=== PATIENT | female | born 1975 | race Two or more races ===

== ENCOUNTER 2020-09-16 19:53 | Inpatient (IN) | payer OTHER, SELFPAY ==
--- NOTE | ~2020-09-16 | US_ITS ---
EXAM: Pelvic Ultrasound CLINICAL INDICATION: Right-sided abdominal pain. Last Menstrual period 07/04/2020 COMPARISON: No similar prior imaging available for comparison at this institution. TECHNIQUE: The pelvis was evaluated using transabdominal imaging. FINDINGS: A single gestational sac is appreciated within the uterus. A yolk sac and pole are demonstrated. motion is appreciated. heart rate measured at 176 bpm. Pierce-rump length of 3.4 cm corresponds with an estimated gestational age of 10 weeks and 2 days. The left ovary measures approximately 2.0 x 1.4 x 1.5 cm and is normal. The right ovary measures approximately 2.8 x 2.0 x 2.0 cm and contains a 1.8 cm structure with characteristics suggestive of a regressing corpus luteum. There are no abnormal adnexal masses. There is no significant free fluid in the pelvis. US/US OB <= 14 weeks fetus IMPRESSION: Single live intrauterine with an estimated gestational age of 10 weeks and 2 days. Please note today's ultrasound was limited and only obtained to evaluate for viability and estimated dating. Follow-up detailed OB ultrasound recommended as clinically indicated.
--- NOTE | ~2020-09-16 | US_ITS ---
EXAMINATION: US RETROPERITONEAL LIMITED (RENAL ONLY) CLINICAL INFORMATION: Flank pain. COMPARISON: 10/28/2019 renal ultrasound. TECHNIQUE: Multiple 2-D grayscale and color Doppler ultrasound images of the kidneys were obtained. FINDINGS: RIGHT KIDNEY: 11.4 x 6.2 x 8.2 cm (SAG x AP x TRV). There is moderate dilatation of the collecting system. An echogenic focus in the lower pole measures 1.5 cm. An echogenic focus in the upper pole measures 1.6 cm. LEFT KIDNEY: 11.5 x 5.7 x 5.6 cm (SAG x AP x TRV). The kidney is normal in size, contour, and echogenicity. Renal cortical thickness is normal. No calculi or focal parenchymal lesions. No hydronephrosis. URINARY BLADDER: Mildly distended without focal abnormality. US/US renal BI IMPRESSION: Moderate right hydronephrosis with right intrarenal calculi as detailed above. The obstructing abnormality is not identified on this study. Further evaluation with a CT scan of the abdomen and pelvis is recommended.
--- NOTE | ~2020-09-16 | US_ITS ---
EXAMINATION: ULTRASOUND APPENDIX CLINICAL INFORMATION: Right-sided abdominal pain. COMPARISON: None TECHNIQUE: Multiple 2-D grayscale and color Doppler ultrasound images of the right lower quadrant were obtained. FINDINGS: The appendix was not visualized. There is no free fluid. The overlying soft tissues are unremarkable. Color Doppler showed no abnormal vascular flow. US/US appendix IMPRESSION: Nonidentification of the appendix. No overt inflammatory changes in the right lower quadrant.
[2020-09-16 20:37] VITALS: BP 122/72; PULSE 72; RESP 18; TEMP 36.7; O2SAT 100; BMI 26.6
[2020-09-16 21:03] LABS: MANUAL DIFF FLAG NO
[2020-09-16 21:05] LABS: Basophils Absolute Auto 0.1 X10*3/uL (0.0-0.2); Basophils Percent Auto 0.5 % (0-2); Eosinophils Absolute Auto 0.1 X10*3/uL (0.0-0.4); Eosinophils Percent Auto 0.6 % (0-4); Hematocrit 38.1 % (37-47); Hemoglobin 12.9 g/dl (12.0-16.0); Imm Gran Abs Auto 0.09 X10*3/uL (0.00-0.03); Imm Gran Pct Auto 0.5 % (0.0-0.4); Lymphocytes Absolute Auto 1.9 X10*3/uL (1.2-4.9); Lymphocytes Percent Auto 10.6 % (20-40); Mean Corpuscular HGB Conc 33.9 g/dl (31.0-35.0); Mean Corpuscular Hemoglobin 32.1 pg (27.0-33.0); Mean Corpuscular Volume 94.8 fL (80-98); Mean Platelet Volume 9.6 fL (9.4-12.3); Monocytes Percent Auto 5.6 % (2-11); Neutrophils Absolute Auto 14.3 X10*3/uL (2.0-8.3); Neutrophils Percent Auto 82.2 % (45-73); Platelet Count 313 X10*3/uL (160-400); Red Blood Count 4.02 X10*6/uL (4.20-5.50); Red Cell Distribution Width 13.2 % (11.0-16.0); White Blood Count 17.4 X10*3/uL (4.8-10.8)
[2020-09-16 21:05] LABS: Glucose Urine UA NEG (NEG); Leukocyte Esterase Urine 1+ (NEG); Nitrite Urine NEG (NEG); Specific Gravity - Urine 1.025 (1.005-1.025); UACC Culture Trigger YES; Urine Blood 2+ (NEG); Urine Ketones NEG (NEG); Urine Protein TRACE MG/DL (NEG-TRACE)
[2020-09-16 21:06] LABS: Appearance Urine HAZY; Color Urine YELLOW
[2020-09-16 21:15] VITALS: RESP 20
[2020-09-16 21:15] LABS: Squamous Epithelial Cell Urine 1+ /LPF
[2020-09-16] MEDS: Metoclopramide HCl 10 MG/2 ML VIAL IVPUSH (21:15)
[2020-09-16] MEDS: Morphine Sulfate 4 MG/ML CARTRIDGE IVPUSH ×3 (21:15→23:19)
[2020-09-16 21:16] LABS: Bacteria Urine 2+ /LPF
[2020-09-16] MEDS: 0.9 % Sodium Chloride 1,000 ML 999 ML IV (21:21)
[2020-09-16 21:27] LABS: Alanine Aminotransferase 11 U/L (0-31); Alkaline Phosphatase 63 U/L (39-117); Anion Gap 13 (12-20); Aspartate Amino Transferase 13 U/L (5-31); Bilirubin Total 0.5 mg/dL (0.0-1.0); Blood Urea Nitrogen 11 mg/dL (9-16); Calcium 9.3 mg/dL (8.4-10.2); Carbon Dioxide 22 mmol/L (22-29); Chloride 106 mmol/L (96-108); Creatinine Clr Calc Pharmacy 95.5; Estimated Glomerular Filt Rate > 60; Glucose Random 93 mg/dL (60-115); Potassium 3.9 mmol/L (3.3-5.1); Sodium 137 mmol/L (135-145); Total Protein 7.2 g/dL (6.5-8.0)
[2020-09-16 21:41] LABS: Lactic Acid 1.5 mmol/L (0.5-2.0)
--- NOTE | 2020-09-16 21:48 | ED.GENADULT ---
HPI - General Adult General Chief complaint: General Medical Stated complaint: flank pain, 10wks Time Seen by Provider: 09/16/20 20:55 Source: patient Mode of arrival: ambulatory Limitations: no limitations History of Present Illness HPI narrative: Pleasant 44-year-old female with past medical history that is significant for pyelonephritis and recurrent kidney stones requiring stenting as well as cystoscopy with lithotripsy most recently in August 2019 during which she had admission to [facility] there she underwent lithotripsy and stenting she sees Dr. Lincoln at [facility] Today; she presents with complaints sudden onset of right-sided flank pain radiating to the right side abdomen 2 hours prior to arrival. Pain described as sharp and stabbing like consistent with her previous kidney stone pain. Additionally she is 10 weeks gestation [facility] she has had thus far unremarkable had recent ultrasound that was stable. She has no gynecological complaints no complaints of dysuria, hematuria, vaginal bleeding or cramping. Onset (ago): hour(s) (2 hours prior to arrival) Location: left (Left flank) Radiation: abdomen and flank Severity: moderate and severe Severity scale (1-10): 8 Quality: stabbing and aching Pain Consistency: constant Relieving factors: none Exacerbating factors: none Associated symptoms: nausea/vomiting (The pain will make her nauseated and vomit) Treatments prior to arrival: none Related Data Home Medications Medication Instructions Recorded Confirmed 09/17/20 Allergies Allergy/AdvReac Type Severity Reaction Status Date / Time No Known Allergies Allergy Verified 09/16/20 20:55 Review of Systems Review of Systems: Constitutional: No Weight loss, No Fever, No Chills, No Night Sweats, No Fatigue, No Malaise ENT/Mouth: No Hearing loss, No Ear Pain, No Nasal Congestion, No Sinus Pain, No Hoarseness, No sore throat, No Rhinorrhea, No Swallowing Difficulty Eyes: No Eye Pain, No Swelling, No Redness, No Foreign Body, No Discharge, No Vision Changes Cardiovascular: No Chest Pain, No SOB, No Dyspnea on Exertion, No Orthopnea, No Edema, No Palpitations Respiratory: No Cough, No Sputum, No Wheezing, No Smoke Exposure, No Dyspnea Gastrointestinal: No Nausea, No Vomiting, No Diarrhea, No Constipation, No abdominal Pain, No Hematochezia, No Melena Genitourinary: no irregular bleeding, No Dysuria, No Urinary Frequency, No Hematuria, No Urinary Incontinence, No Urgency, + Flank Pain, No Urinary Flow Changes, No Hesitancy Musculoskeletal: No joint pain, No Myalgias, No Joint Swelling Skin: No Skin Lesions, No rash Neuro: No Weakness, No Numbness, No Paresthesias, No Loss of Consciousness, No Dizziness, No Headache Psych: No Social Issues Heme/Lymph: No Bruising, No Bleeding,No Lymphadenopathy Endocrine: No Polyuria, No Polydipsia, No Temperature Intolerance Yes all other systems are reviewed and are negative [facility] Past Medical History Medical History Kidney calculi No known health problems Social History Social History Advance Directives: No Patient : Yes Physical Exam Vital Signs: Vital Signs: Last Vital Signs Temp 97.5 F 09/16/20 22:28 Pulse 74 09/16/20 22:28 Resp 16 09/16/20 22:28 BP 127/79 09/16/20 22:28 Pulse Ox 100 09/16/20 22:28 Body Mass Index 26.6 Reviewed Const: General: acute distress (in pain) moderate and anxious; No intoxicated appearing Nutritional Appearance: average body habitus Orientation/consciousness: patient oriented x3 HENMT: Head: Yes normal to inspection Ears: hearing grossly normal bilaterally Eyes: General: appearance normal, both eyes and all related structures Visual [place]: normal visual [place] oca by confrontation Neck: Neck: Yes normal visual inspection, No positive Brudzinski's sign, No positive Kernig's sign and No tender Thyroid: Thyroid normal Chest: Chest palpation & inspection: normal inspection of the chest Resp: Effort & Inspection: normal respiratory effort Auscultation: clear to auscultation bilaterally Cardio: Jugular venous distension: no JVD Rhythm: regular rhythm Heart sounds: S1 normal heart sound present and S2 normal heart sound present GI: Inspection: Yes normal to inspection Palpation (GI): Soft to palpation Percussion: Yes normal to percussion Auscultation: normal bowel sounds Back/Spine/Pelvis: Back: CVA tenderness (Right-sided) Skin: General skin exam: no rashes or lesions noted Neuro: General: patient oriented x3 Extrem: General: Yes normal to inspection Course Reevaluation(s) Reevaluation #1: In review pleasant 44-year-old female with history of renal calculi requiring lithotripsy and stenting in the past with history of pyelonephritis currently 10 weeks 2 days gestation presenting with sudden onset of right flank pain consistent with renal calculi. 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 There was no complaints of vaginal bleeding or discharge. thus far has been overall well. Upon arrival appearing very uncomfortable and slightly pale she was given IV fluids with IV morphine and Reglan for pain management required multiple doses of this to control her pain. Ultrasound of the kidneys, right lower quadrant and Ob under 14 weeks was obtained in the meantime. Ob ultrasound shows single intrauterine live at 10 weeks 2 days, appendix not visualized. No overt inflammatory changes in the right lower quadrant. And ultrasound of the kidney showed Moderate right hydronephrosis with right intrarenal calculi as detailed in body of the report. The obstructing abnormality is not identified on this study. Further evaluation with a CT scan of the abdomen and pelvis was recommended. In the meantime I did review blood work shows leukocytosis of 17,000 UA is equivocal with negative ketones, negative nitrates, leukocyte esterase 1+, RBC 1 through 4, WBC 1 through 4, squamous cell 1+, bacteria 2+. She was given dose of ceftriaxone. At this point case was discussed with urology Dr. Mejía recommended for low does stone study CT scan I was called by Radiology Dr. Casey Agosto Radiology he recommends against this given that here at [facility] at this time I do not have the tools to administer a low-dose CT scan and he would discourage against this at this time and not authorize unless it is absolutely essential. Dr. Mejía aware this still feels that risk of radiation and congenital deformity is relatively low compared to procedure according to the [employer]. Will follow-up with patient in the morning to formulate a plan. Consultations Consultation #1: Dr. Mejía urology Consultation #2: Michelle Gaona allergy Dr. Peña Consultation #3: OBGYN Dr. Hdz per request of the family Medical Decision Making Lab Data Result diagrams: 09/16/20 20:56 09/16/20 20:55 Labs: Lab Results 09/16/20 09/16/20 09/16/20 Range/Units 20:55 20:56 20:57 WBC 17.4 H (4.8-10.8) X10*3/uL RBC 4.02 L (4.20-5.50) X10*6/uL Hgb 12.9 (12.0-16.0) g/dl Hct 38.1 (37-47) % MCV 94.8 (80-98) fL MCH 32.1 (27.0-33.0) pg MCHC 33.9 (31.0-35.0) g/dl RDW 13.2 (11.0-16.0) % Plt Count 313 (160-400) X10*3/uL MPV 9.6 (9.4-12.3) fL Immature Gran % (Auto) 0.5 H (0.0-0.4) % Neut % (Auto) 82.2 H (45-73) % Lymph % (Auto) 10.6 L (20-40) % Rock % (Auto) 5.6 (2-11) % Eos % (Auto) 0.6 (0-4) % Baso % (Auto) 0.5 (0-2) % Lymph # (Auto) 1.9 (1.2-4.9) X10*3/uL Rock # (Auto) 1.0 (0.1-1.2) X10*3/uL Eos # (Auto) 0.1 (0.0-0.4) X10*3/uL Baso # (Auto) 0.1 (0.0-0.2) X10*3/uL Abs Immat Gran (auto) 0.09 H (0.00-0.03) X10*3/uL Absolute Neuts (auto) 14.3 H (2.0-8.3) X10*3/uL Absolute Nucleated RBC 0.000 (0.0-0.012) X10*3/uL Nucleated RBC % (auto) 0.0 (0.0-0.2) /100WBC Sodium 137 (135-145) mmol/L Potassium 3.9 (3.3-5.1) mmol/L Chloride 106 (96-108) mmol/L Carbon Dioxide 22 (22-29) mmol/L Anion Gap 13 (12-20) BUN 11 (9-16) mg/dL Creatinine 0.73 (0.5-1.4) mg/dL Estim Creat Clear Calc 95.5 Estimated GFR > 60 Random Glucose 93 (60-115) mg/dL Lactic Acid (0.5-2.0) mmol/L Calcium 9.3 (8.4-10.2) mg/dL Total Bilirubin 0.5 (0.0-1.0) mg/dL AST 13 (5-31) U/L ALT 11 (0-31) U/L Alkaline Phosphatase 63 (39-117) U/L Total Protein 7.2 (6.5-8.0) g/dL Albumin 4.0 (3.5-5.0) g/dL Beta HCG, Quant 45059 mIU/mL Urine Color YELLOW Urine Appearance HAZY Urine pH 6.0 (5.0-8.0) Ur Specific [place] 1.025 (1.005-1.025) Urine Protein TRACE (NEG-TRACE) MG/DL Urine Glucose (UA) NEG (NEG) MG/DL Urine Ketones NEG (NEG) MG/DL Urine Blood 2+ H (NEG) Urine Nitrite NEG (NEG) Ur Leukocyte Esterase 1+ H (NEG) Urine RBC 1-4 (0) /HPF Urine WBC 1-4 (0-4) /HPF Ur Squamous Epith Cells 1+ /LPF Urine Bacteria 2+ /LPF Blood Type 09/16/20 09/16/20 Range/Units 21:13 21:13 WBC (4.8-10.8) X10*3/uL RBC (4.20-5.50) X10*6/uL Hgb (12.0-16.0) g/dl Hct (37-47) % MCV (80-98) fL MCH (27.0-33.0) pg MCHC (31.0-35.0) g/dl RDW (11.0-16.0) % Plt Count (160-400) X10*3/uL MPV (9.4-12.3) fL Immature Gran % (Auto) (0.0-0.4) % Neut % (Auto) (45-73) % Lymph % (Auto) (20-40) % Rock % (Auto) (2-11) % Eos % (Auto) (0-4) % Baso % (Auto) (0-2) % Lymph # (Auto) (1.2-4.9) X10*3/uL Rock # (Auto) (0.1-1.2) X10*3/uL Eos # (Auto) (0.0-0.4) X10*3/uL Baso # (Auto) (0.0-0.2) X10*3/uL Abs Immat Gran (auto) (0.00-0.03) X10*3/uL Absolute Neuts (auto) (2.0-8.3) X10*3/uL Absolute Nucleated RBC (0.0-0.012) X10*3/uL Nucleated RBC % (auto) (0.0-0.2) /100WBC Sodium (135-145) mmol/L Potassium (3.3-5.1) mmol/L Chloride (96-108) mmol/L Carbon Dioxide (22-29) mmol/L Anion Gap (12-20) BUN (9-16) mg/dL Creatinine (0.5-1.4) mg/dL Estim Creat Clear Calc Estimated GFR Random Glucose (60-115) mg/dL Lactic Acid 1.5 (0.5-2.0) mmol/L Calcium (8.4-10.2) mg/dL Total Bilirubin (0.0-1.0) mg/dL AST (5-31) U/L ALT (0-31) U/L Alkaline Phosphatase (39-117) U/L Total Protein (6.5-8.0) g/dL Albumin (3.5-5.0) g/dL Beta HCG, Quant mIU/mL Urine Color Urine Appearance Urine pH (5.0-8.0) Ur Specific [place] (1.005-1.025) Urine Protein (NEG-TRACE) MG/DL Urine Glucose (UA) (NEG) MG/DL Urine Ketones (NEG) MG/DL Urine Blood (NEG) Urine Nitrite (NEG) Ur Leukocyte Esterase (NEG) Urine RBC (0) /HPF Urine WBC (0-4) /HPF Ur Squamous Epith Cells /LPF Urine Bacteria /LPF Blood Type A Positive Discharge Plan Discharge Clinical Impression: Hydronephrosis, Renal calculi, UTI (urinary tract infection) Patient Disposition: Admitted As Inpatient Prescriptions: No Action RF: 0
[2020-09-16 21:57] VITALS: PULSE 73; RESP 16; O2SAT 100
[2020-09-16] MEDS: cefTRIAXone sodium 1 GM in 0.9 % Sodium Chloride 50 ML IV (22:24)
[2020-09-16 22:28] VITALS: BP 127/79; PULSE 74; RESP 16; TEMP 36.4; O2SAT 100
[2020-09-16] MEDS: Acetaminophen 325 MG TABLET 975 MG PO (23:20)
[2020-09-16] MEDS: ondansetron HCL 4 MG/2 ML VIAL IVPUSH (23:59)
[2020-09-17] VITALS (11 sets, daily range): BP systolic 93–125; BP diastolic 50–81; PULSE 69–79; RESP 15–18; TEMP 36.1–36.9; O2SAT 97–100
--- NOTE | 2020-09-17 00:30 | PC.NURSE ---
PT HAD EPISODES OF VOMITING AND ZOFRAN ORDER BY OMARI CRAIN. MORPHINE GIVEN EFFECTIVE PAIN LEVEL 4.
--- NOTE | 2020-09-17 00:36 | PC.NURSE ---
DR DELGADILLO REQUESTING LOW DOSE CT [facility] PT AND FAMILY REFUSING DO TO AGE OF GESTATION OF THE BABY AND NOT WANTING RADATION AT THIS TIME. OMARI CARIN SPOKE WITH FAMILY AND THEY WILL BE ADMITTING PT AND DR DELGADILLO WILL EVALUATE IN AM.
--- NOTE | 2020-09-17 01:21 | PC.NURSE ---
pt moved to main ed report given to peyton todd.
[2020-09-17] MEDS: Morphine Sulfate 4 MG/ML CARTRIDGE IVPUSH (02:13)
--- NOTE | 2020-09-17 05:09 | PM.IMHP ---
History of Present Illness Date of Service: 09/17/20 Chief Complaint: Flank pain This is a 44-year-old female with past medical history of kidney stones as well as urosepsis secondary to kidney stones, currently 10 weeks presents to the hospital with complaints of right flank pain that started 1 day prior to presentation, associated with nausea vomiting, 10/10, nonradiating, no fever no chills, no diarrhea constipation, no chest pain, no shortness of breath, no cough, no headache or change in vision. No urinary symptoms and no lower extremity edema. On arrival to the ED patient hemodynamically stable with no significant abnormal vitals. Temperature of 98.1. Labs on arrival significant for WBC count of 17.4, with a UA that is positive for leukocyte Estrace and some WBC otherwise labs unremarkable Renal ultrasound shows moderate right hydronephrosis with right enter renal calculi. The obstructing abnormality is not identified on this study. appendix ultrasound is negative Shows single live intrauterine with an estimated gestation age of 10 weeks. Urology was consulted, recommended a CT scan, but radiologist as well as patient were ensure that they want to go through with a CT scan, plan is to discuss further imaging versus intervention with urologist in a.m.. Past medical history as below and confirmed with patient Review of Systems Review of Systems: Yes all other systems are reviewed and are negative [facility] Medical History Kidney calculi No known health problems Social History Alcohol intake: never Smoked in Last 30 Days: No Use of substances other than those prescribed or required for medical reasons: No Advance Directives: No Patient : Yes Meds Allergies Allergy/AdvReac Type Severity Reaction Status Date / Time Penicillins Allergy Intermediate Hives Verified 09/17/20 05:12 amoxicillin Allergy Hives Verified 09/17/20 05:13 Home Medications Medication Instructions Recorded Confirmed Last Taken Type 09/17/20 09/15/20 History Physical Exam Vital Signs and Narrative: Vital Signs: Last Vital Signs Temp 97.8 F 09/17/20 01:47 Pulse 69 09/17/20 02:35 Resp 16 09/17/20 02:35 BP 125/75 09/17/20 02:35 Pulse Ox 100 09/17/20 01:47 Body Mass Index 26.6 Const: General: cooperative and no acute distress Orientation/consciousness: patient oriented x3 Eyes: General: appearance normal, both eyes and all related structures Resp: Effort & Inspection: normal respiratory effort and able to speak in complete sentences Cardio: Rate: regular rate Rhythm: regular rhythm GI: Palpation (GI): Soft to palpation Auscultation: normal bowel sounds : Other: Right CVA tenderness Skin: General skin exam: no rashes or lesions noted Neuro: General: patient oriented x3 Cognition (Neuro): normal cognition Extrem: General: Yes normal to inspection and Yes no pedal edema Results Labs CBC and Chem 7: 09/16/20 20:56 09/16/20 20:55 Labs: Laboratory Results - last 24 hr 09/16/20 09/16/20 09/16/20 20:55 20:56 20:57 MCV 94.8 MCH 32.1 MCHC 33.9 RDW 13.2 Plt Count 313 MPV 9.6 Immature Gran % (Auto) 0.5 H Neut % (Auto) 82.2 H Lymph % (Auto) 10.6 L Hanson % (Auto) 5.6 Eos % (Auto) 0.6 Baso % (Auto) 0.5 Lymph # (Auto) 1.9 Hanson # (Auto) 1.0 Eos # (Auto) 0.1 Baso # (Auto) 0.1 Abs Immat Gran (auto) 0.09 H Absolute Neuts (auto) 14.3 H Absolute Nucleated RBC 0.000 Nucleated RBC % (auto) 0.0 Anion Gap 13 Estim Creat Clear Calc 95.5 Estimated GFR > 60 Random Glucose 93 Lactic Acid Calcium 9.3 Total Bilirubin 0.5 AST 13 ALT 11 Alkaline Phosphatase 63 Total Protein 7.2 Albumin 4.0 Beta HCG, Quant 86970 Urine Color YELLOW Urine Appearance HAZY Urine pH 6.0 Ur Specific [place] 1.025 Urine Protein TRACE Urine Glucose (UA) NEG Urine Ketones NEG Urine Blood 2+ H Urine Nitrite NEG Ur Leukocyte Esterase 1+ H Urine RBC 1-4 Urine WBC 1-4 Ur Squamous Epith Cells 1+ Urine Bacteria 2+ Blood Type 09/16/20 09/16/20 21:13 21:13 MCV MCH MCHC RDW Plt Count MPV Immature Gran % (Auto) Neut % (Auto) Lymph % (Auto) Hanson % (Auto) Eos % (Auto) Baso % (Auto) Lymph # (Auto) Hanson # (Auto) Eos # (Auto) Baso # (Auto) Abs Immat Gran (auto) Absolute Neuts (auto) Absolute Nucleated RBC Nucleated RBC % (auto) Anion Gap Estim Creat Clear Calc Estimated GFR Random Glucose Lactic Acid 1.5 Calcium Total Bilirubin AST ALT Alkaline Phosphatase Total Protein Albumin Beta HCG, Quant Urine Color Urine Appearance Urine pH Ur Specific [place] Urine Protein Urine Glucose (UA) Urine Ketones Urine Blood Urine Nitrite Ur Leukocyte Esterase Urine RBC Urine WBC Ur Squamous Epith Cells Urine Bacteria Blood Type A Positive Imaging Radiologist's Impressions: Impressions Ultrasound 09/16/20 20:57 IMPRESSION: Single live intrauterine with an estimated gestational age of 10 weeks and 2 days. Please note today's ultrasound was limited and only obtained to evaluate for viability and estimated dating. Follow-up detailed OB ultrasound recommended as clinically indicated. Appendix Ultrasound 09/16/20 21:05 IMPRESSION: Nonidentification of the appendix. No overt inflammatory changes in the right lower quadrant. Renal Ultrasound 09/16/20 21:05 IMPRESSION: Moderate right hydronephrosis with right intrarenal calculi as detailed above. The obstructing abnormality is not identified on this study. Further evaluation with a CT scan of the abdomen and pelvis is recommended. Assessment and Plan (1) Hydronephrosis with renal calculous obstruction: Status: Acute (2) UTI (urinary tract infection): Status: Acute (3) : Status: Acute This is a 44-year-old female with past medical history of left kidney stone with placement of stent and removal about a year ago presents to the hospital with right flank pain found to have an obstructing intra renal calculi. # hydronephrosis with renal calculus obstruction - found on ultrasound of the abdomen - will start her on IV ceftriaxone for tx of uti - follow cultures of urine and blood - urology to follow up, currently patient would like to discuss further the need for CT scan as well as intervention to resolve the obstructing calculus # UTI - although asymptomatic given her as well as obstructing kidney stone will treat her with IV antibiotics - follow cultures # -continue - ultrasound showed viability DVT prophylaxis: Early ambulation
[2020-09-17] MEDS: Lactated Ringers 1,000 ML 125 ML IVCONT ×2 (06:22→11:48)
[2020-09-17 06:52] LABS: IDNOW Serial# 08D9AD1C
[2020-09-17 06:53] LABS: COVID-19 Test Negative (Negative)
[2020-09-17] MEDS: Acetaminophen 325 MG TABLET 650 MG PO ×2 (07:44→21:14)
--- NOTE | 2020-09-17 08:51 | P.CNUR_ITS ---
History of Present Illness Consult details Consult date: 09/17/20 Narrative: El is a 44 year female. She presented to the emergency room the evening of 09/16/2020 Right-sided flank pain with anterior lower quadrant radiation. Pain to 8/10. Required opiates for management. Known stone former Ten weeks Ultrasound right hydronephrosis but no evidence of obstructing stone. Stones within renal pelvis. This morning she is significantly improved with regards to symptomatic management for pain and nausea Last night there was a discussion regarding CT scan We discussed the need for definitive imaging prior to intervention At 10 weeks she would be at risk of loss with anesthesia. The risks for CT exposure brought of 20mGy are below 0.1% per [employer]. Since she has significantly improved she is willing to go home and if there is a 2nd presentation to the emergency room understands that imaging and intervention would be required WBC shows reactive white cell level UA shows dehydration PMFSH Past Medical History Medical History Kidney calculi No known health problems Social History Social History Alcohol intake: never Smoked in Last 30 Days: No Use of substances other than those prescribed or required for medical reasons: No Advance Directives: No Patient : Yes Meds Allergies Allergy/AdvReac Type Severity Reaction Status Date / Time Penicillins Allergy Intermediate Hives Verified 09/17/20 05:12 amoxicillin Allergy Hives Verified 09/17/20 05:13 Active Medications: Current Medications Generic Name Dose Route Start Last Admin Trade Name Bhaveshq PRN Reason Stop Dose Admin Acetaminophen 650 mg 09/17/20 07:26 09/17/20 07:44 Acetaminophen 325 Mg Tablet PO 650 mg Q6H PRN Administration Pain, Mild (Pain Scale 1-3) Docusate Sodium 100 mg 09/17/20 07:26 Docusate Sodium 100 Mg Capsule PO DAILY PRN Constipation Lactated Ringer's 1,000 mls @ 125 mls/hr 09/17/20 05:16 09/17/20 06:22 Lr IVCONT 125 mls/hr .Q8H ROSANGELA Administration Ceftriaxone Sodium 1 gm/ 50 mls @ 100 mls/hr 09/17/20 21:00 Sodium Chloride IV Q24H ROSANGELA Ondansetron HCl 4 mg 09/17/20 07:26 Ondansetron Hcl 4 Mg/2 Ml Vial IVPUSH Q8H PRN Nausea and Vomiting Sodium Chloride 3 ml 09/17/20 08:00 09/17/20 08:06 0.9 % Sodium Chloride Flush 3 Ml Syringe IVFLUSH Not Given QSHIFT [facility] Home Medications Medication Instructions Recorded Confirmed Last Taken Type 09/17/20 09/15/20 History Physical Exam Vital Signs: Vital Signs: Last Vital Signs Temp 97.8 F 09/17/20 01:47 Pulse 72 09/17/20 05:11 Resp 16 09/17/20 06:00 BP 121/76 09/17/20 06:00 Pulse Ox 98 09/17/20 06:00 Body Mass Index 26.6 Const: General: cooperative, healthy appearing, comfortable and no acute distress Nutritional Appearance: average body habitus Orientation/consciousness: oriented to person, oriented to place and oriented to time Eyes: General: appearance normal, both eyes and all related structures Chest: Chest palpation & inspection: normal inspection of the chest Resp: Effort & Inspection: normal respiratory effort Cardio: Rate: regular rate GI: Inspection: Yes normal to inspection Skin: Hair: normal Neuro: General: oriented to person, oriented to place and oriented to time Extrem: General: Yes normal to inspection Results Labs Result diagrams: 09/16/20 20:56 09/16/20 20:55 Labs: Abnormal lab results 09/16/20 09/16/20 Range/Units 20:56 20:57 WBC 17.4 H (4.8-10.8) X10*3/uL RBC 4.02 L (4.20-5.50) X10*6/uL Immature Gran % (Auto) 0.5 H (0.0-0.4) % Neut % (Auto) 82.2 H (45-73) % Lymph % (Auto) 10.6 L (20-40) % Abs Immat Gran (auto) 0.09 H (0.00-0.03) X10*3/uL Absolute Neuts (auto) 14.3 H (2.0-8.3) X10*3/uL Urine Blood 2+ H (NEG) Ur Leukocyte Esterase 1+ H (NEG) Short CBC 09/16/20 Range/Units 20:56 WBC 17.4 H (4.8-10.8) X10*3/uL Hgb 12.9 (12.0-16.0) g/dl Hct 38.1 (37-47) % Plt Count 313 (160-400) X10*3/uL BMP 09/16/20 20:55 Sodium 137 Potassium 3.9 Chloride 106 Carbon Dioxide 22 BUN 11 Creatinine 0.73 Calcium 9.3 Liver Function 09/16/20 Range/Units 20:55 Total Bilirubin 0.5 (0.0-1.0) mg/dL AST 13 (5-31) U/L ALT 11 (0-31) U/L Alkaline Phosphatase 63 (39-117) U/L Albumin 4.0 (3.5-5.0) g/dL Urine 09/16/20 Range/Units 20:57 Urine Color YELLOW Urine Appearance HAZY Urine pH 6.0 (5.0-8.0) Ur Specific [place] 1.025 (1.005-1.025) Urine Protein TRACE (NEG-TRACE) MG/DL Urine Glucose (UA) NEG (NEG) MG/DL All other labs normal. RIGHT KIDNEY: 11.4 x 6.2 x 8.2 cm (SAG x AP x TRV). There is moderate dilatation of the collecting system. An echogenic focus in the lower pole measures 1.5 cm. An echogenic focus in the upper pole measures 1.6 cm. Assessment and Plan (1) Renal calculi: Status: Acute Manage stone conservatively with opiates in acetaminophen as needed for pain Can follow with regular urologist
--- NOTE | 2020-09-17 10:17 | PC.NURSE ---
seen by hospitalist and urologst this am, ?plan for discharge if pt remains in control of pain throughout morning per dr garner. at bedside, ekta.
--- NOTE | 2020-09-17 11:20 | P.CONOB_ITS ---
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 White count was 17.4 right kidney ultrasound showed intrarenal calculi with moderate hydronephrosis, Ob ultrasound showed IUP with 10 weeks and 4 days of gestation with no abnormalities. The patient was seen by Dr. Mejía who recommended a CT scan for evaluation of right intrarenal calculi Q, the patient her has questions regarding the risk of exposure to radiation of the CT scan to a at 10 weeks of gestation. 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 - Review of Systems Review of Systems ROS Unobtainable: All systems reviewed & are unremarkable except as noted in HPI and below Cardiovascular: Denies Palpatations, Loss of consciousness and Chest pain Respiratory: Denies Cough, Wheezing and Shortness of breath Musculoskeletal: Denies Low back pain Gastrointestinal: Denies Heartburn, Constipation, Diarrhea, Nausea and Vomiting Genitourinary: Denies Pain with urination, Burning with urination and Urinary frequency Neurological: Denies Migranes Psychological: Denies Depression OB [facility] Past Medical History Medical History Kidney calculi No known health problems Social History Social History Alcohol intake: never Smoked in Last 30 Days: No Use of substances other than those prescribed or required for medical reasons: No Advance Directives: No Patient : Yes Meds Allergies Allergy/AdvReac Type Severity Reaction Status Date / Time Penicillins Allergy Intermediate Hives Verified 09/17/20 05:12 amoxicillin Allergy Hives Verified 09/17/20 05:13 Active Medications: Current Medications Generic Name Dose Route Start Last Admin Trade Name Freq PRN Reason Stop Dose Admin Acetaminophen 650 mg 09/17/20 07:26 09/17/20 07:44 Acetaminophen 325 Mg Tablet PO 650 mg Q6H PRN Administration Pain, Mild (Pain Scale 1-3) Docusate Sodium 100 mg 09/17/20 07:26 Docusate Sodium 100 Mg Capsule PO DAILY PRN Constipation Lactated Ringer's 1,000 mls @ 75 mls/hr 09/17/20 05:16 09/17/20 06:22 Lr IVCONT 125 mls/hr .[id number] ROSANGELA Administration Ceftriaxone Sodium 1 gm/ 50 mls @ 100 mls/hr 09/17/20 21:00 Sodium Chloride IV Q24H ROSANGELA Ondansetron HCl 4 mg 09/17/20 07:26 Ondansetron Hcl 4 Mg/2 Ml Vial IVPUSH Q8H PRN Nausea and Vomiting Sodium Chloride 3 ml 09/17/20 08:00 09/17/20 08:06 0.9 % Sodium Chloride Flush 3 Ml Syringe IVFLUSH Not Given QSHIFT [facility] Home Medications Medication Instructions Recorded Confirmed Last Taken Type [id number] 1 tab PO DAILY 09/17/20 09/17/20 09/16/20 History [] PROPELLANT [employer]GE [employer]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 ASSEMBLER Physical Exam Vitals Vital signs: Temp Pulse Resp BP Pulse Ox 97.8 F 73 15 96/59 L 98 09/17/20 01:47 09/17/20 09:32 09/17/20 09:32 09/17/20 09:32 09/17/20 09:32 Body Mass Index 26.6 Constitutional General Appearance: Healthy appearing, Well-nourished and Well-developed Psychiatric Mood and Affect: active and alert, normal mood and normal affect Skin Appearance: No rashes and No lesions Lungs Respiratory Effort: No intercostal retractions Auscultation: Clear to auscultation Cardiovascular Auscultation: RRR Abdomen Auscultation/Inspection/Palpation: Normal bowel sounds, Soft, Non-distended and No tenderness Female Genitalia (Pelvic) Exam: Deferred 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0-8.0) Ur Specific [place] 1.025 (1.005-1.025) Urine Protein TRACE (NEG-TRACE) MG/DL Urine Glucose (UA) NEG (NEG) MG/DL Assessment and Plan (1) : Status: Acute vitamin 1 tablet p.o. q.d., recommend after completion of the antibiotic course to start Macrobid 150 mg p.o. daily for suppression therapy till the end of since the patient has history of pyelonephritis and is at a risk of recurrence and its potential complications on (2) Hydronephrosis with renal calculous obstruction: Status: Acute Discussed with the patient and her risk of radiation exposure to at 10 weeks of gestation. Per ACOG guidelines for diagnostic imaging ring , the risk of severe intellectual delay starts at the threshold of 60 mGy. Risks of embryo demise is between 0-2 weeks after fertilization with threshold of 50 mGy, risk of teratogenic effect and growth restriction is between 2 and 8 weeks after fertilization with his threshold of 200 mGy. A low does CT scan is below does threshold threshold. In addition discussed with the patient and that a CT scan if deemed necessary should not be withheld from a patient. Another possible option if it is feasible is to use MRI for diagnosis, The principal advantage of MRI over computed tomography is the ability to image deep soft tissue structures in a manner that is not almond blancher operator dependent and does not use ionizing radiation. There are no precautions or contraindications specific to the woman. (3) UTI (urinary tract infection): Status: Acute As mentioned before recommended after completion of the antibiotic course for the treatment of UTI/possible pyelonephritis to start the patient on suppressive therapy till the end of with Macrobid 50 mg p.o. q.d. reduce the risk of recurrence of pyelonephritis and potential complications on
[2020-09-17] MEDS: Tamsulosin HCL 0.4 MG CAPSULE PO (12:17)
[2020-09-17] MEDS: cefTRIAXone sodium 1 GM in 0.9 % Sodium Chloride 50 ML IV (21:05)
[2020-09-18] MEDS: Lactated Ringers 1,000 ML 125 ML IVCONT (02:46)
[2020-09-18 04:00] VITALS: BP 97/68; PULSE 72; RESP 18; TEMP 36.6; O2SAT 99
[2020-09-18 05:21] LABS: Hematocrit 34.3 % (37-47); Hemoglobin 11.5 g/dl (12.0-16.0); Mean Corpuscular HGB Conc 33.5 g/dl (31.0-35.0); Mean Corpuscular Hemoglobin 32.2 pg (27.0-33.0); Mean Corpuscular Volume 96.1 fL (80-98); Mean Platelet Volume 9.7 fL (9.4-12.3); Platelet Count 294 X10*3/uL (160-400); Red Blood Count 3.57 X10*6/uL (4.20-5.50); Red Cell Distribution Width 13.4 % (11.0-16.0); White Blood Count 10.3 X10*3/uL (4.8-10.8)
[2020-09-18 05:52] LABS: Anion Gap 15 (12-20); Blood Urea Nitrogen 9 mg/dL (9-16); Calcium 8.5 mg/dL (8.4-10.2); Carbon Dioxide 21 mmol/L (22-29); Chloride 106 mmol/L (96-108); Creatinine Clr Calc Pharmacy 104.1; Estimated Glomerular Filt Rate > 60; Glucose Random 85 mg/dL (60-115); Potassium 3.6 mmol/L (3.3-5.1); Sodium 138 mmol/L (135-145)
[2020-09-18 08:00] VITALS: BP 110/63; PULSE 76; RESP 18; TEMP 36.4; O2SAT 99
[2020-09-18] MEDS: Tamsulosin HCL 0.4 MG CAPSULE PO (08:25)
--- NOTE | 2020-09-18 09:52 | MHC.CM.PN ---
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 MET WITH PATIENT EXPLAINED THE ROLE OF THE NURSE EMERGENCY VEHICLE TECHNICIAN IN THE TRANSITION FROM THE HOSPITAL lTO HOME, EDUCATED ABOUT THE IMPORTANCE OF HAVING A HEALTH CARE PROXY. PATIENT CURRENTLY IN UNEMPLOYED SHE IS ACTIVE, INDEPENDENT IN ALL ADLS AND MOBILITY, SHE confirmed pcp as dr Julee GRAHAM AT [facility] AND HER BAND AID MACHINE OPERATOR DR WHITNEY GARCIA [facility] . REQUESTING THAT DISCHARGE SUMMARY BE SENT TO THE TWO OBE DOCTORS , SHE HAS A UROLOGIST ALREADY OUT IN THE COMMUNITY, SHE HAS NO VNA /NO DME SERVICES SHE IS FIRST TRIMESTER, SHE SAID SHE HAD MANY QUESTIONS BUT THE DOCTORS HAVE ANSWERED MOST OF ALL THE QUESTIONS. SHE ANTICIPATES TO BE DISCHARGED HOME TODAY DISCHARGE PLAN HOME WITH AND CHIL;DREN NO SERVICES PCP DR JULEE GRAHAM TO CALL FOR POST [facility] DISCHARGE FOLLOW UP DR WHITNEY GARCIA BAND AID MACHINE OPERATOR SHE ALREADY HAS APPOINTMENT NEXT WEEK UROLOGIST F/U WITH HER OWN UROLOGIST TRANSPORTATION FAMILY EDUCARED ABOUT IMPORTANCE OF HAVIUNG HCP , BUT DECLINED AT THIS TIME
[2020-09-18 11:47] VITALS: BP 106/59; PULSE 72; RESP 18; TEMP 36.5; O2SAT 98
[2020-09-18 11:48] VITALS: BMI 26.6
--- NOTE | 2020-09-18 12:22 | P.DS_ITS ---
DS: Providers Provider Date of Service: 09/18/20 Date of admission: 09/17/20 04:07 Primary care physician: Unknown Physician Consults: 09/17/20 05:14 Consult to Urology Routine Consulting Provider: Vicente Mejía Reason for consultation: obstructing renal calculi Has provider been notified: Yes 09/17/20 07:26 Consult to Urology Routine Consulting Provider: Vicente Mejía Reason for consultation: nephrolithiasis Has provider been notified: Yes 09/17/20 07:27 Consult to Obstetrics / Gynecology Routine Consulting Provider: Scott Hdz Reason for consultation: 10 weeks w UTI\Hydronephrosis w stone for your kind eval and advic DS: Diagnosis Discharge Diagnosis (1) : Status: Acute (2) Hydronephrosis with renal calculous obstruction: Status: Acute (3) UTI (urinary tract infection): Status: Acute (4) Pyelonephritis: Status: Acute (5) Renal calculi: Status: Acute DS: Medications Discharge Medications Home Medications: Home Medications Medication Instructions Recorded Confirmed [id number] 1 tab PO DAILY 09/17/20 09/17/20 Previous Rx's Medication Instructions Recorded cefuroxime axetil 500 mg PO Q12H #14 tab 09/18/20 nitrofurantoin macrocrystal 50 mg PO DAILY #90 cap 09/18/20 tamsulosin 0.4 mg PO DAILY #14 cap 09/18/20 DS: Summary Hospital Course Hospital Course: Admission note HPI This is a 44-year-old female with past medical history of kidney stones as well as urosepsis secondary to kidney stones, currently 10 weeks presents to the hospital with complaints of right flank pain that started 1 day prior to presentation, associated with nausea vomiting, 10/10, nonradiating, no fever no chills, no diarrhea constipation, no chest pain, no shortness of breath, no cough, no headache or change in vision. No urinary symptoms and no lower extremity edema. On arrival to the ED patient hemodynamically stable with no significant abnormal vitals. Temperature of 98.1. Labs on arrival significant for WBC count of 17.4, with a UA that is positive for leukocyte Estrace and some WBC otherwise labs unremarkable Renal ultrasound shows moderate right hydronephrosis with right enter renal calculi. The obstructing abnormality is not identified on this study. appendix ultrasound is negative Shows single live intrauterine with an estimated gestation age of 10 weeks. Urology was consulted, recommended a CT scan, but radiologist as well as patient were ensure that they want to go through with a CT scan, plan is to discuss further imaging versus intervention with urologist in a.m.. Past medical history as below and confirmed with patient Hospital course The patient was admitted to the hospital for evaluation of right loin pain. An ultrasound was done showing evidence of hydronephrosis and ureteric stone. She was treated with IV fluid, morphine and Tylenol with good response as the pain improved significantly. Evaluated by Dr. Mejía from Urology who recommended a CT scan to guide any procedure but the patient was concerned about doing the CT scan and was put on hold. She continued to improved though as the pain decreases with thought of passing this stone. Urologist recommended to hold any intervention and to discharge the patient home on tamsulosin. Recommendation to come back to the hospital for any recurrence of the pain with agreement with the patient to do a CT scan at that point if we need to. Her urine showed evidence of bacteria with CVA tenderness on examination raising the suspicion of pyelonephritis. Urine cultures remain negative but she was treated with IV ceftriaxone during the hospital stay. Discharged Ceftin to finish total of 10 days of antibiotics. Evaluated by restorative coordinator Dr. Hdz who recommended suppressive antibiotic treatment with Macrobid 50 mg daily until delivery. Discharge plan Continue Ceftin for 1 more week Continue tamsulosin for 2 weeks, to follow-up with your urologist Will start Macrobid suppressive therapy after finishing antibiotic for the kidney infection. Come back to the hospital for any worsening pain with a plan to do a CT scan and possible intervention Time Spent with Patient Time attestation: Total time spent providing and/or coordinating discharge services: Discharge coordination time: Greater than 30 minutes Physical Exam Vital Signs: Vital Signs: Last Vital Signs Temp 97.7 F 09/18/20 11:47 Pulse 72 09/18/20 11:47 Resp 18 09/18/20 11:47 BP 106/59 L 09/18/20 11:47 Pulse Ox 98 09/18/20 11:47 Body Mass Index 26.6 DS: Data Data Completed and Pending Labs on day of discharge: Laboratory Results - last 24 hr 09/18/20 09/18/20 04:17 04:17 WBC 10.3 RBC 3.57 L Hgb 11.5 L Hct 34.3 L MCV 96.1 MCH 32.2 MCHC 33.5 RDW 13.4 Plt Count 294 MPV 9.7 Absolute Nucleated RBC 0.000 Nucleated RBC % (auto) 0.0 Sodium 138 Potassium 3.6 Chloride 106 Carbon Dioxide 21 L Anion Gap 15 BUN 9 Creatinine 0.67 Estim Creat Clear Calc 104.1 Estimated GFR > 60 Random Glucose 85 Calcium 8.5 D Preliminary micro results at discharge 09/16/20 21:13 Blood Culture - Preliminary Blood - Venous No growth after 24 hours. 09/16/20 20:56 Blood Culture - Preliminary Blood - Venous No growth after 24 hours. Discharge Plan Discharge Patient Disposition: Home, Self-Care Discharge Diagnosis: Kidney stone, hydronephrosis, Urinary tract infection Referrals: Physician,Unknown [Primary Care Provider] - 1 Week Discharge Medications: New tamsulosin 0.4 mg Capsule 0.4 mg PO DAILY Qty: 14 RF: 0 cefuroxime axetil 500 mg tablet 500 mg PO Q12H Qty: 14 RF: 0 nitrofurantoin macrocrystal 50 mg capsule 50 mg PO DAILY Qty: 90 RF: 1 Continued [id number]-gaz-Cn-FA 1 mg Tablet 1 tab PO DAILY RF: 0 Discharge Orders: Discharge Order (Routine); Ordered 09/18/20 Ordered By: Carlotta Henley Diet: advance to usual diet Activity on Discharge: As tolerated Stand Alone Forms: Patient Portal Discharge page Care Plan Goals: Read below Health Concerns: Read below Plan of Treatment: You were admitted to the hospital for evaluation of right loin pain. Ultrasound was significant for fluid collection around the kidney and stone in your ureter. You were evaluated by urologist Dr. Mejía who decided to hold on any intervention at this point as your pain started to improve. You were treated for kidney infection with IV antibiotics with good response over the course of hospital stay. Evaluated by Dr. Hdz from Obstetrics who advises to treat you for the infection then to continue with Macrobid for the risk of to prevent recurrent infections. Assessment: Continue Ceftin for 1 more week Continue tamsulosin for 2 weeks, to follow-up with your urologist Will start Macrobid suppressive therapy after finishing antibiotic for the kidney infection. Come back to the hospital for any worsening pain with a plan to do a CT scan and possible intervention
== END 2020-09-18 14:07 | disposition home or self-care (01) | DRG 566 ==
LOC: HO.ED 09-17 01:26 → HO.EDOVER 09-17 04:26 → HO.S3 09-17 10:59
PROVIDERS: Nurse Practitioner Primary Care; Admitting Provider Internal Medicine; Emergency Provider Internal Medicine; Visit Provider Student in an Organized Health Care Education/Training Program
DX: O23.01 Infections of kidney in pregnancy, first trimester (principal); Z87.442 Personal history of urinary calculi; Z88.0 Allergy status to penicillin; N13.6 Pyonephrosis; Z3A.10 10 weeks gestation of pregnancy; Z79.899 Other long term (current) drug therapy
CPT/HCPCS: 36415; 76705; 76775; 76801; 80048; 80053; 81001; 81003; 83605; 84702; 85025; 85027; 86900; 86901; 87040; 87086; 87635; 96365; 96375; 99285; J0696; J2270; J2405; J2765

== ENCOUNTER 2023-08-12 11:58 | Inpatient (IN) | payer OTHER, SELFPAY ==
[2023-08-12] VITALS (9 sets, daily range): BP systolic 92–130; BP diastolic 50–64; PULSE 73–125; RESP 14–21; TEMP 36.5–39.5; O2SAT 95–99; BMI 23.9
--- NOTE | ~2023-08-12 | FL_ITS ---
EXAMINATION: XR FLUOROSCOPY WITH IMAGES CLINICAL INFORMATION: Left retrograde pyelogram and Left-sided stent placement COMPARISON: None available. TECHNIQUE: Fluoroscopy Supervised By: Dr. Avery. Fluoroscopy Time: 19.1. Cumulative Dose: 5.22 mGy. DAP: None available on the machine Images: 4. FINDINGS: 4 views demonstrating contrast within a dilated distal left ureter and within the intrarenal collecting system of the left kidney as well as views of a double-J stent within the collecting system of the left kidney and projected over the pelvis along the path of the left ureter were obtained. FL/FL guidance in OR IMPRESSION: Fluoroscopic guidance was provided for left retrograde urogram and left stent placement.
--- NOTE | ~2023-08-12 | CT_ITS ---
EXAMINATION: CT ABDOMEN AND PELVIS WITHOUT CONTRAST CLINICAL INFORMATION: Left flank pain, suspected stone COMPARISON: Renal ultrasound 10/16/2020 TECHNIQUE: Multidetector volumetric images were obtained from the superior aspect of the liver through the pubic symphysis without contrast. Sagittal and coronal reformatted images were obtained on the technologist's workstation. Oral contrast: No This CT examination was performed using dose optimization techniques as appropriate, variously including the following: *Automated exposure control *Adjustment of mA and/or kV according to patient size (this includes techniques or standardized protocols for targeted exams where dose is matched to indication/reason for exam; i.e. extremities or head) *Use of iterative reconstruction technique DLP: 588 mGy-cm FINDINGS: LUNG BASES: The visualized lung bases are unremarkable. LIVER, GALLBLADDER, AND BILIARY TREE: The liver is normal in size, shape, and attenuation. No focal hepatic lesion or biliary ductal dilatation is present. The gallbladder is unremarkable with no evidence of radiopaque gallstones, gallbladder wall thickening, or obvious pericholecystic inflammatory changes. PANCREAS: Unremarkable. SPLEEN: Unremarkable. ADRENAL GLANDS: Unremarkable. KIDNEYS AND URETERS: Multiple calcifications in bilateral kidneys, could reflect nephrocalcinosis or renal calculi. There is moderate left hydroureteronephrosis. There is a 7 mm obstructing calculus in the al ureter the level of the upper sacrum. The ureter distal to this is decompressed. Small hypodense lesions, too small to characterize, probable cysts. No further evaluation is needed. Cysts was seen on the prior ultrasounds as well. No significant perinephric stranding. BLADDER: Nondistended, . Unremarkable. GASTROINTESTINAL TRACT: Stomach is nondistended. Nonobstructive bowel gas pattern. No colonic wall thickening or pericolonic inflammatory changes. Normal appendix. ABDOMINAL WALL: Periumbilical an anterior abdominal wall surgical clips. No significant hernia is appreciated. LYMPH NODES: No pathologically enlarged lymph nodes. VASCULAR: Normal caliber aorta. PELVIC VISCERA: Within normal limits for CT.. Anteverted uterus. OSSEOUS STRUCTURES: No acute or suspicious osseous abnormality. CT/CT abdomen pelvis w IV con IMPRESSION: 1. Moderate left hydroureteronephrosis with a 7 mm obstructing calculus in the left ureter at the level of the upper sacrum. 2. Innumerable calcifications in bilateral kidneys, which could reflect nephrocalcinosis or renal calculi. Fleischner guidelines were followed.
--- NOTE | 2023-08-12 12:37 | ED_ITS ---
HPI - Female Genitourinary General Chief complaint: Urogenital-Female Stated complaint: nausea vomiting uti Time Seen by Provider: 08/12/23 12:17 Source: patient Mode of arrival: ambulatory History of Present Illness HPI Narrative: 47-year-old female with known history of pyelonephritis and renal colic presents with having felt unwell over a week ago, noted to have a urinary tract infection and completed a course of Macrobid, and then over the past couple of days has started to feel worse with weakness/fatigue/nausea/vomiting and lower abdominal discomfort. Related Data Home Medications Medication Instructions Recorded Confirmed ascorbic acid (vitamin C) 500 mg 500 mg PO DAILY 08/12/23 08/12/23 tablet (Vitamin C) biotin 10,000 mcg capsule 10,000 mcg PO DAILY 08/12/23 08/12/23 cholecalciferol (vitamin D3) 25 25 mcg PO DAILY 08/12/23 08/12/23 mcg (1,000 unit) capsule (Vitamin D3) Allergies Allergy/AdvReac Type Severity Reaction Status Date / Time Penicillins Allergy Intermediate Hives Verified 09/17/20 05:12 amoxicillin Allergy Hives Verified 09/17/20 05:13 Review of Systems 2 Review of Systems: Pertinent positives and negatives as stated in HPI [facility] Past Medical History Source: nursing notes reviewed Medical History Hydronephrosis with renal calculous obstruction Renal calculi Hydronephrosis Kidney calculi No known health problems Social History Social History Household Members: Family Housing: House Do you presently have visiting nurse or other home services: No Alcohol intake: never Advance Directives: No Advance Directives Information Provided: No service: No Current occupational status: unemployed Physical Exam 2 Vital Signs: Vital Signs: Last Vital Signs Temp 99.2 F 08/12/23 14:27 Pulse 110 H 08/12/23 14:27 Resp 14 08/12/23 14:27 BP 101/62 08/12/23 14:27 Pulse Ox 97 08/12/23 14:27 O2 Del Method Room Air 08/12/23 14:27 BMI result Body Mass Index 23.9 VITAL SIGNS: Reviewed. GENERAL: Well developed, well nourished, in no acute distress. HEAD: Normocephalic/atraumatic EYES: PERRLA, EOMI EARS: Ext canals without abnormality, TMs non-bulging and non-erythematous NOSE: Nares patent bilateral OROPHARYNX: no oral lesions noted, posterior pharynx clear and non-erythematous without noted tonsillar enlargement/erythema/exudates NECK: Supple, no adenopathy LUNGS: Normal breath sounds. No adventitious sounds or accessory muscle use. SpO2<99> CARDIOVASCULAR: Regular rate and rhythm without noted murmurs ABDOMEN: Soft, mid lower abdominal pelvic pain on deep palpation without rebound, non-distended with bowel sounds, no CVA tenderness MUSCULOSKELETAL: No tenderness, deformities, or effusions noted on gross inspection. EXTREMITIES: No cyanosis, clubbing or edema. SKIN: Inspection of the skin reveals no rashes NEUROLOGIC: Alert and oriented x 4. Strength and sensation to light touch were grossly intact x 4. Medications Administered Discontinued Medications Generic Name Dose Route Start Last Admin Trade Name Freq PRN Reason Stop Dose Admin Acetaminophen 975 mg 08/12/23 12:35 08/12/23 12:45 Acetaminophen 325 Mg Tablet PO 08/12/23 12:36 975 mg ONCE ONE Administration Sodium Chloride 1,000 mls @ 999 mls/hr 08/12/23 12:45 08/12/23 14:38 Ns IV 08/12/23 13:45 Infused .Q1H1M ROSANGELA Infusion Ceftriaxone Sodium 2 gm/ 50 mls @ 100 mls/hr 08/12/23 12:37 08/12/23 14:38 Sodium Chloride IV 08/12/23 13:06 Infused ONCE ONE Infusion Sodium Chloride 1,000 mls @ 999 mls/hr 08/12/23 13:45 08/12/23 13:59 Ns IV 08/12/23 14:45 999 mls/hr .Q1H1M ROSANGELA Administration Iohexol 100 ml 08/12/23 14:40 08/12/23 14:40 Iohexol 350 Mg/Ml 100 Ml Infus..Btl IV 08/12/23 14:41 85 ml ONCE ONE Administration Ketorolac Tromethamine 15 mg 08/12/23 12:35 08/12/23 12:45 Ketorolac Tromethamine 30 Mg/Ml Vial IVPUSH 08/12/23 12:36 15 mg ONCE ONE Administration Ondansetron HCl 4 mg 08/12/23 12:35 08/12/23 12:45 Ondansetron Hcl 4 Mg/2 Ml Vial IVPUSH 08/12/23 12:36 4 mg ONCE ONE Administration Medical Decision Making Medical Decision Making [facility] Narrative: 1237: Suspect infection. Sepsis alert called. This is a 47-year-old female with history and clinical presentation, DDX: Sepsis/pyelonephritis and possibility of concomitant renal colic or viral illness. INTERVENTION: IV fluids, antiemetic, Toradol, Tylenol, Rocephin I reviewed all investigations and hematologic indices are significant for leukocytosis/left shift, there is a stable normocytic anemia and a mild elevation of platelets likely secondary to underlying SIRS response. Chemistry indices do not indicate an LILIAN however there is evidence of metabolic acidosis attributable to elevated lactic acid and a bump in the total bilirubin likely reflecting patient's severe sepsis. Urinalysis significant for infection. 1446: I discussed the case with inpatient hospitalist who accepts admission. 1505: I discussed the case with Dr. Avery who recommends NPO, continue hydration and antibiotics and will follow patient in consultation. My prelim review of CT scan demonstrates severe hydronephrosis on the left with ureterolithiasis/obstructive stone approximately 7 mm at the mid left ureter. Differential Diagnosis Differential Diagnoses: The differential diagnosis associated with the presentation includes Please see the discussion above Admission/Observation Consideration of admission/observation: Escalation of care including admission/observation considered Please see the discussion above Consult Healthcare Provider Management of the patient was discussed with: Hospitalist Please see the discussion above Lab Data [facility] Lab Attestation statement: I reviewed the patient's lab results. Please see the discussion above 08/12/23 12:31 08/12/23 12:31 Labs: Lab Results 08/12/23 08/12/23 Range/Units 12:31 14:58 WBC 27.8 H (4.8-10.8) X10*3/uL RBC 3.61 L (4.20-5.50) X10*6/uL Hgb 11.5 L (12.0-16.0) g/dl Hct 32.8 L (37.0-47.0) % MCV 90.9 (80.0-98.0) fL MCH 31.9 (27.0-33.0) pg MCHC 35.1 H (31.0-35.0) g/dl RDW 13.8 (11.0-16.0) % Plt Count 434 H (160-400) X10*3/uL MPV 9.4 (9.4-12.3) fL Immature Gran % (Auto) 0.8 H (0.0-0.4) % Neut % (Auto) 88.4 H (45-73) % Lymph % (Auto) 3.4 L (20-40) % [place] % (Auto) 7.1 (2-11) % Eos % (Auto) 0.0 (0-4) % Baso % (Auto) 0.3 (0-2) % Lymph # (Auto) 0.9 L (1.2-4.9) X10*3/uL [place] # (Auto) 2.0 H (0.1-1.2) X10*3/uL Eos # (Auto) 0.0 (0.0-0.4) X10*3/uL Baso # (Auto) 0.1 (0.0-0.2) X10*3/uL Abs Immat Gran (auto) 0.22 H (0.00-0.03) X10*3/uL Absolute Neuts (auto) 24.6 H (2.0-8.3) x10*3/uL Absolute Nucleated RBC 0.000 (0.0-0.012) X10*3/uL Nucleated RBC % (auto) 0.0 (0.0-0.2) /100WBC Smear Tech's Comments VERIFIED Sodium 136 (135-145) mmol/L Potassium 4.0 (3.3-5.1) mmol/L Chloride 106 (96-108) mmol/L Carbon Dioxide 19 L (22-29) mmol/L Anion Gap 15 (12-20) BUN 11 (9-16) mg/dL Creatinine 0.83 (0.5-1.4) mg/dL Estim Creat Clear Calc 73.1 Estimated GFR > 60 Random Glucose 138 H (60-115) mg/dL Lactic Acid 2.7 H* (0.5-2.0) mmol/L Calcium 9.3 D (8.4-10.2) mg/dL Total Bilirubin 1.6 H (0.0-1.0) mg/dL AST 19 (5-31) U/L ALT 22 (0-31) U/L Alkaline Phosphatase 77 (39-117) U/L Total Protein 7.9 (6.5-8.0) g/dL Albumin 3.9 (3.5-5.0) g/dL Beta HCG, Quant < 2 mIU/mL Urine Color Yellow Urine Appearance Cloudy Urine pH 7.0 (5.0-9.0) Ur Specific [place] 1.015 (1.005-1.025) Urine Protein 30 (1+) H (Neg-Trace) mg/dL Urine Glucose (UA) 100 H (Negative) mg/dL Urine Ketones Trace (Negative) mg/dL Urine Blood Large (3+) H (Negative) Urine Nitrite Positive H (Negative) Ur Leukocyte Esterase Large (3+) H (Negative) Urine RBC >20 H (0-2) /HPF Urine WBC >50 H (0-5) /HPF Ur Squamous Epith Cells 0-2 (0-2) /HPF Urine Bacteria 2+ (None Seen) Hyaline Casts 0-2 (0-2) /LPF Radiology Impression Discussion of test interpretation with radiology: I have reviewed the radiologist's reading. Radiologist Impression: Please see the discussion above External Record Review External record reviewed: Outpatient record, Prior outpatient labs and Prior outpatient radiology Critical Care Time Critical Care Time Critical Care Time: Yes Total Critical Care Time: 60 Attestation: I personally attest to this time spent taking care of the patient. Discharge Plan Discharge Clinical Impression: Pyelonephritis, Severe sepsis, Hydronephrosis, Ureterolithiasis Patient Disposition: Admitted As Inpatient
[2023-08-12 12:43] LABS: Basophils Absolute Auto 0.1 X10*3/uL (0.0-0.2); Basophils Percent Auto 0.3 % (0-2); Hematocrit 32.8 % (37.0-47.0); Hemoglobin 11.5 g/dl (12.0-16.0); Imm Gran Abs Auto 0.22 X10*3/uL (0.00-0.03); Imm Gran Pct Auto 0.8 % (0.0-0.4); Lymphocytes Absolute Auto 0.9 X10*3/uL (1.2-4.9); Lymphocytes Percent Auto 3.4 % (20-40); MANUAL DIFF FLAG SCAN; Mean Corpuscular HGB Conc 35.1 g/dl (31.0-35.0); Mean Corpuscular Hemoglobin 31.9 pg (27.0-33.0); Mean Corpuscular Volume 90.9 fL (80.0-98.0); Mean Platelet Volume 9.4 fL (9.4-12.3); Monocytes Percent Auto 7.1 % (2-11); Neutrophils Absolute Auto 24.6 x10*3/uL (2.0-8.3); Neutrophils Percent Auto 88.4 % (45-73); Platelet Count 434 X10*3/uL (160-400); Red Blood Count 3.61 X10*6/uL (4.20-5.50); Red Cell Distribution Width 13.8 % (11.0-16.0); SCAN SMEAR FLAG 1; White Blood Count 27.8 X10*3/uL (4.8-10.8)
[2023-08-12] MEDS: ondansetron HCL 4 MG/2 ML VIAL IVPUSH ×2 (12:45→18:21)
[2023-08-12] MEDS: Ketorolac Tromethamine 30 MG/ML VIAL 15 MG IVPUSH (12:45)
[2023-08-12] MEDS: Acetaminophen 325 MG TABLET 975 MG PO (12:45)
[2023-08-12] MEDS: 0.9 % Sodium Chloride 1,000 ML 999 ML IV ×2 (12:45→13:59)
[2023-08-12] MEDS: cefTRIAXone sodium 2 GM in 0.9 % Sodium Chloride 50 ML IV (12:47)
[2023-08-12 12:51] LABS: Alanine Aminotransferase 22 U/L (0-31); Albumin Level 3.9 g/dL (3.5-5.0); Alkaline Phosphatase 77 U/L (39-117); Anion Gap 15 (12-20); Aspartate Amino Transferase 19 U/L (5-31); Bilirubin Total 1.6 mg/dL (0.0-1.0); Blood Urea Nitrogen 11 mg/dL (9-16); Calcium 9.3 mg/dL (8.4-10.2); Carbon Dioxide 19 mmol/L (22-29); Chloride 106 mmol/L (96-108); Creatinine Clr Calc Pharmacy 73.1; Estimated Glomerular Filt Rate > 60; Glucose Random 138 mg/dL (60-115); Sodium 136 mmol/L (135-145); Total Protein 7.9 g/dL (6.5-8.0)
[2023-08-12 12:53] LABS: Lactic Acid 2.7 mmol/L (0.5-2.0)
[2023-08-12 13:07] LABS: SLIDE REVIEW VERIFIED
--- NOTE | 2023-08-12 13:12 | PC.NURSE ---
patient presented febrile, Iv started 20# in the left wrist, cultures done, lab work done. patient IV fluids, medications and abx mediated per MAR, unable to scan meds due to system downtime. patient respirations equal and unlabored, skin dry and intact. call dunlap within reach.
[2023-08-12 14:10] LABS: HCG Quantitative < 2 mIU/mL
[2023-08-12 14:35] LABS: Reflex Lactate? Lactic Acid Added
[2023-08-12] MEDS: iohexoL 350 MG/ML 100 ML INFUS..BTL IV (14:40)
--- NOTE | 2023-08-12 14:59 | PHA.MEDREC ---
Pharmacy Consult ? Medication Reconciliation Pharmacy has completed the medication reconciliation.
[2023-08-12 15:07] LABS: Appearance Urine Cloudy; Color Urine Yellow; Glucose Urine UA 100 mg/dL (Negative); Leukocyte Esterase Urine Large (3+) (Negative); Nitrite Urine Positive (Negative); Specific Gravity - Urine 1.015 (1.005-1.025); UMIC TRIGGER UACC YES; Urine Blood Large (3+) (Negative); Urine Ketones Trace mg/dL (Negative); Urine Protein 30 (1+) mg/dL (Neg-Trace)
[2023-08-12 15:12] LABS: Bacteria Urine 2+ (None Seen); Hyaline Casts Urine 0-2 /LPF (0-2); RBC Urine >20 /HPF (0-2); Squamous Epithelial Cell Urine 0-2 /HPF (0-2); UACC Culture Trigger YES; WBC Urine >50 /HPF (0-5)
[2023-08-12 15:15] LABS: UPreg QC Valid YES; Urine Pregnancy NEGATIVE (NEGATIVE)
--- NOTE | 2023-08-12 15:31 | P.HPHOSP_ITS ---
History of Present Illness Date of Service: 08/12/23 Attending physician on admission: Roldan Arora Chief Complaint: abd cramping, n/v 47 year old female with history of nephrolithiasis, pyelonephritis with sepsis presents to the ED for evaluation of abdominal cramping, nausea/vomiting ongoing x 2 weeks. She was seen at urgent care two weeks ago and diagnosed with UTI. Completed course of macrobid. However, symptoms persisted and she began feeling worse with fevers up to 100, chills, fatigue, generalized lower abdominal cramping, and nausea/vomiting over the last few days. She presented to again today recommending she present to the ED for evaluation. On arrival, febrile to 103.1, tachycardic to 125. No hypotension. She has a leukocytosis of 27.8 with left shift. Renal function an dlytes normal except for co2 19. Glucose 138. Lactic acid 2.7, repeat 1.0 following IVF. Urine hcg negative. UA with 3+ leuks, positive nitrites, 3+ blood, positive urinary sediment, and 2+ bacteria. Ct abd/pelvis report pending but shows large obstructing left sided ureteral stone with left sided hydronephrosis with perinephritic fat stranding. in the ED, given 2g iv ceftriaxone, ketorolac, zofran, and 2L IV NS. Pt to be admitted for acute pyelonephritis with severe sepsis and obstructive uropathy. Review of Systems 2 Review of Systems: General: +fevers, +fatigue. No malaise, unintentional weight loss HEENT: No blurred vision, diplopia. No sore throat, nasal congestion, rhinorrhea, sinus pain, ear pain Cardiovascular: No chest pain, palpitations, or leg edema Respiratory: No shortness of breath, wheezing, cough GI: +abdominal pain, +nausea, +vomiting. No diarrhea, constipation, melena, hematochezia : No dysuria, hematuria, increased urinary frequency, decreased urinary output MSK: No myalgia, back pain Neuro: No headaches, weakness, paresthesias Skin: No rashes or lesions [facility] Medical History (Updated 08/12/23 @ 15:40 by MASOUD Valdez) Hydronephrosis with renal calculous obstruction Renal calculi Hydronephrosis Kidney calculi Social History Household Members: Family Housing: House Do you presently have visiting nurse or other home services: No Alcohol intake: never Advance Directives: No Advance Directives Information Provided: No service: No Current occupational status: unemployed Meds Allergies Allergy/AdvReac Type Severity Reaction Status Date / Time Penicillins Allergy Intermediate Hives Verified 09/17/20 05:12 amoxicillin Allergy Hives Verified 09/17/20 05:13 Active Medications: Current Medications Acetaminophen (Acetaminophen 325 Mg Tablet) 650 mg PO Q6H PRN PRN Reason: Pain, Mild (Pain Scale 1-3) Ascorbic Acid (Ascorbic Acid 500 Mg Tablet) 500 mg PO DAILY [facility] Sodium Chloride (Ns) 1,000 mls @ 125 mls/hr IVCONT .Q8H ROSANGELA Ceftriaxone Sodium 2 gm/ (Sodium Chloride) 50 mls @ 100 mls/hr IV Q24H ROSANGELA Ketorolac Tromethamine (Ketorolac Tromethamine 15 Mg/Ml Vial) 15 mg IVPUSH Q6H PRN PRN Reason: Pain, Moderate(Pain Scale 4-6) Morphine Sulfate (Morphine Sulfate 2 Mg/Ml Cartridge) 2 mg IVPUSH Q4H PRN; Protocol PRN Reason: Pain, Severe (Pain Scale 7-10) Non-Formulary Medication (Biotin) 10,000 mcg PO DAILY [facility] Ondansetron HCl (Ondansetron Hcl 4 Mg/2 Ml Vial) 4 mg IVPUSH Q8H PRN PRN Reason: Nausea and Vomiting Senna (Sennosides 8.6 Mg Tablet) 17.2 mg PO BEDTIME PRN PRN Reason: Constipation Sodium Chloride (0.9 % Sodium Chloride Flush 3 Ml Syringe) 3 ml IVFLUSH QSHIFT [facility] Vitamin D (Cholecalciferol (Vitamin D3) 25 Mcg Tablet) 25 mcg PO DAILY [facility] Home Medications Medication Instructions Recorded Confirmed Last Taken Type ascorbic acid (vitamin C) 500 mg 500 mg PO DAILY 08/12/23 08/12/23 2 Days Ago History tablet (Vitamin C) ~08/10/23 biotin 10,000 mcg capsule 10,000 mcg PO DAILY 08/12/23 08/12/23 2 Days Ago History ~08/10/23 cholecalciferol (vitamin D3) 25 25 mcg PO DAILY 08/12/23 08/12/23 2 Days Ago History mcg (1,000 unit) capsule (Vitamin ~08/10/23 D3) Physical Exam 2 Vital Signs and Narrative: Vital Signs: Last Vital Signs Temp 99.2 F 08/12/23 14:27 Pulse 110 H 08/12/23 14:27 Resp 14 08/12/23 14:27 BP 101/62 08/12/23 14:27 Pulse Ox 97 08/12/23 14:27 O2 Del Method Room Air 08/12/23 14:27 BMI result Body Mass Index 23.9 Constitutional - Awake and Alert, No apparent distress Eyes - PERRLA, EOMI Cardiovascular - S1S2, RRR, No edema Respiratory - Normal lung expansion, Normal respiratory effort, No respiratory distress, CTA bilaterally Gastrointestinal - diffuse ttp, greatest in LLQ, ND; +BS; No rebound or guarding - No CVA tenderness Extremities - no calf tenderness bilaterally, no swelling Skin - Warm/Dry Neurological - Alert & oriented x3 Psychological - Appropriate affect Results Labs 08/12/23 12:31 08/12/23 12:31 Labs: Laboratory Results - last 24 hr 08/12/23 08/12/23 08/12/23 12:31 14:58 14:59 MCV 90.9 MCH 31.9 MCHC 35.1 H RDW 13.8 Plt Count 434 H MPV 9.4 Immature Gran % (Auto) 0.8 H Neut % (Auto) 88.4 H Lymph % (Auto) 3.4 L [place] % (Auto) 7.1 Eos % (Auto) 0.0 Baso % (Auto) 0.3 Lymph # (Auto) 0.9 L [place] # (Auto) 2.0 H Eos # (Auto) 0.0 Baso # (Auto) 0.1 Abs Immat Gran (auto) 0.22 H Absolute Neuts (auto) 24.6 H Absolute Nucleated RBC 0.000 Nucleated RBC % (auto) 0.0 Smear Tech's Comments VERIFIED Anion Gap 15 Estim Creat Clear Calc 73.1 Estimated GFR > 60 Random Glucose 138 H Lactic Acid 2.7 H* Lactic Acid F/U @ 2Hr 1.0 Calcium 9.3 D Total Bilirubin 1.6 H AST 19 ALT 22 Alkaline Phosphatase 77 Total Protein 7.9 Albumin 3.9 Beta HCG, Quant < 2 Urine Color Yellow Urine Appearance Cloudy Urine pH 7.0 Ur Specific [place] 1.015 Urine Protein 30 (1+) H Urine Glucose (UA) 100 H Urine Ketones Trace Urine Blood Large (3+) H Urine Nitrite Positive H Ur Leukocyte Esterase Large (3+) H Urine RBC >20 H Urine WBC >50 H Ur Squamous Epith Cells 0-2 Urine Bacteria 2+ Hyaline Casts 0-2 Urine Test NEGATIVE Assessment and Plan (1) Ureterolithiasis: Status: Acute (2) Hydronephrosis: Status: Acute (3) Severe sepsis: Status: Acute (4) Pyelonephritis: Status: Acute Plan 47 year old female with history of nephrolithiasis, pyelonephritis with sepsis admitted for further management of acute pyelonephritis with severe sepsis and obstructive uropathy #Acute pyelonephritis with severe sepsis -leukocytosis 27.8, tachcyardia, febrile. Lactic acid 2.7 --> 1.0 following IVF. No other end organ damage or hypotension. -2g IV ctx daily (initiated 08/11) -IV NS @125ml/hr -antiemetics prn -pain management prn using pain scale -urology consult -keep npo in case of acute decompensation necessitating emergent surgical intervention due to septic stone -monitor renal function/lytes #Ureterolithiasis with left sided hydronephrosis -plan as above dvt prophyalxis- scps, early ambulation full code pt requires inpt stay at least 2 midnights for management of acute pyelonephritis with obstructing ureteral stone withi severe left sided hydronephrosis and severe sepsis requiring aggressive ivf resuscitation and iv abx as well as expert consultation and close monitoring for decompensation Quality Stroke Does the patient have a stroke diagnosis?: No VTE Prior VTE?: No VTE Risk Level:: Medical - moderate - high VTE Device Contraindication: N/A - Device Ordered VTE Drug Contraindication: Treatment Not Indicated
--- NOTE | 2023-08-12 16:55 | PC.NURSE ---
patient left knee wrapped with antione bandage, patient tolerated well. d/c instructions went over with abdirahman ledezma.
[2023-08-12] MEDS: Tamsulosin HCL 0.4 MG CAPSULE PO (17:13)
[2023-08-12] MEDS: 0.9 % Sodium Chloride 1,000 ML 125 ML IVCONT (17:15)
[2023-08-12] MEDS: Ketorolac Tromethamine 15 MG/ML VIAL IVPUSH (18:21)
--- NOTE | 2023-08-12 19:06 | PC.NURSE ---
assumed alessandro rodriguez patient @ 17:00.
[2023-08-12] MEDS: Acetaminophen 325 MG TABLET 650 MG PO (21:33)
[2023-08-13] VITALS (11 sets, daily range): BP systolic 101–121; BP diastolic 54–71; PULSE 74–105; RESP 15–20; TEMP 36.1–37.3; O2SAT 95–98
--- NOTE | 2023-08-13 00:05 | PC.NURSE ---
Assumed care of patient at 19:00. Please see shift assessment, tasks, and MAR for full details. Handoff report given at 23:15.
[2023-08-13] MEDS: 0.9 % Sodium Chloride 1,000 ML 125 ML IVCONT ×2 (00:24→07:54)
[2023-08-13] MEDS: ondansetron HCL 4 MG/2 ML VIAL IVPUSH (03:33)
[2023-08-13] MEDS: Ketorolac Tromethamine 15 MG/ML VIAL IVPUSH ×2 (03:33→18:02)
--- NOTE | 2023-08-13 06:14 | PM.UROCN ---
History of Present Illness Consult details Consult date: 08/13/23 Narrative: El is a 47 year old female with history of nephrolithiasis, admitted of pyelonephritis with sepsis. She presented to the ED for evaluation of abdominal cramping, nausea/vomiting ongoing x 2 weeks. She was seen at urgent care two weeks ago and diagnosed with UTI. Completed course of macrobid. Symptoms persisted and she began feeling worse with fevers, chills, and nausea/vomiting over the last few days. 08/12/23--CTAP: Multiple calcifications in bilateral kidneys, could reflect nephrocalcinosis or renal calculi. There is moderate left hydroureteronephrosis. There is a 7 mm obstructing calculus in the al ureter the level of the upper sacrum. Review of Systems Review of Systems: 10 point ROS negative other than stated in HPI Yes all other systems are reviewed and are negative Constitutional: Constitutional: Reports no additional constitutional complaints Eyes: Eyes: Reports no additional eye complaints ENT: Reports system reviewed and no additional complaints, except as documented Cardiovascular: Cardiovascular: Reports no additional cardiovascular complaints Respiratory: Respiratory: Reports no additional respiratory complaints Gastrointestinal: Gastrointestinal: Reports no additional gastrointestinal complaints Genitourinary: Genitourinary: Reports as per HPI Musculoskeletal: Musculoskeletal: Reports no additional musculoskeletal complaints Integumentary/Breasts: Skin/Breast: Reports system reviewed and no additional complaints, except as docu Neurologic: Reports system reviewed and no additional complaints, except as documented Psychiatric: Psychiatric: Reports no additional psychiatric complaints Endocrine: Endocrine: Reports no additional endocrine complaints Hematologic/Lymphatic: Hematologic/Lymphatic: Reports no additional hematologic/lymphatic complaints Allergic/Immunologic: Allergic/Immunologic: Reports no additional allergic/immunologic complaints [facility] Past Medical History Medical History Hydronephrosis with renal calculous obstruction Renal calculi Hydronephrosis Kidney calculi Social History Social History Household Members: Spouse and Family Housing: House Do you presently have visiting nurse or other home services: No Alcohol intake: never Patient Tobacco Use Status: Never used Tobacco Smoked in Last 30 Days: No Use of substances other than those prescribed or required for medical reasons: No Currently Displaying Signs/Symptoms of Drug Intoxication Withdrawal: No Have you been hit, kicked, punched, or otherwise hurt by someone within the past year? If so, by whom?: No Do you feel safe in your current relationship?: No Is there a partner from a previous relationship who is making you feel unsafe now?: No Are you made to feel afraid or neglected: No Advance Directives: No Advance Directives Information Provided: No Do you have thoughts of harming others: None Do you have a plan to hurt others: No Plan Recently lost weight without trying: No Nutrition Risks: No Nutritional Risk Patient : No : No Poor oral hygiene: No service: No Current occupational status: unemployed Meds Allergies Allergy/AdvReac Type Severity Reaction Status Date / Time Penicillins Allergy Intermediate Hives Verified 09/17/20 05:12 amoxicillin Allergy Hives Verified 09/17/20 05:13 Active Medications: Current Medications Acetaminophen (Acetaminophen 325 Mg Tablet) 650 mg PO Q6H PRN PRN Reason: Pain, Mild (Pain Scale 1-3) Last Admin: 08/12/23 21:33 Dose: 650 mg Ascorbic Acid (Ascorbic Acid 500 Mg Tablet) 500 mg PO DAILY [facility] Sodium Chloride (Ns) 1,000 mls @ 125 mls/hr IVCONT .Q8H [facility] Last Admin: 08/13/23 00:24 Dose: 125 mls/hr Ceftriaxone Sodium 2 gm/ (Sodium Chloride) 50 mls @ 100 mls/hr IV Q24H [facility] Ketorolac Tromethamine (Ketorolac Tromethamine 15 Mg/Ml Vial) 15 mg IVPUSH Q6H PRN PRN Reason: Pain, Moderate(Pain Scale 4-6) Last Admin: 08/13/23 03:33 Dose: 15 mg Morphine Sulfate (Morphine Sulfate 2 Mg/Ml Cartridge) 2 mg IVPUSH Q4H PRN; Protocol PRN Reason: Pain, Severe (Pain Scale 7-10) Ondansetron HCl (Ondansetron Hcl 4 Mg/2 Ml Vial) 4 mg IVPUSH Q8H PRN PRN Reason: Nausea and Vomiting Last Admin: 08/13/23 03:33 Dose: 4 mg Senna (Sennosides 8.6 Mg Tablet) 17.2 mg PO BEDTIME PRN PRN Reason: Constipation Sodium Chloride (0.9 % Sodium Chloride Flush 3 Ml Syringe) 3 ml IVFLUSH QSHIFT [facility] Last Admin: 08/13/23 00:28 Dose: Not Given Tamsulosin HCl (Tamsulosin Hcl 0.4 Mg Capsule) 0.4 mg PO DAILY [facility] Last Admin: 08/12/23 17:13 Dose: 0.4 mg Vitamin D (Cholecalciferol (Vitamin D3) 25 Mcg Tablet) 25 mcg PO DAILY [facility] Home Medications Medication Instructions Recorded Confirmed Last Taken Type ascorbic acid (vitamin C) 500 mg 500 mg PO DAILY 08/12/23 08/12/23 2 Days Ago History tablet (Vitamin C) ~08/10/23 biotin 10,000 mcg capsule 10,000 mcg PO DAILY 08/12/23 08/12/23 2 Days Ago History ~08/10/23 cholecalciferol (vitamin D3) 25 25 mcg PO DAILY 08/12/23 08/12/23 2 Days Ago History mcg (1,000 unit) capsule (Vitamin ~08/10/23 D3) Physical Exam Vital Signs: Vital Signs: Last Vital Signs Temp 99 F 08/13/23 03:17 Pulse 99 08/13/23 03:17 Resp 16 08/13/23 03:17 BP 112/61 08/13/23 03:17 Pulse Ox 95 08/13/23 03:17 O2 Del Method Room Air 08/13/23 03:17 BMI result Body Mass Index 23.9 Const: General: cooperative, healthy appearing and no acute distress Orientation/consciousness: patient oriented x3 HEENT: Head: Yes normal to inspection, Yes normocephalic and Yes atraumatic Eyes: Conjunctivae: conjunctivae normal Neck: Neck: Yes normal visual inspection and Yes trachea midline Chest: Chest palpation & inspection: normal inspection of the chest Resp: Effort & Inspection: normal respiratory effort Cardio: Jugular venous distension: no JVD GI: Inspection: Yes normal to inspection Palpation (GI): Soft to palpation : General: Yes CVA tenderness (left) Back/Spine/Pelvis: Back: CVA tenderness (left) Skin: General skin exam: no rashes or lesions noted Neuro: General: patient oriented x3 Extrem: General: No edema Psych: Appearance: grossly normal Results Labs 08/13/23 06:39 08/12/23 12:31 Labs: Abnormal lab results 08/12/23 08/12/23 Range/Units 12:31 14:58 WBC 27.8 H (4.8-10.8) X10*3/uL RBC 3.61 L (4.20-5.50) X10*6/uL Hgb 11.5 L (12.0-16.0) g/dl Hct 32.8 L (37.0-47.0) % MCHC 35.1 H (31.0-35.0) g/dl Plt Count 434 H (160-400) X10*3/uL Immature Gran % (Auto) 0.8 H (0.0-0.4) % Neut % (Auto) 88.4 H (45-73) % Lymph % (Auto) 3.4 L (20-40) % Lymph # (Auto) 0.9 L (1.2-4.9) X10*3/uL [place] # (Auto) 2.0 H (0.1-1.2) X10*3/uL Abs Immat Gran (auto) 0.22 H (0.00-0.03) X10*3/uL Absolute Neuts (auto) 24.6 H (2.0-8.3) x10*3/uL Carbon Dioxide 19 L (22-29) mmol/L Random Glucose 138 H (60-115) mg/dL Lactic Acid 2.7 H* (0.5-2.0) mmol/L Total Bilirubin 1.6 H (0.0-1.0) mg/dL Urine Protein 30 (1+) H (Neg-Trace) mg/dL Urine Glucose (UA) 100 H (Negative) mg/dL Urine Blood Large (3+) H (Negative) Urine Nitrite Positive H (Negative) Ur Leukocyte Esterase Large (3+) H (Negative) Urine RBC >20 H (0-2) /HPF Urine WBC >50 H (0-5) /HPF Short CBC 08/12/23 Range/Units 12:31 WBC 27.8 H (4.8-10.8) X10*3/uL Hgb 11.5 L (12.0-16.0) g/dl Hct 32.8 L (37.0-47.0) % Plt Count 434 H (160-400) X10*3/uL BMP 08/12/23 12:31 Sodium 136 Potassium 4.0 Chloride 106 Carbon Dioxide 19 L BUN 11 Creatinine 0.83 Calcium 9.3 D Liver Function 08/12/23 Range/Units 12:31 Total Bilirubin 1.6 H (0.0-1.0) mg/dL AST 19 (5-31) U/L ALT 22 (0-31) U/L Alkaline Phosphatase 77 (39-117) U/L Albumin 3.9 (3.5-5.0) g/dL Urine 08/12/23 08/12/23 Range/Units 14:58 14:59 Urine Color Yellow Urine Appearance Cloudy Urine pH 7.0 (5.0-9.0) Ur Specific [place] 1.015 (1.005-1.025) Urine Protein 30 (1+) H (Neg-Trace) mg/dL Urine Glucose (UA) 100 H (Negative) mg/dL Urine Test NEGATIVE (NEGATIVE) All other labs normal. Imaging Additional studies: Date of Service: 08/12/23 EXAMINATION: CT ABDOMEN AND PELVIS WITHOUT CONTRAST CLINICAL INFORMATION: Left flank pain, suspected stone COMPARISON: Renal ultrasound 10/16/2020 TECHNIQUE: Multidetector volumetric images were obtained from the superior aspect of the liver through the pubic symphysis without contrast. Sagittal and coronal reformatted images were obtained on the technologist's workstation. Oral contrast: No This CT examination was performed using dose optimization techniques as appropriate, variously including the following: *Automated exposure control *Adjustment of mA and/or kV according to patient size (this includes techniques or standardized protocols for targeted exams where dose is matched to indication/reason for exam; i.e. extremities or head) *Use of iterative reconstruction technique DLP: 588 mGy-cm FINDINGS: LUNG BASES: The visualized lung bases are unremarkable. LIVER, GALLBLADDER, AND BILIARY TREE: The liver is normal in size, shape, and attenuation. No focal hepatic lesion or biliary ductal dilatation is present. The gallbladder is unremarkable with no evidence of radiopaque gallstones, gallbladder wall thickening, or obvious pericholecystic inflammatory changes. PANCREAS: Unremarkable. SPLEEN: Unremarkable. ADRENAL GLANDS: Unremarkable. KIDNEYS AND URETERS: Multiple calcifications in bilateral kidneys, could reflect nephrocalcinosis or renal calculi. There is moderate left hydroureteronephrosis. There is a 7 mm obstructing calculus in the al ureter the level of the upper sacrum. The ureter distal to this is decompressed. Small hypodense lesions, too small to characterize, probable cysts. No further evaluation is needed. Cysts was seen on the prior ultrasounds as well. No significant perinephric stranding. BLADDER: Nondistended, . Unremarkable. GASTROINTESTINAL TRACT: Stomach is nondistended. Nonobstructive bowel gas pattern. No colonic wall thickening or pericolonic inflammatory changes. Normal appendix. ABDOMINAL WALL: Periumbilical an anterior abdominal wall surgical clips. No significant hernia is appreciated. LYMPH NODES: No pathologically enlarged lymph nodes. VASCULAR: Normal caliber aorta. PELVIC VISCERA: Within normal limits for CT.. Anteverted uterus. OSSEOUS STRUCTURES: No acute or suspicious osseous abnormality. IMPRESSION: 1. Moderate left hydroureteronephrosis with a 7 mm obstructing calculus in the left ureter at the level of the upper sacrum. 2. Innumerable calcifications in bilateral kidneys, which could reflect nephrocalcinosis or renal calculi. Assessment and Plan (1) Ureterolithiasis: Status: Acute (2) Hydronephrosis: Status: Acute (3) Pyelonephritis: Status: Acute (4) Sepsis due to urinary tract infection: Status: Acute Plan Cystoscopy left retrograde, left ureteral stent Procedures Date of Service Date of Service: 08/13/23
[2023-08-13 07:15] LABS: Basophils Absolute Auto 0.1 X10*3/uL (0.0-0.2); Basophils Percent Auto 0.5 % (0-2); Eosinophils Absolute Auto 0.1 X10*3/uL (0.0-0.4); Eosinophils Percent Auto 0.3 % (0-4); Hematocrit 26.7 % (37.0-47.0); Lymphocytes Absolute Auto 1.5 X10*3/uL (1.2-4.9); Lymphocytes Percent Auto 7.6 % (20-40); MANUAL DIFF FLAG SCAN; Mean Corpuscular HGB Conc 33.7 g/dl (31.0-35.0); Mean Corpuscular Hemoglobin 31.4 pg (27.0-33.0); Mean Platelet Volume 9.6 fL (9.4-12.3); Monocytes Absolute Auto 1.5 X10*3/uL (0.1-1.2); Monocytes Percent Auto 7.8 % (2-11); Neutrophils Absolute Auto 16.1 x10*3/uL (2.0-8.3); Neutrophils Percent Auto 82.8 % (45-73); Platelet Count 340 X10*3/uL (160-400); Red Blood Count 2.87 X10*6/uL (4.20-5.50); Red Cell Distribution Width 14.1 % (11.0-16.0); SCAN SMEAR FLAG 1; White Blood Count 19.4 X10*3/uL (4.8-10.8)
[2023-08-13 07:39] LABS: SLIDE REVIEW VERIFIED
[2023-08-13] MEDS: Gentamicin Sulfate 160 MG in 0.9 % Sodium Chloride 100 ML 100 MG IV (09:06)
--- NOTE | 2023-08-13 09:33 | HO.PM.IMPN ---
Subjective Subjective Date of Service: 08/13/23 Interval History: improving today Physical Exam Vital Signs: Vital Signs: Last Vital Signs Temp 97.0 F 08/13/23 07:27 Pulse 81 08/13/23 07:27 Resp 18 08/13/23 07:27 BP 101/59 L 08/13/23 07:27 Pulse Ox 97 08/13/23 07:27 O2 Del Method Room Air 08/13/23 07:27 BMI result Body Mass Index 23.9 General: AO X 3, no acute distress Resp: CTA bilateral, no accessory muscles used CVS: S1,S2,RRR GI: soft, non tender, non distended Neuro: motor grossly intact, alert Psych: appropriate affect, appropriate insight Objective Data Active Medications Acetaminophen (Acetaminophen 325 Mg Tablet) 650 mg PO Q6H PRN PRN Reason: Pain, Mild (Pain Scale 1-3) Last Admin: 08/12/23 21:33 Dose: 650 mg Documented By: LALY Ascorbic Acid (Ascorbic Acid 500 Mg Tablet) 500 mg PO DAILY [facility] Sodium Chloride (Ns) 1,000 mls @ 125 mls/hr IVCONT .Q8H [facility] Last Admin: 08/13/23 07:54 Dose: 125 mls/hr Documented By: REED Ceftriaxone Sodium 2 gm/ (Sodium Chloride) 50 mls @ 100 mls/hr IV Q24H [facility] Gentamicin Sulfate 160 mg/ (Sodium Chloride) 104 mls @ 100 mls/hr IV ONCE ONE Stop: 08/13/23 10:02 Last Admin: 08/13/23 09:06 Dose: 100 mls/hr Documented By: REED Ketorolac Tromethamine (Ketorolac Tromethamine 15 Mg/Ml Vial) 15 mg IVPUSH Q6H PRN PRN Reason: Pain, Moderate(Pain Scale 4-6) Last Admin: 08/13/23 03:33 Dose: 15 mg Documented By: LAN Morphine Sulfate (Morphine Sulfate 2 Mg/Ml Cartridge) 2 mg IVPUSH Q4H PRN; Protocol PRN Reason: Pain, Severe (Pain Scale 7-10) Ondansetron HCl (Ondansetron Hcl 4 Mg/2 Ml Vial) 4 mg IVPUSH Q8H PRN PRN Reason: Nausea and Vomiting Last Admin: 08/13/23 03:33 Dose: 4 mg Documented By: LAN Senna (Sennosides 8.6 Mg Tablet) 17.2 mg PO BEDTIME PRN PRN Reason: Constipation Sodium Chloride (0.9 % Sodium Chloride Flush 3 Ml Syringe) 3 ml IVFLUSH QSHIFT [facility] Last Admin: 08/13/23 09:06 Dose: Not Given Documented By: REED Non-Admin Reason: IV Running Tamsulosin HCl (Tamsulosin Hcl 0.4 Mg Capsule) 0.4 mg PO DAILY [facility] Last Admin: 08/12/23 17:13 Dose: 0.4 mg Documented By: DEISRE Vitamin D (Cholecalciferol (Vitamin D3) 25 Mcg Tablet) 25 mcg PO DAILY [facility] Labs 08/13/23 06:39 08/12/23 12:31 Labs: Laboratory Results - last 24 hr 08/12/23 08/12/23 08/12/23 12:31 14:58 14:59 MCV 90.9 MCH 31.9 MCHC 35.1 H RDW 13.8 Plt Count 434 H MPV 9.4 Immature Gran % (Auto) 0.8 H Neut % (Auto) 88.4 H Lymph % (Auto) 3.4 L [place] % (Auto) 7.1 Eos % (Auto) 0.0 Baso % (Auto) 0.3 Lymph # (Auto) 0.9 L [place] # (Auto) 2.0 H Eos # (Auto) 0.0 Baso # (Auto) 0.1 Abs Immat Gran (auto) 0.22 H Absolute Neuts (auto) 24.6 H Absolute Nucleated RBC 0.000 Nucleated RBC % (auto) 0.0 Smear Tech's Comments VERIFIED Anion Gap 15 Estim Creat Clear Calc 73.1 Estimated GFR > 60 Random Glucose 138 H Lactic Acid 2.7 H* Lactic Acid F/U @ 2Hr 1.0 Calcium 9.3 D Total Bilirubin 1.6 H AST 19 ALT 22 Alkaline Phosphatase 77 Total Protein 7.9 Albumin 3.9 Beta HCG, Quant < 2 Urine Color Yellow Urine Appearance Cloudy Urine pH 7.0 Ur Specific [place] 1.015 Urine Protein 30 (1+) H Urine Glucose (UA) 100 H Urine Ketones Trace Urine Blood Large (3+) H Urine Nitrite Positive H Ur Leukocyte Esterase Large (3+) H Urine RBC >20 H Urine WBC >50 H Ur Squamous Epith Cells 0-2 Urine Bacteria 2+ Hyaline Casts 0-2 Urine Test NEGATIVE 08/13/23 06:39 MCV 93.0 MCH 31.4 MCHC 33.7 RDW 14.1 Plt Count 340 MPV 9.6 Immature Gran % (Auto) 1.0 H Neut % (Auto) 82.8 H Lymph % (Auto) 7.6 L [place] % (Auto) 7.8 Eos % (Auto) 0.3 Baso % (Auto) 0.5 Lymph # (Auto) 1.5 [place] # (Auto) 1.5 H Eos # (Auto) 0.1 Baso # (Auto) 0.1 Abs Immat Gran (auto) 0.20 H Absolute Neuts (auto) 16.1 H Absolute Nucleated RBC 0.000 Nucleated RBC % (auto) 0.0 Smear Tech's Comments VERIFIED Anion Gap Estim Creat Clear Calc Estimated GFR Random Glucose Lactic Acid Lactic Acid F/U @ 2Hr Calcium Total Bilirubin AST ALT Alkaline Phosphatase Total Protein Albumin Beta HCG, Quant Urine Color Urine Appearance Urine pH Ur Specific [place] Urine Protein Urine Glucose (UA) Urine Ketones Urine Blood Urine Nitrite Ur Leukocyte Esterase Urine RBC Urine WBC Ur Squamous Epith Cells Urine Bacteria Hyaline Casts Urine Test Microbiology Microbiology Results: Microbiology 08/12/23 12:31 Blood Culture - Preliminary Blood - Venous Prelim: GNR Gram Stain only 08/12/23 12:54 Blood Culture - Preliminary Blood - Venous Prelim: GNR Gram Stain only Assessment and Plan (1) Sepsis due to urinary tract infection: Status: Acute Plan 47F PMH nephrolithiasis, presented with fever, found to have sepsis/obstructing stone severe sepsis due to acute pyelonephritis due to obstructing left uereteral stone 7mm, copmlicated by left hydronephrosis and GNR bacteremia continue ceftriaxone, follow up cultures, cystoscopy today dvt prophylaxis - early ambulation full code reason for continued hospitalization:awaiting cultures, defervesence Quality Stroke Does the patient have a stroke diagnosis?: No VTE Prior VTE?: No VTE Risk Level:: Medical - moderate - high VTE Device Contraindication: N/A - Device Ordered VTE Drug Contraindication: Treatment Not Indicated
--- NOTE | 2023-08-13 10:31 | HO.ANESPROP2 ---
[facility] Active Problems Active Problems: All Active Problems (Updated 08/13/23 @ 06:23 by Sarah Avery MD) Sepsis due to urinary tract infection (Acute) Ureterolithiasis (Acute) Hydronephrosis (Acute) Severe sepsis (Acute) Pyelonephritis (Acute) Past Medical History Medical History Hydronephrosis with renal calculous obstruction Renal calculi Hydronephrosis Kidney calculi Family History Family history of problems with anesthesia: No Surgical History History of Problems with Anesthesia: No Social History Social History Household Members: Spouse and Family Housing: House Do you presently have visiting nurse or other home services: No Alcohol intake: never Patient Tobacco Use Status: Never used Tobacco Smoked in Last 30 Days: No Use of substances other than those prescribed or required for medical reasons: No Currently Displaying Signs/Symptoms of Drug Intoxication Withdrawal: No Have you been hit, kicked, punched, or otherwise hurt by someone within the past year? If so, by whom?: No Do you feel safe in your current relationship?: No Is there a partner from a previous relationship who is making you feel unsafe now?: No Are you made to feel afraid or neglected: No Advance Directives: No Advance Directives Information Provided: No Do you have thoughts of harming others: None Do you have a plan to hurt others: No Plan Recently lost weight without trying: No Nutrition Risks: No Nutritional Risk Patient : No : No Poor oral hygiene: No service: No Current occupational status: unemployed Meds Allergies Allergy/AdvReac Type Severity Reaction Status Date / Time Penicillins Allergy Intermediate Hives Verified 09/17/20 05:12 amoxicillin Allergy Hives Verified 09/17/20 05:13 Active Medications: Current Medications Acetaminophen (Acetaminophen 325 Mg Tablet) 650 mg PO Q6H PRN PRN Reason: Pain, Mild (Pain Scale 1-3) Last Admin: 08/12/23 21:33 Dose: 650 mg Ascorbic Acid (Ascorbic Acid 500 Mg Tablet) 500 mg PO DAILY [facility] Sodium Chloride (Ns) 1,000 mls @ 125 mls/hr IVCONT .Q8H [facility] Last Admin: 08/13/23 07:54 Dose: 125 mls/hr Ceftriaxone Sodium 2 gm/ (Sodium Chloride) 50 mls @ 100 mls/hr IV Q24H [facility] Ketorolac Tromethamine (Ketorolac Tromethamine 15 Mg/Ml Vial) 15 mg IVPUSH Q6H PRN PRN Reason: Pain, Moderate(Pain Scale 4-6) Last Admin: 08/13/23 03:33 Dose: 15 mg Morphine Sulfate (Morphine Sulfate 2 Mg/Ml Cartridge) 2 mg IVPUSH Q4H PRN; Protocol PRN Reason: Pain, Severe (Pain Scale 7-10) Ondansetron HCl (Ondansetron Hcl 4 Mg/2 Ml Vial) 4 mg IVPUSH Q8H PRN PRN Reason: Nausea and Vomiting Last Admin: 08/13/23 03:33 Dose: 4 mg Senna (Sennosides 8.6 Mg Tablet) 17.2 mg PO BEDTIME PRN PRN Reason: Constipation Sodium Chloride (0.9 % Sodium Chloride Flush 3 Ml Syringe) 3 ml IVFLUSH QSHIFT [facility] Last Admin: 08/13/23 09:06 Dose: Not Given Tamsulosin HCl (Tamsulosin Hcl 0.4 Mg Capsule) 0.4 mg PO DAILY [facility] Last Admin: 08/12/23 17:13 Dose: 0.4 mg Vitamin D (Cholecalciferol (Vitamin D3) 25 Mcg Tablet) 25 mcg PO DAILY [facility] Home Medications Medication Instructions Recorded Confirmed Last Taken Type ascorbic acid (vitamin C) 500 mg 500 mg PO DAILY 08/12/23 08/12/23 2 Days Ago History tablet (Vitamin C) ~08/10/23 biotin 10,000 mcg capsule 10,000 mcg PO DAILY 08/12/23 08/12/23 2 Days Ago History ~08/10/23 cholecalciferol (vitamin D3) 25 25 mcg PO DAILY 08/12/23 08/12/23 2 Days Ago History mcg (1,000 unit) capsule (Vitamin ~08/10/23 D3) Exam Height,Weight and Vital Signs: Height 5 ft 4 in Weight 63.2 kg Last Vital Signs Temp 97.0 F 08/13/23 07:27 Pulse 81 08/13/23 07:27 Resp 18 08/13/23 07:27 BP 101/59 L 08/13/23 07:27 Pulse Ox 97 08/13/23 07:27 O2 Del Method Room Air 08/13/23 07:27 Pertinent Lab Results Pertinent Lab Results: Laboratory Tests 08/12/23 08/12/23 08/12/23 12:31 14:58 14:59 WBC 27.8 H RBC 3.61 L Hgb 11.5 L Hct 32.8 L MCV 90.9 MCH 31.9 MCHC 35.1 H RDW 13.8 Plt Count 434 H MPV 9.4 Immature Gran % (Auto) 0.8 H Neut % (Auto) 88.4 H Lymph % (Auto) 3.4 L [place] % (Auto) 7.1 Eos % (Auto) 0.0 Baso % (Auto) 0.3 Lymph # (Auto) 0.9 L [place] # (Auto) 2.0 H Eos # (Auto) 0.0 Baso # (Auto) 0.1 Abs Immat Gran (auto) 0.22 H Absolute Neuts (auto) 24.6 H Absolute Nucleated RBC 0.000 Nucleated RBC % (auto) 0.0 Smear Tech's Comments VERIFIED Sodium 136 Potassium 4.0 Chloride 106 Carbon Dioxide 19 L Anion Gap 15 BUN 11 Creatinine 0.83 Estim Creat Clear Calc 73.1 Estimated GFR > 60 Random Glucose 138 H Lactic Acid 2.7 H* Lactic Acid F/U @ 2Hr 1.0 Calcium 9.3 D Total Bilirubin 1.6 H AST 19 ALT 22 Alkaline Phosphatase 77 Total Protein 7.9 Albumin 3.9 Beta HCG, Quant < 2 Urine Color Yellow Urine Appearance Cloudy Urine pH 7.0 Ur Specific [place] 1.015 Urine Protein 30 (1+) H Urine Glucose (UA) 100 H Urine Ketones Trace Urine Blood Large (3+) H Urine Nitrite Positive H Ur Leukocyte Esterase Large (3+) H Urine RBC >20 H Urine WBC >50 H Ur Squamous Epith Cells 0-2 Urine Bacteria 2+ Hyaline Casts 0-2 Urine Test NEGATIVE 08/13/23 06:39 WBC 19.4 H RBC 2.87 L D Hgb 9.0 L D Hct 26.7 L MCV 93.0 MCH 31.4 MCHC 33.7 RDW 14.1 Plt Count 340 MPV 9.6 Immature Gran % (Auto) 1.0 H Neut % (Auto) 82.8 H Lymph % (Auto) 7.6 L [place] % (Auto) 7.8 Eos % (Auto) 0.3 Baso % (Auto) 0.5 Lymph # (Auto) 1.5 [place] # (Auto) 1.5 H Eos # (Auto) 0.1 Baso # (Auto) 0.1 Abs Immat Gran (auto) 0.20 H Absolute Neuts (auto) 16.1 H Absolute Nucleated RBC 0.000 Nucleated RBC % (auto) 0.0 Smear Tech's Comments VERIFIED Sodium Potassium Chloride Carbon Dioxide Anion Gap BUN Creatinine Estim Creat Clear Calc Estimated GFR Random Glucose Lactic Acid Lactic Acid F/U @ 2Hr Calcium Total Bilirubin AST ALT Alkaline Phosphatase Total Protein Albumin Beta HCG, Quant Urine Color Urine Appearance Urine pH Ur Specific [place] Urine Protein Urine Glucose (UA) Urine Ketones Urine Blood Urine Nitrite Ur Leukocyte Esterase Urine RBC Urine WBC Ur Squamous Epith Cells Urine Bacteria Hyaline Casts Urine Test Airway Mallampati Class: I TM Dist: >3cm Neck ROM: Full Assessment and Plan Assessment Anesthesia Assessment: Anesthesia Plan Discussed and Chart Reviewed Final Anesthetic Review Family History of Problems with Anesthesia: No History of Problems with Anesthesia: No NPO: Yes ASA Class: II and Emergency Final Preanesthetic Review: No Changes in Pt Med Stat, Meds/Allgs Chart Reviewed, Consent Obtained/Reviewed and Anes Risks/Benef Reviewed Patient Risk: Low Procedure Risk: Low Anesthetic Plan Anesthetic Plan: GA Disposition: Standard PACU
--- NOTE | 2023-08-13 10:44 | P.OP_ITS ---
Operative Note Operative Note Date of Service: 08/13/23 Narrative: PreOperative Diagnosis:?? UTI sepsis, left ureteral stone, left hydronephrosis Post Operative Diagnosis:?? ?UTI sepsis, left ureteral stone, left hydronephrosis Procedure: - cystoscopy, left retrograde - left stent insertion, size 6 Latvian by 26 cm Surgeon:?Dr Sarah Avery Anesthesia:? General Indications for procedure: UTI sepsis obstructive uropathy secondary to left mid ureteral stone Procedure: After informed consent was verified the patient was brought to the operating placed on the OR table in supine position.? General Anesthesia was administered per protocol.? The patient was placed in lithotomy position, prepped and draped in the usual sterile fashion.? Safety pause time-out and side of surgery confirmed.? Antibiotics confirmed. 2% lidocaine jelly was passed transurethrally. A 22 Latvian cystoscope was inserted transurethrally, The bladder was visualized.? Both ureteric orifices were in normal position. The? left ureteric orifice was cannulated, ? and a retrograde examination was performed, filling defect noted at left mid ureter consistent with stone with dilatation proximal. A hydrophilic guidewire was placed up to the level of the renal pelvis under fluoroscopy. The open-ended ureteral catheter was replaced over the guidewire past the stone to the proximal ureter. Urine was sent for culture. The guidewire was replaced into the left renal pelvis. After removing the open- ended ureteral catheter a 6 fr by 26 cm ureteral stent was passed over the guide wire under fluoroscopic guidance. The guide wire was removed. The bladder was emptied.? The rigid cystoscope was removed. ? The patient tete erated the procedure well and was brought to the recovery room in stable condition. Complications: None Drains: Ureteral stent as dictated above
--- NOTE | 2023-08-13 10:50 | MHC.CM.PN ---
CM attempted several times to meet with Patient and then was told that Patient is in surgery. From chart review, Patient lives with her and home self care is the tentative plan. CM has initiated and will follow for dc planning. PCP is Dr. Manda Fink.
[2023-08-13] MEDS: Ascorbic Acid 500 MG TABLET PO (11:35)
[2023-08-13] MEDS: Cholecalciferol (Vitamin D3) 25 MCG TABLET PO (11:36)
[2023-08-13] MEDS: Tamsulosin HCL 0.4 MG CAPSULE PO (11:36)
[2023-08-13 12:39] LABS: Anion Gap 12 (12-20); Blood Urea Nitrogen 8 mg/dL (9-16); Carbon Dioxide 19 mmol/L (22-29); Chloride 109 mmol/L (96-108); Creatinine Clr Calc Pharmacy 90.5; Estimated Glomerular Filt Rate > 60; Glucose Random 83 mg/dL (60-115); Potassium 3.6 mmol/L (3.3-5.1); Sodium 136 mmol/L (135-145)
[2023-08-13 12:49] LABS: Calcium 7.9 mg/dL (8.4-10.2)
[2023-08-13] MEDS: cefTRIAXone sodium 2 GM in 0.9 % Sodium Chloride 50 ML IV (13:00)
--- NOTE | 2023-08-13 16:19 | PC.NURSE ---
Varun alert and oreinted to person, place and event. Pablo texted dr Arora @ 16:00pm asking if iv fluids were ordered for patient post surgery. Responded at 16:09 that they were not necessary. Will continue to round for safety and to make sure needs are met.
[2023-08-13] MEDS: Morphine Sulfate 2 MG/ML CARTRIDGE IVPUSH (22:25)
[2023-08-13] MEDS: 0.9 % Sodium Chloride Flush 3 ML SYRINGE IVFLUSH (22:29)
[2023-08-14 04:00] VITALS: BP 125/70; PULSE 81; RESP 18; TEMP 37.1; O2SAT 96
[2023-08-14] MEDS: Ketorolac Tromethamine 15 MG/ML VIAL IVPUSH ×3 (04:25→19:57)
[2023-08-14 05:22] LABS: Hematocrit 26.7 % (37.0-47.0); Hemoglobin 9.1 g/dl (12.0-16.0); Mean Corpuscular HGB Conc 34.1 g/dl (31.0-35.0); Mean Corpuscular Hemoglobin 31.4 pg (27.0-33.0); Mean Corpuscular Volume 92.1 fL (80.0-98.0); Mean Platelet Volume 9.7 fL (9.4-12.3); Platelet Count 357 X10*3/uL (160-400)
[2023-08-14 05:38] LABS: Anion Gap 12 (12-20); Blood Urea Nitrogen 12 mg/dL (9-16); Calcium 8.7 mg/dL (8.4-10.2); Carbon Dioxide 20 mmol/L (22-29); Chloride 113 mmol/L (96-108); Creatinine Clr Calc Pharmacy 86.7; Estimated Glomerular Filt Rate > 60; Glucose Fasting 106 mg/dL (60-99); Sodium 141 mmol/L (135-145)
[2023-08-14 07:08] VITALS: BP 113/66; PULSE 87; RESP 20; TEMP 36.3; O2SAT 98
[2023-08-14] MEDS: Ascorbic Acid 500 MG TABLET PO (08:33)
[2023-08-14] MEDS: 0.9 % Sodium Chloride Flush 3 ML SYRINGE IVFLUSH ×2 (08:33→15:52)
[2023-08-14] MEDS: Cholecalciferol (Vitamin D3) 25 MCG TABLET PO (08:33)
[2023-08-14] MEDS: Tamsulosin HCL 0.4 MG CAPSULE PO (08:33)
--- NOTE | 2023-08-14 10:04 | P.PNIM_ITS ---
Subjective Subjective Date of Service: 08/14/23 Interval History: pain improved, no further fevers or chills Physical Exam 2 Vital Signs: Vital Signs: Last Vital Signs Temp 97.3 F 08/14/23 07:08 Pulse 87 08/14/23 07:08 Resp 20 08/14/23 07:08 BP 113/66 08/14/23 07:08 Pulse Ox 98 08/14/23 07:08 O2 Del Method Room Air 08/14/23 07:08 O2 Flow Rate 3 08/13/23 10:44 BMI result Body Mass Index 23.9 General: AO X 3, no acute distress Resp: CTA bilateral, no accessory muscles used CVS: S1,S2,RRR GI: soft, non tender, non distended Neuro: motor grossly intact, alert Psych: appropriate affect, appropriate insight Objective Data Active Medications Acetaminophen (Acetaminophen 325 Mg Tablet) 650 mg PO Q6H PRN PRN Reason: Pain, Mild (Pain Scale 1-3) Last Admin: 08/12/23 21:33 Dose: 650 mg Documented By: LALY Ascorbic Acid (Ascorbic Acid 500 Mg Tablet) 500 mg PO DAILY REPLACED BY [facility] Last Admin: 08/14/23 08:33 Dose: 500 mg Documented By: SANTI Ceftriaxone Sodium 2 gm/ (Sodium Chloride) 50 mls @ 100 mls/hr IV Q24H REPLACED BY [facility] Last Infusion: 08/13/23 14:19 Dose: Infused Documented By: REED Ketorolac Tromethamine (Ketorolac Tromethamine 15 Mg/Ml Vial) 15 mg IVPUSH Q6H PRN PRN Reason: Pain, Moderate(Pain Scale 4-6) Last Admin: 08/14/23 04:25 Dose: 15 mg Documented By: LALY Morphine Sulfate (Morphine Sulfate 2 Mg/Ml Cartridge) 2 mg IVPUSH Q4H PRN; Protocol PRN Reason: Pain, Severe (Pain Scale 7-10) Last Admin: 08/13/23 22:25 Dose: 2 mg Documented By: LALY Ondansetron HCl (Ondansetron Hcl 4 Mg/2 Ml Vial) 4 mg IVPUSH Q8H PRN PRN Reason: Nausea and Vomiting Last Admin: 08/13/23 03:33 Dose: 4 mg Documented By: LAN Senna (Sennosides 8.6 Mg Tablet) 17.2 mg PO BEDTIME PRN PRN Reason: Constipation Sodium Chloride (0.9 % Sodium Chloride Flush 3 Ml Syringe) 3 ml IVFLUSH QSHIFT REPLACED BY [facility] Last Admin: 08/14/23 08:33 Dose: 3 ml Documented By: SANTI Tamsulosin HCl (Tamsulosin Hcl 0.4 Mg Capsule) 0.4 mg PO DAILY REPLACED BY [facility] Last Admin: 08/14/23 08:33 Dose: 0.4 mg Documented By: SANTI Vitamin D (Cholecalciferol (Vitamin D3) 25 Mcg Tablet) 25 mcg PO DAILY REPLACED BY [facility] Last Admin: 08/14/23 08:33 Dose: 25 mcg Documented By: SANTI Labs 08/14/23 05:07 08/14/23 05:07 Labs: Laboratory Results - last 24 hr 08/13/23 08/14/23 06:39 05:07 MCV 92.1 MCH 31.4 MCHC 34.1 RDW 14.0 Plt Count 357 MPV 9.7 Absolute Nucleated RBC 0.000 Nucleated RBC % (auto) 0.0 Anion Gap 12 12 Estim Creat Clear Calc 90.5 86.7 Estimated GFR > 60 > 60 Random Glucose 83 Fasting Glucose 106 H Calcium 7.9 L D 8.7 D Microbiology Microbiology Results: Microbiology 08/12/23 12:54 Blood Culture - Preliminary Blood - Venous Gram negative maricruz 08/12/23 12:31 Blood Culture - Preliminary Blood - Venous Gram negative maricruz 08/13/23 Unknown Urine Culture - Preliminary Urine Other - Kidney Left No growth to date. 08/12/23 Unknown Urine Culture - Final Urine clean catch - Clean Catch Midstream Assessment and Plan (1) Sepsis due to urinary tract infection: Status: Acute Plan 47F PMH nephrolithiasis, presented with fever, found to have sepsis/obstructing stone severe sepsis due to acute pyelonephritis due to obstructing left uereteral stone 7mm, copmlicated by left hydronephrosis and GNR bacteremia continue ceftriaxone, follow up cultures, s/p cysto with stent placement 08/13/23 - plan to retrieve outpatient in 2-3 weeks dvt prophylaxis - early ambulation full code reason for continued hospitalization:awaiting cultures Quality Stroke Does the patient have a stroke diagnosis?: No VTE Prior VTE?: No VTE Risk Level:: Medical - moderate - high VTE Device Contraindication: N/A - Device Ordered VTE Drug Contraindication: Treatment Not Indicated
--- NOTE | 2023-08-14 10:57 | MHC.CM.PN ---
Per MD rounds no discharge today. May discharge tomorrow, pending final cultures. DP home self care, family transport.
[2023-08-14 11:05] VITALS: BP 116/74; PULSE 67; RESP 18; TEMP 36.3; O2SAT 97
[2023-08-14] MEDS: cefTRIAXone sodium 2 GM in 0.9 % Sodium Chloride 50 ML IV (12:31)
--- NOTE | 2023-08-14 14:43 | HO.POSTANES ---
Post Anesthesia Evaluation Post Anesthesia Evaluation Date of Service: 08/14/23 Vital Signs: Vital Signs Temp Pulse Resp BP Pulse Ox O2 Del Method 08/14/23 11:05 97.3 F 67 18 116/74 97 Room Air 08/14/23 07:08 97.3 F 87 20 113/66 98 Room Air 08/14/23 04:00 98.7 F 81 18 125/70 96 Room Air Anesthesia: General Mental Status: Awake Pain Control: Satisfactory Nausea/Vomiting: None Hydration: Adequate Anesthesia-Related Issues: No Anes. Related Issues
[2023-08-14 16:00] VITALS: BP 116/76; PULSE 78; RESP 16; TEMP 36.5; O2SAT 96
[2023-08-14 19:33] VITALS: BP 99/59; PULSE 80; RESP 20; TEMP 36.7; O2SAT 97
[2023-08-14 23:30] VITALS: BP 111/71; PULSE 71; RESP 18; TEMP 37; O2SAT 98
[2023-08-15 04:00] VITALS: BP 112/68; PULSE 73; RESP 18; TEMP 36.7; O2SAT 97
[2023-08-15 04:28] LABS: Hematocrit 26.5 % (37.0-47.0); Hemoglobin 8.9 g/dl (12.0-16.0); Mean Corpuscular HGB Conc 33.6 g/dl (31.0-35.0); Mean Corpuscular Hemoglobin 31.3 pg (27.0-33.0); Mean Corpuscular Volume 93.3 fL (80.0-98.0); Mean Platelet Volume 9.2 fL (9.4-12.3); Platelet Count 394 X10*3/uL (160-400); Red Blood Count 2.84 X10*6/uL (4.20-5.50); Red Cell Distribution Width 14.2 % (11.0-16.0); White Blood Count 9.1 X10*3/uL (4.8-10.8)
[2023-08-15] MEDS: Acetaminophen 325 MG TABLET 650 MG PO (04:29)
[2023-08-15 04:41] LABS: Anion Gap 13 (12-20); Blood Urea Nitrogen 14 mg/dL (9-16); Calcium 8.2 mg/dL (8.4-10.2); Carbon Dioxide 21 mmol/L (22-29); Chloride 112 mmol/L (96-108); Creatinine Clr Calc Pharmacy 87.9; Estimated Glomerular Filt Rate > 60; Glucose Fasting 86 mg/dL (60-99); Potassium 3.9 mmol/L (3.3-5.1); Sodium 142 mmol/L (135-145)
[2023-08-15 06:58] VITALS: BP 105/60; PULSE 65; RESP 18; TEMP 36.9; O2SAT 96
[2023-08-15] MEDS: Ascorbic Acid 500 MG TABLET PO (07:39)
[2023-08-15] MEDS: Cholecalciferol (Vitamin D3) 25 MCG TABLET PO (07:40)
[2023-08-15] MEDS: Tamsulosin HCL 0.4 MG CAPSULE PO (07:40)
[2023-08-15] MEDS: 0.9 % Sodium Chloride Flush 3 ML SYRINGE IVFLUSH (07:40)
--- NOTE | 2023-08-15 08:40 | PM.DS ---
DS: Providers Provider Date of Service: 08/15/23 Date of admission: 08/12/23 15:18 Primary care physician: Manda Fink MD Consults: 08/12/23 15:17 Consult to Urology Routine Consulting Provider: Sarah Avery Reason for consultation: obstructive uropathy, pyelonephritis DS: Diagnosis Discharge Diagnosis (1) Sepsis due to urinary tract infection: Status: Acute DS: Summary Hospital Course Hospital Course: from initial hpi: 47 year old female with history of nephrolithiasis, pyelonephritis with sepsis presents to the ED for evaluation of abdominal cramping, nausea/vomiting ongoing x 2 weeks. She was seen at urgent care two weeks ago and diagnosed with UTI. Completed course of macrobid. However, symptoms persisted and she began feeling worse with fevers up to 100, chills, fatigue, generalized lower abdominal cramping, and nausea/vomiting over the last few days. She presented to again today recommending she present to the ED for evaluation. On arrival, febrile to 103.1, tachycardic to 125. No hypotension. She has a leukocytosis of 27.8 with left shift. Renal function an dlytes normal except for co2 19. Glucose 138. Lactic acid 2.7, repeat 1.0 following IVF. Urine hcg negative. UA with 3+ leuks, positive nitrites, 3+ blood, positive urinary sediment, and 2+ bacteria. Ct abd/pelvis report pending but shows large obstructing left sided ureteral stone with left sided hydronephrosis with perinephritic fat stranding. in the ED, given 2g iv ceftriaxone, ketorolac, zofran, and 2L IV NS. Pt to be admitted for acute pyelonephritis with severe sepsis and obstructive uropathy. hospital course: Patient was admitted for severe sepsis due to acute pyelonephritis due to obstructing left ureteral stone complicated by left hydronephrosis and E coli bacteremia. She was treated with IV ceftriaxone and sepsis resolved. She underwent cystoscopy with stent placement on 08/13/2023. Plan is to follow up with Urology for retrieval as outpatient 2-3 weeks. Patient will be discharged home on 7 more days of cefuroxime. Time Attestation Discharge Coordination Time (in mins): 35 Quality: Safe Use of Opioids Does Pt have an Active Cancer Diagnosis on the Problem List?: No Quality: Stroke Does the patient have a stroke diagnosis?: No Physical Exam Vital Signs: Vital Signs: Last Vital Signs Temp 98.4 F 08/15/23 06:58 Pulse 65 08/15/23 06:58 Resp 18 08/15/23 06:58 BP 105/60 08/15/23 06:58 Pulse Ox 96 08/15/23 06:58 O2 Del Method Room Air 08/15/23 06:58 O2 Flow Rate 3 08/13/23 10:44 BMI result Body Mass Index 23.9 General: AO X 3, no acute distress Resp: CTA bilateral, no accessory muscles used CVS: S1,S2,RRR GI: soft, non tender, non distended Neuro: motor grossly intact, alert Psych: appropriate affect, appropriate insight DS: Data Data Completed and Pending Labs on day of discharge: Laboratory Results - last 24 hr 08/15/23 04:21 WBC 9.1 RBC 2.84 L Hgb 8.9 L Hct 26.5 L MCV 93.3 MCH 31.3 MCHC 33.6 RDW 14.2 Plt Count 394 MPV 9.2 L Absolute Nucleated RBC 0.000 Nucleated RBC % (auto) 0.0 Sodium 142 Potassium 3.9 Chloride 112 H Carbon Dioxide 21 L Anion Gap 13 BUN 14 Creatinine 0.69 Estim Creat Clear Calc 87.9 Estimated GFR > 60 Fasting Glucose 86 Calcium 8.2 L Discharge Plan Discharge Anticipated Discharge Date/Time: 08/15/23 08:38 Patient Disposition: Home, Self-Care Discharge Diagnosis: sepsis, nephrolithiasis, pyelonephritis with bacteremia Referrals: Sarah Avery MD [Physician] - 2 Weeks Manda Fink MD [Primary Care Provider] - 1 Week Discharge Medications: New cefuroxime axetil 500 mg tablet 500 mg PO Q12H Qty: 14 0RF Continued ascorbic acid (vitamin C) [Vitamin C] 500 mg Tablet 500 mg PO DAILY biotin 10,000 mcg Capsule 10,000 mcg PO DAILY cholecalciferol (vitamin D3) [Vitamin D3] 25 mcg (1,000 unit) Capsule 25 mcg PO DAILY Discharge Orders: Discharge Order (Routine); Ordered 08/15/23 Ordered By: Roldan Arora Diet: Advance to usual diet Activity on Discharge: As tolerated Stand Alone Forms: Patient Portal Discharge page Care Plan Goals: manage kidney stone, infection Health Concerns: ecoli bacteremia, kidney stone Plan of Treatment: 7 more days ceftin, follow up with urology Assessment: see above
[2023-08-15] MEDS: Ketorolac Tromethamine 15 MG/ML VIAL IVPUSH (10:23)
[2023-08-15] MEDS: cefTRIAXone sodium 2 GM in 0.9 % Sodium Chloride 50 ML IV (11:47)
--- NOTE | 2023-08-15 11:59 | MHC.CM.PN ---
Patient is discharged to home today self care. She has arranged for transportation home.
== END 2023-08-15 12:44 | disposition home or self-care (01) | DRG 720 ==
LOC: HO.ED 13:48 → HO.EDOVER 15:41 → HO.IMC 16:23
PROVIDERS: Urology; Admitting Provider Physician Assistant; Emergency Provider Student in an Organized Health Care Education/Training Program; PCP Internal Medicine; Visit Provider Internal Medicine
PROC: 0T778DZ Dilation of Left Ureter with Intraluminal Device, Via Natural or Artificial Opening Endoscopic (ICD-10-PCS; principal; 2023-08-13 09:30)
DX: A41.9 Sepsis, unspecified organism (principal); N13.6 Pyonephrosis; R65.20 Severe sepsis without septic shock; B96.20 Unspecified Escherichia coli [E. coli] as the cause of diseases classified elsewhere; Z79.899 Other long term (current) drug therapy
CPT/HCPCS: 36415; 74177; 80048; 80053; 81001; 81025; 83605; 84702; 85025; 85027; 87040; 87077; 87086; 87186; 87205; 99285; C1758; C1769; C2617; J0696; J1100; J1580; J1885; J2270; J2405; J2704; J3010; Q9967

== ENCOUNTER → 2023-08-12 15:18 | Outpatient (BNV) | payer OTHER, SELFPAY | PROVIDERS: Admitting Provider Physician Assistant; Emergency Provider Student in an Organized Health Care Education/Training Program; PCP Internal Medicine; Visit Provider Physician Assistant | DX: A41.9 Sepsis, unspecified organism (principal); R65.20 Severe sepsis without septic shock; N10 Acute pyelonephritis; N39.0 Urinary tract infection, site not specified | CPT/HCPCS: 99223; 99232; 99239 ==

== ENCOUNTER → 2023-08-12 15:18 | Outpatient (BNV) | payer OTHER, SELFPAY | PROVIDERS: Admitting Provider Physician Assistant; Emergency Provider Student in an Organized Health Care Education/Training Program; PCP Internal Medicine; Visit Provider Urology | DX: A41.9 Sepsis, unspecified organism (principal); N20.1 Calculus of ureter; N13.30 Unspecified hydronephrosis; N12 Tubulo-interstitial nephritis, not specified as acute or chronic; N39.0 Urinary tract infection, site not specified | CPT/HCPCS: 52332; 74420; 99223 ==

== ENCOUNTER 2023-08-25 08:03 | Outpatient (AMB) | payer OTHER, SELFPAY ==
--- NOTE | 2023-08-25 08:35 | A.OFFVIS_ITS ---
Intake Intake Visit Reasons: H&P/Discuss surgical procedure Intake Note: NEW Patient presents today to Discuss Surgical Procedure: Meds- None Allergies to Antibiotic- Penicillins & Amoxicillin Blood Thinner- None Parachute Officer Required: No Accompanied by: Self / Same As Patient Allergies Penicillins Allergy (Intermediate, Verified 08/25/23 08:36) Hives amoxicillin Allergy (Verified 08/25/23 08:36) Hives Medication List - Last Reconciled 08/25/23 by Sarah Avery MD ascorbic acid (vitamin C) (Vitamin C) 500 mg PO DAILY biotin 10,000 mcg PO DAILY cefuroxime axetil 500 mg PO Q12H cholecalciferol (vitamin D3) (Vitamin D3) 25 mcg PO DAILY HPI HPI Comments History of Present Illness Details El is a 47-year-old female with history of kidney stones, she was initially evaluated as an inpatient due to left obstructing ureteral stone and pyelonephritis. She is status post left ureteral stent on 08/13/23. She presents today and states she has been doing well she is increasing her water intake. I have discussed further stone management with ureteroscopy laser lithotripsy and stent exchange. Pamphlet was given to the patient. Risks and benefits discussed including but not limited to hematuria, bleeding, ureteral injury/inflammation, need to have further treatments if stone is not completely fragmented. Consent obtained. 08/25/2023--plan cystoscopy left ureteros copy retrograde stent exchange laser lithotripsy [facility] Medical History Hydronephrosis with renal calculous obstruction Renal calculi Hydronephrosis Kidney calculi Social History Household Members: Spouse and Family Housing: House Do you presently have visiting nurse or other home services: No Alcohol intake: never Patient Tobacco Use Status: Never used Tobacco service: No Current occupational status: unemployed Review of Systems Const All systems reviewed & are unremarkable except as noted in HPI and below Reports no additional complaints Eyes Reports no additional complaints ENT Reports no additional complaints Card Reports no additional complaints Resp Reports no additional complaints GI Reports no additional complaints Reports as per HPI Musc Reports no additional complaints Skin/Breast Reports system reviewed and no additional complaints, except as documented Neuro Reports no additional complaints Psych Reports no additional complaints Endo Reports no additional complaints Itz/Lymph Reports no additional complaints Aller/Immun Reports no additional complaints Results AMB Urinalysis, Automated UA Leukoctes 70 Tj/uL Last Edit by LIVIA Shepard on 08/25/23 08:43 1+ Harshad Esqueda 08/25/23 08:43 UA Nitrite Negative Last Edit by LIVIA Shepard on 08/25/23 08:43 UA Urobilinogen 0.2 mg/dL Last Edit by LIVIA Shepard on 08/25/23 08:4 3 UA Protein 15 mg/dL Last Edit by LIVIA Shepard on 08/25/23 08:43 UA pH 6.0 Last Edit by LIVIA Shepard on 08/25/23 08:43 UA Blood 200 Rishi/uL Last Edit by LIVIA Shepard on 08/25/23 08:43 3+ Harshad Esqueda 08/25/23 08:43 UA Specific [place] 1.015 Last Edit by LIVIA Shepard on 08/25/23 08: 43 UA Ketone Negative Last Edit by LIVIA Shepard on 08/25/23 08:43 UA Bilirubin 0 mg/dL Last Edit by LIVIA Shepard on 08/25/23 08:43 UA Glucose 0 mg/dL Last Edit by LIVIA Shepard on 08/25/23 08:43 Results Reviewed Results Reviewed: Laboratory Last Values Urine pH (Auto) 6.0 08/25/23 08:42 Specific [place] (Auto) 1.015 08/25/23 08:42 Urine Protein (Auto) 15 mg/dL 08/25/23 08:42 Glucose (UA)(Auto) 0 mg/dL 08/25/23 08:42 Urine Ketones (Auto) Negative 08/25/23 08:42 Urine Blood (Auto) 200 Rishi/uL 08/25/23 08:42 Urine Nitrite (Auto) Negative 08/25/23 08:42 Urine Bilirubin (Auto) 0 mg/dL 08/25/23 08:42 Urine Urobilinogen (Auto) 0.2 mg/dL 08/25/23 08:42 Leukocyte Esterase (Auto) 70 Tj/uL 08/25/23 08:42 Date of Service: 08/12/23 EXAMINATION: CT ABDOMEN AND PELVIS WITHOUT CONTRAST CLINICAL INFORMATION: Left flank pain, suspected stone COMPARISON: Renal ultrasound 10/16/2020 TECHNIQUE: Multidetector volumetric images were obtained from the superior aspect of the liver through the pubic symphysis without contrast. Sagittal and coronal reformatted images were obtained on the technologist's workstation. Oral contrast: No This CT examination was performed using dose optimization techniques as appropriate, variously including the following: *Automated exposure control *Adjustment of mA and/or kV according to patient size (this includes techniques or standardized protocols for targeted exams where dose is matched to indication/reason for exam; i.e. extremities or head) *Use of iterative reconstruction technique DLP: 588 mGy-cm FINDINGS: LUNG BASES: The visualized lung bases are unremarkable. LIVER, GALLBLADDER, AND BILIARY TREE: The liver is normal in size, shape, and attenuation. No focal hepatic lesion or biliary ductal dilatation is present. The gallbladder is unremarkable with no evidence of radiopaque gallstones, gallbladder wall thickening, or obvious pericholecystic inflammatory changes. PANCREAS: Unremarkable. SPLEEN: Unremarkable. ADRENAL GLANDS: Unremarkable. KIDNEYS AND URETERS: Multiple calcifications in bilateral kidneys, could reflect nephrocalcinosis or renal calculi. There is moderate left hydroureteronephrosis. There is a 7 mm obstructing calculus in the al ureter the level of the upper sacrum. The ureter distal to this is decompressed. Small hypodense lesions, too small to characterize, probable cysts. No further evaluation is needed. Cysts was seen on the prior ultrasounds as well. No significant perinephric stranding. BLADDER: Nondistended, . Unremarkable. GASTROINTESTINAL TRACT: Stomach is nondistended. Nonobstructive bowel gas pattern. No colonic wall thickening or pericolonic inflammatory changes. Normal appendix. ABDOMINAL WALL: Periumbilical an anterior abdominal wall surgical clips. No significant hernia is appreciated. LYMPH NODES: No pathologically enlarged lymph nodes. VASCULAR: Normal caliber aorta. PELVIC VISCERA: Within normal limits for CT.. Anteverted uterus. OSSEOUS STRUCTURES: No acute or suspicious osseous abnormality. IMPRESSION: 1. Moderate left hydroureteronephrosis with a 7 mm obstructing calculus in the left ureter at the level of the upper sacrum. 2. Innumerable calcifications in bilateral kidneys, which could reflect nephrocalcinosis or renal calculi. Assessment & Plan Assessment & Plan (1) Ureterolithiasis: Code(s): N20.1 - Calculus of ureter (2) Hydronephrosis: Code(s): N13.30 - Unspecified hydronephrosis (3) Bilateral kidney stones: Code(s): N20.0 - Calculus of kidney Plan cystoscopy left ureteroscopy retrograde stent exchange laser lithotripsy Orders: Orders AMB Urinalysis Automated Today Z13.9 - Encounter for screening, unspecified Coding Level of Care Code Est Pt Level 4 (83285) Diagnoses Ureterolithiasis N20.1 Hydronephrosis N13.30 Bilateral kidney stones N20.0
== END 2023-08-25 09:07 | disposition home or self-care (01) ==
PROVIDERS: PCP Internal Medicine; Visit Provider Urology
DX: N20.1 Calculus of ureter (principal); N13.30 Unspecified hydronephrosis; N20.0 Calculus of kidney; Z13.9 Encounter for screening, unspecified
CPT/HCPCS: 99214

== ENCOUNTER → 2023-08-25 08:03 | Outpatient (BNVA) | payer OTHER, SELFPAY | PROVIDERS: PCP Internal Medicine; Visit Provider Urology | DX: N13.2 Hydronephrosis with renal and ureteral calculous obstruction (principal) | CPT/HCPCS: 81003 ==

== ENCOUNTER 2023-08-30 11:08 | Outpatient (REF) | payer OTHER, SELFPAY ==
[2023-08-30 11:43] LABS: Appearance Urine Cloudy; Color Urine Yellow; Glucose Urine UA Negative (Negative); Leukocyte Esterase Urine Large (3+) (Negative); Nitrite Urine Negative (Negative); PH 6.5 (5.0-9.0); Specific Gravity - Urine 1.015 (1.005-1.025); UMIC TRIGGER UA YES; Urine Blood Large (3+) (Negative); Urine Ketones Negative (Negative); Urine Protein 100 (2+) mg/dL (Neg-Trace)
[2023-08-30 11:46] LABS: Bacteria Urine 1+ (None Seen); Hyaline Casts Urine 0-2 /LPF (0-2); RBC Urine >20 /HPF (0-2); WBC Urine >50 /HPF (0-5)
== END 2023-08-30 11:09 | disposition home or self-care (01) ==
LOC: HO.LAB 11:08
PROVIDERS: Visit Provider Urology
DX: N20.0 Calculus of kidney (principal); N39.0 Urinary tract infection, site not specified
CPT/HCPCS: 81001; 87086; 87088; 87186

== ENCOUNTER 2023-08-30 12:54 | Inpatient (IN) | payer OTHER, SELFPAY ==
--- NOTE | ~2023-08-30 | XR_ITS ---
EXAMINATION: XR ABDOMEN KUB CLINICAL INDICATION: Left flank pain, nephroureteral stent COMPARISON: CT from 08/12/2023 TECHNIQUE: AP view of the abdomen. FINDINGS: The bowel gas pattern is normal with no evidence of ileus or obstruction. There is a double-J nephroureteral stent extending from the left kidney into the central pelvis. Calcified stone in the distal left ureter on the prior CT may still be present. There are numerous small calcified stones in the bilateral kidneys The bones are unremarkable. XR/XR KUB IMPRESSION: Double-J nephroureteral stent in place. Calcified stone in the distal left ureter on the prior CT may still be present. Bilateral renal stones.
--- NOTE | ~2023-08-30 | CT_ITS ---
EXAMINATION: CT ABDOMEN AND PELVIS WITHOUT CONTRAST CLINICAL INFORMATION: Left flank pain, recent stent placement COMPARISON: KUB earlier in the day, last 08/12/2023 CT TECHNIQUE: Multidetector volumetric imaging was performed from the superior aspect of the liver through the pubic symphysis. Sagittal and coronal reformatted images were obtained on the technologist's workstation. This CT examination was performed using dose optimization techniques as appropriate, variously including the following: *Automated exposure control *Adjustment of mA and/or kV according to patient size (this includes techniques or standardized protocols for targeted exams where dose is matched to indication/reason for exam; i.e. 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 Fecal retention. LUNG BASES: Minor atelectasis. Nonenlarged heart. No pericardial effusion. LIVER, GALLBLADDER, AND BILIARY TREE: The liver remains enlarged and of global hypodensity. No focal hepatic lesion or biliary ductal dilatation is present. The gallbladder is unremarkable with no evidence of radiopaque gallstones, gallbladder wall thickening, or obvious pericholecystic inflammatory changes. PANCREAS: Unremarkable. SPLEEN: Unremarkable. ADRENAL GLANDS: Unremarkable. KIDNEYS, URETERS AND BLADDER: Multiple bilateral nonobstructing renal calculi versus nephrocalcinosis again seen. The right kidney is normal in size, shape and position. No right hydronephrosis or perinephric stranding. Right ureter remains mildly prominent and tortuous. Edematous appearance to left kidney is unchanged. Interval improvement in left hydronephrosis, mild intrarenal collecting system fullness remains following left ureteral stent placement. Proximal pigtail is in the left renal pelvis and distal pigtail in otherwise unremarkable appearing urinary bladder. Distal ureteral calculus again seen, currently measuring 5 mm, previously 7 mm. This is located immediately adjacent to the left ureteral stent, 41/72. Left perinephric stranding has increased inferior aspect of the kidney. No perinephric hematoma. GASTROINTESTINAL TRACT: Small hiatal hernia. Decompressed stomach. Nonobstructing bowel pattern. Unremarkable terminal ileum and appendix. Moderately severe fecal retention. ABDOMINAL WALL: No significant hernia is appreciated. Anterior abdominal surgical clips. LYMPH NODES: No pathologic lymphadenopathy. VASCULAR: Mild atherosclerotic calcifications nonaneurysmal aorta and iliac arteries, noteworthy given patient's young stated age. Unremarkable inferior vena cava. PELVIC VISCERA: Unremarkable. Phleboliths. OSSEOUS STRUCTURES: Unremarkable. CT/CT abdomen pelvis wo IV con IMPRESSION: Interval left ureteral stent placement with improved left hydronephrosis. Increasing left inferior perinephric stranding in comparison with previous study. 5 mm distal left ureteral calculus adjacent to the ureteral stent. Redemonstration bilateral nonobstructing renal calculi versus nephrocalcinosis. Fleischner guidelines were followed.
[2023-08-30 13:04] VITALS: BP 110/74; PULSE 96; RESP 16; TEMP 37.1; O2SAT 100; BMI 24.9
--- NOTE | 2023-08-30 13:04 | ED_ITS ---
HPI - Female Genitourinary General Chief complaint: General Medical Stated complaint: sent by herrera cortez to rule out sepsis Time Seen by Provider: 08/30/23 13:11 Source: patient and RN notes reviewed Mode of arrival: ambulatory Limitations: no limitations History of Present Illness HPI Narrative: This is a 47-year-old female, with a history of nephrolithiasis, pyelonephritis with sepsis, who presents to the emergency department with complaints of urinary urgency, chills, left-sided abdominal cramping, dysuria, and frequency for the last 3 days. Patient states that she noticed dysuria as well as urinary urgency frequency over the last 3 days. She states that today she became nauseous and did not feel herself. She has a significant past medical history as she was recently admitted to the hospital due to sepsis and left kidney stent placement. She completed her full course of antibiotics and was starting to feel much better up until 3 days ago during the onset of her symptoms. She endorses a headache. She denies any chest pain, shortness of breath, abdominal pain, nausea, vomiting or diarrhea. She states that her urologist ordered a urine sample today and was told to come to the emergency room given the findings. She denies any other complaints or concerns at this time. MD elicited complaint: UTI and flank pain Onset (ago): day(s) Severity: moderate Vaginal discharge: none Vaginal bleeding: none Exacerbating factors: urination Related Data Home Medications ?Medication ?Instructions ?Recorded ?Confirmed ascorbic acid (vitamin C) 500 mg 500 mg PO DAILY 08/12/23 08/25/23 tablet (Vitamin C) biotin 10,000 mcg capsule 10,000 mcg PO DAILY 08/12/23 08/25/23 cholecalciferol (vitamin D3) 25 25 mcg PO DAILY 08/12/23 08/25/23 mcg (1,000 unit) capsule (Vitamin D3) Previous Rx's ?Medication ?Instructions ?Recorded cefuroxime axetil 500 mg tablet 500 mg PO Q12H #14 tabs 08/15/23 Allergies Allergy/AdvReac Type Severity Reaction Status Date / Time Penicillins Allergy Intermediate Hives Verified 08/30/23 13:07 amoxicillin Allergy Hives Verified 08/30/23 13:07 Review of Systems 2 Review of Systems: Yes all other systems are reviewed and are negative Constitutional: Constitutional: Reports as per [facility] Past Medical History Medical History Hydronephrosis with renal calculous obstruction Renal calculi Hydronephrosis Kidney calculi Social History Social History Household Members: Spouse and Family Housing: House Do you presently have visiting nurse or other home services: No Alcohol intake: never Patient Tobacco Use Status: Never used Tobacco service: No Current occupational status: unemployed Physical Exam 2 Vital Signs: Vital Signs: Last Vital Signs Temp 98.2 F 08/30/23 18:11 Pulse 75 08/30/23 18:11 Resp 18 08/30/23 18:11 BP 118/77 08/30/23 18:11 Pulse Ox 100 08/30/23 18:11 O2 Del Method Room Air 08/30/23 18:11 BMI result Body Mass Index 24.9 Const: General: cooperative, comfortable and no acute distress O rientation/consciousness: patient oriented x3 Limitations: no limitations HEENT: Head: Yes normal to inspection, Yes normocephalic and Yes atraumatic Ears: hearing grossly normal bilaterally General nose exam: Normal external nose present Face and sinus: Yes normal facial exam Mouth: Normal oral and palatal mucosa present, oropharynx normal and moist mucous membranes Throat: Yes posterior oropharynx normal Eyes: General: appearance normal, both eyes and all related structures E yelids: Yes eyelids normal Conjunctivae: conjunctivae normal Sclerae: s clerae normal Pupils: Equal, round and reactive pupils present EOM: EOMs intact bilaterally Neck: Neck: Yes normal visual inspection, Yes full ROM and Yes no lymphadenopathy Lymphatic: no lymphadenopathy noted Chest: Chest palpation & inspection: normal inspection of the chest Resp: Effort & Inspection: normal respiratory effort and able to speak in complete sentences Auscultation: clear to auscultation bilaterally, no crackles, no rales, no rhonchi and no wheezes Cardio: Rate: regular rate Rhythm: regular rhythm Heart sounds: S1 normal heart sound present and S2 normal heart sound present GI: Other: Abdomen is soft, with mild tenderness palpation in the left flank. Inspection: Yes normal to inspection : General: Yes no CVA tenderness Back/Spine/Pelvis: Back: no CVA tenderness Skin: General skin exam: no rashes or lesions noted Trauma: no lacerations or abrasions Wounds: no wounds Neuro: General: patient oriented x3 and moves all extremities Cranial nerves: Yes Equal, round and reactive pupils present Extrem: General: Yes normal to inspection Right upper extremity: normal to inspection Left upper extremity: normal to inspection Right lower extremity: normal to inspection Left lower extremity: normal to inspection Course Course Course Narrative: RME:?47 yo female here for eval of chills, nausea, urinary urgency, and frequency x3 days. here w/ pyelo and L renal stent placement + sepsis 1 mo ago. labs, UA, KUB ordered. Full HPI, ROS and PE to be performed by the primary ED provider. Reevaluation(s) Reevaluation #1: Labs returned, leukocytosis at 16 with slight left shift noted, chemistry within normal limits urine does appear to have protein, blood, leuk esterases, rbc's, wbc's, and 1+ bacteria. KUB still pending at this time. Discussed with Dr. Pierce, inquired if a CT scan would be useful, she states that this can be ordered. Patient with headache with no relief with Tylenol, ordered Toradol Time: 15:15 Reevaluation #2: KUB x-ray shows a double-J nephroureteral stent in place. There has a calcified stone in the distal left ureter on the prior CT scan which may still be present. Bilateral renal stones seen. CT pending. Time: 15:27 Reevaluation #3: CT scan returns revealing increasing left inferior perinephritic stranding in comparison with previous study. There has a 5 mm distal left ureteral calculus adjacent to the ureteral stent. Discussed this finding with Dr. Pierce, she recommends IV hydration, 1 g of ceftriaxone, and to discharge on Levaquin 500 mg q.d. with Zofran, and Pyridium. Time: 17:15 Additional Reevaluation(s): 1931- patient re-evaluated as she is finishing up her IV fluids, she states that she is feeling much worse, stating worsening nausea, and she ultimately vomited. She does not feel comfortable for discharge home at this time. Discussed with Dr. Pierce, advised to admit to Medicine as there is no surgical interventions needed at this time. Discussed with hospitalist, transfer care initiated Medications Administered Discontinued Medications Generic Name Dose Route Start Last Admin Trade Name Freq PRN Reason Stop Dose Admin Acetaminophen 975 mg 08/30/23 13:37 08/30/23 13:43 Acetaminophen 325 Mg Tablet PO 08/30/23 13:38 975 mg ONCE ONE Administration Diphenhydramine HCl 25 mg 08/30/23 19:29 08/30/23 19:39 Diphenhydramine Hcl 50 Mg/Ml Vial IVPUSH 08/30/23 19:30 25 mg ONCE ONE Administration Sodium Chloride 1,000 mls @ 999 mls/hr 08/30/23 15:00 08/30/23 17:01 Ns IV 08/30/23 16:00 Infused .Q1H1M ONE Infusion Sodium Chloride 1,000 mls @ 999 mls/hr 08/30/23 16:46 08/30/23 18:47 Ns IV 08/30/23 17:46 Infused .Q1H1M ONE Infusion Ceftriaxone Sodium 1 gm/ 50 mls @ 100 mls/hr 08/30/23 17:20 08/30/23 19:40 Sodium Chloride IV 08/30/23 17:49 Infused ONCE ONE Infusion Sodium Chloride 1,000 mls @ 999 mls/hr 08/30/23 17:21 08/30/23 18:39 Ns IV 08/30/23 18:21 999 mls/hr .Q1H1M ONE Administration Ketorolac Tromethamine 15 mg 08/30/23 15:03 08/30/23 15:12 Ketorolac Tromethamine 15 Mg/Ml Vial IVPUSH 08/30/23 15:04 15 mg ONCE ONE Administration Metoclopramide HCl 10 mg 08/30/23 19:29 08/30/23 19:39 Metoclopramide Hcl 10 Mg/2 Ml Vial IVPUSH 08/30/23 19:30 10 mg ONCE ONE Administration Ondansetron HCl 4 mg 08/30/23 18:26 08/30/23 18:35 Ondansetron Hcl 4 Mg/2 Ml Vial IVPUSH 08/30/23 18:27 4 mg ONCE ONE Administration Medical Decision Making Medical Decision Making MDM Narrative: This is a 47-year-old female, with a history of nephrolithiasis, pyelonephritis with sepsis, who presents to the emergency department with complaints of urinary urgency, left-sided abdominal cramping, urinary frequency, dysuria x3 days. On arrival, vital signs within normal limits. She is well-appearing, nontoxic appearing. She is mild tenderness palpation in her left flank. No CVA tenderness. Expect was called in by Dr. Pierce, recommends basic labs, UA, and KUB. Plan: Labs, UA, KUB Differential Diagnosis Differential Diagnoses: The differential diagnosis associated with the presentation includes Pyelonephritis, nephrolithiasis, hydronephrosis, cystitis Admission/Observation Consideration of admission/observation: Escalation of care including admission/observation considered Patient requiring admission Lab Data MDM Lab Attestation statement: I reviewed the patient's lab results. Leukocytosis at 16, stable H&H, chemistry within normal limits. Urine with 100 +urine protein, large blood, large leuk esterases, greater than 20 rbc's, greater than 50 wbc's, 1+ bacteria. 08/30/23 13:36 08/30/23 13:36 Labs: Lab Results 08/30/23 08/30/23 Range/Units 13:36 13:40 WBC 16.0 H (4.8-10.8) X10*3/uL RBC 3.95 L D (4.20-5.50) X10*6/uL Hgb 12.3 D (12.0-16.0) g/dl Hct 36.6 L D (37.0-47.0) % MCV 92.7 (80.0-98.0) fL MCH 31.1 (27.0-33.0) pg MCHC 33.6 (31.0-35.0) g/dl RDW 14.0 (11.0-16.0) % Plt Count 351 (160-400) X10*3/uL MPV 9.4 (9.4-12.3) fL Immature Gran % (Auto) 0.5 H (0.0-0.4) % Neut % (Auto) 88.5 H (45-73) % Lymph % (Auto) 5.1 L (20-40) % [place] % (Auto) 5.4 (2-11) % Eos % (Auto) 0.1 (0-4) % Baso % (Auto) 0.4 (0-2) % Lymph # (Auto) 0.8 L (1.2-4.9) X10*3/uL [place] # (Auto) 0.9 (0.1-1.2) X10*3/uL Eos # (Auto) 0.0 (0.0-0.4) X10*3/uL Baso # (Auto) 0.1 (0.0-0.2) X10*3/uL Abs Immat Gran (auto) 0.08 H (0.00-0.03) X10*3/uL Absolute Neuts (auto) 14.2 H (2.0-8.3) x10*3/uL Absolute Nucleated RBC 0.000 (0.0-0.012) X10*3/uL Nucleated RBC % (auto) 0.0 (0.0-0.2) /100WBC Sodium 137 (135-145) mmol/L Potassium 3.8 (3.3-5.1) mmol/L Chloride 105 (96-108) mmol/L Carbon Dioxide 26 (22-29) mmol/L Anion Gap 10 L (12-20) BUN 14 (9-16) mg/dL Creatinine 0.76 (0.5-1.4) mg/dL Estim Creat Clear Calc 86.3 Estimated GFR > 60 Random Glucose 160 H (60-115) mg/dL Calcium 9.4 D (8.4-10.2) mg/dL Magnesium 1.9 (1.6-2.6) mg/dL Total Bilirubin 1.0 (0.0-1.0) mg/dL AST 14 (5-31) U/L ALT 13 (0-31) U/L Alkaline Phosphatase 71 (39-117) U/L Total Protein 7.9 (6.5-8.0) g/dL Albumin 4.0 (3.5-5.0) g/dL Lipase 24 (8-78) U/L Urine Color Yellow Urine Appearance Cloudy Urine pH 6.5 (5.0-9.0) Ur Specific [place] 1.015 (1.005-1.025) Urine Protein 100 (2+) H (Neg-Trace) mg/dL Urine Glucose (UA) Negative (Negative) mg/dL Urine Ketones Negative (Negative) mg/dL Urine Blood Large (3+) H (Negative) Urine Nitrite Negative (Negative) Ur Leukocyte Esterase Large (3+) H (Negative) Urine RBC >20 H (0-2) /HPF Urine WBC >50 H (0-5) /HPF Ur Squamous Epith Cells 3-5 (0-2) /HPF Urine Bacteria 1+ (None Seen) Hyaline Casts 0-2 (0-2) /LPF Radiology Impression Discussion of test interpretation with radiology: I have reviewed the radiologist's reading. Radiologist Impression: EXAMINATION: CT ABDOMEN AND PELVIS WITHOUT CONTRAST CLINICAL INFORMATION: Left flank pain, recent stent placement COMPARISON: KUB earlier in the day, last 08/12/2023 CT TECHNIQUE: Multidetector volumetric imaging was performed from the superior aspect of the liver through the pubic symphysis. Sagittal and coronal reformatted images were obtained on the technologist's workstation. This CT examination was performed using dose optimization techniques as appropriate, variously including the following: *Automated exposure control *Adjustment of mA and/or kV according to patient size (this includes techniques or standardized protocols for targeted exams where dose is matched to indication/reason for exam; i.e. extremities or head) *Use of iterative reconstruction technique DLP: 367 mGy-cm FINDINGS: WASHERY BOSS: Left ureteral stent. Fecal retention. LUNG BASES: Minor atelectasis. Nonenlarged heart. No pericardial effusion. LIVER, GALLBLADDER, AND BILIARY TREE: The liver remains enlarged and of global hypodensity. No focal hepatic lesion or biliary ductal dilatation is present. The gallbladder is unremarkable with no evidence of radiopaque gallstones, gallbladder wall thickening, or obvious pericholecystic inflammatory changes. PANCREAS: Unremarkable. SPLEEN: Unremarkable. ADRENAL GLANDS: Unremarkable. KIDNEYS, URETERS AND BLADDER: Multiple bilateral nonobstructing renal calculi versus nephrocalcinosis again seen. The right kidney is normal in size, shape and position. No right hydronephrosis or perinephric stranding. Right ureter remains mildly prominent and tortuous. Edematous appearance to left kidney is unchanged. Interval improvement in left hydronephrosis, mild intrarenal collecting system fullness remains following left ureteral stent placement. Proximal pigtail is in the left renal pelvis and distal pigtail in otherwise unremarkable appearing urinary bladder. Distal ureteral calculus again seen, currently measuring 5 mm, previously 7 mm. This is located immediately adjacent to the left ureteral stent, 41/72. Left perinephric stranding has increased inferior aspect of the kidney. No perinephric hematoma. GASTROINTESTINAL TRACT: Small hiatal hernia. Decompressed stomach. Nonobstructing bowel pattern. Unremarkable terminal ileum and appendix. Moderately severe fecal retention. ABDOMINAL WALL: No significant hernia is appreciated. Anterior abdominal surgical clips. LYMPH NODES: No pathologic lymphadenopathy. VASCULAR: Mild atherosclerotic calcifications nonaneurysmal aorta and iliac arteries, noteworthy given patient's young stated age. Unremarkable inferior vena cava. PELVIC VISCERA: Unremarkable. Phleboliths. OSSEOUS STRUCTURES: Unremarkable. CT/CT abdomen pelvis wo IV con IMPRESSION: Interval left ureteral stent placement with improved left hydronephrosis. Increasing left inferior perinephric stranding in comparison with previous study. 5 mm distal left ureteral calculus adjacent to the ureteral stent. Redemonstration bilateral nonobstructing renal calculi versus nephrocalcinosis. Fleischner guidelines were followed. Dictated By: Deanna Daniel MD Critical Care Time Critical Care Time Critical Care Time: Yes Total Critical Care Time: 60 Attestation: I have personally provided critical care time exclusive of time spent on separately billable procedures. Time includes review of lab data, radiology results, discussion with consultants, and monitoring for potential decompensation. Intervention performed as documented. Discharge Plan Discharge Print Language: Japanese
[2023-08-30 13:41] LABS: MANUAL DIFF FLAG NO
[2023-08-30] MEDS: Acetaminophen 325 MG TABLET 975 MG PO ×2 (13:43→21:44)
[2023-08-30 13:47] LABS: Basophils Absolute Auto 0.1 X10*3/uL (0.0-0.2); Basophils Percent Auto 0.4 % (0-2); Eosinophils Percent Auto 0.1 % (0-4); Hematocrit 36.6 % (37.0-47.0); Hemoglobin 12.3 g/dl (12.0-16.0); Imm Gran Abs Auto 0.08 X10*3/uL (0.00-0.03); Imm Gran Pct Auto 0.5 % (0.0-0.4); Lymphocytes Absolute Auto 0.8 X10*3/uL (1.2-4.9); Lymphocytes Percent Auto 5.1 % (20-40); Mean Corpuscular HGB Conc 33.6 g/dl (31.0-35.0); Mean Corpuscular Hemoglobin 31.1 pg (27.0-33.0); Mean Corpuscular Volume 92.7 fL (80.0-98.0); Mean Platelet Volume 9.4 fL (9.4-12.3); Monocytes Absolute Auto 0.9 X10*3/uL (0.1-1.2); Monocytes Percent Auto 5.4 % (2-11); Neutrophils Absolute Auto 14.2 x10*3/uL (2.0-8.3); Neutrophils Percent Auto 88.5 % (45-73); Platelet Count 351 X10*3/uL (160-400); Red Blood Count 3.95 X10*6/uL (4.20-5.50)
[2023-08-30 13:58] LABS: Appearance Urine Cloudy; Color Urine Yellow; Glucose Urine UA Negative (Negative); Leukocyte Esterase Urine Large (3+) (Negative); Nitrite Urine Negative (Negative); PH 6.5 (5.0-9.0); Specific Gravity - Urine 1.015 (1.005-1.025); UMIC TRIGGER UACC YES; Urine Blood Large (3+) (Negative); Urine Ketones Negative (Negative); Urine Protein 100 (2+) mg/dL (Neg-Trace)
[2023-08-30 14:00] LABS: Bacteria Urine 1+ (None Seen); Hyaline Casts Urine 0-2 /LPF (0-2); RBC Urine >20 /HPF (0-2); UACC Culture Trigger YES; WBC Urine >50 /HPF (0-5)
[2023-08-30 14:09] LABS: Alanine Aminotransferase 13 U/L (0-31); Alkaline Phosphatase 71 U/L (39-117); Anion Gap 10 (12-20); Aspartate Amino Transferase 14 U/L (5-31); Blood Urea Nitrogen 14 mg/dL (9-16); Calcium 9.4 mg/dL (8.4-10.2); Carbon Dioxide 26 mmol/L (22-29); Chloride 105 mmol/L (96-108); Creatinine Clr Calc Pharmacy 86.3; Estimated Glomerular Filt Rate > 60; Glucose Random 160 mg/dL (60-115); Lipase 24 U/L (8-78); Magnesium 1.9 mg/dL (1.6-2.6); Potassium 3.8 mmol/L (3.3-5.1); Sodium 137 mmol/L (135-145); Total Protein 7.9 g/dL (6.5-8.0)
[2023-08-30] MEDS: 0.9 % Sodium Chloride 1,000 ML 999 ML IV ×3 (15:11→18:39)
[2023-08-30] MEDS: Ketorolac Tromethamine 15 MG/ML VIAL IVPUSH (15:12)
[2023-08-30 18:11] VITALS: BP 118/77; PULSE 75; RESP 18; TEMP 36.8; O2SAT 100
[2023-08-30] MEDS: cefTRIAXone sodium 1 GM in 0.9 % Sodium Chloride 50 ML IV (18:35)
[2023-08-30] MEDS: ondansetron HCL 4 MG/2 ML VIAL IVPUSH (18:35)
[2023-08-30] MEDS: Metoclopramide HCl 10 MG/2 ML VIAL IVPUSH (19:39)
[2023-08-30] MEDS: diphenhydrAMINE HCL 50 MG/ML VIAL 25 MG IVPUSH (19:39)
--- NOTE | 2023-08-30 20:25 | PM.IMHP ---
History of Present Illness Date of Service: 08/30/23 Attending physician on admission: Zahra Alatorre Chief Complaint: Lower abdominal pain El Ramires is a 47 years old woman with past medical history significant for nephrolithiasis and recent left ureteral stent placement presents to emergency department complaining of lower abdominal pain that has been getting worse over the last several hours. She described the pain as crampy. It was associated with generalized malaise, nausea, vomiting headache, chills and pain with urination. She denied bloody urine. Denies diarrhea. She did not report any acute cardiopulmonary symptoms. Patient was recently hospitalized due to pyelonephritis and sepsis + bacteremia by E coli. At that time she was found to have an obstructive stone causing moderate left hydroureteronephrosis. She completed a course of cefuroxime days ago. In the ED, she was found to have normal vital signs. Blood workup was remarkable for leukocytosis of 16.0. Platelets and hemoglobin are normal. Lactic acid is not available. There are no electrolyte imbalances and LFTs are normal. Lipase is normal. Urinalysis consistent with urinary tract infection with microscopic hematuria. Abdomen pelvis CT scan with IV contrast today showed interval left ureteral stent placement with improved left hydronephrosis, increasing left inferior perinephritic stranding in comparison with prior study and 5 mm distance left ureteral calculus adjacent to ureteral stent redemonstration bilateral nonobstructive renal calculi versus nephrocalcinosis. ED tx: Acetaminophen 975 mg PO X1, NS 2 L bolus, Toradol 50 mg IV, ceftriaxone 1 g IV, Reglan 10 mg IV, Zofran 8 mg IV Benadryl 25 mg IV. Review of Systems Review of Systems: All 12 systems were reviewed and normal except as noted in HPI. [facility] Medical History Hydronephrosis with renal calculous obstruction Renal calculi Hydronephrosis Kidney calculi Social History Household Members: Spouse and Family Housing: House Do you presently have visiting nurse or other home services: No Alcohol intake: never Patient Tobacco Use Status: Never used Tobacco service: No Current occupational status: unemployed Meds Allergies Allergy/AdvReac Type Severity Reaction Status Date / Time Penicillins Allergy Intermediate Hives Verified 08/30/23 13:07 amoxicillin Allergy Hives Verified 08/30/23 13:07 Active Medications: Current Medications Acetaminophen (Acetaminophen 325 Mg Tablet) 975 mg PO Q6H PRN PRN Reason: Fever >101 Hydromorphone HCl (Hydromorphone Hcl 1 Mg/Ml Syringe) 0.5 mg IVPUSH Q4H PRN; Protocol PRN Reason: Pain, Severe (Pain Scale 7-10) Lactated Ringer's (Lr) 1,000 mls @ 125 mls/hr IVCONT .Q8H [facility] Ketorolac Tromethamine (Ketorolac Tromethamine 30 Mg/Ml Vial) 15 mg IVPUSH Q8H [facility] Stop: 08/31/23 14:01 Metoclopramide HCl (Metoclopramide Hcl 10 Mg/2 Ml Vial) 5 mg IVPUSH Q8H [facility] Stop: 08/31/23 13:01 Ondansetron HCl (Ondansetron Hcl 4 Mg/2 Ml Vial) 4 mg IVPUSH Q6H PRN PRN Reason: Nausea and Vomiting Sodium Chloride (0.9 % Sodium Chloride Flush 3 Ml Syringe) 3 ml IVFLUSH QSHIFT [facility] Home Medications ?Medication ?Instructions ?Recorded ?Confirmed ?Last Taken ?Type ascorbic acid (vitamin C) 500 mg 500 mg PO DAILY 08/12/23 08/25/23 2 Days Ago History tablet (Vitamin C) ~08/10/23 biotin 10,000 mcg capsule 10,000 mcg PO DAILY 08/12/23 08/25/23 2 Days Ago History ~08/10/23 cholecalciferol (vitamin D3) 25 25 mcg PO DAILY 08/12/23 08/25/23 2 Days Ago History mcg (1,000 unit) capsule (Vitamin ~08/10/23 D3) Physical Exam Vital Signs and Narrative: Vital Signs: Last Vital Signs Temp 98.2 F 08/30/23 18:11 Pulse 75 08/30/23 18:11 Resp 18 08/30/23 18:11 BP 118/77 08/30/23 18:11 Pulse Ox 100 08/30/23 18:11 O2 Del Method Room Air 08/30/23 18:11 BMI result Body Mass Index 24.9 Constitutional - Awake and Alert, No apparent distress. Looks acutely ill. HEENT - Pupils equally round. Normal sclerae. Dry oral mucosa. Heart - RRR, (+) murmur. Lungs - Normal lung expansion, Normal respiratory effort, No respiratory distress, CTA bilaterally Abdomen - Nondistended. Pelvic tenderness. - No CVA tenderness Extremities - no calf tenderness bilaterally, no swelling Musculoskeletal - Normal inspection, normal ROM Skin - Warm/Dry. No pallor. No jaundice. Neurological - Alert & oriented x3. No focal weakness grossly noted. Normal speech. Psychological - Appropriate affect Results Labs 08/30/23 13:36 08/30/23 13:36 Labs: Laboratory Results - last 24 hr 08/30/23 08/30/23 13:36 13:40 MCV 92.7 MCH 31.1 MCHC 33.6 RDW 14.0 Plt Count 351 MPV 9.4 Immature Gran % (Auto) 0.5 H Neut % (Auto) 88.5 H Lymph % (Auto) 5.1 L [place] % (Auto) 5.4 Eos % (Auto) 0.1 Baso % (Auto) 0.4 Lymph # (Auto) 0.8 L [place] # (Auto) 0.9 Eos # (Auto) 0.0 Baso # (Auto) 0.1 Abs Immat Gran (auto) 0.08 H Absolute Neuts (auto) 14.2 H Absolute Nucleated RBC 0.000 Nucleated RBC % (auto) 0.0 Anion Gap 10 L Estim Creat Clear Calc 86.3 Estimated GFR > 60 Random Glucose 160 H Calcium 9.4 D Magnesium 1.9 Total Bilirubin 1.0 AST 14 ALT 13 Alkaline Phosphatase 71 Total Protein 7.9 Albumin 4.0 Lipase 24 Urine Color Yellow Urine Appearance Cloudy Urine pH 6.5 Ur Specific [place] 1.015 Urine Protein 100 (2+) H Urine Glucose (UA) Negative Urine Ketones Negative Urine Blood Large (3+) H Urine Nitrite Negative Ur Leukocyte Esterase Large (3+) H Urine RBC >20 H Urine WBC >50 H Ur Squamous Epith Cells 3-5 Urine Bacteria 1+ Hyaline Casts 0-2 Imaging Radiologist's Impressions: Impressions KUB X-Ray 08/30/23 13:51 IMPRESSION: Double-J nephroureteral stent in place. Calcified stone in the distal left ureter on the prior CT may still be present. Bilateral renal stones. Abdomen/Pelvis CT 08/30/23 15:48 IMPRESSION: Interval left ureteral stent placement with improved left hydronephrosis. Increasing left inferior perinephric stranding in comparison with previous study. 5 mm distal left ureteral calculus adjacent to the ureteral stent. Redemonstration bilateral nonobstructing renal calculi versus nephrocalcinosis. Fleischner guidelines were followed. Assessment and Plan (1) Pyelonephritis: Status: Acute (2) Ureterolithiasis: Status: Acute Plan El Ramires is a 47 years old woman with past medical history significant for nephrolithiasis admitted with: Urinary tract infection/pyelonephritis associated with left distal ureter calculi in the setting of recent left ureteral stent placement. Recently completed oral antibiotic course. No SIRS criteria. Admit to hospitalist service. Keep NPO. Continue IV fluids and empiric IV antibiotic therapy with ceftriaxone IV. Pain control with Toradol and Dilaudid as needed. Continue antiemetic therapy. Check lactic acid. Blood and urine culture were obtained -will follow results. Urology consult. DVT prophylaxis: SCDs Code status: Full Patient will need hospitalization for at least 2 midnights for IV antibiotic therapy (pt unable to tolerate PO), IV fluids and evaluation by urology service. Quality Stroke Does the patient have a stroke diagnosis?: No VTE Prior VTE?: No VTE Risk Level:: Medical - moderate - high VTE Device Contraindication: N/A - Device Ordered VTE Drug Contraindication: Treatment Not Indicated
[2023-08-30] MEDS: Lactated Ringers 1,000 ML 125 ML IVCONT (20:53)
[2023-08-30 21:03] LABS: Lactic Acid 1.4 mmol/L (0.5-2.0)
[2023-08-30 21:26] VITALS: BP 133/75; PULSE 100; RESP 18; TEMP 37.9; O2SAT 99
[2023-08-30 21:32] VITALS: BMI 24.9
[2023-08-30] MEDS: Ketorolac Tromethamine 30 MG/ML VIAL 15 MG IVPUSH (21:43)
--- NOTE | 2023-08-30 22:18 | PHA.MEDREC ---
Pharmacy Consult ? Medication Reconciliation Pharmacy has completed the medication reconciliation with pt, pt reported all meds and confirmed she completed cefuroxime treatment.
[2023-08-31 02:51] VITALS: BP 116/62; PULSE 76; RESP 16; TEMP 36.6; O2SAT 99
[2023-08-31] MEDS: Metoclopramide HCl 10 MG/2 ML VIAL 5 MG IVPUSH ×3 (03:16→19:39)
[2023-08-31] MEDS: Lactated Ringers 1,000 ML 125 ML IVCONT ×3 (03:16→22:22)
[2023-08-31 05:58] LABS: MANUAL DIFF FLAG NO
[2023-08-31 06:06] LABS: Basophils Absolute Auto 0.1 X10*3/uL (0.0-0.2); Basophils Percent Auto 0.5 % (0-2); Eosinophils Percent Auto 0.2 % (0-4); Hematocrit 33.8 % (37.0-47.0); Hemoglobin 11.3 g/dl (12.0-16.0); Imm Gran Abs Auto 0.08 X10*3/uL (0.00-0.03); Imm Gran Pct Auto 0.5 % (0.0-0.4); Lymphocytes Absolute Auto 1.4 X10*3/uL (1.2-4.9); Lymphocytes Percent Auto 8.6 % (20-40); Mean Corpuscular HGB Conc 33.4 g/dl (31.0-35.0); Mean Corpuscular Volume 92.9 fL (80.0-98.0); Mean Platelet Volume 10.8 fL (9.4-12.3); Monocytes Absolute Auto 1.4 X10*3/uL (0.1-1.2); Monocytes Percent Auto 8.7 % (2-11); Neutrophils Absolute Auto 13.3 x10*3/uL (2.0-8.3); Neutrophils Percent Auto 81.5 % (45-73); Platelet Count 211 X10*3/uL (160-400); Red Blood Count 3.64 X10*6/uL (4.20-5.50); Red Cell Distribution Width 14.2 % (11.0-16.0); White Blood Count 16.4 X10*3/uL (4.8-10.8)
[2023-08-31 06:18] LABS: Anion Gap 12 (12-20); Blood Urea Nitrogen 8 mg/dL (9-16); Calcium 8.8 mg/dL (8.4-10.2); Carbon Dioxide 21 mmol/L (22-29); Chloride 108 mmol/L (96-108); Creatinine Clr Calc Pharmacy 99.4; Estimated Glomerular Filt Rate > 60; Glucose Random 101 mg/dL (60-115); Potassium 3.8 mmol/L (3.3-5.1); Sodium 137 mmol/L (135-145)
[2023-08-31] MEDS: Ketorolac Tromethamine 30 MG/ML VIAL 15 MG IVPUSH ×2 (06:21→14:35)
[2023-08-31 08:00] VITALS: BP 116/68; PULSE 82; RESP 16; TEMP 36.8
[2023-08-31] MEDS: cefTRIAXone sodium 1 GM in 0.9 % Sodium Chloride 50 ML IV (08:14)
--- NOTE | 2023-08-31 11:03 | MHC.CM.PN ---
CM MET WITH PT AT BEDSIDE. PT LIVES WITH SPOUSE. INDEPENDENT AND EMPLOYED P/T. + HCP PCP [facility] DP: HOME WITH NO SERVICES. PT HAS A RIDE HOME AT [place]. CM WILL CONTINUE TO FOLLOW FOR ANY CHANGE IN DC PLAN/NEEDS.
--- NOTE | 2023-08-31 13:11 | PM.UROCN ---
History of Present Illness Consult details Consult date: 08/31/23 Requesting physician: Augustina Brooks Narrative: Recently inpatient for UTI sepsis, pyelonephritis presented to ED with chills, nausea vomiting, WBC 16, Review of Systems Review of Systems: Yes all other systems are reviewed and are negative Constitutional: Constitutional: Reports no additional constitutional complaints Eyes: Eyes: Reports no additional eye complaints ENT: Reports system reviewed and no additional complaints, except as documented Cardiovascular: Cardiovascular: Reports no additional cardiovascular complaints Respiratory: Respiratory: Reports no additional respiratory complaints Gastrointestinal: Gastrointestinal: Reports no additional gastrointestinal complaints Genitourinary: Genitourinary: Reports as per HPI Musculoskeletal: Musculoskeletal: Reports no additional musculoskeletal complaints Integumentary/Breasts: Skin/Breast: Reports system reviewed and no additional complaints, except as docu Neurologic: Reports system reviewed and no additional complaints, except as documented Psychiatric: Psychiatric: Reports no additional psychiatric complaints Endocrine: Endocrine: Reports no additional endocrine complaints Hematologic/Lymphatic: Hematologic/Lymphatic: Reports no additional hematologic/lymphatic complaints Allergic/Immunologic: Allergic/Immunologic: Reports no additional allergic/immunologic complaints [facility] Past Medical History Medical History (Updated 09/02/23 @ 00:01 by Sav Cartwright) Ureteral stent present Pyelonephritis Hydronephrosis with renal calculous obstruction Renal calculi Surgical History Surgical History (Updated 09/01/23 @ 09:42 by Ladan Keane RN) Hx of cystoscopy Social History Social History Household Members: Spouse and Children Housing: House Do you presently have visiting nurse or other home services: No Alcohol intake: never Patient Tobacco Use Status: Never used Tobacco service: No Current occupational status: unemployed Meds Allergies Allergy/AdvReac Type Severity Reaction Status Date / Time amoxicillin Allergy Intermediate Hives Verified 09/01/23 09:42 Penicillins Allergy Intermediate Hives Verified 08/30/23 13:07 Active Medications: Current Medications Acetaminophen (Acetaminophen 325 Mg Tablet) 975 mg PO Q6H PRN PRN Reason: Fever >101 Last Admin: 08/30/23 21:44 Dose: 975 mg Hydromorphone HCl (Hydromorphone Hcl 1 Mg/Ml Syringe) 0.5 mg IVPUSH Q4H PRN; Protocol PRN Reason: Pain, Severe (Pain Scale 7-10) Lactated Ringer's (Lr) 1,000 mls @ 125 mls/hr IVCONT .Q8H [facility] Last Infusion: 08/31/23 11:58 Dose: 125 mls/hr Ceftriaxone Sodium 1 gm/ (Sodium Chloride) 50 mls @ 100 mls/hr IV Q24H [facility] Last Infusion: 08/31/23 09:07 Dose: Infused Ketorolac Tromethamine (Ketorolac Tromethamine 30 Mg/Ml Vial) 15 mg IVPUSH Q8H [facility] Stop: 08/31/23 15:01 Last Admin: 08/31/23 06:21 Dose: 15 mg Metoclopramide HCl (Metoclopramide Hcl 10 Mg/2 Ml Vial) 5 mg IVPUSH Q8H [facility] Stop: 08/31/23 20:01 Last Admin: 08/31/23 11:58 Dose: 5 mg Ondansetron HCl (Ondansetron Hcl 4 Mg/2 Ml Vial) 4 mg IVPUSH Q8H PRN PRN Reason: Nausea and Vomiting Sodium Chloride (0.9 % Sodium Chloride Flush 3 Ml Syringe) 3 ml IVFLUSH QSHIFT [facility] Last Admin: 08/31/23 07:33 Dose: Not Given Home Medications ?Medication ?Instructions ?Recorded ?Confirmed ?Last Taken ?Type ascorbic acid (vitamin C) 500 mg 500 mg PO DAILY 08/12/23 08/30/23 08/29/23 History tablet (Vitamin C) biotin 10,000 mcg capsule 10,000 mcg PO DAILY 08/12/23 08/30/23 08/29/23 History cholecalciferol (vitamin D3) 25 25 mcg PO DAILY 08/12/23 08/30/23 08/29/23 History mcg (1,000 unit) capsule (Vitamin D3) Physical Exam Vital Signs: Vital Signs: Last Vital Signs Temp 98.2 F 08/31/23 08:00 Pulse 82 08/31/23 08:00 Resp 16 08/31/23 08:00 BP 116/68 08/31/23 08:00 Pulse Ox 99 08/31/23 02:51 O2 Del Method Room Air 08/31/23 02:51 BMI result Body Mass Index 24.9 Const: General: cooperative, healthy appearing and no acute distress Orientation/consciousness: patient oriented x3 HEENT: Head: Yes normal to inspection, Yes normocephalic and Yes atraumatic Eyes: Conjunctivae: conjunctivae normal Neck: Neck: Yes normal visual inspection and Yes trachea midline Chest: Chest palpation & inspection: normal inspection of the chest Resp: Effort & Inspection: normal respiratory effort Cardio: Rate: regular rate GI: Inspection: Yes normal to inspection Palpation (GI): Soft to palpation : General: Yes CVA tenderness Back/Spine/Pelvis: Back: CVA tenderness Neuro: General: patient oriented x3 Extrem: General: No edema Psych: Appearance: grossly normal Results Labs 09/01/23 08:01 08/31/23 04:58 Labs: Abnormal lab results 08/30/23 08/30/23 08/31/23 Range/Units 13:36 13:40 04:58 WBC 16.0 H 16.4 H (4.8-10.8) X10*3/uL RBC 3.95 L D 3.64 L (4.20-5.50) X10*6/uL Hgb 11.3 L (12.0-16.0) g/dl Hct 36.6 L D 33.8 L (37.0-47.0) % Immature Gran % (Auto) 0.5 H 0.5 H (0.0-0.4) % Neut % (Auto) 88.5 H 81.5 H (45-73) % Lymph % (Auto) 5.1 L 8.6 L (20-40) % Lymph # (Auto) 0.8 L (1.2-4.9) X10*3/uL [place] # (Auto) 1.4 H (0.1-1.2) X10*3/uL Abs Immat Gran (auto) 0.08 H 0.08 H (0.00-0.03) X10*3/uL Absolute Neuts (auto) 14.2 H 13.3 H (2.0-8.3) x10*3/uL Carbon Dioxide 21 L (22-29) mmol/L Anion Gap 10 L (12-20) BUN 8 L (9-16) mg/dL Random Glucose 160 H (60-115) mg/dL Urine Protein 100 (2+) H (Neg-Trace) mg/dL Urine Blood Large (3+) H (Negative) Ur Leukocyte Esterase Large (3+) H (Negative) Urine RBC >20 H (0-2) /HPF Urine WBC >50 H (0-5) /HPF Short CBC 08/30/23 08/31/23 Range/Units 13:36 04:58 WBC 16.0 H 16.4 H (4.8-10.8) X10*3/uL Hgb 12.3 D 11.3 L (12.0-16.0) g/dl Hct 36.6 L D 33.8 L (37.0-47.0) % Plt Count 351 211 D (160-400) X10*3/uL BMP 08/30/23 08/31/23 13:36 04:58 Sodium 137 137 Potassium 3.8 3.8 Chloride 105 108 Carbon Dioxide 26 21 L BUN 14 8 L Creatinine 0.76 0.66 Calcium 9.4 D 8.8 D Liver Function 08/30/23 Range/Units 13:36 Total Bilirubin 1.0 (0.0-1.0) mg/dL AST 14 (5-31) U/L ALT 13 (0-31) U/L Alkaline Phosphatase 71 (39-117) U/L Albumin 4.0 (3.5-5.0) g/dL Urine 08/30/23 Range/Units 13:40 Urine Color Yellow Urine Appearance Cloudy Urine pH 6.5 (5.0-9.0) Ur Specific Springer 1.015 (1.005-1.025) Urine Protein 100 (2+) H (Neg-Trace) mg/dL Urine Glucose (UA) Negative (Negative) mg/dL Imaging Abdomen CT scan report/results: report reviewed and image reviewed CT scan - pelvis: report reviewed and image reviewed Additional studies: Date of Service: 08/30/23 EXAMINATION: CT ABDOMEN AND PELVIS WITHOUT CONTRAST CLINICAL INFORMATION: Left flank pain, recent stent placement COMPARISON: KUB earlier in the day, last 08/12/2023 CT TECHNIQUE: Multidetector volumetric imaging was performed from the superior aspect of the liver through the pubic symphysis. Sagittal and coronal reformatted images were obtained on the technologist's workstation. This CT examination was performed using dose optimization techniques as appropriate, variously including the following: *Automated exposure control *Adjustment of mA and/or kV according to patient size (this includes techniques or standardized protocols for targeted exams where dose is matched to indication/reason for exam; i.e. 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 Fecal retention. LUNG BASES: Minor atelectasis. Nonenlarged heart. No pericardial effusion. LIVER, GALLBLADDER, AND BILIARY TREE: The liver remains enlarged and of global hypodensity. No focal hepatic lesion or biliary ductal dilatation is present. The gallbladder is unremarkable with no evidence of radiopaque gallstones, gallbladder wall thickening, or obvious pericholecystic inflammatory changes. PANCREAS: Unremarkable. SPLEEN: Unremarkable. ADRENAL GLANDS: Unremarkable. KIDNEYS, URETERS AND BLADDER: Multiple bilateral nonobstructing renal calculi versus nephrocalcinosis again seen. The right kidney is normal in size, shape and position. No right hydronephrosis or perinephric stranding. Right ureter remains mildly prominent and tortuous. Edematous appearance to left kidney is unchanged. Interval improvement in left hydronephrosis, mild intrarenal collecting system fullness remains following left ureteral stent placement. Proximal pigtail is in the left renal pelvis and distal pigtail in otherwise unremarkable appearing urinary bladder. Distal ureteral calculus again seen, currently measuring 5 mm, previously 7 mm. This is located immediately adjacent to the left ureteral stent, 41/72. Left perinephric stranding has increased inferior aspect of the kidney. No perinephric hematoma. GASTROINTESTINAL TRACT: Small hiatal hernia. Decompressed stomach. Nonobstructing bowel pattern. Unremarkable terminal ileum and appendix. Moderately severe fecal retention. ABDOMINAL WALL: No significant hernia is appreciated. Anterior abdominal surgical clips. LYMPH NODES: No pathologic lymphadenopathy. VASCULAR: Mild atherosclerotic calcifications nonaneurysmal aorta and iliac arteries, noteworthy given patient's young stated age. Unremarkable inferior vena cava. PELVIC VISCERA: Unremarkable. Phleboliths. OSSEOUS STRUCTURES: Unremarkable. IMPRESSION: Interval left ureteral stent placement with improved left hydronephrosis. Increasing left inferior perinephric stranding in comparison with previous study. 5 mm distal left ureteral calculus adjacent to the ureteral stent. Redemonstration bilateral nonobstructing renal calculi versus nephrocalcinosis. Assessment and Plan (1) Bilateral kidney stones: Status: Acute (2) Ureterolithiasis: Status: Acute (3) Ureteral stent present: Status: Acute Plan The patient is on IV antibiotics Blood cultures pending CT imaging stent is in good position hydronephrosis improved. Persistent perinephric stranding No surgical intervention at this time, treatment with antibiotic therapy Out patient management of ureteral stone, left ureteroscopy laser lithotripsy, stent exchange versus stent removal Procedures Date of Service Date of Service: 09/05/23
[2023-08-31] MEDS: Acetaminophen 325 MG TABLET 975 MG PO ×2 (13:25→22:23)
--- NOTE | 2023-08-31 14:11 | P.PNIM_ITS ---
Subjective Subjective Date of Service: 08/31/23 Interval History: Seen and examined this morning Follow-up for pyelonephritis Afebrile, feeling better. Still with dysuria Review of Systems Review of Systems: Yes all other systems are reviewed and are negative Constitutional Constitutional: Denies chills and Denies fever(s) Cardiovascular Cardiovascular: Denies chest pain Physical Exam 2 Vital Signs: Vital Signs: Last Vital Signs Temp 98.2 F 08/31/23 08:00 Pulse 82 08/31/23 08:00 Resp 16 08/31/23 08:00 BP 116/68 08/31/23 08:00 Pulse Ox 99 08/31/23 02:51 O2 Del Method Room Air 08/31/23 02:51 BMI result Body Mass Index 24.9 Const: General: cooperative, comfortable, no acute distress, alert and awake Nutritional Appearance: average body habitus Orientation/consciousness: p atient oriented x3 Resp: Effort & Inspection: normal respiratory effort, able to speak in complete sentences, no respiratory distress and no use of accessory muscles A uscultation: clear to auscultation bilaterally Cardio: Rate: regular rate GI: Inspection: No distended Palpation (GI): Soft to palpation and nontender : General: Yes no CVA tenderness Back/Spine/Pelvis: Back: no CVA tenderness Neuro: General: patient oriented x3, moves all extremities and CN's II-XI intact bilaterally Extrem: General: Yes no pedal edema Objective Data Active Medications Acetaminophen (Acetaminophen 325 Mg Tablet) 975 mg PO Q6H PRN PRN Reason: Fever >101 Last Admin: 08/31/23 13:25 Dose: 975 mg Documented By: SALLIE Hydromorphone HCl (Hydromorphone Hcl 1 Mg/Ml Syringe) 0.5 mg IVPUSH Q4H PRN; Protocol PRN Reason: Pain, Severe (Pain Scale 7-10) Lactated Ringer's (Lr) 1,000 mls @ 125 mls/hr IVCONT .Q8H [facility] Last Infusion: 08/31/23 11:58 Dose: 125 mls/hr Documented By: THU Ceftriaxone Sodium 1 gm/ (Sodium Chloride) 50 mls @ 100 mls/hr IV Q24H [facility] Last Infusion: 08/31/23 09:07 Dose: Infused Documented By: THU Ketorolac Tromethamine (Ketorolac Tromethamine 30 Mg/Ml Vial) 15 mg IVPUSH Q8H [facility] Stop: 08/31/23 15:01 Last Admin: 08/31/23 06:21 Dose: 15 mg Documented By: BETO Metoclopramide HCl (Metoclopramide Hcl 10 Mg/2 Ml Vial) 5 mg IVPUSH Q8H [facility] Stop: 08/31/23 20:01 Last Admin: 08/31/23 11:58 Dose: 5 mg Documented By: THU Ondansetron HCl (Ondansetron Hcl 4 Mg/2 Ml Vial) 4 mg IVPUSH Q8H PRN PRN Reason: Nausea and Vomiting Sodium Chloride (0.9 % Sodium Chloride Flush 3 Ml Syringe) 3 ml IVFLUSH QSHIFT [facility] Last Admin: 08/31/23 07:33 Dose: Not Given Documented By: THU Non-Admin Reason: IV Running Labs 08/31/23 04:58 08/31/23 04:58 Labs: Laboratory Results - last 24 hr 08/30/23 08/31/23 20:47 04:58 MCV 92.9 MCH 31.0 MCHC 33.4 RDW 14.2 Plt Count 211 D MPV 10.8 Immature Gran % (Auto) 0.5 H Neut % (Auto) 81.5 H Lymph % (Auto) 8.6 L [place] % (Auto) 8.7 Eos % (Auto) 0.2 Baso % (Auto) 0.5 Lymph # (Auto) 1.4 [place] # (Auto) 1.4 H Eos # (Auto) 0.0 Baso # (Auto) 0.1 Abs Immat Gran (auto) 0.08 H Absolute Neuts (auto) 13.3 H Absolute Nucleated RBC 0.000 Nucleated RBC % (auto) 0.0 Anion Gap 12 Estim Creat Clear Calc 99.4 Estimated GFR > 60 Random Glucose 101 Lactic Acid 1.4 Calcium 8.8 D Assessment and Plan (1) Ureteral stent present: Status: Acute (2) Ureterolithiasis: Status: Acute (3) Cystitis: Status: Acute Plan This is a 47 years old woman with past medical history significant for nephrolithiasis and recent admission from August 11 to [facility] for sepsis due to acute pyelonephritis due to obstructing left ureteral stone complicated by left hydronephrosis and E coli bacteremia status post left stent placement on August 12, discharged to complete oral cefuroxime and returned with recurrent dysuria and chills found to have UTI Urinary tract infection/pyelonephritis associated with left distal ureter calculi in the setting of recent left ureteral stent placement (08/12) Recently completed oral antibiotic course urine culture growing GNR - follow urine culture results blood cultures pending continue IV ceftriaxone. seen by urology - no plan to remove stone on this admission - plan for outpatient follow up as previously scheduled DVT prophylaxis: SCDs Code status: Full Patient will need hospitalization for at least 2 midnights for IV antibiotic therapy (pt unable to tolerate PO), IV fluids and evaluation by urology service. Quality Stroke Does the patient have a stroke diagnosis?: No VTE Prior VTE?: No VTE Risk Level:: Medical - moderate - high VTE Device Contraindication: N/A - Device Ordered VTE Drug Contraindication: Treatment Not Indicated
[2023-08-31 15:25] VITALS: BP 116/68; PULSE 74; RESP 20; TEMP 37; O2SAT 96
[2023-08-31 19:20] VITALS: BP 111/65; PULSE 78; RESP 20; TEMP 37.3; O2SAT 97
[2023-09-01] MEDS: Lactated Ringers 1,000 ML 125 ML IVCONT (06:12)
[2023-09-01] MEDS: cefTRIAXone sodium 1 GM in 0.9 % Sodium Chloride 50 ML IV (07:11)
[2023-09-01 07:14] VITALS: BP 108/59; PULSE 77; RESP 16; TEMP 37.1; O2SAT 97
[2023-09-01] MEDS: 0.9 % Sodium Chloride Flush 3 ML SYRINGE IVFLUSH (07:19)
[2023-09-01 08:08] LABS: MANUAL DIFF FLAG NO
[2023-09-01 08:10] LABS: Basophils Absolute Auto 0.1 X10*3/uL (0.0-0.2); Basophils Percent Auto 0.8 % (0-2); Eosinophils Absolute Auto 0.1 X10*3/uL (0.0-0.4); Eosinophils Percent Auto 1.4 % (0-4); Hematocrit 31.1 % (37.0-47.0); Hemoglobin 10.6 g/dl (12.0-16.0); Imm Gran Abs Auto 0.02 X10*3/uL (0.00-0.03); Imm Gran Pct Auto 0.2 % (0.0-0.4); Lymphocytes Absolute Auto 1.7 X10*3/uL (1.2-4.9); Mean Corpuscular HGB Conc 34.1 g/dl (31.0-35.0); Mean Corpuscular Hemoglobin 31.6 pg (27.0-33.0); Mean Corpuscular Volume 92.8 fL (80.0-98.0); Mean Platelet Volume 9.4 fL (9.4-12.3); Monocytes Percent Auto 10.2 % (2-11); Neutrophils Absolute Auto 6.7 x10*3/uL (2.0-8.3); Neutrophils Percent Auto 69.4 % (45-73); Platelet Count 329 X10*3/uL (160-400); Red Blood Count 3.35 X10*6/uL (4.20-5.50); Red Cell Distribution Width 14.3 % (11.0-16.0); White Blood Count 9.7 X10*3/uL (4.8-10.8)
[2023-09-01] MEDS: Acetaminophen 325 MG TABLET 975 MG PO (08:53)
--- NOTE | 2023-09-01 11:55 | P.DS_ITS ---
DS: Providers Provider Date of Service: 09/01/23 Date of admission: 08/30/23 20:18 Date of discharge: 09/01/23 Primary care physician: Manda Fink MD Consults: 08/30/23 20:23 Consult to Urology Routine Consulting Provider: Sarah Avery Reason for consultation: s/p left uretheral stent placement presents with UTI Has provider been notified: Yes Attending physician on discharge: Kenrick Nicholson Discharging clinician: Augustina Brooks DS: Diagnosis Discharge Diagnosis (1) Ureteral stent present: Status: Acute (2) Ureterolithiasis: Status: Acute (3) Cystitis: Status: Acute DS: Summary Hospital Course Hospital Course: From H&P on the day of admission El Ramires is a 47 years old woman with past medical history significant for nephrolithiasis and recent left ureteral stent placement presents to emergency department complaining of lower abdominal pain that has been getting worse over the last several hours. She described the pain as crampy. It was associated with generalized malaise, nausea, vomiting headache, chills and pain with urination. She denied bloody urine. Denies diarrhea. She did not report any acute cardiopulmonary symptoms. Patient was recently hospitalized due to pyelonephritis and sepsis + bacteremia by E coli. At that time she was found to have an obstructive stone causing moderate left hydroureteronephrosis. She completed a course of cefuroxime days ago. In the ED, she was found to have normal vital signs. Blood workup was remarkable for leukocytosis of 16.0. Platelets and hemoglobin are normal. Lactic acid is not available. There are no electrolyte imbalances and LFTs are normal. Lipase is normal. Urinalysis consistent with urinary tract infection with microscopic hematuria. Abdomen pelvis CT scan with IV contrast today showed interval left ureteral stent placement with improved left hydronephrosis, increasing left inferior perinephritic stranding in comparison with prior study and 5 mm distance left ureteral calculus adjacent to ureteral stent redemonstration bilateral nonobstructive renal calculi versus nephrocalcinosis. ED tx: Acetaminophen 975 mg PO X1, NS 2 L bolus, Toradol 50 mg IV, ceftriaxone 1 g IV, Reglan 10 mg IV, Zofran 8 mg IV Benadryl 25 mg IV. Urinary tract infection/pyelonephritis associated with left distal ureter calculi in the setting of recent left ureteral stent placement (08/12). Recently completed oral antibiotic course. urine culture growing E coli sensitive to ceftriaxone. Blood cultures have remained negative at 48 hours. seen by urology - no plan to remove stone on this admission - plan for outpatient follow up as previously scheduled. Patient has remained afebrile, leukocytosis resolved, symptoms have improved. Will discharge home to complete 10 days of oral antibiotics and plan for follow- up with Urology on Monday as previously scheduled. Time Attestation Discharge Coordination Time (in mins): 35 Quality: Safe Use of Opioids Does Pt have an Active Cancer Diagnosis on the Problem List?: No Quality: Stroke Does the patient have a stroke diagnosis?: No Physical Exam Vital Signs: Vital Signs: Last Vital Signs Temp 98.8 F 09/01/23 07:14 Pulse 77 09/01/23 07:14 Resp 16 09/01/23 07:14 BP 108/59 L 09/01/23 07:14 Pulse Ox 97 09/01/23 07:14 O2 Del Method Room Air 09/01/23 07:14 BMI result Body Mass Index 24.9 Const: General: cooperative, comfortable, no acute distress, alert and awake Nutritional Appearance: average body habitus Orientation/consciousness: patient oriented x3 Resp: Effort & Inspection: normal respiratory effort, able to speak in complete sentences, no respiratory distress and no use of accessory muscles Auscultation: clear to auscultation bilaterally Cardio: Rate: regular rate GI: Inspection: No distended Palpation (GI): Soft to palpation and nontender : General: Yes no CVA tenderness Back/Spine/Pelvis: Back: no CVA tenderness Neuro: General: patient oriented x3, moves all extremities and CN's II-XI intact bilaterally Extrem: General: Yes no pedal edema DS: Data Data Completed and Pending Completed studies during hospitalization [Text1]: Procedures Dilation of Left Ureter with Intraluminal Device, Via Natural or Artificial Opening Endoscopic (08/12/23) Fluoroscopy of Left Kidney, Ureter and Bladder (08/12/23) Labs on day of discharge: Laboratory Results - last 24 hr 09/01/23 08:01 WBC 9.7 RBC 3.35 L Hgb 10.6 L Hct 31.1 L MCV 92.8 MCH 31.6 MCHC 34.1 RDW 14.3 Plt Count 329 D MPV 9.4 Immature Gran % (Auto) 0.2 Neut % (Auto) 69.4 Lymph % (Auto) 18.0 L Calvert % (Auto) 10.2 Eos % (Auto) 1.4 Baso % (Auto) 0.8 Lymph # (Auto) 1.7 Calvert # (Auto) 1.0 Eos # (Auto) 0.1 Baso # (Auto) 0.1 Abs Immat Gran (auto) 0.02 Absolute Neuts (auto) 6.7 Absolute Nucleated RBC 0.000 Nucleated RBC % (auto) 0.0 Preliminary micro results at discharge 08/30/23 18:14 Blood Culture - Preliminary Blood - Venous No growth after 24 hours. 08/30/23 18:14 Blood Culture - Preliminary Blood - Venous No growth after 24 hours. Discharge Plan Discharge Anticipated Discharge Date/Time: 09/01/23 12:15 Patient Disposition: Home, Self-Care Discharge Diagnosis: pyelonephritis Referrals: Manda Fink MD [Primary Care Provider] - 1 Week Discharge Medications: New cefuroxime axetil 500 mg tablet 500 mg PO Q12H 8 Days Qty: 16 0RF Continued ascorbic acid (vitamin C) [Vitamin C] 500 mg Tablet 500 mg PO DAILY biotin 10,000 mcg Capsule 10,000 mcg PO DAILY cholecalciferol (vitamin D3) [Vitamin D3] 25 mcg (1,000 unit) Capsule 25 mcg PO DAILY Discharge Orders: Discharge Order (Routine); Ordered 09/01/23 Ordered By: Augustina Brooks Activity on Discharge: As tolerated Stand Alone Forms: Patient Portal Discharge page Print Language: Algerian Care Plan Goals: See below Health Concerns: Pyelonephritis Plan of Treatment: Complete entire course of antibiotics as prescribed Keep follow-up appointment with Urology as previously scheduled Returned to the emergency department with any recurrent fever or any new or worsening symptoms Assessment: See discharge summary
--- NOTE | 2023-09-01 12:57 | MHC.CM.PN ---
PT WILL DC HOME TODAY WITH NO SERVICES VIA PRIVATE TRANSPORT
== END 2023-09-01 14:46 | disposition home or self-care (01) | DRG 463 ==
LOC: HO.ED 19:57 → HO.EDOVER 20:25 → HO.S3 20:31
PROVIDERS: Physician Assistant Medical; Admitting Provider Internal Medicine; Emergency Provider Emergency Medicine; PCP Internal Medicine; Visit Provider Physician Assistant Medical
DX: N13.6 Pyonephrosis (principal); Z88.0 Allergy status to penicillin; Z79.899 Other long term (current) drug therapy
CPT/HCPCS: 36415; 74018; 74176; 80048; 80053; 81001; 83605; 83690; 83735; 85025; 87040; 99285; J0696; J1200; J1885; J2405; J2765; J7120

== ENCOUNTER → 2023-08-30 20:18 | Outpatient (BNV) | payer OTHER, SELFPAY | PROVIDERS: Admitting Provider Internal Medicine; Emergency Provider Emergency Medicine; PCP Internal Medicine; Visit Provider Internal Medicine | DX: N20.1 Calculus of ureter (principal); N30.90 Cystitis, unspecified without hematuria; Z96.0 Presence of urogenital implants | CPT/HCPCS: 99223; 99233; 99239 ==

== ENCOUNTER → 2023-08-30 20:18 | Outpatient (BNV) | payer OTHER, SELFPAY | PROVIDERS: Admitting Provider Internal Medicine; Emergency Provider Emergency Medicine; PCP Internal Medicine; Visit Provider Urology | DX: N20.0 Calculus of kidney (principal); N20.1 Calculus of ureter; Z96.0 Presence of urogenital implants | CPT/HCPCS: 99222 ==

== ENCOUNTER 2023-09-05 07:08 | Day surgery (SDC) | payer OTHER, SELFPAY ==
[2023-09-05] VITALS (7 sets, daily range): BP systolic 106–139; BP diastolic 70–81; PULSE 69–91; RESP 16–18; TEMP 36.2–36.6; O2SAT 97–100; BMI 24.9
--- NOTE | ~2023-09-05 | FL_ITS ---
EXAMINATION: XR FLUOROSCOPY WITH IMAGES CLINICAL INFORMATION: Cysto, uretero, retro, laser, stent LEFT COMPARISON: CT abdomen pelvis 08/30/2023. TECHNIQUE: Fluoroscopy Supervised By: Dr. Avery. Fluoroscopy Time: 11.8. Cumulative Dose: 2.39 mGy. Images: 3. FINDINGS: 3 images demonstrate ureteroscope and guidewire in the distal left ureter with final image showing the distal end of a presumed double-J ureteral stent. FL/FL guidance in OR IMPRESSION: Fluoroscopy and spot films provided during retrograde ureterography and stent placement.
[2023-09-05 07:39] LABS: UPreg QC Valid YES; Urine Pregnancy NEGATIVE (NEGATIVE)
--- NOTE | 2023-09-05 07:56 | HO.ANESPROP2 ---
COUNTS INCLUDE 234 BEDS AT THE [facility] Active Problems Active Problems: All Active Problems Cystitis (Acute) Bilateral kidney stones (Acute) Ureterolithiasis (Acute) Hydronephrosis (Acute) Ureteral stent present (Acute) Past Medical History Medical History (Updated 09/02/23 @ 00:01 by Sav Cartwright) Ureteral stent present Pyelonephritis Hydronephrosis with renal calculous obstruction Renal calculi Family History Family history of problems with anesthesia: No Surgical History Surgical History (Updated 09/01/23 @ 09:42 by Ladan Keane RN) Hx of cystoscopy History of Problems with Anesthesia: No Social History Social History Household Members: Spouse and Children Housing: House Do you presently have visiting nurse or other home services: No Alcohol intake: never Patient Tobacco Use Status: Never used Tobacco Use of substances other than those prescribed or required for medical reasons: No Are you DNR?: No Advance Directives: No Advance Directives Information Provided: Yes service: No Current occupational status: unemployed Meds Allergies Allergy/AdvReac Type Severity Reaction Status Date / Time amoxicillin Allergy Intermediate Hives Verified 09/01/23 09:42 Penicillins Allergy Intermediate Hives Verified 08/30/23 13:07 Active Medications: Current Medications Acetaminophen (Acetaminophen 325 Mg Tablet) 650 mg PO ONCE PRN PRN Reason: Pain, Mild (Pain Scale 1-3) Stop: 09/05/23 13:55 Fentanyl (Fentanyl Citrate/Pf 100 Mcg/2 Ml Vial) 25 mcg IVPUSH Q5M PRN; Protocol PRN Reason: Pain, Moderate(Pain Scale 4-6) Stop: 09/05/23 13:55 Hydromorphone HCl (Hydromorphone Hcl 0.5 Mg/0.5 Ml Syringe) 0.5 mg IVPUSH Q5M PRN; Protocol PRN Reason: Pain, Severe (Pain Scale 7-10) Stop: 09/05/23 13:55 Home Medications ?Medication ?Instructions ?Recorded ?Confirmed ?Last Taken ?Type ascorbic acid (vitamin C) 500 mg 500 mg PO DAILY 08/12/23 09/05/23 08/29/23 History tablet (Vitamin C) biotin 10,000 mcg capsule 10,000 mcg PO DAILY 08/12/23 09/05/23 08/29/23 History cholecalciferol (vitamin D3) 25 25 mcg PO DAILY 08/12/23 09/05/23 08/29/23 History mcg (1,000 unit) capsule (Vitamin D3) loratadine 10 mg tablet (Claritin) 10 mg PO DAILY 09/05/23 09/05/23 Unknown History Exam Height,Weight and Vital Signs: Height 5 ft 4 in Weight 65.771 kg Last Vital Signs Temp 97.2 F 09/05/23 07:30 Pulse 71 09/05/23 07:30 Resp 18 09/05/23 07:30 BP 127/77 09/05/23 07:30 Pulse Ox 98 09/05/23 07:30 O2 Del Method Room Air 09/05/23 07:30 Pertinent Lab Results Pertinent Lab Results: Laboratory Tests 09/05/23 07:11 Urine Test NEGATIVE Airway Mallampati Class: I TM Dist: >3cm Neck ROM: Full Loose/Missing/Broken Teeth: No Heart: rrr Lungs: cta Assessment and Plan Assessment Anesthesia Assessment: Anesthesia Plan Discussed and Chart Reviewed Final Anesthetic Review Family History of Problems with Anesthesia: No History of Problems with Anesthesia: No NPO: Yes ASA Class: I Final Preanesthetic Review: No Changes in Pt Med Stat, Meds/Allgs Chart Reviewed, Consent Obtained/Reviewed and Anes Risks/Benef Reviewed Patient Risk: Intermediate Procedure Risk: Intermediate Anesthetic Plan Anesthetic Plan: GA Disposition: Standard PACU
[2023-09-05] MEDS: Lactated Ringers 1,000 ML 50 ML IVCONT (07:59)
--- NOTE | 2023-09-05 08:59 | MHC.SHP ---
Pre-Procedural Eval Section A - 24 Hr Update-Section A only Date of Service: 09/05/23 The patient is an INPATIENT: No The patient has been examined within 24 hours of the surgical procedure. The History & Physical has been completed within 30 days and I have reviewed it.: Yes Section B - Complete if H&P > 30 days Chief Complaint: Calculus of ureter, hydro, s/p Left ureteral stent Allergies: Allergies Allergy/AdvReac Type Severity Reaction Status Date / Time amoxicillin Allergy Intermediate Hives Verified 09/01/23 09:42 Penicillins Allergy Intermediate Hives Verified 08/30/23 13:07 Plan Diagnosis/Plan: Unchanged I have reviewed the history and physical and performed a pertinent physical examination on my patient. No changes have occurred unless specified. Plan for Cystoscopy, left ureteroscopy, laser lithotripsy, possible ureteral stent removal, versus stent exchange Risks discussed included but not limited to, possible need to repeat procedure if stone is not completely fragmented, Irritative voiding symptoms, bladder spasms, urgency, blood in urine. Time Spent With Patient Time: Total time managing care of this patient today ____ minutes.
--- NOTE | 2023-09-05 10:22 | W.PM.OPN ---
Operative Note Operative Note Date of Service: 09/05/23 Narrative: PreOperative Diagnosis:?? Left ureteral stone, hydronephrosis status post left ureteral stent Post Operative Diagnosis:?? Left ureteral stone, hydronephrosis status post left ureteral stent Procedure: Cystoscopy, Left ureteroscopy laser lithotripsy stent exchange, size 6 Montenegrin by 26 cm Surgeon:?Dr Sarah Avery Anesthesia:? General Indications for procedure: Here for stone fragmentation. Procedure: After informed consent was verified the patient was brought to the operating placed on the OR table in supine position.? General Anesthesia was administered per protocol.? The patient was placed in lithotomy position, prepped and draped in the usual sterile fashion.? Safety pause time-out and side of surgery confirmed.? Antibiotics confirmed. A 22 Montenegrin cystoscope was inserted transurethrally.. The bladder was visualized.? Both ureteric orifices were in normal position. The ureteral stent was curled in the bladder. An open-ended with guidewire was passed alongside the stent into the kidney. The? distal end of the ureteral stent was grasped with the flexible grasping forceps. The stent was pulled retrograde through the urethra leaving the guidewire in place. The guidewire was used as the safety and was attached to the draping. The semi rigid ureteroscope along with a 2nd guidewire was passed transurethrally to the level of the stone in the mid ureter. The stone was noted to be imbedded along the mid side wall of the left ureter. Laser lithotripsy of the stone was done using the 365 fiber with a combination of dusting settings 0.5 J by 20 hertz and pulsating setting 0.6 x joules by 6 hertz, care was used to avoid lasering of the ureteral tissue. There was good fragmentation of the stone. The 0 degree basket was used to remove the stone fragments, which were sent for analysis. The ureteroscope was removed. The cystoscope was passed over the safety guidewire. A?6 Montenegrin by 26 cm stent was placed into the ureter and renal pelvis under a combination of fluoroscopy and direct visualization. The bladder was emptied.? The rigid cystoscope was removed. ? The patient tolerated the procedure well and was brought to the recovery room in stable condition. Complications: None Drains: Ureteral stent as dictated above
[2023-09-05] MEDS: Phenazopyridine HCL 200 MG TABLET PO (10:59)
[2023-09-19 23:02] LABS: Stone Source LEFT URETERAL STONE
== END 2023-09-05 12:20 | disposition home or self-care (01) ==
PROVIDERS: PCP Internal Medicine; Visit Provider Urology
PROC: (CPT 52356; principal; 2023-09-05 08:40)
DX: N13.2 Hydronephrosis with renal and ureteral calculous obstruction (principal); Z96.0 Presence of urogenital implants; Z87.442 Personal history of urinary calculi; Z79.899 Other long term (current) drug therapy; Z88.0 Allergy status to penicillin; Z56.0 Unemployment, unspecified
CPT/HCPCS: 52356; 81025; 82365; 88300; C1758; C1769; C2617; J0690; J0696; J1100; J2250; J2405; J2704; J3010

== ENCOUNTER → 2023-09-05 07:08 | Outpatient (BNV) | payer OTHER, SELFPAY | PROVIDERS: PCP Internal Medicine; Visit Provider Urology | DX: N20.1 Calculus of ureter (principal); N13.30 Unspecified hydronephrosis | CPT/HCPCS: 52356; 74420 ==

== ENCOUNTER 2023-09-13 15:26 | Outpatient (AMB) | payer OTHER, SELFPAY ==
--- NOTE | 2023-09-13 15:33 | A.OFFVIS_ITS ---
Intake Visit Reasons: cysto stent removal Intake Note: Patient presents today for a CYSTOSCOPY Procedure: Meds: None Allergies to Antibiotic: Amoxicillin & Penicillin Blood Thinner: None Urinalysis test clear for Cysto? 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: No Accompanied by: Self / Same As Patient Allergies amoxicillin Allergy (Intermediate, Verified 09/13/23 15:33) Hives Penicillins Allergy (Intermediate, Verified 09/13/23 15:33) Hives Medication List - Last Reconciled 09/13/23 by Vicente Mejía MD ascorbic acid (vitamin C) (Vitamin C) 500 mg PO DAILY biotin 10,000 mcg PO DAILY cefuroxime axetil 500 mg PO Q12H 8 days cholecalciferol (vitamin D3) (Vitamin D3) 25 mcg PO DAILY loratadine (Claritin) 10 mg PO DAILY oxycodone-acetaminophen 5-325 mg (Percocet) 1 tab PO Q6H PRN phenazopyridine (Pyridium) 200 mg PO TID PRN HPI Comments Details: El is a pleasant female. She is a patient of Dr.Hayfron- [place]. She is seen for the following urologic conditions - nephrolithiasis Here for stent removal Stent removed 6 week follow-up with Dr. Ovalle renal ultrasound +L[facility] Stone analysis pending Nephrolithiasis Recurrent stone former Recent intervention for pyelonephritis Intervention - 09/05 left ureteroscopy with laser lithotripsy [facility] Medical History (Updated 09/02/23 @ 00:01 by Sav Cartwright) Ureteral stent present Pyelonephritis Hydronephrosis with renal calculous obstruction Renal calculi Surgical History (Updated 09/01/23 @ 09:42 by Ladan Keane RN) Hx of cystoscopy Social History Household Members: Spouse and Children Housing: House Do you presently have visiting nurse or other home services: No Alcohol intake: never Patient Tobacco Use Status: Never used Tobacco service: No Current occupational status: unemployed Review of Systems Const Denies chills and Denies fever(s) Card Reports no additional complaints and Denies syncope Resp Denies cough GI Denies abdominal pain and Denies heartburn Reports as per HPI and Denies change in libido Neuro Denies syncope Psych Denies change in libido Endo Denies change in libido Physical Exam Const General: cooperative, healthy appearing, comfortable and no acute distress Orientation/consciousness: patient oriented x3 HEENT Face and sinus: Yes normal facial exam Mouth: moist mucous membranes Neck Neck: Yes normal visual inspection, Yes full ROM and Yes trachea midline Chest Chest palpation & inspection: normal inspection of the chest Resp Effort & Inspection: normal respiratory effort, able to speak in complete sentences and no respiratory distress GI Inspection: Yes normal to inspection Back/Spine/Pelvis Cervical Spine: normal cervical lordosis Thoracic/Lumbar Spine: thoracic and lumbar spine normal to inspection Skin General skin exam: no rashes or lesions noted Neuro General: patient oriented x3, gait normal, tone normal and moves all extremities Extrem General: Yes normal to inspection and Yes capillary refill normal Office Procedures Cystoscopy Consent Discussed risk and benefit or proposed procedure with the patient. Information consent for procedure given to the patient. Discussed technical aspects, risks, benefits and alternatives in full. Addressed all of the patient's questions and concerns regarding the procedure. The patient demonstrated knowledge and understanding. They wish to proceed with this procedure. Preparation The patient was prepped in the usual manner. A bread wrapper was present and in the room. Genitalia was prepped with betadine solution in a sterile manner. Lidocaine Jelly 2% was placed into the urethra and 16Fr flexible Olympus cystoscope was inserted into the meatus after adequate lubrication. Procedure A well lubricated 16 Vietnamese cystoscope was placed No abnormality noted of urethra during placement Indwelling stent seen within bladder emerging from left ureteric orifices The stent was grasped with a 3 prong grasper and removed without difficulty The patient tolerated the procedure well [id number]-[id number] with stent removal DISPOSABLE SCOPE URO-G FLEXIBLE SCOPE Procedure code (CPT) selection complete Office Meds lidocaine HCl 2 % mucosal jelly in applicator Performing Provider: Vicente Mejía MD [facility] Administered by: Rosalino Anne LPN on 09/13/23 15:38 Dose Route Admin Location Dispensed Lot Number Expiration Date ND Sleep Manager 10 mL intra-urethral 10 mL nitrofurantoin monohydrate/macrocrystals 100 mg capsule Performing Provider: Vicente Mejía MD Performing Location[facility] Administered by: Rosalino Anne LPN on 09/13/23 15:38 Dose Route Admin Location Dispensed Lot Number Expiration Date NDC Sleep Manager 100 mg PO 1 cap naproxen 500 mg tablet Performing Provider: Vicente Mejía MD Performing Location: [facility] Administered by: Rosalino Anne LPN on 09/13/23 15:38 Dose Route Admin Location Dispensed Lot Number Expiration Date NDC Sleep Manager 500 mg PO 1 tab Results AMB Urinalysis, Automated UA Leukoctes 70 Tj/uL Last Edit by LIVIA Shepard on 09/13/23 15:45 1+ Harshad Esqueda 09/13/23 15:45 UA Nitrite Negative Last Edit by LIVIA Shepard on 09/13/23 15:45 UA Urobilinogen 0.2 mg/dL Last Edit by LIVIA Shepard on 09/13/23 15:4 5 UA Protein 30 mg/dL Last Edit by LIVIA Shepard on 09/13/23 15:45 1+ Harshad Esqueda 09/13/23 15:45 UA pH 6.0 Last Edit by LIVIA Shepard on 09/13/23 15:45 UA Blood 200 Rishi/uL Last Edit by LIVIA Shepard on 09/13/23 15:45 3+ Harshad Esqueda 09/13/23 15:45 UA Specific Coleman 1.020 Last Edit by LIVIA Shepard on 09/13/23 15: 45 UA Ketone Negative Last Edit by LIVIA Shepard on 09/13/23 15:45 UA Bilirubin 0 mg/dL Last Edit by LIVIA Shepard on 09/13/23 15:45 UA Glucose 0 mg/dL Last Edit by LIVIA Shepard on 09/13/23 15:45 Results Reviewed Results Reviewed: Laboratory Last Values Urine pH (Auto) 6.0 09/13/23 15:35 Specific Coleman (Auto) 1.020 09/13/23 15:35 Urine Protein (Auto) 30 mg/dL 09/13/23 15:35 Glucose (UA)(Auto) 0 mg/dL 09/13/23 15:35 Urine Ketones (Auto) Negative 09/13/23 15:35 Urine Blood (Auto) 200 Rishi/uL 09/13/23 15:35 Urine Nitrite (Auto) Negative 09/13/23 15:35 Urine Bilirubin (Auto) 0 mg/dL 09/13/23 15:35 Urine Urobilinogen (Auto) 0.2 mg/dL 09/13/23 15:35 Leukocyte Esterase (Auto) 70 Tj/uL 09/13/23 15:35 Assessment & Plan Assessment & Plan (1) Bilateral kidney stones: Code(s): N20.0 - Calculus of kidney Category: Medical Plan Six week follow-up renal ultrasound with [facility]ol[facility] Orders: Orders US renal BI 6 Weeks N20.0 - Calculus of kidney AMB Urinalysis Automated 09/13/23 Z13.9 - Encounter for screening, unspecified AMB Cystoscopy 09/13/23 N20.0 - Calculus of kidney, Z96.0 - Presence of urogenital implants Patient Instructions: Imaging studies, laboratory and physical exam results were discussed and reviewed in detail. No major barriers to patient understanding were identified. An opportunity to ask questions regarding the treatment plan was provided. All questions were answered. The patient expressed understanding and agreement with the above treatment plan. The patient is aware they should contact our office by phone for worsening of their current condition or the appearance of new urologic symptoms. Compliance is encouraged with any medications and followup testing that is ordered. It is a privilege to participate in the urologic care of your patient. If you have any questions or concerns regarding treatment for the above conditions, or other urologic issues, please do not hesitate to contact me. The office telephone contact is [phone]. This note is constructed using voice recognition software. While every effort has been made to ensure accuracy packer operator automatic errors may have been included. Yours sincerely, Dr Vicente Mejía MD, [facility] - Urology Providers of Expert, Compassionate Care for the Genitourinary System Coding Level of Care Code Est Pt Level 3 (91966) Diagnoses Bilateral kidney stones N20.0 CPT Codes Cystoscopy - CPT: 39953-[id number] with stent removal ([id number])
== END 2023-09-13 15:56 | disposition home or self-care (01) ==
PROVIDERS: PCP Internal Medicine; Visit Provider Urology
DX: N20.0 Calculus of kidney (principal); Z96.0 Presence of urogenital implants; Z13.9 Encounter for screening, unspecified
CPT/HCPCS: 52310

== ENCOUNTER → 2023-09-13 15:26 | Outpatient (BNVA) | payer OTHER, SELFPAY | PROVIDERS: PCP Internal Medicine; Visit Provider Urology | DX: Z48.816 Encounter for surgical aftercare following surgery on the genitourinary system (principal) | CPT/HCPCS: 52310; 81003 ==

== ENCOUNTER 2023-10-12 10:05 | Outpatient (REF) | payer OTHER, SELFPAY ==
--- NOTE | ~2023-10-12 | US_ITS ---
EXAMINATION: US RETROPERITONEAL LIMITED (RENAL ONLY) CLINICAL INFORMATION: Calculus of kidney. COMPARISON: CT abdomen and pelvis 08/30/2023. Renal ultrasound 09/16/2020. TECHNIQUE: Real-time imaging of the kidneys. FINDINGS: RIGHT KIDNEY: 8.9 x 5.7 x 5.7 cm (SAG x AP x TRV). The kidney is normal in size, contour, and echogenicity. Renal cortical thickness is normal. No focal parenchymal lesions. There are multiple calculi throughout the kidney, the largest measuring 6 mm in the upper pole. There is mild hydronephrosis. LEFT KIDNEY: 11.0 x 5.7 x 5.4 cm (SAG x AP x TRV). The kidney is normal in size, contour, and echogenicity. Renal cortical thickness is normal. No focal parenchymal lesions. There are multiple calculi throughout the kidney, largest measuring 4 mm in the upper pole. There is mild hydronephrosis. BLADDER: Bilateral ureteral jets are demonstrated. US/US renal BI IMPRESSION: Bilateral nonobstructing renal calculi. Mild bilateral hydronephrosis appears similar to prior CT.
== END 2023-10-12 10:06 | disposition home or self-care (01) ==
LOC: HO.US 10:05
PROVIDERS: PCP Internal Medicine; Visit Provider Urology
DX: N20.0 Calculus of kidney (principal)
CPT/HCPCS: 76775

== ENCOUNTER 2023-10-25 08:08 | Outpatient (AMB) | payer OTHER, SELFPAY ==
--- NOTE | 2023-10-25 08:10 | A.OFFVIS_ITS ---
Intake Visit Reasons: 6w/US/Litholink Intake Note: Patient presents today for US & Litholink Results: Meds- None Allergies to Antibiotic- Penicillins & Amoxicillin Blood Thinner- None Darkroom Worker Required: No Accompanied by: Self / Same As Patient Allergies amoxicillin Allergy (Intermediate, Verified 09/13/23 15:33) Hives Penicillins Allergy (Intermediate, Verified 09/13/23 15:33) Hives HPI Comments Details: 10/25/2023 El is a 47-year-old female who is followed due to nephrolithiasis. She is here in follow-up post 24 hour urine and follow-up renal ultrasound. I have reviewed 24 hour urine results. Urine volume 1.6 L, discussed increasing fluid intake, urine calcium is elevated as well as urine sodium. She had prior Litholink in 2021 at which time the urine calcium was higher than recent study, I will refer her to Nephrology. 10/12/2023--Renal ultrasound imaging reviewed, notes scattered bilateral renal calculi suggestive of nephrocalcinosis. We will continue to monitor follow-up in 1 year renal ultrasound prior. Review of chart: 09/13/23-- office cysto stent removal 09/05/23--OR for left ureteroscopy laser lithotripsy of left obstructing ureteral stone and stent insertion. 08/25/23--El is a 47-year-old female with history of kidney stones, she was initially evaluated as an inpatient due to left obstructing ureteral stone and pyelonephritis. She is status post left ureteral stent on 08/13/23. She presents today and states she has been doing well she is increasing her water intake. I have discussed further stone management with ureteroscopy laser lithotripsy and stent exchange. Pamphlet was given to the patient. Risks and benefits discussed including but not limited to hematuria, bleeding, ureteral injury/inflammation, need to have further treatments if stone is not completely fragmented. Consent obtained. plan cystoscopy left ureteroscopy retrograde stent exchange laser lithotripsy [facility] Medical History Ureteral stent present Pyelonephritis Hydronephrosis with renal calculous obstruction Renal calculi Surgical History Hx of cystoscopy Social History Household Members: Spouse and Children Housing: House Do you presently have visiting nurse or other home services: No Alcohol intake: never Patient Tobacco Use Status: Never used Tobacco service: No Current occupational status: unemployed Review of Systems Const All systems reviewed & are unremarkable except as noted in HPI and below Reports no additional complaints Eyes Reports no additional complaints ENT Reports no additional complaints Card Reports no additional complaints Resp Reports no additional complaints GI Reports no additional complaints Reports as per HPI Musc Reports no additional complaints Skin/Breast Reports system reviewed and no additional complaints, except as documented Neuro Reports no additional complaints Psych Reports no additional complaints Endo Reports no additional complaints Itz/Lymph Reports no additional complaints Aller/Immun Reports no additional complaints Results Reviewed Results Reviewed: Renal ultrasound 10/12/2023--imaging reviewed bilateral renal calculi. No hydronephrosis. Official travel counselor automobile club pending. Date of Service: 08/12/23 EXAMINATION: CT ABDOMEN AND PELVIS WITHOUT CONTRAST CLINICAL INFORMATION: Left flank pain, suspected stone COMPARISON: Renal ultrasound 10/16/2020 TECHNIQUE: Multidetector volumetric images were obtained from the superior aspect of the liver through the pubic symphysis without contrast. Sagittal and coronal reformatted images were obtained on the technologist's workstation. Oral contrast: No This CT examination was performed using dose optimization techniques as appropriate, variously including the following: *Automated exposure control *Adjustment of mA and/or kV according to patient size (this includes techniques or standardized protocols for targeted exams where dose is matched to indication/reason for exam; i.e. extremities or head) *Use of iterative reconstruction technique DLP: 588 mGy-cm FINDINGS: LUNG BASES: The visualized lung bases are unremarkable. LIVER, GALLBLADDER, AND BILIARY TREE: The liver is normal in size, shape, and attenuation. No focal hepatic lesion or biliary ductal dilatation is present. The gallbladder is unremarkable with no evidence of radiopaque gallstones, gallbladder wall thickening, or obvious pericholecystic inflammatory changes. PANCREAS: Unremarkable. SPLEEN: Unremarkable. ADRENAL GLANDS: Unremarkable. KIDNEYS AND URETERS: Multiple calcifications in bilateral kidneys, could reflect nephrocalcinosis or renal calculi. There is moderate left hydroureteronephrosis. There is a 7 mm obstructing calculus in the al ureter the level of the upper sacrum. The ureter distal to this is decompressed. Small hypodense lesions, too small to characterize, probable cysts. No further evaluation is needed. Cysts was seen on the prior ultrasounds as well. No significant perinephric stranding. BLADDER: Nondistended, . Unremarkable. GASTROINTESTINAL TRACT: Stomach is nondistended. Nonobstructive bowel gas pattern. No colonic wall thickening or pericolonic inflammatory changes. Normal appendix. ABDOMINAL WALL: Periumbilical an anterior abdominal wall surgical clips. No significant hernia is appreciated. LYMPH NODES: No pathologically enlarged lymph nodes. VASCULAR: Normal caliber aorta. PELVIC VISCERA: Within normal limits for CT.. Anteverted uterus. OSSEOUS STRUCTURES: No acute or suspicious osseous abnormality. IMPRESSION: 1. Moderate left hydroureteronephrosis with a 7 mm obstructing calculus in the left ureter at the level of the upper sacrum. 2. Innumerable calcifications in bilateral kidneys, which could reflect nephrocalcinosis or renal calculi. Assessment & Plan Assessment & Plan (1) Bilateral kidney stones: Code(s): N20.0 - Calculus of kidney Category: Medical (2) Hypercalciuria: Code(s): R82.994 - Hypercalciuria Category: Medical Plan Follow-up in 1 year, renal ultrasound prior. Referral to Nephrology. Orders: Orders US renal BI Today N20.0 - Calculus of kidney Referrals Nephrology Referral N20.0 - Calculus of kidney, R82.994 - Hypercalciuria Medications: New pyridoxine (vitamin B6) 100 mg PO DAILY 90 tabs 3RF Patient Instructions: The patient had an opportunity to ask questions regarding treatment plan. The patient expressed understanding and agreement with the above treatment plan. The patient is aware they should contact our office by phone for worsening of their current condition or the appearance of new symptoms. Compliance is encouraged with any medications and followup testing that is ordered. It is a privilege to be allowed the opportunity to participate in the urologic care of your patient. If you have any questions or concerns regarding treatment for the above conditions please do not hesitate to contact me. The office telephone contact is [phone]. This note is constructed in part using voice recognition software. While every effort has been made to ensure accuracy travel counselor automobile [employer] errors may have been included. Yours sincerely, Sarah Avery MD Coding Level of Care Code Est Pt Level 4 (17787) Diagnoses Bilateral kidney stones N20.0 Hypercalciuria R82.994
== END 2023-10-25 08:48 | disposition home or self-care (01) ==
PROVIDERS: PCP Internal Medicine; Visit Provider Urology
DX: N20.0 Calculus of kidney (principal); R82.994 Hypercalciuria
CPT/HCPCS: 99214

== ENCOUNTER → 2023-10-25 08:08 | Outpatient (BNVA) | payer OTHER, SELFPAY | PROVIDERS: PCP Internal Medicine; Visit Provider Urology ==

== ENCOUNTER 2023-12-31 13:19 | Observation (INO) | payer OTHER, SELFPAY ==
--- NOTE | ~2023-12-31 | CT_ITS ---
EXAMINATION: CT ABDOMEN AND PELVIS WITHOUT CONTRAST CLINICAL INFORMATION: Right flank pain. COMPARISON: CT scan of the abdomen and pelvis dated 08/30/2023. TECHNIQUE: Multidetector volumetric imaging was performed from the superior aspect of the liver through the pubic symphysis. Sagittal and coronal reformatted images were obtained on the technologist workstation. This CT examination was performed using dose optimization techniques as appropriate, variously including the following: *Automated exposure control *Adjustment of mA and/or kV according to patient size (this includes techniques or standardized protocols for targeted exams where dose is matched to indication/reason for exam; i.e. extremities or head) *Use of iterative reconstruction technique DLP: 477 mGy-cm. FINDINGS: LUNG BASES: The visualized lung bases are unremarkable. LIVER, GALLBLADDER, AND BILIARY TREE: The liver is normal in size, shape, and attenuation. No focal hepatic lesion on noncontrast imaging. No biliary ductal dilatation is present. The gallbladder is unremarkable with no evidence of radiopaque gallstones, gallbladder wall thickening, or obvious pericholecystic inflammatory changes. PANCREAS: Unremarkable on noncontrast imaging. SPLEEN: Unremarkable. ADRENAL GLANDS: Unremarkable on noncontrast imaging. KIDNEYS AND URETERS: The prominent bilateral medullary nephrocalcinosis with innumerable punctate calcifications seen at the corticomedullary junctions of both kidneys with pixel attenuation values extending up to 265 Hounsfield units, similar to the prior exam. There is now moderate right-sided hydroureteronephrosis down to the distal ureter in the upper pelvis, where a 0.6 x 0.3 cm nonobstructing calcification with mean attenuation values of 475 Hounsfield units is seen. The right ureter distal to this calcification is decompressed and no additional right ureteral calculi are noted. Small volume free fluid and stranding in the pelvis is noted. No left-sided hydronephrosis, hydroureter, or ureteral calculi seen. No perinephric stranding. BLADDER: Well distended and unremarkable. No bladder calculi. PELVIC VISCERA: Unremarkable. GASTROINTESTINAL TRACT: The small and large bowel are unremarkable. The appendix is unremarkable. ABDOMINAL WALL: No significant hernia is appreciated. Anterior abdominal wall surgical changes noted in the periumbilical region. LYMPH NODES, VASCULAR: Unremarkable. OSSEOUS STRUCTURES: There is a convex left thoracolumbar scoliosis.. CT/CT abdomen pelvis wo IV con IMPRESSION: * Moderate right-sided hydroureteronephrosis down to a 0.6 x 0.3 cm nonobstructing calcification in the distal right ureter in the upper pelvis. * Prominent bilateral medullary nephrocalcinosis, similar to prior exam.
--- NOTE | ~2023-12-31 | US_ITS ---
EXAMINATION: US RETROPERITONEAL COMPLETE (RENAL) CLINICAL INFORMATION: Renal colic. COMPARISON: Prior ultrasound 10/12/2023 TECHNIQUE: Real-time imaging of the kidneys and bladder. FINDINGS: RIGHT KIDNEY: 11.6 x 5.9 x 7.2 cm (SAG x AP x TRV). The kidney is normal in size, contour, and echogenicity. Renal cortical thickness is normal. Multiple echogenic 5 side likely stones.. There is hydronephrosis. There are renal cysts the largest measure up to 7 x 5 x 5 mm. LEFT KIDNEY: 10.7 x 6.2 x 6.8 cm (SAG x AP x TRV). The kidney is normal in size, contour, and echogenicity. Renal cortical thickness is normal. No hydronephrosis on the left side, there is a stone middle pole 5 x 7 x 5 mm. Small cyst upper pole 9 mm. BLADDER: Limited evaluation of the urinary bladder are grossly unremarkable. Urinary bladder was not fully distended. No post void images obtained. US/US retroperitoneal comp IMPRESSION: 1. Right renal hydronephrosis, dilated proximal right ureter 8mm. 2. Bilateral nonobstructing kidney stones. 3. Bilateral renal cysts.
--- NOTE | 2023-12-31 13:29 | ED_ITS ---
HPI - Abdominal Pain General Chief Complaint: Abdominal Pain Stated Complaint: RT side abd pain Time Seen by Provider: 12/31/23 13:59 Source: patient, family and old records reviewed Mode of arrival: ambulatory Limitations: no limitations History of Present Illness ED Provider: MICHELE HPI narrative: 48 yo female PMH of ureterolithiasis with stents in past and sepsis related to E. Coli and has had E. Coli bacteremia S to ceftriaxone. Most recent urine shows intermediate response to levofloxacin. She notes 2 days of nausea, chills, flank pain, cloudy urine. No vomiting, no medications at home. Worried she has stone or infection again. MD elicited complaint: abdominal pain Pertinent past history: kidney stones and past UTI Onset (ago): day(s) (2) Pain Consistency: constant Location: R flank Severity: moderate Quality: aching Radiation: none Migration to: no migration Exacerbating factors: nothing Relieving factors: nothing Context: history of similar episodes Associated symptoms: nausea and chills Related Data Home Medications ?Medication ?Instructions ?Recorded ?Confirmed ascorbic acid (vitamin C) 500 mg 500 mg PO DAILY 08/12/23 09/13/23 tablet (Vitamin C) biotin 10,000 mcg capsule 10,000 mcg PO DAILY 08/12/23 09/13/23 cholecalciferol (vitamin D3) 25 25 mcg PO DAILY 08/12/23 09/13/23 mcg (1,000 unit) capsule (Vitamin D3) loratadine 10 mg tablet (Claritin) 10 mg PO DAILY 09/05/23 09/13/23 Previous Rx's ?Medication ?Instructions ?Recorded cefuroxime axetil 500 mg tablet 500 mg PO Q12H 8 days #16 tabs 09/01/23 oxycodone-acetaminophen 5 mg-325 1 tab PO Q6H PRN pain #6 tabs 09/05/23 mg tablet (Percocet) phenazopyridine 200 mg tablet 200 mg PO TID PRN Urinary 09/05/23 (Pyridium) discomfort #20 tabs pyridoxine (vitamin B6) 100 mg 100 mg PO DAILY #90 tabs 10/25/23 tablet Allergies Allergy/AdvReac Type Severity Reaction Status Date / Time amoxicillin Allergy Intermediate Hives Verified 12/31/23 13:35 Penicillins Allergy Intermediate Hives Verified 12/31/23 13:35 Review of Systems Review of Systems Constitutional : No Fever, pos Chills ENT/Mouth : No sore throat Eyes: No Eye Pain, No Swelling, No Redness Cardiovascular : No Chest Pain, No SOB Respiratory : No Cough, No Sputum, No Wheezing Gastrointestinal : positive Nausea, no Vomiting, No Diarrhea, positive abdominal pain Genitourinary : positive Dysuria, positive urinary frequency, no Hematuria, positive Flank Pain Musculoskeletal : No joint pain, No Myalgias Skin : No Skin Lesions, No rash Neuro : No Weakness, No Numbness, No Headache Psych : No Anxiety/Panic, No Depression Heme/Lymph: No Bruising, No Lymphadenopathy Endocrine : No Polyuria, No Polydipsia All other systems reviewed and are negative PMFSH Past Medical History Attestation statement: The following information was validated with the patient. Source: old records reviewed Medical History Ureteral stent present Pyelonephritis Hydronephrosis with renal calculous obstruction Renal calculi Surgical History Hx of cystoscopy Social History Social History Household Members: Spouse and Children Housing: House Do you presently have visiting nurse or other home services: No Alcohol intake: never Patient Tobacco Use Status: Never used Tobacco Advance Directives: No Advance Directives Information Provided: Yes service: No Current occupational status: unemployed Physical Exam ED Vital Signs: Vital Signs - 24 hr 12/31/23 13:34 Temperature 98.7 F Pulse Rate 95 Respiratory Rate 16 Blood Pressure 138/80 Pulse Oximetry 100 Oxygen Delivery Method Room Air BMI result Body Mass Index 25.9 Appearance: Alert. Oriented X3. No acute distress. Eyes: Pupils equal, round and reactive to light. ENT: Pharynx normal. Neck: Normal inspection. Neck supple. CVS: Normal heart rate and rhythm. Pulses normal. Respiratory: No respiratory distress. Breath sounds normal. Abdomen: Soft and nontender. R CVA ttp mild Skin: Skin warm and dry. Normal skin color. Normal skin turgor. Extremities: No lower extremity edema. No calf ttp Neuro: Oriented X 3. No motor deficit. No sensory deficit. Course Course Course Narrative: This is a Rapid Medical Exam performed in triage by Amanda Johnson PA-C. Full HPI, ROS and PE to be performed by primary ED provider. 48 yo F w/PMHx cystitis, ureterolithiasis s/p stent placement presenting to the ED c/o R flank/abdominal pain x few days, now with fatigue, chills, nausea & cloudy urine/urinary frequency. denies dysuria, hematuria PE: nontoxic appearing, VSS Plan: labs, UA, CTAP Reevaluation(s) Reevaluation #1: signed out to Dr. Lamb pending CT scan and possible admit Medical Decision Making Medical Decision Making MDM Narrative: 48 yo female PMH of ureterolithiasis with stents in past and sepsis related to E. Coli S to ceftriaxone here with flank pain chills and nausea at this time based off hx will obtain labs, lactic acid, start ceftriaxone, IVF, toradol and morphine for pain. Possible pyelo, UTI, stones. US ordered to evaluate for obstruction Differential Diagnosis Differential Diagnoses: The differential diagnosis associated with the presentation includes pyelo, UTI, stones Admission/Observation Consideration of admission/observation: Escalation of care including admission/observation considered given labs concern for stone possible admit signed out Lab Data [facility] Lab Attestation statement: I reviewed the patient's lab results. 12/31/23 13:46 12/31/23 13:46 Labs: Lab Results 12/31/23 12/31/23 Range/Units 13:46 14:59 WBC 12.7 H (4.8-10.8) X10*3/uL RBC 3.95 L (4.20-5.50) X10*6/uL Hgb 12.4 (12.0-16.0) g/dl Hct 36.8 L (37.0-47.0) % MCV 93.2 (80.0-98.0) fL MCH 31.4 (27.0-33.0) pg MCHC 33.7 (31.0-35.0) g/dl RDW 13.5 (11.0-16.0) % Plt Count 287 (160-400) X10*3/uL MPV 9.5 (9.4-12.3) fL Immature Gran % (Auto) 0.6 H (0.0-0.4) % Neut % (Auto) 80.2 H (45-73) % Lymph % (Auto) 12.3 L (20-40) % Garden % (Auto) 6.2 (2-11) % Eos % (Auto) 0.2 (0-4) % Baso % (Auto) 0.5 (0-2) % Lymph # (Auto) 1.6 (1.2-4.9) X10*3/uL Garden # (Auto) 0.8 (0.1-1.2) X10*3/uL Eos # (Auto) 0.0 (0.0-0.4) X10*3/uL Baso # (Auto) 0.1 (0.0-0.2) X10*3/uL Abs Immat Gran (auto) 0.07 H (0.00-0.03) X10*3/uL Absolute Neuts (auto) 10.2 H (2.0-8.3) x10*3/uL Absolute Nucleated RBC 0.000 (0.0-0.012) X10*3/uL Nucleated RBC % (auto) 0.0 (0.0-0.2) /100WBC Sodium 138 (135-145) mmol/L Potassium 3.4 (3.3-5.1) mmol/L Chloride 106 (96-108) mmol/L Carbon Dioxide 20 L (22-29) mmol/L Anion Gap 15 (12-20) BUN 10 (9-16) mg/dL Creatinine 0.79 (0.5-1.4) mg/dL Estim Creat Clear Calc 83.6 Estimated GFR > 60 Random Glucose 134 H (60-115) mg/dL Lactic Acid 2.3 H* (0.5-2.0) mmol/L Calcium 9.6 D (8.4-10.2) mg/dL Magnesium 2.1 (1.6-2.6) mg/dL Total Bilirubin 0.9 (0.0-1.0) mg/dL Direct Bilirubin 0.3 (0.0-0.5) mg/dL AST 14 (5-31) U/L ALT 15 (0-31) U/L Alkaline Phosphatase 68 (39-117) U/L Total Protein 8.0 (6.5-8.0) g/dL Albumin 4.3 (3.5-5.0) g/dL Lipase 27 (8-78) U/L Urine Color Yellow Urine Appearance Cloudy Urine pH 6.5 (5.0-9.0) Ur Specific [place] 1.015 (1.005-1.025) Urine Protein 30 (1+) H (Neg-Trace) mg/dL Urine Glucose (UA) Negative (Negative) mg/dL Urine Ketones Negative (Negative) mg/dL Urine Blood Large (3+) H (Negative) Urine Nitrite Negative (Negative) Ur Leukocyte Esterase Large (3+) H (Negative) Urine RBC >20 H (0-2) /HPF Urine WBC >50 H (0-5) /HPF Ur Squamous Epith Cells 6-10 (0-2) /HPF Urine Bacteria 4+ (None Seen) Hyaline Casts 0-2 (0-2) /LPF Urine Test NEGATIVE (NEGATIVE) Independent Interpretation I performed an independent interpretation of an: Ultrasound (hydro and stones) Radiology Impression Discussion of test interpretation with radiology: I have reviewed the radiologist's reading. Independent Historian Clinical information obtained from an independent historian. History obtained from or confirmed by: Spouse External Record Review External record reviewed: Inpatient record and Prior outpatient labs Medications Administered Discontinued Medications Generic Name Dose Route Start Last Admin Trade Name Freq PRN Reason Stop Dose Admin Sodium Chloride 1,000 mls @ 999 mls/hr 12/31/23 13:45 12/31/23 14:55 Ns IV 12/31/23 14:45 Not Given .Q1H1M ROSANGELA Lactated Ringer's 2,055 mls @ 2,055 mls/hr 12/31/23 14:10 12/31/23 14:42 Lr 30 ml/kg infuse over 1 hr (2055 ml) 12/31/23 15:09 2,055 mls/hr IV Administration .Q1H ONE Ceftriaxone Sodium 1 gm/ 50 mls @ 100 mls/hr 12/31/23 14:11 12/31/23 15:17 Sodium Chloride IV 12/31/23 14:40 100 mls/hr ONCE ONE Administration Ketorolac Tromethamine 15 mg 12/31/23 14:10 12/31/23 14:26 Ketorolac Tromethamine 15 Mg/Ml Vial IVPUSH 12/31/23 14:11 15 mg ONCE ONE Administration Morphine Sulfate 4 mg 12/31/23 14:10 12/31/23 14:27 Morphine Sulfate 4 Mg/Ml Cartridge IVPUSH 12/31/23 14:11 Not Given ONCE ONE Protocol Ondansetron HCl 4 mg 12/31/23 14:10 12/31/23 14:27 Ondansetron Hcl 4 Mg/2 Ml Vial IVPUSH 12/31/23 14:11 4 mg ONCE ONE Administration Discharge Plan Discharge Clinical Impression: Pyelonephritis, Acidosis, lactic, Elevated WBC count, Renal colic on right side Prescriptions: No Action ascorbic acid (vitamin C) [Vitamin C] 500 mg Tablet 500 mg PO DAILY biotin 10,000 mcg Capsule 10,000 mcg PO DAILY cholecalciferol (vitamin D3) [Vitamin D3] 25 mcg (1,000 unit) Capsule 25 mcg PO DAILY loratadine [Claritin] 10 mg Tablet 10 mg PO DAILY phenazopyridine [Pyridium] 200 mg tablet 200 mg PO TID PRN (Reason: Urinary discomfort) Qty: 20 0RF Rx Instructions: Take with food oxycodone-acetaminophen [Percocet] 5-325 mg tablet 1 tab PO Q6H PRN (Reason: pain) Qty: 6 0RF Rx Instructions: Partial Fill upon patient request. cefuroxime axetil 500 mg tablet 500 mg PO Q12H 8 Days Qty: 16 0RF pyridoxine (vitamin B6) 100 mg tablet 100 mg PO DAILY Qty: 90 3RF Print Language: Romansh
[2023-12-31 13:34] VITALS: BP 138/80; PULSE 95; RESP 16; TEMP 37.1; O2SAT 100; BMI 25.9
[2023-12-31 13:52] LABS: MANUAL DIFF FLAG NO
[2023-12-31 14:03] LABS: Basophils Absolute Auto 0.1 X10*3/uL (0.0-0.2); Basophils Percent Auto 0.5 % (0-2); Eosinophils Percent Auto 0.2 % (0-4); Hematocrit 36.8 % (37.0-47.0); Hemoglobin 12.4 g/dl (12.0-16.0); Imm Gran Abs Auto 0.07 X10*3/uL (0.00-0.03); Imm Gran Pct Auto 0.6 % (0.0-0.4); Lymphocytes Absolute Auto 1.6 X10*3/uL (1.2-4.9); Lymphocytes Percent Auto 12.3 % (20-40); Mean Corpuscular HGB Conc 33.7 g/dl (31.0-35.0); Mean Corpuscular Hemoglobin 31.4 pg (27.0-33.0); Mean Corpuscular Volume 93.2 fL (80.0-98.0); Mean Platelet Volume 9.5 fL (9.4-12.3); Monocytes Absolute Auto 0.8 X10*3/uL (0.1-1.2); Monocytes Percent Auto 6.2 % (2-11); Neutrophils Absolute Auto 10.2 x10*3/uL (2.0-8.3); Neutrophils Percent Auto 80.2 % (45-73); Platelet Count 287 X10*3/uL (160-400); Red Blood Count 3.95 X10*6/uL (4.20-5.50); Red Cell Distribution Width 13.5 % (11.0-16.0); White Blood Count 12.7 X10*3/uL (4.8-10.8)
[2023-12-31 14:04] LABS: Appearance Urine Cloudy; Color Urine Yellow; Glucose Urine UA Negative (Negative); Leukocyte Esterase Urine Large (3+) (Negative); Nitrite Urine Negative (Negative); PH 6.5 (5.0-9.0); Specific Gravity - Urine 1.015 (1.005-1.025); UMIC TRIGGER UACC YES; Urine Blood Large (3+) (Negative); Urine Ketones Negative (Negative); Urine Protein 30 (1+) mg/dL (Neg-Trace)
[2023-12-31 14:05] LABS: UPreg QC Valid YES; Urine Pregnancy NEGATIVE (NEGATIVE)
[2023-12-31 14:07] LABS: Alanine Aminotransferase 15 U/L (0-31); Albumin Level 4.3 g/dL (3.5-5.0); Alkaline Phosphatase 68 U/L (39-117); Anion Gap 15 (12-20); Aspartate Amino Transferase 14 U/L (5-31); Bilirubin Direct 0.3 mg/dL (0.0-0.5); Bilirubin Total 0.9 mg/dL (0.0-1.0); Blood Urea Nitrogen 10 mg/dL (9-16); Calcium 9.6 mg/dL (8.4-10.2); Carbon Dioxide 20 mmol/L (22-29); Chloride 106 mmol/L (96-108); Creatinine Clr Calc Pharmacy 83.6; Estimated Glomerular Filt Rate > 60; Glucose Random 134 mg/dL (60-115); Lipase 27 U/L (8-78); Magnesium 2.1 mg/dL (1.6-2.6); Potassium 3.4 mmol/L (3.3-5.1); Sodium 138 mmol/L (135-145)
[2023-12-31 14:09] LABS: Bacteria Urine 4+ (None Seen); Hyaline Casts Urine 0-2 /LPF (0-2); RBC Urine >20 /HPF (0-2); UACC Culture Trigger YES; WBC Urine >50 /HPF (0-5)
[2023-12-31] MEDS: Ketorolac Tromethamine 15 MG/ML VIAL IVPUSH (14:26)
[2023-12-31] MEDS: ondansetron HCL 4 MG/2 ML VIAL IVPUSH (14:27)
[2023-12-31] MEDS: cefTRIAXone sodium 1 GM in 0.9 % Sodium Chloride 50 ML IV (15:17)
[2023-12-31 16:30] VITALS: BP 120/67; PULSE 70; RESP 16; TEMP 36.8; O2SAT 100
[2023-12-31 17:06] LABS: Reflex Lactate? Lactic Acid Added
[2023-12-31 17:17] LABS: C Reactive Protein 12.61 mg/dL (< or = 0.50)
[2023-12-31 18:23] VITALS: BP 143/80; PULSE 81; RESP 16; O2SAT 100
--- NOTE | 2023-12-31 18:28 | PHA.MEDREC ---
Pharmacy Consult ? Medication Reconciliation Pharmacy has completed the medication reconciliation. Spoke with patient and confirmed medications.
--- NOTE | 2023-12-31 19:29 | PM.IMHP ---
History of Present Illness Date of Service: 12/31/23 Attending physician on admission: Bryan Gill Chief Complaint: r flank pain, dark urine 48-year-old female with history of nephrolithiasis, pyelonephritis with sepsis presents to the ED earlier today for evaluation of right flank pain, nausea, dark/foul smelling urine ongoing for about 3 days. She states this feels similar to prior kidney stones. She has also had headaches and cold chills. No fevers, dysuria, hematuria, increased urinary frequency, shortness of breath, chest pain.. Since arrival, vital signs have been stable. She has a leukocytosis of 12.7. Renal function and electrolyte levels are normal except for CO2 20. Lactic acid initially elevated at 2.3 repeat 1.0. She does state that she has not been eating and drinking much over the last few days due to feeling generally unwell. CRP is elevated at 12.61. Urinalysis shows 3+ leukocytes, negative nitrites, 3+ blood, 1+ protein, significant urinary sediment, 4+ bacteria. Retroperitoneal ultrasound shows renal echogenic foci of the right kidney suggestive of stones the largest measuring 7 x [address] abdomen pelvis shows moderate right-sided hydroureteronephrosis down to a 0.6 x 0.3 cm obstructing densely calcified stone in the distal right ureter in the upper pelvis. In the ED, received ketorolac, IV LR, Rocephin. Review of Systems Review of Systems: Yes all other systems are reviewed and are negative [facility] Medical History Ureteral stent present Pyelonephritis Hydronephrosis with renal calculous obstruction Renal calculi Surgical History Hx of cystoscopy Social History Household Members: Spouse and Children Housing: House Do you presently have visiting nurse or other home services: No Alcohol intake: never Patient Tobacco Use Status: Never used Tobacco Advance Directives: No Advance Directives Information Provided: Yes Do you have a plan to hurt others: No Plan service: No Current occupational status: unemployed Meds Allergies Allergy/AdvReac Type Severity Reaction Status Date / Time amoxicillin Allergy Intermediate Hives Verified 12/31/23 13:35 Penicillins Allergy Intermediate Hives Verified 12/31/23 13:35 Active Medications: Current Medications Acetaminophen (Acetaminophen 325 Mg Tablet) 650 mg PO Q6H PRN PRN Reason: Pain, Mild (Pain Scale 1-3), fever or headache Ascorbic Acid (Ascorbic Acid 500 Mg Tablet) 500 mg PO DAILY [facility] Calcium Carbonate (Calcium Carbonate 750 Mg Tab.Chew) 750 mg PO Q4H PRN PRN Reason: Heartburn Sodium Chloride (Ns) 1,000 mls @ 80 mls/hr IVCONT .[id number] [facility] Ceftriaxone Sodium 1 gm/ (Sodium Chloride) 50 mls @ 100 mls/hr IV Q24H [facility] Ketorolac Tromethamine (Ketorolac Tromethamine 30 Mg/Ml Vial) 15 mg IVPUSH Q6H PRN PRN Reason: Pain, Mild (Pain Scale 1-3) Stop: 01/05/24 20:29 Loratadine (Loratadine 10 Mg Tablet) 10 mg PO DAILY [facility] Magnesium Hydroxide (Milk Of Magnesia 30 Ml Oral.Susp) 30 ml PO DAILY PRN PRN Reason: Constipation Melatonin (Melatonin 3 Mg Tablet) 6 mg PO BEDTIME PRN PRN Reason: Insomnia Multivitamins/Vitamin C (Multivitamin Tablet) 1 tab PO DAILY [facility] Non-Formulary Medication (Biotin) 10,000 mcg PO DAILY [facility] Non-Formulary Medication (Pyridoxine (Vitamin B6)) 100 mg PO DAILY [facility] Ondansetron HCl (Ondansetron Hcl 4 Mg/2 Ml Vial) 4 mg IVPUSH Q8H PRN PRN Reason: Nausea and Vomiting Oxycodone HCl (Oxycodone Hcl Immed Release 5 Mg Tablet) 5 mg PO Q6H PRN PRN Reason: Pain, Severe (Pain Scale 7-10) Sodium Chloride (0.9 % Sodium Chloride Flush 3 Ml Syringe) 3 ml IVFLUSH QSHIFT [facility] Vitamin D (Cholecalciferol (Vitamin D3) 25 Mcg Tablet) 25 mcg PO DAILY [facility] Home Medications ?Medication ?Instructions ?Recorded ?Confirmed ?Last Taken ?Type ascorbic acid (vitamin C) 500 mg 500 mg PO DAILY 08/12/23 12/31/23 12/29/23 History tablet (Vitamin C) biotin 10,000 mcg capsule 10,000 mcg PO DAILY 08/12/23 12/31/23 12/29/23 History cholecalciferol (vitamin D3) 25 25 mcg PO DAILY 08/12/23 12/31/23 12/29/23 History mcg (1,000 unit) capsule (Vitamin D3) loratadine 10 mg tablet (Claritin) 10 mg PO DAILY 09/05/23 12/31/23 12/29/23 History multivitamin 1 tab PO DAILY 12/31/23 12/31/23 12/29/23 History Physical Exam Vital Signs and Narrative: Vital Signs: Last Vital Signs Temp 98.3 F 12/31/23 16:30 Pulse 81 12/31/23 18:23 Resp 16 12/31/23 18:23 BP 143/80 H 12/31/23 18:23 Pulse Ox 100 12/31/23 18:23 O2 Del Method Room Air 12/31/23 18:23 BMI result Body Mass Index 25.9 Constitutional - Awake and Alert, No apparent distress Eyes - PERRLA, EOMI Cardiovascular - S1S2, RRR, No edema Respiratory - Normal lung expansion, Normal respiratory effort, No respiratory distress, CTA bilaterally Gastrointestinal - r sided and epigastric abd ttp, ND; +BS; No rebound or guarding - R CVA tenderness Extremities - no calf tenderness bilaterally, no swelling Skin - Warm/Dry Neurological - Alert & oriented x3, CN II-XII in tact, 5/5 strength BUE and BLE Psychological - Appropriate affect Results Labs 12/31/23 13:46 12/31/23 13:46 Labs: Laboratory Results - last 24 hr 12/31/23 12/31/23 12/31/23 13:46 14:59 17:30 MCV 93.2 MCH 31.4 MCHC 33.7 RDW 13.5 Plt Count 287 MPV 9.5 Immature Gran % (Auto) 0.6 H Neut % (Auto) 80.2 H Lymph % (Auto) 12.3 L [place] % (Auto) 6.2 Eos % (Auto) 0.2 Baso % (Auto) 0.5 Lymph # (Auto) 1.6 [place] # (Auto) 0.8 Eos # (Auto) 0.0 Baso # (Auto) 0.1 Abs Immat Gran (auto) 0.07 H Absolute Neuts (auto) 10.2 H Absolute Nucleated RBC 0.000 Nucleated RBC % (auto) 0.0 Anion Gap 15 Estim Creat Clear Calc 83.6 Estimated GFR > 60 Random Glucose 134 H Lactic Acid 2.3 H* Lactic Acid F/U @ 2Hr 1.0 Calcium 9.6 D Magnesium 2.1 Total Bilirubin 0.9 Direct Bilirubin 0.3 AST 14 ALT 15 Alkaline Phosphatase 68 C-Reactive Protein 12.61 H Total Protein 8.0 Albumin 4.3 Lipase 27 Urine Color Yellow Urine Appearance Cloudy Urine pH 6.5 Ur Specific [place] 1.015 Urine Protein 30 (1+) H Urine Glucose (UA) Negative Urine Ketones Negative Urine Blood Large (3+) H Urine Nitrite Negative Ur Leukocyte Esterase Large (3+) H Urine RBC >20 H Urine WBC >50 H Ur Squamous Epith Cells 6-10 Urine Bacteria 4+ Hyaline Casts 0-2 Urine Test NEGATIVE Imaging Radiologist's Impressions: Impressions Retroperitoneum Ultrasound 12/31/23 14:33 IMPRESSION: 1. Right renal hydronephrosis, dilated proximal right ureter 8mm. 2. Bilateral nonobstructing kidney stones. 3. Bilateral renal cysts. Abdomen/Pelvis CT 12/31/23 16:15 IMPRESSION: * Moderate right-sided hydroureteronephrosis down to a 0.6 x 0.3 cm nonobstructing calcification in the distal right ureter in the upper pelvis. * Prominent bilateral medullary nephrocalcinosis, similar to prior exam. Assessment and Plan (1) Obstructive uropathy: Status: Acute (2) Cystitis: Status: Acute Plan 48-year-old female with history of nephrolithiasis, pyelonephritis with sepsis to be observed for obstructive uropthy with uti #Obstructive uropathy with r sided hydroureteronephrosis -obstructive 0.6cm x 0.3cm stone in the distal R ureter with resulting R sided hydroureternephrosis -hx calcium oxalate stone s/p lithrotripsy and stent placement by Dr. Pierce -No LILIAN -Continue gentle fluids -regular diet, NPO after midnight. Per Urology, patient will be added onto our scheduled for lithotripsy/stent placement -Flomax -IV ketorolac 15 mg q.6h x3, oxycodone prn for severe pain -follow renal function/lytes # acute UTI -leukocytosis 12.5. Single episode elevated HR not related to infection- likely due to discomfort/anxiety and quickly resolved. No sepsis -IV ceftriaxone (initiated 12/30) -follow cultures #Acute lactic acidosis -likely related to hypovolemia/hypoperfusion due to poor p.o. intake secondary to above -resolved with IV fluids dvt prophylaxis- scps full code Quality Stroke Does the patient have a stroke diagnosis?: No VTE Prior VTE?: No VTE Risk Level:: Medical - moderate - high VTE Device Contraindication: N/A - Device Ordered VTE Drug Contraindication: Treatment Not Indicated
[2023-12-31 19:38] LABS: Lactic Acid 2.3 mmol/L (0.5-2.0)
[2023-12-31 19:55] VITALS: BP 118/76; PULSE 79; RESP 15; TEMP 37; O2SAT 100
[2023-12-31] MEDS: Tamsulosin HCL 0.4 MG CAPSULE PO (20:21)
[2023-12-31] MEDS: Ketorolac Tromethamine 30 MG/ML VIAL 15 MG IVPUSH (20:21)
--- NOTE | 2023-12-31 20:56 | PC.NURSE ---
LR is delayed, none on unit. awaiting delivery from RN metal fabrication supervisor
[2023-12-31] MEDS: Lactated Ringers 1,000 ML 80 ML IVCONT (21:08)
[2023-12-31 22:15] VITALS: BP 109/64; PULSE 71; RESP 18; TEMP 36.2; O2SAT 97
[2024-01-01] VITALS (9 sets, daily range): BP systolic 106–123; BP diastolic 55–73; PULSE 65–81; RESP 14–20; TEMP 36.3–37.1; O2SAT 97–100; BMI 25.9
[2024-01-01] MEDS: Ketorolac Tromethamine 30 MG/ML VIAL 15 MG IVPUSH ×2 (02:44→09:02)
[2024-01-01 06:24] LABS: MANUAL DIFF FLAG NO
[2024-01-01 06:33] LABS: Basophils Absolute Auto 0.1 X10*3/uL (0.0-0.2); Basophils Percent Auto 0.7 % (0-2); Eosinophils Absolute Auto 0.1 X10*3/uL (0.0-0.4); Eosinophils Percent Auto 1.3 % (0-4); Imm Gran Abs Auto 0.05 X10*3/uL (0.00-0.03); Imm Gran Pct Auto 0.5 % (0.0-0.4); Lymphocytes Absolute Auto 2.4 X10*3/uL (1.2-4.9); Lymphocytes Percent Auto 22.9 % (20-40); Mean Corpuscular HGB Conc 34.4 g/dl (31.0-35.0); Mean Corpuscular Hemoglobin 32.2 pg (27.0-33.0); Mean Corpuscular Volume 93.6 fL (80.0-98.0); Mean Platelet Volume 9.9 fL (9.4-12.3); Monocytes Absolute Auto 1.1 X10*3/uL (0.1-1.2); Monocytes Percent Auto 10.3 % (2-11); Neutrophils Absolute Auto 6.8 x10*3/uL (2.0-8.3); Neutrophils Percent Auto 64.3 % (45-73); Platelet Count 255 X10*3/uL (160-400); Red Blood Count 3.42 X10*6/uL (4.20-5.50); Red Cell Distribution Width 13.6 % (11.0-16.0); White Blood Count 10.6 X10*3/uL (4.8-10.8)
[2024-01-01] MEDS: Lactated Ringers 1,000 ML 80 ML IVCONT (06:49)
[2024-01-01 07:09] LABS: Anion Gap 12 (12-20); Blood Urea Nitrogen 10 mg/dL (9-16); Calcium 8.8 mg/dL (8.4-10.2); Carbon Dioxide 21 mmol/L (22-29); Chloride 109 mmol/L (96-108); Creatinine Clr Calc Pharmacy 94.4; Estimated Glomerular Filt Rate > 60; Glucose Random 98 mg/dL (60-115); Potassium 3.8 mmol/L (3.3-5.1); Sodium 138 mmol/L (135-145)
--- NOTE | 2024-01-01 07:22 | PM.DS ---
DS: Providers Provider Date of Service: 01/01/24 Date of admission: 12/31/23 19:16 Date of discharge: 01/01/24 Primary care physician: Manda Fink MD Consults: 12/31/23 19:57 Consult to Urology Routine Consulting Provider: [facility] Reason for consultation: obstructive uropathy with hydroureteronephrosis DS: Diagnosis Discharge Diagnosis (1) Obstructive uropathy: Status: Acute (2) Cystitis: Status: Acute (3) Pyelonephritis: Status: Acute DS: Summary Hospital Course Hospital Course: Admission HPI Chief Complaint: r flank pain, dark urine 48-year-old female with history of nephrolithiasis, pyelonephritis with sepsis presents to the ED earlier today for evaluation of right flank pain, nausea, dark/foul smelling urine ongoing for about 3 days. She states this feels similar to prior kidney stones. She has also had headaches and cold chills. No fevers, dysuria, hematuria, increased urinary frequency, shortness of breath, chest pain.. Since arrival, vital signs have been stable. She has a leukocytosis of 12.7. Renal function and electrolyte levels are normal except for CO2 20. Lactic acid initially elevated at 2.3 repeat 1.0. She does state that she has not been eating and drinking much over the last few days due to feeling generally unwell. CRP is elevated at 12.61. Urinalysis shows 3+ leukocytes, negative nitrites, 3+ blood, 1+ protein, significant urinary sediment, 4+ bacteria. Retroperitoneal ultrasound shows renal echogenic foci of the right kidney suggestive of stones the largest measuring 7 x [address] abdomen pelvis shows moderate right-sided hydroureteronephrosis down to a 0.6 x 0.3 cm obstructing densely calcified stone in the distal right ureter in the upper pelvis. In the ED, received ketorolac, IV LR, Rocephin. Hospital course: Patient presented w/ righ flank pain --> dx pyelonephritis w/ obstructive uropathy. Has received 1 dose of IV ceftriaxone. VSS, afebrile. WBC is normal. Lactic acid normal. She had cystoscopy with stent placement and doing well post. Urine culture show gram negative maricruz and base on prior culture probable E. coli and will treat with Ceftin 500 mg twice daily for 10 days. To follow up with urology Final diagnoses: acute pyelonephritis obstructive uropathy kidney stone Time Attestation Discharge Coordination Time (in mins): See chart Quality: Safe Use of Opioids Does Pt have an Active Cancer Diagnosis on the Problem List?: No Quality: Stroke Does the patient have a stroke diagnosis?: No Physical Exam Vital Signs: Vital Signs: Last Vital Signs Temp 98.1 F 01/01/24 07:19 Pulse 65 01/01/24 07:19 Resp 14 01/01/24 07:19 BP 107/58 L 01/01/24 07:19 Pulse Ox 97 01/01/24 07:19 O2 Del Method Room Air 01/01/24 07:19 BMI result Body Mass Index 25.9 Appearance: Alert.? Oriented X3.? No acute cardiopulmonary distress distress.? CVS: Pulses normal.? Respiratory: No respiratory distress.? Abdomen: Soft and nontender.? Skin: ? Normal skin color. Extremities: 5/5 strength to bilateral upper and lower extremities Back: No CVA tenderness bilaterally Neuro: Oriented X 3.? No motor deficit.? No sensory deficit. DS: Data Data Completed and Pending Completed studies during hospitalization [Text1]: Procedures Dilation of Left Ureter with Intraluminal Device, Via Natural or Artificial Opening Endoscopic (08/12/23) Fluoroscopy of Left Kidney, Ureter and Bladder (08/12/23) Labs on day of discharge: Laboratory Results - last 24 hr 12/31/23 12/31/23 12/31/23 13:46 14:59 17:30 WBC 12.7 H RBC 3.95 L Hgb 12.4 Hct 36.8 L MCV 93.2 MCH 31.4 MCHC 33.7 RDW 13.5 Plt Count 287 MPV 9.5 Immature Gran % (Auto) 0.6 H Neut % (Auto) 80.2 H Lymph % (Auto) 12.3 L [place] % (Auto) 6.2 Eos % (Auto) 0.2 Baso % (Auto) 0.5 Lymph # (Auto) 1.6 [place] # (Auto) 0.8 Eos # (Auto) 0.0 Baso # (Auto) 0.1 Abs Immat Gran (auto) 0.07 H Absolute Neuts (auto) 10.2 H Absolute Nucleated RBC 0.000 Nucleated RBC % (auto) 0.0 Sodium 138 Potassium 3.4 Chloride 106 Carbon Dioxide 20 L Anion Gap 15 BUN 10 Creatinine 0.79 Estim Creat Clear Calc 83.6 Estimated GFR > 60 Random Glucose 134 H Lactic Acid 2.3 H* Lactic Acid F/U @ 2Hr 1.0 Calcium 9.6 D Magnesium 2.1 Total Bilirubin 0.9 Direct Bilirubin 0.3 AST 14 ALT 15 Alkaline Phosphatase 68 C-Reactive Protein 12.61 H Total Protein 8.0 Albumin 4.3 Lipase 27 Urine Color Yellow Urine Appearance Cloudy Urine pH 6.5 Ur Specific [place] 1.015 Urine Protein 30 (1+) H Urine Glucose (UA) Negative Urine Ketones Negative Urine Blood Large (3+) H Urine Nitrite Negative Ur Leukocyte Esterase Large (3+) H Urine RBC >20 H Urine WBC >50 H Ur Squamous Epith Cells 6-10 Urine Bacteria 4+ Hyaline Casts 0-2 Urine Test NEGATIVE 01/01/24 05:22 WBC 10.6 RBC 3.42 L Hgb 11.0 L Hct 32.0 L MCV 93.6 MCH 32.2 MCHC 34.4 RDW 13.6 Plt Count 255 MPV 9.9 Immature Gran % (Auto) 0.5 H Neut % (Auto) 64.3 Lymph % (Auto) 22.9 [place] % (Auto) 10.3 Eos % (Auto) 1.3 Baso % (Auto) 0.7 Lymph # (Auto) 2.4 [place] # (Auto) 1.1 Eos # (Auto) 0.1 Baso # (Auto) 0.1 Abs Immat Gran (auto) 0.05 H Absolute Neuts (auto) 6.8 Absolute Nucleated RBC 0.000 Nucleated RBC % (auto) 0.0 Sodium 138 Potassium 3.8 Chloride 109 H Carbon Dioxide 21 L Anion Gap 12 BUN 10 Creatinine 0.70 Estim Creat Clear Calc 94.4 Estimated GFR > 60 Random Glucose 98 Lactic Acid Lactic Acid F/U @ 2Hr Calcium 8.8 D Magnesium Total Bilirubin Direct Bilirubin AST ALT Alkaline Phosphatase C-Reactive Protein Total Protein Albumin Lipase Urine Color Urine Appearance Urine pH Ur Specific [place] Urine Protein Urine Glucose (UA) Urine Ketones Urine Blood Urine Nitrite Ur Leukocyte Esterase Urine RBC Urine WBC Ur Squamous Epith Cells Urine Bacteria Hyaline Casts Urine Test Discharge Plan Discharge Anticipated Discharge Date/Time: 01/01/24 07:15 Patient Disposition: Home, Self-Care Discharge Diagnosis: Pyelonephritis, Obstructive Uropathy Referrals: Vicente Mejía MD [Physician] - 1 Week Manda Fink MD [Primary Care Provider] - None Discharge Medications: New cefuroxime axetil 500 mg tablet 500 mg PO BID 10 Days Qty: 20 0RF Continued ascorbic acid (vitamin C) [Vitamin C] 500 mg Tablet 500 mg PO DAILY biotin 10,000 mcg Capsule 10,000 mcg PO DAILY cholecalciferol (vitamin D3) [Vitamin D3] 25 mcg (1,000 unit) Capsule 25 mcg PO DAILY loratadine [Claritin] 10 mg Tablet 10 mg PO DAILY multivitamin Tablet 1 tab PO DAILY pyridoxine (vitamin B6) 100 mg tablet 100 mg PO DAILY Qty: 90 3RF Discharge Orders: Discharge Order (Routine); Ordered 01/01/24 Ordered By: Mani Lawrence Diet: Advance to usual diet Activity on Discharge: As tolerated Stand Alone Forms: Patient Portal Discharge page Print Language: Mexican Care Plan Goals: - Recovery from Pyelonephritis & obstructive uropathy - hydrate - tolerate normal diet Health Concerns: - Pyelonephritis - obstructive uropathy - renal colic Plan of Treatment: - Follow up with Urology within a week - take antibiotics as prescribed ceftin 500 mg po twice daily for 10 days Assessment: See above Patient Instructions: Ureteroscopy (DC) Discharge Date/Time: 01/01/24 17:45
--- NOTE | 2024-01-01 07:52 | P.CNUR_ITS ---
History of Present Illness Consult details Consult date: 01/01/24 Narrative: CC: right ureteric stone with pyelo 48-year-old female Known to Urology Medullary sponge kidney Has referral to Nephrology for hypercalciuria Presents with right flank pain Imaging shows distal right stone Evidence of pyelonephritis Creatinine 0.7, calcium 8.8, WBC 10.6 UA positive blood, leuk esterase, 4+ bacteria Admit for pyelonephritis management Will require stone intervention with cystoscopy, right retrograde, right ureteroscopy with laser lithotripsy Review of Systems 2 Constitutional: Constitutional: Reports as per HPI and Reports no additional constitutional complaints Cardiovascular: Cardiovascular: Reports as per HPI and Reports no additional cardiovascular complaints Respiratory: Respiratory: Reports as per HPI and Reports no additional respiratory complaints Gastrointestinal: Gastrointestinal: Reports as per HPI and Reports no additional gastrointestinal complaints Genitourinary: Genitourinary: Reports as per HPI Musculoskeletal: Musculoskeletal: Reports no additional musculoskeletal complaints and Reports as per HPI Neurologic: Reports system reviewed and no additional complaints, except as documented and Reports as per HPI [facility] Past Medical History Medical History (Updated 01/01/24 @ 01:56 by Pushpa Lechuga RN) History of renal dialysis Ureteral stent present Pyelonephritis Hydronephrosis with renal calculous obstruction Renal calculi Surgical History Surgical History Hx of cystoscopy Social History Social History Household Members: Spouse and Children Housing: House Do you presently have visiting nurse or other home services: No Alcohol intake: never Patient Tobacco Use Status: Never used Tobacco service: No Current occupational status: unemployed Meds Allergies Allergy/AdvReac Type Severity Reaction Status Date / Time amoxicillin Allergy Intermediate Hives Verified 12/31/23 13:35 Penicillins Allergy Intermediate Hives Verified 12/31/23 13:35 Active Medications: Current Medications Acetaminophen (Acetaminophen 325 Mg Tablet) 650 mg PO Q6H PRN PRN Reason: Pain, Mild (Pain Scale 1-3), fever or headache Ascorbic Acid (Ascorbic Acid 500 Mg Tablet) 500 mg PO DAILY [facility] Calcium Carbonate (Calcium Carbonate 750 Mg Tab.Chew) 750 mg PO Q4H PRN PRN Reason: Heartburn Ceftriaxone Sodium 1 gm/ (Sodium Chloride) 50 mls @ 100 mls/hr IV Q24H [facility] Lactated Ringer's (Lr) 1,000 mls @ 80 mls/hr IVCONT .[id number] [facility] Last Admin: 01/01/24 06:49 Dose: 80 mls/hr Ketorolac Tromethamine (Ketorolac Tromethamine 30 Mg/Ml Vial) 15 mg IVPUSH Q6H [facility] Stop: 01/01/24 08:31 Last Admin: 01/01/24 02:44 Dose: 15 mg Loratadine (Loratadine 10 Mg Tablet) 10 mg PO DAILY [facility] Magnesium Hydroxide (Milk Of Magnesia 30 Ml Oral.Susp) 30 ml PO DAILY PRN PRN Reason: Constipation Melatonin (Melatonin 3 Mg Tablet) 6 mg PO BEDTIME PRN PRN Reason: Insomnia Multivitamins/Vitamin C (Multivitamin Tablet) 1 tab PO DAILY [facility] Ondansetron HCl (Ondansetron Hcl 4 Mg/2 Ml Vial) 4 mg IVPUSH Q8H PRN PRN Reason: Nausea and Vomiting Oxycodone HCl (Oxycodone Hcl Immed Release 5 Mg Tablet) 5 mg PO Q6H PRN PRN Reason: Pain, Severe (Pain Scale 7-10) Pyridoxine HCl (Pyridoxine Hcl (Vitamin B6) 50 Mg Tablet) 100 mg PO DAILY [facility] Sodium Chloride (0.9 % Sodium Chloride Flush 3 Ml Syringe) 3 ml IVFLUSH QSHIFT [facility] Last Admin: 12/31/23 23:20 Dose: Not Given Tamsulosin HCl (Tamsulosin Hcl 0.4 Mg Capsule) 0.4 mg PO DAILY [facility] Last Admin: 12/31/23 20:21 Dose: 0.4 mg Vitamin D (Cholecalciferol (Vitamin D3) 25 Mcg Tablet) 25 mcg PO DAILY [facility] Home Medications ?Medication ?Instructions ?Recorded ?Confirmed ?Last Taken ?Type ascorbic acid (vitamin C) 500 mg 500 mg PO DAILY 08/12/23 12/31/23 12/29/23 History tablet (Vitamin C) biotin 10,000 mcg capsule 10,000 mcg PO DAILY 08/12/23 12/31/23 12/29/23 History cholecalciferol (vitamin D3) 25 25 mcg PO DAILY 08/12/23 12/31/23 12/29/23 History mcg (1,000 unit) capsule (Vitamin D3) loratadine 10 mg tablet (Claritin) 10 mg PO DAILY 09/05/23 12/31/23 12/29/23 History multivitamin 1 tab PO DAILY 12/31/23 12/31/23 12/29/23 History Physical Exam 2 Vital Signs: Vital Signs: Last Vital Signs Temp 98.1 F 01/01/24 07:19 Pulse 65 01/01/24 07:19 Resp 14 01/01/24 07:19 BP 107/58 L 01/01/24 07:19 Pulse Ox 97 01/01/24 07:19 O2 Del Method Room Air 01/01/24 07:19 BMI result Body Mass Index 25.9 Const: General: cooperative, healthy appearing, comfortable and no acute distress Orientation/consciousness: patient oriented x3 HEENT: Face and sinus: Yes normal facial exam Mouth: moist mucous membranes Neck: Neck: Yes normal visual inspection, Yes full ROM and Yes trachea midline Chest: Chest palpation & inspection: normal inspection of the chest Resp: Effort & Inspection: normal respiratory effort, able to speak in complete sentences and no respiratory distress GI: Inspection: Yes normal to inspection Back/Spine/Pelvis: Cervical Spine: normal cervical lordosis Thoracic/Lumbar Spine: thoracic and lumbar spine normal to inspection Skin: General skin exam: no rashes or lesions noted Neuro: General: patient oriented x3, tone normal and moves all extremities Extrem: General: Yes normal to inspection and Yes capillary refill normal Results Labs 01/01/24 05:22 01/01/24 05:22 Labs: Abnormal lab results 12/31/23 12/31/23 01/01/24 Range/Units 13:46 14:59 05:22 WBC 12.7 H (4.8-10.8) X10*3/uL RBC 3.95 L 3.42 L (4.20-5.50) X10*6/uL Hgb 11.0 L (12.0-16.0) g/dl Hct 36.8 L 32.0 L (37.0-47.0) % Immature Gran % (Auto) 0.6 H 0.5 H (0.0-0.4) % Neut % (Auto) 80.2 H (45-73) % Lymph % (Auto) 12.3 L (20-40) % Abs Immat Gran (auto) 0.07 H 0.05 H (0.00-0.03) X10*3/uL Absolute Neuts (auto) 10.2 H (2.0-8.3) x10*3/uL Chloride 109 H (96-108) mmol/L Carbon Dioxide 20 L 21 L (22-29) mmol/L Random Glucose 134 H (60-115) mg/dL Lactic Acid 2.3 H* (0.5-2.0) mmol/L C-Reactive Protein 12.61 H (< or = 0.50) mg/dL Urine Protein 30 (1+) H (Neg-Trace) mg/dL Urine Blood Large (3+) H (Negative) Ur Leukocyte Esterase Large (3+) H (Negative) Urine RBC >20 H (0-2) /HPF Urine WBC >50 H (0-5) /HPF Short CBC 12/31/23 01/01/24 Range/Units 13:46 05:22 WBC 12.7 H 10.6 (4.8-10.8) X10*3/uL Hgb 12.4 11.0 L (12.0-16.0) g/dl Hct 36.8 L 32.0 L (37.0-47.0) % Plt Count 287 255 (160-400) X10*3/uL BMP 12/31/23 01/01/24 13:46 05:22 Sodium 138 138 Potassium 3.4 3.8 Chloride 106 109 H Carbon Dioxide 20 L 21 L BUN 10 10 Creatinine 0.79 0.70 Calcium 9.6 D 8.8 D Liver Function 12/31/23 Range/Units 13:46 Total Bilirubin 0.9 (0.0-1.0) mg/dL Direct Bilirubin 0.3 (0.0-0.5) mg/dL AST 14 (5-31) U/L ALT 15 (0-31) U/L Alkaline Phosphatase 68 (39-117) U/L Albumin 4.3 (3.5-5.0) g/dL Urine 12/31/23 Range/Units 13:46 Urine Color Yellow Urine Appearance Cloudy Urine pH 6.5 (5.0-9.0) Ur Specific [place] 1.015 (1.005-1.025) Urine Protein 30 (1+) H (Neg-Trace) mg/dL Urine Glucose (UA) Negative (Negative) mg/dL Urine Test NEGATIVE (NEGATIVE) All other labs normal. Imaging Abdomen CT scan report/results: report reviewed and image reviewed Assessment and Plan (1) Obstructive uropathy: Status: Acute Plan Ureteroscopy We discussed the nature of the decision and reasonable alternatives for performing ureteroscopy. Options such as medical therapy were discussed. Interventions include chemical dissolution, ESWL, ureteroscopy with laser lithotripsy and stent placement, PCNL. The relative uncertainties and benefits related to each alternate procedure were adequately discussed. General surgical risks including, but not limited to - pain, bleeding, infection, myocardial infarction, pulmonary embolus, deep vein thrombosis and cerebrovascular accident which may result in further hospitalization were discussed. Full disclosure of the procedure as well as all major risks, benefits and complications were discussed including but not limited to damage to the urethra, bladder and kidney infection, damage to the ureter, stent migration or malposition, scarring to the renal pelvis, remnant stone fragments, subsequent stone passage with need for secondary procedures. The overall secondary procedure rate is approximately 10-15%. The overall clearance rate is approximately 90-95%. Success of the procedure in the short-term does not necessarily guarantee that long-term success will be maintained. Suitable follow up will need to be maintained. The patient showed understanding of discussion and wishes to proceed with - cystoscopy, retrograde, ureteroscopy, possible lithotripsy/stone basketing and stent on the right side Procedures Date of Service Date of Service: 01/01/24
[2024-01-01 07:53] LABS: Lactic Acid 1.1 mmol/L (0.5-2.0)
--- NOTE | 2024-01-01 08:21 | HO.PM.IMPN ---
Subjective Subjective Date of Service: 01/01/24 <MASOUD Lenz - Last Filed: 01/01/24 09:37> 01/01/24 <Mani Lawrence MD - Last Filed: 01/01/24 16:29> Interval History: 48 year old [place] female hx of kidney stones admitted to the hospitalist service yesterday for R sided obstructive uropathy & pylonephritis. Doing well today. Labs improving. Pain well controlled. NPO at this time due to OR later today for stents vs lithotripsy. Denies further complaints at this time. <MASOUD Lenz - Last Filed: 01/01/24 09:37> Physical Exam Vital Signs: Vital Signs: Last Vital Signs Temp 98.1 F 01/01/24 07:19 Pulse 65 01/01/24 07:19 Resp 14 01/01/24 07:19 BP 107/58 L 01/01/24 07:19 Pulse Ox 97 01/01/24 07:19 O2 Del Method Room Air 01/01/24 07:19 BMI result Body Mass Index 25.9 <MASOUD Lenz - Last Filed: 01/01/24 09:37> Appearance: Alert.? Oriented X3.? No acute cardiopulmonary distress distress.? CVS: Pulses normal.?RRR Respiratory: No respiratory distress.?CTA Abdomen: Soft and nontender.? Skin: ? Normal skin color. Extremities: 5/5 strength to bilateral upper and lower extremities Back: No CVA tenderness bilaterally Neuro: Oriented X 3.? No motor deficit.? No sensory deficit. <MASOUD Lenz - Last Filed: 01/01/24 09:37> Objective Data Active Medications Acetaminophen (Acetaminophen 325 Mg Tablet) 650 mg PO Q6H PRN PRN Reason: Pain, Mild (Pain Scale 1-3), fever or headache Ascorbic Acid (Ascorbic Acid 500 Mg Tablet) 500 mg PO DAILY [facility] Calcium Carbonate (Calcium Carbonate 750 Mg Tab.Chew) 750 mg PO Q4H PRN PRN Reason: Heartburn Ceftriaxone Sodium 1 gm/ (Sodium Chloride) 50 mls @ 100 mls/hr IV Q24H [facility] Lactated Ringer's (Lr) 1,000 mls @ 80 mls/hr IVCONT .[id number] [facility] Last Admin: 01/01/24 06:49 Dose: 80 mls/hr Documented By: PANCHO Ketorolac Tromethamine (Ketorolac Tromethamine 30 Mg/Ml Vial) 15 mg IVPUSH Q6H [facility] Stop: 01/01/24 08:31 Last Admin: 01/01/24 02:44 Dose: 15 mg Documented By: PANCHO Loratadine (Loratadine 10 Mg Tablet) 10 mg PO DAILY [facility] Magnesium Hydroxide (Milk Of Magnesia 30 Ml Oral.Susp) 30 ml PO DAILY PRN PRN Reason: Constipation Melatonin (Melatonin 3 Mg Tablet) 6 mg PO BEDTIME PRN PRN Reason: Insomnia Multivitamins/Vitamin C (Multivitamin Tablet) 1 tab PO DAILY [facility] Ondansetron HCl (Ondansetron Hcl 4 Mg/2 Ml Vial) 4 mg IVPUSH Q8H PRN PRN Reason: Nausea and Vomiting Oxycodone HCl (Oxycodone Hcl Immed Release 5 Mg Tablet) 5 mg PO Q6H PRN PRN Reason: Pain, Severe (Pain Scale 7-10) Pyridoxine HCl (Pyridoxine Hcl (Vitamin B6) 50 Mg Tablet) 100 mg PO DAILY [facility] Sodium Chloride (0.9 % Sodium Chloride Flush 3 Ml Syringe) 3 ml IVFLUSH QSHIFT [facility] Last Admin: 12/31/23 23:20 Dose: Not Given Documented By: PANCHO Non-Admin Reason: IV Running Tamsulosin HCl (Tamsulosin Hcl 0.4 Mg Capsule) 0.4 mg PO DAILY [facility] Last Admin: 12/31/23 20:21 Dose: 0.4 mg Documented By: FARIDA Vitamin D (Cholecalciferol (Vitamin D3) 25 Mcg Tablet) 25 mcg PO DAILY [facility] <MASOUD Lenz - Last Filed: 01/01/24 09:37> Labs CBC & Chem 7: 01/01/24 05:22 01/01/24 05:22 <MASOUD Lenz - Last Filed: 01/01/24 09:37> Labs: Laboratory Results - last 24 hr 12/31/23 12/31/23 12/31/23 13:46 14:59 17:30 MCV 93.2 MCH 31.4 MCHC 33.7 RDW 13.5 Plt Count 287 MPV 9.5 Immature Gran % (Auto) 0.6 H Neut % (Auto) 80.2 H Lymph % (Auto) 12.3 L [place] % (Auto) 6.2 Eos % (Auto) 0.2 Baso % (Auto) 0.5 Lymph # (Auto) 1.6 [place] # (Auto) 0.8 Eos # (Auto) 0.0 Baso # (Auto) 0.1 Abs Immat Gran (auto) 0.07 H Absolute Neuts (auto) 10.2 H Absolute Nucleated RBC 0.000 Nucleated RBC % (auto) 0.0 Anion Gap 15 Estim Creat Clear Calc 83.6 Estimated GFR > 60 Random Glucose 134 H Lactic Acid 2.3 H* Lactic Acid F/U @ 2Hr 1.0 Calcium 9.6 D Magnesium 2.1 Total Bilirubin 0.9 Direct Bilirubin 0.3 AST 14 ALT 15 Alkaline Phosphatase 68 C-Reactive Protein 12.61 H Total Protein 8.0 Albumin 4.3 Lipase 27 Urine Color Yellow Urine Appearance Cloudy Urine pH 6.5 Ur Specific [place] 1.015 Urine Protein 30 (1+) H Urine Glucose (UA) Negative Urine Ketones Negative Urine Blood Large (3+) H Urine Nitrite Negative Ur Leukocyte Esterase Large (3+) H Urine RBC >20 H Urine WBC >50 H Ur Squamous Epith Cells 6-10 Urine Bacteria 4+ Hyaline Casts 0-2 Urine Test NEGATIVE 01/01/24 01/01/24 05:22 07:25 MCV 93.6 MCH 32.2 MCHC 34.4 RDW 13.6 Plt Count 255 MPV 9.9 Immature Gran % (Auto) 0.5 H Neut % (Auto) 64.3 Lymph % (Auto) 22.9 [place] % (Auto) 10.3 Eos % (Auto) 1.3 Baso % (Auto) 0.7 Lymph # (Auto) 2.4 [place] # (Auto) 1.1 Eos # (Auto) 0.1 Baso # (Auto) 0.1 Abs Immat Gran (auto) 0.05 H Absolute Neuts (auto) 6.8 Absolute Nucleated RBC 0.000 Nucleated RBC % (auto) 0.0 Anion Gap 12 Estim Creat Clear Calc 94.4 Estimated GFR > 60 Random Glucose 98 Lactic Acid 1.1 Lactic Acid F/U @ 2Hr Calcium 8.8 D Magnesium Total Bilirubin Direct Bilirubin AST ALT Alkaline Phosphatase C-Reactive Protein Total Protein Albumin Lipase Urine Color Urine Appearance Urine pH Ur Specific [place] Urine Protein Urine Glucose (UA) Urine Ketones Urine Blood Urine Nitrite Ur Leukocyte Esterase Urine RBC Urine WBC Ur Squamous Epith Cells Urine Bacteria Hyaline Casts Urine Test <MASOUD Lenz - Last Filed: 01/01/24 09:37> Assessment and Plan (1) Obstructive uropathy: Status: Acute <MASOUD Lenz - Last Filed: 01/01/24 09:37> (2) UTI (urinary tract infection): Status: Resolved <MASOUD Lenz - Last Filed: 01/01/24 09:37> Assessment and Plan: 48-year-old female with history of nephrolithiasis, pyelonephritis with sepsis to be observed for obstructive uropthy with uti Obstructive uropathy with r sided hydroureteronephrosis: stable, not in pain -Continue gentle fluids - NPO - Per Urology Dr. Mejía, patient will be added onto our scheduled for lithotripsy/stent placement this afternoon - Flomax - IV ketorolac 15 mg q.6h x3, oxycodone prn for severe pain Acute UTI - No leukocytosis, labs improving - Continue IV ceftriaxone (initiated 12/30) - Cultures pending Acute lactic acidosis - Resolved but was likely due to poor po intake/ dehydration DVT prophylaxis - compression therapy full code <MASOUD Lenz - Last Filed: 01/01/24 09:37> Quality Stroke Does the patient have a stroke diagnosis?: No <MASOUD Lenz - Last Filed: 01/01/24 09:37> VTE Prior VTE?: No <MASOUD Lenz - Last Filed: 01/01/24 09:37> VTE Risk Level:: Medical - moderate - high <MASOUD Lenz - Last Filed: 01/01/24 09:37> VTE Device Contraindication: N/A - Device Ordered <MASOUD Lenz - Last Filed: 01/01/24 09:37> VTE Drug Contraindication: Treatment Not Indicated <MASOUD Lenz - Last Filed: 01/01/24 09:37>
[2024-01-01] MEDS: 0.9 % Sodium Chloride Flush 3 ML SYRINGE IVFLUSH (09:01)
--- NOTE | 2024-01-01 09:56 | MHC.CM.PN ---
[facility] DELIVERED PT LIVES WITH [facility]. PT IS INDEPENDENT WITH MOBILITY/EMPLOYED P/T. +HCP ON FILE. PCP [facility] DP: HOME, NO SERVICES IS THE GOAL. [facility] WILL TRANSPORT HOME. CM WILL CONTINUE TO FOLLOW FOR ANY CHANGE TO DC PLAN/NEEDS.
--- NOTE | 2024-01-01 13:47 | HO.ANESPROP2 ---
[facility] Active Problems Active Problems: All Active Problems Obstructive uropathy (Acute) Renal colic on right side (Acute) Elevated WBC count (Acute) Acidosis, lactic (Acute) Pyelonephritis (Acute) Hypercalciuria (Acute) Cystitis (Acute) Bilateral kidney stones (Acute) Ureterolithiasis (Acute) Hydronephrosis (Acute) Ureteral stent present (Acute) Past Medical History Medical History History of renal dialysis Ureteral stent present Pyelonephritis Hydronephrosis with renal calculous obstruction Renal calculi Family History Family history of problems with anesthesia: No Surgical History Surgical History Hx of cystoscopy History of Problems with Anesthesia: No Social History Social History Household Members: Spouse and Children Housing: House Do you presently have visiting nurse or other home services: No Alcohol intake: never Patient Tobacco Use Status: Never used Tobacco service: No Current occupational status: unemployed Meds Allergies Allergy/AdvReac Type Severity Reaction Status Date / Time amoxicillin Allergy Intermediate Hives Verified 12/31/23 13:35 Penicillins Allergy Intermediate Hives Verified 12/31/23 13:35 Active Medications: Current Medications Acetaminophen (Acetaminophen 325 Mg Tablet) 650 mg PO Q6H PRN PRN Reason: Pain, Mild (Pain Scale 1-3), fever or headache Ascorbic Acid (Ascorbic Acid 500 Mg Tablet) 500 mg PO DAILY [facility] Last Admin: 01/01/24 10:30 Dose: Not Given Calcium Carbonate (Calcium Carbonate 750 Mg Tab.Chew) 750 mg PO Q4H PRN PRN Reason: Heartburn Ceftriaxone Sodium 1 gm/ (Sodium Chloride) 50 mls @ 100 mls/hr IV Q24H [facility] Lactated Ringer's (Lr) 1,000 mls @ 80 mls/hr IVCONT .[id number] [facility] Last Admin: 01/01/24 06:49 Dose: 80 mls/hr Loratadine (Loratadine 10 Mg Tablet) 10 mg PO DAILY [facility] Last Admin: 01/01/24 10:31 Dose: Not Given Magnesium Hydroxide (Milk Of Magnesia 30 Ml Oral.Susp) 30 ml PO DAILY PRN PRN Reason: Constipation Melatonin (Melatonin 3 Mg Tablet) 6 mg PO BEDTIME PRN PRN Reason: Insomnia Multivitamins/Vitamin C (Multivitamin Tablet) 1 tab PO DAILY [facility] Last Admin: 01/01/24 10:31 Dose: Not Given Ondansetron HCl (Ondansetron Hcl 4 Mg/2 Ml Vial) 4 mg IVPUSH Q8H PRN PRN Reason: Nausea and Vomiting Oxycodone HCl (Oxycodone Hcl Immed Release 5 Mg Tablet) 5 mg PO Q6H PRN PRN Reason: Pain, Severe (Pain Scale 7-10) Pyridoxine HCl (Pyridoxine Hcl (Vitamin B6) 50 Mg Tablet) 100 mg PO DAILY [facility] Last Admin: 01/01/24 10:31 Dose: Not Given Sodium Chloride (0.9 % Sodium Chloride Flush 3 Ml Syringe) 3 ml IVFLUSH QSHIFT [facility] Last Admin: 01/01/24 09:01 Dose: 3 ml Tamsulosin HCl (Tamsulosin Hcl 0.4 Mg Capsule) 0.4 mg PO DAILY [facility] Last Admin: 01/01/24 10:31 Dose: Not Given Vitamin D (Cholecalciferol (Vitamin D3) 25 Mcg Tablet) 25 mcg PO DAILY [facility] Last Admin: 01/01/24 10:30 Dose: Not Given Home Medications ?Medication ?Instructions ?Recorded ?Confirmed ?Last Taken ?Type ascorbic acid (vitamin C) 500 mg 500 mg PO DAILY 08/12/23 12/31/23 12/29/23 History tablet (Vitamin C) biotin 10,000 mcg capsule 10,000 mcg PO DAILY 08/12/23 12/31/23 12/29/23 History cholecalciferol (vitamin D3) 25 25 mcg PO DAILY 08/12/23 12/31/23 12/29/23 History mcg (1,000 unit) capsule (Vitamin D3) loratadine 10 mg tablet (Claritin) 10 mg PO DAILY 09/05/23 12/31/23 12/29/23 History multivitamin 1 tab PO DAILY 12/31/23 12/31/23 12/29/23 History Exam Height,Weight and Vital Signs: Height 5 ft 4 in Weight 68.5 kg Last Vital Signs Temp 98.4 F 01/01/24 11:52 Pulse 81 01/01/24 11:52 Resp 18 01/01/24 11:52 BP 109/65 01/01/24 11:52 Pulse Ox 100 01/01/24 11:52 O2 Del Method Room Air 01/01/24 11:52 Pertinent Lab Results Pertinent Lab Results: Laboratory Tests 12/31/23 12/31/23 12/31/23 13:46 14:59 17:30 WBC 12.7 H RBC 3.95 L Hgb 12.4 Hct 36.8 L MCV 93.2 MCH 31.4 MCHC 33.7 RDW 13.5 Plt Count 287 MPV 9.5 Immature Gran % (Auto) 0.6 H Neut % (Auto) 80.2 H Lymph % (Auto) 12.3 L [place] % (Auto) 6.2 Eos % (Auto) 0.2 Baso % (Auto) 0.5 Lymph # (Auto) 1.6 [place] # (Auto) 0.8 Eos # (Auto) 0.0 Baso # (Auto) 0.1 Abs Immat Gran (auto) 0.07 H Absolute Neuts (auto) 10.2 H Absolute Nucleated RBC 0.000 Nucleated RBC % (auto) 0.0 Sodium 138 Potassium 3.4 Chloride 106 Carbon Dioxide 20 L Anion Gap 15 BUN 10 Creatinine 0.79 Estim Creat Clear Calc 83.6 Estimated GFR > 60 Random Glucose 134 H Lactic Acid 2.3 H* Lactic Acid F/U @ 2Hr 1.0 Calcium 9.6 D Magnesium 2.1 Total Bilirubin 0.9 Direct Bilirubin 0.3 AST 14 ALT 15 Alkaline Phosphatase 68 C-Reactive Protein 12.61 H Total Protein 8.0 Albumin 4.3 Lipase 27 Urine Color Yellow Urine Appearance Cloudy Urine pH 6.5 Ur Specific [place] 1.015 Urine Protein 30 (1+) H Urine Glucose (UA) Negative Urine Ketones Negative Urine Blood Large (3+) H Urine Nitrite Negative Ur Leukocyte Esterase Large (3+) H Urine RBC >20 H Urine WBC >50 H Ur Squamous Epith Cells 6-10 Urine Bacteria 4+ Hyaline Casts 0-2 Urine Test NEGATIVE 01/01/24 01/01/24 05:22 07:25 WBC 10.6 RBC 3.42 L Hgb 11.0 L Hct 32.0 L MCV 93.6 MCH 32.2 MCHC 34.4 RDW 13.6 Plt Count 255 MPV 9.9 Immature Gran % (Auto) 0.5 H Neut % (Auto) 64.3 Lymph % (Auto) 22.9 [place] % (Auto) 10.3 Eos % (Auto) 1.3 Baso % (Auto) 0.7 Lymph # (Auto) 2.4 [place] # (Auto) 1.1 Eos # (Auto) 0.1 Baso # (Auto) 0.1 Abs Immat Gran (auto) 0.05 H Absolute Neuts (auto) 6.8 Absolute Nucleated RBC 0.000 Nucleated RBC % (auto) 0.0 Sodium 138 Potassium 3.8 Chloride 109 H Carbon Dioxide 21 L Anion Gap 12 BUN 10 Creatinine 0.70 Estim Creat Clear Calc 94.4 Estimated GFR > 60 Random Glucose 98 Lactic Acid 1.1 Lactic Acid F/U @ 2Hr Calcium 8.8 D Magnesium Total Bilirubin Direct Bilirubin AST ALT Alkaline Phosphatase C-Reactive Protein Total Protein Albumin Lipase Urine Color Urine Appearance Urine pH Ur Specific [place] Urine Protein Urine Glucose (UA) Urine Ketones Urine Blood Urine Nitrite Ur Leukocyte Esterase Urine RBC Urine WBC Ur Squamous Epith Cells Urine Bacteria Hyaline Casts Urine Test Airway Mallampati Class: II TM Dist: >3cm Neck ROM: Full Loose/Missing/Broken Teeth: No Heart: RRR Lungs: CTA Assessment and Plan Assessment Anesthesia Assessment: Anesthesia Plan Discussed and Chart Reviewed Final Anesthetic Review Family History of Problems with Anesthesia: No History of Problems with Anesthesia: No NPO: Yes ASA Class: II Final Preanesthetic Review: Meds/Allgs Chart Reviewed, Consent Obtained/Reviewed and Anes Risks/Benef Reviewed Patient Risk: Low Procedure Risk: Low
--- NOTE | 2024-01-01 14:20 | MHC.SHP ---
Pre-Procedural Eval Section A - 24 Hr Update-Section A only Date of Service: 01/01/24 The patient is an INPATIENT: Yes Changes since office visit: No Cold of Flu in the past 2 weeks, No New Medical Problems, No Changes in Medication and No Patient answered all questions The patient has been examined within 24 hours of the surgical procedure. The History & Physical has been completed within 30 days and I have reviewed it.: Yes Section B - Complete if H&P > 30 days Chief Complaint: UTI, obstructive uropathy Details of Present Illness: Distal right ureteric stone with pyelonephritis Relevant Family History (Specify if Yes): No Relevant Social History: None Present Medications: see Short Stay Collaborative assessment Medical History: No relevant PMH History of Previous Operations: Relevant previous surgery/procedure and date(s) Allergies: Allergies Allergy/AdvReac Type Severity Reaction Status Date / Time amoxicillin Allergy Intermediate Hives Verified 12/31/23 13:35 Penicillins Allergy Intermediate Hives Verified 12/31/23 13:35 Review of Systems Sugical H&P ROS: Negative: Constitution, Cardiovascular, Respiratory, Neurological, Psychiatric, Hem-Onc, Allergic/Immunologic, Gastrointestinal, Genitourinary, Musculoskeletal, Integumentary, Endocrine and Eyes/Ears/Nose/Throat Exam Surgical H&P Exam: Normal: HEENT, Normal: Heart, Normal: Lungs, Normal: Extremities, Normal: Abdomen, Normal: Skin and Normal: Neurological Plan Diagnosis/Plan: Unchanged (Cystoscopy, right retrograde, right ureteroscopy with laser lithotripsy stent placement) I have reviewed the history and physical and performed a pertinent physical examination on my patient. No changes have occurred unless specified. Time Spent With Patient Time: Total time managing care of this patient today ____ minutes.
--- NOTE | 2024-01-01 14:58 | W.PM.OPN ---
Operative Note Operative Note Date of Service: 01/01/24 Narrative: PreOperative Diagnosis: Distal right ureteric stone Post Operative Diagnosis: Distal right ureteric stone with proximal hydronephrosis Procedure: - cystoscopy, right retrograde - right dilatation of ureteric orifice under fluoroscopy - right ureteroscopy, laser lithotripsy, stone basketing - right stent placement Surgeon: Dr Vicente Mejía Anesthesia: General Indications for procedure: Distal right ureteric stone with presentation 3-4 days of flank pain Procedure: After informed consent was verified the patient was brought to the operating room and placed in a supine position. Anesthesia was administered per protocol. The patient was placed in a modified dorsal lithotomy position and prepped and draped in a sterile fashion. Safety pause time-out and side of surgery were confirmed. Images were available for review. Antibiotic administration confirmed. A 22 Ug[place] cystoscope was inserted per urethra. The urethra was without abnormality. The bladder was normal in its entirety. Both ureteric orifices were seen in normal position . The right ureteric orifice was cannulated and a retrograde examination was performed. Filling defects seen at junction between distal and middle 3rd . A Sensor guidewire was placed up to the level of the renal pelvis under fluoroscopy. The rigid cystoscope was removed. A Jacy dilator was placed over the Sensor guidewire and used to dilate the ureteric orifice under fluoroscopy. The dilator was removed. The semi rigid ureteral scope was placed alongside the Sensor guidewire. Stone encountered. Using a 365 micro holmium laser fiber the stone was broken into small pieces using a combination of hammer and dusting techiques. Stone fragments were removed from the ureter using a 2.4 Ug[place]an 0 tip basket. Once the fragments were removed a decision was made to place a ureteric stent. Based on the height of the patient a 6 Fr x 24 stent was used. The string was removed from the stent prior to placement A 6 [place] by 24 cm double-J stent was placed into the renal pelvis and bladder under a combination of fluoroscopy and direct visualization. The symphisis pubis was used as a radiographic marker to release the stent and good coil was seen within the bladder confirming position The bladder was emptied. The patient tolerated the procedure well and was extubated in the operating room. They were transferred in stable condition to the recovery area. Pathology: Drains: Double J stent as described above
[2024-01-01] MEDS: Acetaminophen 325 MG TABLET 975 MG PO (15:23)
[2024-01-01] MEDS: Phenazopyridine HCL 100 MG TABLET PO (15:24)
[2024-01-01] MEDS: cefTRIAXone sodium 1 GM in 0.9 % Sodium Chloride 50 ML IV (16:00)
--- NOTE | 2024-01-01 16:29 | PM.DS ---
DS: Providers Provider Date of Service: 01/01/24 Date of admission: 12/31/23 19:16 Primary care physician: Manda Fink MD Consults: 12/31/23 19:57 Consult to Urology Routine Consulting Provider: [facility] Reason for consultation: obstructive uropathy with hydroureteronephrosis DS: Diagnosis Discharge Diagnosis (1) Obstructive uropathy: Status: Acute (2) UTI (urinary tract infection): Status: Resolved DS: Summary Hospital Course Hospital Course: Admission HPI Chief Complaint: r flank pain, dark urine 48-year-old female with history of nephrolithiasis, pyelonephritis with sepsis presents to the ED earlier today for evaluation of right flank pain, nausea, dark/foul smelling urine ongoing for about 3 days. She states this feels similar to prior kidney stones. She has also had headaches and cold chills. No fevers, dysuria, hematuria, increased urinary frequency, shortness of breath, chest pain.. Since arrival, vital signs have been stable. She has a leukocytosis of 12.7. Renal function and electrolyte levels are normal except for CO2 20. Lactic acid initially elevated at 2.3 repeat 1.0. She does state that she has not been eating and drinking much over the last few days due to feeling generally unwell. CRP is elevated at 12.61. Urinalysis shows 3+ leukocytes, negative nitrites, 3+ blood, 1+ protein, significant urinary sediment, 4+ bacteria. Retroperitoneal ultrasound shows renal echogenic foci of the right kidney suggestive of stones the largest measuring 7 x [address] abdomen pelvis shows moderate right-sided hydroureteronephrosis down to a 0.6 x 0.3 cm obstructing densely calcified stone in the distal right ureter in the upper pelvis. In the ED, received ketorolac, IV LR, Rocephin. Hospital course: Patient presented w/ righ flank pain --> dx pyelonephritis w/ obstructive uropathy. Has received 1 dose of IV ceftriaxone. VSS, afebrile. WBC is normal. Lactic acid normal. She had cystoscopy with stent placement and doing well post. Urine culture show gram negative maricruz and base on prior culture probable E. coli and will treat with Ceftin 500 mg twice daily for 10 days. To follow up with urology Final diagnoses: acute pyelonephritis obstructive uropathy kidney stone Time Attestation Discharge Coordination Time (in mins): 35 Quality: Safe Use of Opioids Does Pt have an Active Cancer Diagnosis on the Problem List?: No Quality: Stroke Does the patient have a stroke diagnosis?: No Physical Exam Vital Signs: Vital Signs: Last Vital Signs Temp 97.3 F 01/01/24 15:45 Pulse 71 01/01/24 15:45 Resp 20 01/01/24 15:45 BP 120/73 01/01/24 15:45 Pulse Ox 98 01/01/24 15:45 O2 Del Method Room Air 01/01/24 15:45 O2 Flow Rate 6 01/01/24 15:10 BMI result Body Mass Index 25.9 Const: Other: General: AO X 3, no acute distress Resp: CTA bilateral CVS: S1,S2,RRR GI: +BS, NT, no distention Skin: No rash Neuro: motor grossly intact Psych: appropriate affect DS: Data Data Completed and Pending Completed studies during hospitalization [Text1]: Procedures Dilation of Left Ureter with Intraluminal Device, Via Natural or Artificial Opening Endoscopic (08/12/23) Fluoroscopy of Left Kidney, Ureter and Bladder (08/12/23) Labs on day of discharge: Laboratory Results - last 24 hr 12/31/23 12/31/23 12/31/23 13:46 14:59 17:30 WBC RBC Hgb Hct MCV MCH MCHC RDW Plt Count MPV Immature Gran % (Auto) Neut % (Auto) Lymph % (Auto) [place] % (Auto) Eos % (Auto) Baso % (Auto) Lymph # (Auto) [place] # (Auto) Eos # (Auto) Baso # (Auto) Abs Immat Gran (auto) Absolute Neuts (auto) Absolute Nucleated RBC Nucleated RBC % (auto) Sodium Potassium Chloride Carbon Dioxide Anion Gap BUN Creatinine Estim Creat Clear Calc Estimated GFR Random Glucose Lactic Acid 2.3 H* Lactic Acid F/U @ 2Hr 1.0 Calcium C-Reactive Protein 12.61 H 01/01/24 01/01/24 05:22 07:25 WBC 10.6 RBC 3.42 L Hgb 11.0 L Hct 32.0 L MCV 93.6 MCH 32.2 MCHC 34.4 RDW 13.6 Plt Count 255 MPV 9.9 Immature Gran % (Auto) 0.5 H Neut % (Auto) 64.3 Lymph % (Auto) 22.9 [place] % (Auto) 10.3 Eos % (Auto) 1.3 Baso % (Auto) 0.7 Lymph # (Auto) 2.4 [place] # (Auto) 1.1 Eos # (Auto) 0.1 Baso # (Auto) 0.1 Abs Immat Gran (auto) 0.05 H Absolute Neuts (auto) 6.8 Absolute Nucleated RBC 0.000 Nucleated RBC % (auto) 0.0 Sodium 138 Potassium 3.8 Chloride 109 H Carbon Dioxide 21 L Anion Gap 12 BUN 10 Creatinine 0.70 Estim Creat Clear Calc 94.4 Estimated GFR > 60 Random Glucose 98 Lactic Acid 1.1 Lactic Acid F/U @ 2Hr Calcium 8.8 D C-Reactive Protein Preliminary micro results at discharge 12/31/23 Unknown Urine Culture - Preliminary Urine clean catch - Clean Catch Midstream Gram negative maricruz Discharge Plan Discharge Anticipated Discharge Date/Time: 01/01/24 07:15 Patient Disposition: Home, Self-Care Discharge Diagnosis: Pyelonephritis, Obstructive Uropathy Referrals: Vicente Mejía MD [Physician] - 1 Week Manda Fink MD [Primary Care Provider] - None Discharge Medications: New cefuroxime axetil 500 mg tablet 500 mg PO BID 10 Days Qty: 20 0RF Continued ascorbic acid (vitamin C) [Vitamin C] 500 mg Tablet 500 mg PO DAILY biotin 10,000 mcg Capsule 10,000 mcg PO DAILY cholecalciferol (vitamin D3) [Vitamin D3] 25 mcg (1,000 unit) Capsule 25 mcg PO DAILY loratadine [Claritin] 10 mg Tablet 10 mg PO DAILY multivitamin Tablet 1 tab PO DAILY pyridoxine (vitamin B6) 100 mg tablet 100 mg PO DAILY Qty: 90 3RF Discharge Orders: Discharge Order (Routine); Ordered 01/01/24 Ordered By: Mani Lawrence Diet: Advance to usual diet Activity on Discharge: As tolerated Stand Alone Forms: Patient Portal Discharge page Print Language: Occitan Care Plan Goals: - Recovery from Pyelonephritis & obstructive uropathy - hydrate - tolerate normal diet Health Concerns: - Pyelonephritis - obstructive uropathy - renal colic Plan of Treatment: - Follow up with Urology within a week - take antibiotics as prescribed ceftin 500 mg po twice daily for 10 days Assessment: See above Patient Instructions: Ureteroscopy (DC)
--- NOTE | 2024-01-01 16:32 | PM.DS ---
DS: Providers Provider Date of Service: 01/01/24 Date of admission: 12/31/23 19:16 Primary care physician: Manda Fink MD Consults: 12/31/23 19:57 Consult to Urology Routine Consulting Provider: [facility] [place] [facility] Reason for consultation: obstructive uropathy with hydroureteronephrosis DS: Diagnosis Discharge Diagnosis (1) Obstructive uropathy: Status: Acute (2) UTI (urinary tract infection): Status: Resolved DS: Summary Hospital Course Hospital Course: Admission HPI Chief Complaint: r flank pain, dark urine 48-year-old female with history of nephrolithiasis, pyelonephritis with sepsis presents to the ED earlier today for evaluation of right flank pain, nausea, dark/foul smelling urine ongoing for about 3 days. She states this feels similar to prior kidney stones. She has also had headaches and cold chills. No fevers, dysuria, hematuria, increased urinary frequency, shortness of breath, chest pain.. Since arrival, vital signs have been stable. She has a leukocytosis of 12.7. Renal function and electrolyte levels are normal except for CO2 20. Lactic acid initially elevated at 2.3 repeat 1.0. She does state that she has not been eating and drinking much over the last few days due to feeling generally unwell. CRP is elevated at 12.61. Urinalysis shows 3+ leukocytes, negative nitrites, 3+ blood, 1+ protein, significant urinary sediment, 4+ bacteria. Retroperitoneal ultrasound shows renal echogenic foci of the right kidney suggestive of stones the largest measuring 7 x [address] abdomen pelvis shows moderate right-sided hydroureteronephrosis down to a 0.6 x 0.3 cm obstructing densely calcified stone in the distal right ureter in the upper pelvis. In the ED, received ketorolac, IV LR, Rocephin. Hospital course: Patient presented w/ righ flank pain --> dx pyelonephritis w/ obstructive uropathy. Has received 1 dose of IV ceftriaxone. VSS, afebrile. WBC is normal. Lactic acid normal. She had cystoscopy with stent placement and doing well post. Urine culture show gram negative maricruz and base on prior culture probable E. coli and will treat with Ceftin 500 mg twice daily for 10 days. To follow up with urology Final diagnoses: acute pyelonephritis obstructive uropathy kidney stone Status at Discharge Functional status at discharge: independent ambulation Overall status at discharge: patient is back to baseline Time Attestation Discharge Coordination Time (in mins): 15 Quality: Safe Use of Opioids Does Pt have an Active Cancer Diagnosis on the Problem List?: No Quality: Stroke Does the patient have a stroke diagnosis?: No Physical Exam Vital Signs: Vital Signs: Last Vital Signs Temp 97.3 F 01/01/24 15:45 Pulse 71 01/01/24 15:45 Resp 20 01/01/24 15:45 BP 120/73 01/01/24 15:45 Pulse Ox 98 01/01/24 15:45 O2 Del Method Room Air 01/01/24 15:45 O2 Flow Rate 6 01/01/24 15:10 BMI result Body Mass Index 25.9 DS: Data Data Completed and Pending Completed studies during hospitalization [Text1]: Procedures Dilation of Left Ureter with Intraluminal Device, Via Natural or Artificial Opening Endoscopic (08/12/23) Fluoroscopy of Left Kidney, Ureter and Bladder (08/12/23) Labs on day of discharge: Laboratory Results - last 24 hr 12/31/23 12/31/23 12/31/23 13:46 14:59 17:30 WBC RBC Hgb Hct MCV MCH MCHC RDW Plt Count MPV Immature Gran % (Auto) Neut % (Auto) Lymph % (Auto) [place] % (Auto) Eos % (Auto) Baso % (Auto) Lymph # (Auto) [place] # (Auto) Eos # (Auto) Baso # (Auto) Abs Immat Gran (auto) Absolute Neuts (auto) Absolute Nucleated RBC Nucleated RBC % (auto) Sodium Potassium Chloride Carbon Dioxide Anion Gap BUN Creatinine Estim Creat Clear Calc Estimated GFR Random Glucose Lactic Acid 2.3 H* Lactic Acid F/U @ 2Hr 1.0 Calcium C-Reactive Protein 12.61 H 01/01/24 01/01/24 05:22 07:25 WBC 10.6 RBC 3.42 L Hgb 11.0 L Hct 32.0 L MCV 93.6 MCH 32.2 MCHC 34.4 RDW 13.6 Plt Count 255 MPV 9.9 Immature Gran % (Auto) 0.5 H Neut % (Auto) 64.3 Lymph % (Auto) 22.9 [place] % (Auto) 10.3 Eos % (Auto) 1.3 Baso % (Auto) 0.7 Lymph # (Auto) 2.4 [place] # (Auto) 1.1 Eos # (Auto) 0.1 Baso # (Auto) 0.1 Abs Immat Gran (auto) 0.05 H Absolute Neuts (auto) 6.8 Absolute Nucleated RBC 0.000 Nucleated RBC % (auto) 0.0 Sodium 138 Potassium 3.8 Chloride 109 H Carbon Dioxide 21 L Anion Gap 12 BUN 10 Creatinine 0.70 Estim Creat Clear Calc 94.4 Estimated GFR > 60 Random Glucose 98 Lactic Acid 1.1 Lactic Acid F/U @ 2Hr Calcium 8.8 D C-Reactive Protein Preliminary micro results at discharge 12/31/23 Unknown Urine Culture - Preliminary Urine clean catch - Clean Catch Midstream Gram negative maricruz Discharge Plan Discharge Anticipated Discharge Date/Time: 01/01/24 07:15 Patient Disposition: Home, Self-Care Discharge Diagnosis: Pyelonephritis, Obstructive Uropathy Referrals: Vicente Mejía MD [Physician] - 1 Week Manda Fink MD [Primary Care Provider] - None Discharge Medications: New cefuroxime axetil 500 mg tablet 500 mg PO BID 10 Days Qty: 20 0RF Continued ascorbic acid (vitamin C) [Vitamin C] 500 mg Tablet 500 mg PO DAILY biotin 10,000 mcg Capsule 10,000 mcg PO DAILY cholecalciferol (vitamin D3) [Vitamin D3] 25 mcg (1,000 unit) Capsule 25 mcg PO DAILY loratadine [Claritin] 10 mg Tablet 10 mg PO DAILY multivitamin Tablet 1 tab PO DAILY pyridoxine (vitamin B6) 100 mg tablet 100 mg PO DAILY Qty: 90 3RF Discharge Orders: Discharge Order (Routine); Ordered 01/01/24 Ordered By: Mani Lawrence Diet: Advance to usual diet Activity on Discharge: As tolerated Stand Alone Forms: Patient Portal Discharge page Print Language: Mal[place]ian Care Plan Goals: - Recovery from Pyelonephritis & obstructive uropathy - hydrate - tolerate normal diet Health Concerns: - Pyelonephritis - obstructive uropathy - renal colic Plan of Treatment: - Follow up with Urology within a week - take antibiotics as prescribed ceftin 500 mg po twice daily for 10 days Assessment: See above Patient Instructions: Ureteroscopy (DC) Discharge Date/Time: 01/01/24 17:45
[2024-01-01] MEDS: Pyridoxine HCl (Vitamin B6) 50 MG TABLET 100 MG PO (16:59)
[2024-01-01] MEDS: Loratadine 10 MG TABLET PO (16:59)
[2024-01-01] MEDS: Cholecalciferol (Vitamin D3) 25 MCG TABLET PO (16:59)
[2024-01-01] MEDS: Tamsulosin HCL 0.4 MG CAPSULE PO (16:59)
[2024-01-01] MEDS: Ascorbic Acid 500 MG TABLET PO (16:59)
== END 2024-01-01 17:45 | disposition home or self-care (01) ==
LOC: HO.ED 18:00 → HO.EDOVER 19:45 → HO.S3 19:52
PROVIDERS: Emergency Medicine; Physician Assistant; Urology; Admitting Provider Physician Assistant; Emergency Provider Emergency Medicine; PCP Internal Medicine; Visit Provider Internal Medicine
PROC: (CPT 52356; principal; 2024-01-01 13:30)
DX: N13.1 Hydronephrosis with ureteral stricture, not elsewhere classified (principal); N20.1 Calculus of ureter; N39.0 Urinary tract infection, site not specified; E87.20 Acidosis, unspecified; D72.829 Elevated white blood cell count, unspecified; Z79.899 Other long term (current) drug therapy
CPT/HCPCS: 52356; 36415; 74176; 76770; 80048; 80076; 81001; 81003; 81025; 83605; 83690; 83735; 85025; 86140; 87040; 87086; 87088; 87186; 96361; 96365; 96366; 96375; 96376; 99221; 99232; 99285; C1758; C1769; C2617; J0696; J1100; J1885; J1956; J2405; J2704; J3010; J7120; Q9967

== ENCOUNTER → 2023-12-31 19:16 | Outpatient (BNV) | payer OTHER, SELFPAY | PROVIDERS: Admitting Provider Physician Assistant; Emergency Provider Emergency Medicine; PCP Internal Medicine; Visit Provider Urology | DX: N13.9 Obstructive and reflux uropathy, unspecified (principal); N39.0 Urinary tract infection, site not specified | CPT/HCPCS: 52356; 74420; 99222; 99499 ==

== ENCOUNTER → 2023-12-31 19:16 | Outpatient (BNV) | payer OTHER, SELFPAY | PROVIDERS: Admitting Provider Physician Assistant; Emergency Provider Emergency Medicine; PCP Internal Medicine; Visit Provider Physician Assistant | DX: N13.9 Obstructive and reflux uropathy, unspecified (principal); N30.90 Cystitis, unspecified without hematuria | CPT/HCPCS: 99223; 99239 ==

== ENCOUNTER 2024-01-11 15:01 | Outpatient (AMB) | payer OTHER, SELFPAY ==
--- NOTE | 2024-01-11 15:01 | A.OFFVIS_ITS ---
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 Required: No Accompanied by: Self / Same As Patient Allergies amoxicillin Allergy (Intermediate, Verified 01/11/24 15:50) Hives Penicillins Allergy (Intermediate, Verified 01/11/24 15:50) Hives Medication List - Last Reconciled 01/11/24 by EMILY Christianson ascorbic acid (vitamin C) (Vitamin C) 500 mg PO DAILY biotin 10,000 mcg PO DAILY cefuroxime axetil 500 mg PO BID 10 days cholecalciferol (vitamin D3) (Vitamin D3) 25 mcg PO DAILY loratadine (Claritin) 10 mg PO DAILY multivitamin 1 tab PO DAILY naproxen 500 mg PO BID PRN 7 days oxycodone 5 mg PO Q8H PRN 3 days phenazopyridine (Pyridium) 100 mg PO TID PRN 4 days pyridoxine (vitamin B6) 100 mg PO DAILY tamsulosin 0.4 mg PO BEDTIME 14 days HPI Comments Details: El is a very pleasant 48-year-old female patient of Dr. Sy Huston. She has a past medical history of nephrolithiasis and urosepsis. She presents to the office today for follow-up. Of note, patient underwent right- sided ureteroscopy with Dr. Mejía 01/01/24 and presents to the office today for right-sided ureteral stent removal. Cystoscopy was performed and right ureteral stent was removed without difficulty. She discusses at length her longstanding history of nephrolithiasis. She reports attempting to drink approximately 80-100 oz of water daily. She discusses taking antibiotics as ordered and is due to be done with antibiotics tonight. She reports since procedure she has been doing and feeling well. We discussed at length potential causes of nephrolithiasis as well as near future metabolic workup. In office urinalysis results reviewed with the patient today. She otherwise offers no other issues or concerns at this time. [facility]LY [facility] Medical History History of renal dialysis Ureteral stent present Pyelonephritis Hydronephrosis with renal calculous obstruction Renal calculi Surgical History Hx of cystoscopy Social History Household Members: Spouse and Children Housing: House Do you presently have visiting nurse or other home services: No Alcohol intake: never Patient Tobacco Use Status: Never used Tobacco service: No Current occupational status: unemployed Review of Systems Const All systems reviewed & are unremarkable except as noted in HPI and below Physical Exam Const General: cooperative, healthy appearing, comfortable, no acute distress, well developed, alert and awake Orientation/consciousness: patient oriented x3 Limitations: no limitations HEENT Head: Yes normal to inspection, Yes normocephalic and Yes atraumatic Ears: hearing grossly normal bilaterally Eyes General: appearance normal, both eyes and all related structures Neck Neck: Yes normal visual inspection and Yes trachea midline Chest Chest palpation & inspection: normal inspection of the chest Resp Effort & Inspection: normal respiratory effort and able to speak in complete sentences Cardio Rate: regular rate GI Inspection: Yes normal to inspection General: Yes no CVA tenderness External Female Exam: normal external appearance and normal appearance of the urethra Speculum Exam - Vagina: normal appearance of the vagina Back/Spine/Pelvis Back: no CVA tenderness Skin General skin exam: no rashes or lesions noted Neuro General: patient oriented x3 Extrem General: Yes normal to inspection Psych Appearance: grossly normal and well kempt Mental Status: mental status grossly normal Speech and movement: Normal speech and movement present and Clear speech present Affect: normal affect Attitude: cooperative Thought process: Normal thought process present Thought content: Normal thought content present Insight: Fair insight present (Psych) Judgement: Fair judgement present (Psych) Office Procedures Cystoscopy Consent Discussed risk and benefit or proposed procedure with the patient. Information consent for procedure given to the patient. Discussed technical aspects, risks, benefits and alternatives in full. Addressed all of the patient's questions and concerns regarding the procedure. The patient demonstrated knowledge and understanding. They wish to proceed with this procedure. Preparation The patient was prepped in the usual manner. A fastener sewing machine operator was present and in the room. Genitalia was prepped with betadine solution in a sterile manner. Lidocaine Jelly 2% was placed into the urethra and 16Fr flexible Olympus cystoscope was inserted into the meatus after adequate lubrication. Procedure A well lubricated 16 Japanese cystoscope was placed No abnormality noted of urethra during placement Indwelling stent seen within bladder emerging from right ureteric orifices The stent was grasped with a 3 prong grasper and removed without difficulty. The patient tolerated the procedure well. 73625-[id number] with stent removal DISPOSABLE SCOPE URO-G FLEXIBLE SCOPE Procedure code (CPT) selection complete Office Meds lidocaine HCl 2 % mucosal jelly in applicator Performing Provider: EMILY Christianson Performing Location[place] [facility] [place] [facility] Administered by: Rosalino Anne LPN on 01/11/24 15:23 Dose Route Admin Location Dispensed Lot Number Expiration Date [facility] [address] Test Examiner 10 mL intra-urethral 10 mL naproxen 500 mg tablet Performing Provider: EMILY Christianson Performing Location: [facility] [place] [facility] Administered by: Rosalino Anne LPN on 01/11/24 15:23 Dose Route Admin Location Dispensed Lot Number Expiration Date [facility] [address] Test Examiner 500 mg PO 1 tab Results AMB Urinalysis, Automated UA Leukoctes 500 Tj/uL Last Edit by Alfonzo Moreno on 01/11/24 15:27 UA Nitrite Positive Last Edit by Alfonzo Moreno on 01/11/24 15:27 UA Urobilinogen 0.2 mg/dL Last Edit by Alfonzo Moreno on 01/11/24 15:27 UA Protein 300 mg/dL Last Edit by Alfonzo Moreno on 01/11/24 15:27 UA pH 6.0 Last Edit by Alfonzo Moreno on 01/11/24 15:27 UA Blood 200 Rishi/uL Last Edit by Alfonzo Moreno on 01/11/24 15:27 UA Specific [place] 1.030 Last Edit by Alfonzo Moreno on 01/11/24 15:27 UA Ketone Negative Last Edit by Alfonzo Moreno on 01/11/24 15:27 UA Bilirubin 0 mg/dL Last Edit by Alfonzo Moreno on 01/11/24 15:27 UA Glucose 0 mg/dL Last Edit by Alfonzo Moreno on 01/11/24 15:27 Results Reviewed Results Reviewed: Laboratory Last Values Urine pH (Auto) 6.0 01/11/24 15:26 Specific [place] (Auto) 1.030 01/11/24 15:26 Urine Protein (Auto) 300 mg/dL 01/11/24 15:26 Glucose (UA)(Auto) 0 mg/dL 01/11/24 15:26 Urine Ketones (Auto) Negative 01/11/24 15:26 Urine Blood (Auto) 200 Rishi/uL 01/11/24 15:26 Urine Nitrite (Auto) Positive 01/11/24 15:26 Urine Bilirubin (Auto) 0 mg/dL 01/11/24 15:26 Urine Urobilinogen (Auto) 0.2 mg/dL 01/11/24 15:26 Leukocyte Esterase (Auto) 500 Tj/uL 01/11/24 15:26 Assessment & Plan Assessment & Plan (1) Obstructive uropathy: Code(s): N13.9 - Obstructive and reflux uropathy, unspecified Category: Medical (2) Pyelonephritis: Code(s): N12 - Tubulo-interstitial nephritis, not specified as acute or chronic Category: Medical (3) Bilateral kidney stones: Code(s): N20.0 - Calculus of kidney Category: Medical Plan Cystoscopy was performed and right ureteral stent was removed without difficulty. We discussed at length potential causes of nephrolithiasis as well as further workup to include 24 hour urine collection and labs. Discussed, educated, and stressed the importance of continuing with increase in fluid intake for nephrolithiasis was well as overall health and well-being. Patient currently denies any bothersome urinary issues or concerns. Will obtain renal ultrasound in 3 months. Continue vitamin B6 Follow-up in 3 months with imaging to be completed prior; or sooner with any issues, concerns, and or questions. Orders: Orders AMB Cystoscopy Today N12 - Tubulo-interstitial nephritis, not specified as acute or chronic, N13.30 - Unspecified hydronephrosis, N20.0 - Calculus of kidney, N20.1 - Calculus of ureter, N23 - Unspecified renal colic, Z96.0 - Presence of urogenital implants US renal BI 3 Months N20.0 - Calculus of kidney AMB Urinalysis Automated Today Z13.9 - Encounter for screening, unspecified Medications: Discontinued naproxen Discontinued Reason: Doctor's Order 500 mg PO BID 7 days PRN 14 tabs 0RF pain oxycodone Partial Fill upon patient request. Discontinued Reason: Doctor's Order 5 mg PO Q8H 3 days PRN 8 tabs 0RF pain phenazopyridine (Pyridium) Discontinued Reason: Patient Completed Course 100 mg PO TID 4 days PRN 12 tabs 0RF Spasm tamsulosin Discontinued Reason: Doctor's Order 0.4 mg PO BEDTIME 14 days 14 caps 0RF Coding Level of Care Code Est Pt Level 3 (37243) Diagnoses Obstructive uropathy N13.9 Pyelonephritis N12 Bilateral kidney stones N20.0 CPT Codes Cystoscopy - CPT: 26771-[id number] with stent removal ([id number])
== END 2024-01-11 15:59 | disposition home or self-care (01) ==
PROVIDERS: PCP Internal Medicine; Visit Provider Nurse Practitioner Family
DX: N23 Unspecified renal colic (principal); N12 Tubulo-interstitial nephritis, not specified as acute or chronic; N20.0 Calculus of kidney; N20.1 Calculus of ureter; N13.30 Unspecified hydronephrosis; Z96.0 Presence of urogenital implants; N13.9 Obstructive and reflux uropathy, unspecified; Z13.9 Encounter for screening, unspecified
CPT/HCPCS: 52310

== ENCOUNTER → 2024-01-11 15:01 | Outpatient (BNVA) | payer OTHER, SELFPAY | PROVIDERS: PCP Internal Medicine; Visit Provider Nurse Practitioner Family | DX: Z48.816 Encounter for surgical aftercare following surgery on the genitourinary system (principal) | CPT/HCPCS: 52310; 81003 ==

== ENCOUNTER 2024-03-22 09:08 | Outpatient (REF) | payer OTHER, SELFPAY ==
--- NOTE | ~2024-03-22 | US_ITS ---
EXAMINATION: US RETROPERITONEAL LIMITED (RENAL ONLY) CLINICAL INFORMATION: Calculus of kidney. COMPARISON: CT abdomen and pelvis 12/31/2023. Ultrasound retroperitoneal 12/31/2023. Ultrasound renal 10/12/2023. X-ray KUB 08/30/2023. X-ray abdomen 11/22/2021. TECHNIQUE: Real-time imaging of the kidneys. FINDINGS: RIGHT KIDNEY: 10.4 x 4.3 x 5.8 cm (SAG x AP x TRV). The kidney is normal in size, contour, and echogenicity. Renal cortical thickness is normal. No focal parenchymal lesions or hydronephrosis. At the upper pole, a 1.1 cm aggregate of nonobstructing calculi is seen. At the interpolar aspect, a 1.3 cm aggregate of nonobstructing calculi is seen. The lower pole, a 0.8 cm nonobstructing aggregate of calculi is seen. LEFT KIDNEY: 11.0 x 5.1 x 5.7 cm (SAG x AP x TRV). The kidney is normal in size, contour, and echogenicity. Renal cortical thickness is normal. There is mild hydronephrosis. At the upper pole, a 4 mm nonobstructing calculus is seen. At the interpolar aspect, a 5 mm nonobstructing calculus is seen. At the interpolar aspect, 8 mm and 5 mm benign, simple cysts are seen. These require no imaging follow-up. US/US renal BI IMPRESSION: 1. There are nonobstructing bilateral renal calculi, as detailed. 2. There is mild left hydronephrosis, and no right hydronephrosis is seen. Electronically signed by: Edison Rocha MD 03/24/2024 09:30 PM EST
== END 2024-03-22 09:09 | disposition home or self-care (01) ==
LOC: HO.HMGCX 09:08
PROVIDERS: PCP Internal Medicine; Visit Provider Nurse Practitioner Family
DX: N20.0 Calculus of kidney (principal)
CPT/HCPCS: 76775

== ENCOUNTER 2024-04-05 09:56 | Outpatient (AMB) | payer OTHER, SELFPAY ==
--- NOTE | 2024-04-05 02:09 | A.OFFVIS_ITS ---
Intake Visit Reasons: /US Intake Note: Patient is present for / Urology Medication:VITAMIN B6 Antibiotic Allergy:AMOXICILLIN,PENICILLINS Blood Thinner:NONE Immigration Law Specialist Required: No Allergies amoxicillin Allergy (Intermediate, Verified 04/05/24 09:59) Hives Penicillins Allergy (Intermediate, Verified 04/05/24 09:59) Hives Medication List - Last Reconciled 04/05/24 by Sarah Avery MD ascorbic acid (vitamin C) (Vitamin C) 500 mg PO DAILY biotin 10,000 mcg PO DAILY cholecalciferol (vitamin D3) (Vitamin D3) 25 mcg PO DAILY loratadine (Claritin) 10 mg PO DAILY multivitamin 1 tab PO DAILY pyridoxine (vitamin B6) 100 mg PO DAILY HPI Comments Details: 04/05/24--3 month FU s/p recent ureteroscopy 12/[address] Mejía [facility]-03/22/24- There are nonobstructing bilateral renal calculi, R>L there is mild left hydronephrosis, and no right hydronephrosis is seen. Discussed referral to nephrology for hypercalciuria and scheduling right ESWL. Review of chart: 01/11/24--El is a very pleasant 48-year-old female patient of Dr. Fink. She has a past medical history of nephrolithiasis and urosepsis. She presents to the office today for follow-up. Of note, patient underwent right-sided ureteroscopy with Dr. Mejía 01/01/24 and presents to the office today for right-sided ureteral stent removal. Cystoscopy was performed and right ureteral stent was removed without difficulty. She discusses at length her longstanding history of nephrolithiasis. She reports attempting to drink approximately 80-100 oz of water daily. She discusses taking antibiotics as ordered and is due to be done with antibiotics tonight. She reports since procedure she has been doing and feeling well. We discussed at length potential causes of nephrolithiasis as well as near future metabolic workup. In office urinalysis results reviewed with the patient today. She otherwise offers no other issues or concerns at this time. [facility] Medical History History of renal dialysis Ureteral stent present Pyelonephritis Hydronephrosis with renal calculous obstruction Renal calculi Surgical History Hx of cystoscopy Social History Household Members: Spouse and Children Housing: House Do you presently have visiting nurse or other home services: No Alcohol intake: never Patient Tobacco Use Status: Never used Tobacco service: No Current occupational status: unemployed Review of Systems Const All systems reviewed & are unremarkable except as noted in HPI and below Reports no additional complaints Eyes Reports no additional complaints ENT Reports no additional complaints Card Reports no additional complaints Resp Reports no additional complaints GI Reports no additional complaints Reports as per HPI Musc Reports no additional complaints Skin/Breast Reports system reviewed and no additional complaints, except as documented Neuro Reports no additional complaints Psych Reports no additional complaints Endo Reports no additional complaints Itz/Lymph Reports no additional complaints Aller/Immun Reports no additional complaints Telehealth Telehealth Telehealth Platform: [facility] Location of provider rendering services: practice address Location of patient: address on file Patient Identification confirmed using: Name, : Yes Telehealth method: video Patient verbally consented to treatment: Yes Patient verbally consented to billing insurance company: Yes Patient informed of any privacy concerns related to visit: Yes Results Reviewed Results Reviewed: Date of Service: 03/22/24 US RETROPERITONEAL LIMITED (RENAL ONLY) CLINICAL INFORMATION: Calculus of kidney. COMPARISON: CT abdomen and pelvis 12/31/2023. Ultrasound retroperitoneal 12/31/2023. Ultrasound renal 10/12/2023. X-ray KUB 08/30/2023. X-ray abdomen 11/22/2021. TECHNIQUE: Real-time imaging of the kidneys. FINDINGS: RIGHT KIDNEY: 10.4 x 4.3 x 5.8 cm (SAG x AP x TRV). The kidney is normal in size, contour, and echogenicity. Renal cortical thickness is normal. No focal parenchymal lesions or hydronephrosis. At the upper pole, a 1.1 cm aggregate of nonobstructing calculi is seen. At the interpolar aspect, a 1.3 cm aggregate of nonobstructing calculi is seen. The lower pole, a 0.8 cm nonobstructing aggregate of calculi is seen. LEFT KIDNEY: 11.0 x 5.1 x 5.7 cm (SAG x AP x TRV). The kidney is normal in size, contour, and echogenicity. Renal cortical thickness is normal. There is mild hydronephrosis. At the upper pole, a 4 mm nonobstructing calculus is seen. At the interpolar aspect, a 5 mm nonobstructing calculus is seen. At the interpolar aspect, 8 mm and 5 mm benign, simple cysts are seen. These require no imaging follow-up. IMPRESSION: 1. There are nonobstructing bilateral renal calculi, as detailed. 2. There is mild left hydronephrosis, and no right hydronephrosis is seen. Date of Service: 08/12/23 EXAMINATION: CT ABDOMEN AND PELVIS WITHOUT CONTRAST CLINICAL INFORMATION: Left flank pain, suspected stone COMPARISON: Renal ultrasound 10/16/2020 TECHNIQUE: Multidetector volumetric images were obtained from the superior aspect of the liver through the pubic symphysis without contrast. Sagittal and coronal reformatted images were obtained on the technologist's workstation. Oral contrast: No This CT examination was performed using dose optimization techniques as appropriate, variously including the following: *Automated exposure control *Adjustment of mA and/or kV according to patient size (this includes techniques or standardized protocols for targeted exams where dose is matched to indication/reason for exam; i.e. extremities or head) *Use of iterative reconstruction technique DLP: 588 mGy-cm FINDINGS: LUNG BASES: The visualized lung bases are unremarkable. LIVER, GALLBLADDER, AND BILIARY TREE: The liver is normal in size, shape, and attenuation. No focal hepatic lesion or biliary ductal dilatation is present. The gallbladder is unremarkable with no evidence of radiopaque gallstones, gallbladder wall thickening, or obvious pericholecystic inflammatory changes. PANCREAS: Unremarkable. SPLEEN: Unremarkable. ADRENAL GLANDS: Unremarkable. KIDNEYS AND URETERS: Multiple calcifications in bilateral kidneys, could reflect nephrocalcinosis or renal calculi. There is moderate left hydroureteronephrosis. There is a 7 mm obstructing calculus in the al ureter the level of the upper sacrum. The ureter distal to this is decompressed. Small hypodense lesions, too small to characterize, probable cysts. No further evaluation is needed. Cysts was seen on the prior ultrasounds as well. No significant perinephric stranding. BLADDER: Nondistended, . Unremarkable. GASTROINTESTINAL TRACT: Stomach is nondistended. Nonobstructive bowel gas pattern. No colonic wall thickening or pericolonic inflammatory changes. Normal appendix. ABDOMINAL WALL: Periumbilical an anterior abdominal wall surgical clips. No significant hernia is appreciated. LYMPH NODES: No pathologically enlarged lymph nodes. VASCULAR: Normal caliber aorta. PELVIC VISCERA: Within normal limits for CT.. Anteverted uterus. OSSEOUS STRUCTURES: No acute or suspicious osseous abnormality. IMPRESSION: 1. Moderate left hydroureteronephrosis with a 7 mm obstructing calculus in the left ureter at the level of the upper sacrum. 2. Innumerable calcifications in bilateral kidneys, which could reflect nephrocalcinosis or renal calculi. Assessment & Plan Assessment & Plan (1) Bilateral kidney stones: Code(s): N20.0 - Calculus of kidney Category: Medical (2) Hypercalciuria: Code(s): R82.994 - Hypercalciuria Category: Medical Plan Sched Right ESWL Referral to Nephrology. Orders: Referrals Nephrology Referral N20.0 - Calculus of kidney, R82.994 - Hypercalciuria Medications: Refilled pyridoxine (vitamin B6) 100 mg PO DAILY 90 tabs 3RF Patient Instructions: The patient had an opportunity to ask questions regarding treatment plan. The patient expressed understanding and agreement with the above treatment plan. The patient is aware they should contact our office by phone for worsening of their current condition or the appearance of new symptoms. Compliance is encouraged with any medications and followup testing that is ordered. It is a privilege to be allowed the opportunity to participate in the urologic care of your patient. If you have any questions or concerns regarding treatment for the above conditions please do not hesitate to contact me. The office telephone contact is [phone]. This note is constructed in part using voice recognition software. While every effort has been made to ensure accuracy tie in machine operator errors may have been included. Yours sincerely, Sarah Avery MD Coding Level of Care Code Tele Est Pt Level 4 (80973) Diagnoses Bilateral kidney stones N20.0 Hypercalciuria R82.994
== END 2024-04-05 14:12 | disposition home or self-care (01) ==
LOC: HO.HUSH 09:57
PROVIDERS: PCP Internal Medicine; Visit Provider Urology
DX: N20.0 Calculus of kidney (principal); R82.994 Hypercalciuria
CPT/HCPCS: 99214

== ENCOUNTER 2024-04-30 14:48 | Outpatient (AMB) | payer OTHER, SELFPAY ==
--- NOTE | 2024-04-30 14:55 | HO.NEPHOV_ITS ---
Vital Signs 04/30/24 14:56 Height 5 ft 4 in Weight 157 lb BMI 26.9 BP 122/70 Blood Pressure Location Lt brachial Position Sitting Pulse 76 Pulse Source Pulse Oximeter Pulse Oximetry (%) 98 Oxygen Delivery Method Room Air Intake Visit Reasons: INP: Calculus of kidney/ Conf Audit Spec Required: No Accompanied by: Self / Same As Patient Allergies amoxicillin Allergy (Intermediate, Verified 04/30/24 14:57) Hives Penicillins Allergy (Intermediate, Verified 04/30/24 14:57) Hives Medication List - Last Reconciled 04/30/24 by Chinmay Julien MD ascorbic acid (vitamin C) (Vitamin C) 500 mg PO DAILY biotin 10,000 mcg PO DAILY cholecalciferol (vitamin D3) (Vitamin D3) 25 mcg PO DAILY loratadine (Claritin) 10 mg PO DAILY multivitamin 1 tab PO DAILY pyridoxine (vitamin B6) 100 mg PO DAILY HPI Comments Details: GAIL is a pleasant 48-year-old woman with a history of nephrolithiasis. She has undergone lithotripsy and stent placement. She has had multiple stones complicated by urosepsis. She underwent 24 urine collection back in August of 2023. Urine volume was 1600 cc. She had hypercalciuria. Oxalate and citrate excretion were normal. She is scheduled for another urological procedure. She is here for further metabolic workup She appears to be following a healthy diet. She has cut back on high oxalate diet. She is drinking adequate fluids. She does not drink any Pepsi or Coke. [facility] Medical History History of renal dialysis Ureteral stent present Pyelonephritis Hydronephrosis with renal calculous obstruction Renal calculi Surgical History Hx of cystoscopy Social History Household Members: Spouse and Children Housing: House Do you presently have visiting nurse or other home services: No Alcohol intake: never Patient Tobacco Use Status: Never used Tobacco service: No Current occupational status: unemployed Review of Systems Const Denies fever(s) and Denies weight loss Card Denies chest pain Resp Denies cough and Denies hemoptysis GI Denies abdominal pain, Denies diarrhea and Denies nausea Musc Denies back pain Neuro Denies focal weakness Physical Exam Vital Signs: Last Vital Signs Pulse 76 04/30/24 14:56 BP 122/70 04/30/24 14:56 Pulse Ox 98 04/30/24 14:56 Oxygen Delivery Method Room Air 04/30/24 14:56 BMI result Body Mass Index 26.9 Results Reviewed Nephrology Results: Hgb 11.0 g/dl (12.0-16.0) L 01/01/24 WBC 10.6 X10*3/uL (4.8-10.8) 01/01/24 Plt Count 255 X10*3/uL (160-400) 01/01/24 Sodium 138 mmol/L (135-145) 01/01/24 Potassium 3.8 mmol/L (3.3-5.1) 01/01/24 Chloride 109 mmol/L (96-108) H 01/01/24 Carbon Dioxide 21 mmol/L (22-29) L 01/01/24 BUN 10 mg/dL (9-16) 01/01/24 Creatinine 0.70 mg/dL (0.5-1.4) 01/01/24 Calcium 8.8 mg/dL (8.4-10.2) 01/01/24 Urine Protein 30 (1+) mg/dL (Neg-Trace) H 12/31/23 Renal US 03/22/24 Assessment & Plan Assessment & Plan (1) Bilateral kidney stones: Code(s): N20.0 - Calculus of kidney Category: Medical Plan Young woman with multiple renal stones. I have initiated a metabolic workup including PTH vitamin-D levels and basic chemistry. Repeat 24 urine collection for stone studies. The meantime encouraged her to stay on a low-sodium diet Increase fluid intake to maintain a urine output of 2 L. She should continue with increase citrate ingestion and limit oxalate ingestion. She will return to office once the baseline workup is completed Orders: Orders Creatinine, 24 Hr Group Today N20.0 - Calculus of kidney Calcium, 24 Hr Ur Today N20.0 - Calculus of kidney Oxalate, 24 Hr Today N20.0 - Calculus of kidney Uric Acid, 24Hr Urine Group Today N20.0 - Calculus of kidney Comprehensive Met. Panel Today N20.0 - Calculus of kidney Vitamin D 25-OH Total Today N20.0 - Calculus of kidney Sodium, 24Hr Urine Group Today N20.0 - Calculus of kidney Citric Acid 24hr Urine Today N20.0 - Calculus of kidney Phosphorus Today N20.0 - Calculus of kidney Parathyroid Hormone Intact Today N20.0 - Calculus of kidney UA and rflx microscopic Today N20.0 - Calculus of kidney Coding Level of Care Code New Pt Level 4 (50482) Diagnoses Bilateral kidney stones N20.0
[2024-04-30 14:56] VITALS: BP 122/70; PULSE 76; O2SAT 98; BMI 26.9
== END 2024-04-30 15:18 | disposition home or self-care (01) ==
PROVIDERS: PCP Internal Medicine; Referring Provider Urology; Visit Provider Internal Medicine Hypertension Specialist
DX: N20.0 Calculus of kidney (principal)
CPT/HCPCS: 99204

== ENCOUNTER 2024-05-20 12:33 | Outpatient (REF) | payer OTHER, SELFPAY ==
[2024-05-20 14:19] LABS: Alanine Aminotransferase 23 U/L (0-31); Albumin Level 4.3 g/dL (3.5-5.0); Alkaline Phosphatase 65 U/L (39-117); Anion Gap 9 (12-20); Aspartate Amino Transferase 21 U/L (5-31); Blood Urea Nitrogen 13 mg/dL (9-16); Calcium 9.1 mg/dL (8.4-10.2); Carbon Dioxide 23 mmol/L (22-29); Chloride 109 mmol/L (96-108); Estimated Glomerular Filt Rate > 60; Glucose Random 90 mg/dL (60-115); Phosphorus 2.9 mg/dL (2.7-4.5); Potassium 4.3 mmol/L (3.3-5.1); Sodium 137 mmol/L (135-145); Total Protein 7.9 g/dL (6.5-8.0)
[2024-05-20 14:39] LABS: Vitamin D 25-OH Total 40.2 ng/mL (>30)
[2024-05-20 17:25] LABS: Appearance Urine Clear; Color Urine Yellow; Glucose Urine UA Negative (Negative); Leukocyte Esterase Urine Trace (Negative); Nitrite Urine Negative (Negative); PH 6.5 (5.0-9.0); Specific Gravity - Urine 1.025 (1.005-1.025); UMIC TRIGGER UA YES; Urine Blood Small (1+) (Negative); Urine Ketones Negative (Negative); Urine Protein Negative (Neg-Trace)
[2024-05-20 17:29] LABS: Bacteria Urine Trace (None Seen); Hyaline Casts Urine 0-2 /LPF (0-2); WBC Urine 0-5 /HPF (0-5)
== END 2024-05-20 12:34 | disposition home or self-care (01) ==
LOC: HO.LAB 12:33
PROVIDERS: PCP Internal Medicine; Visit Provider Internal Medicine Hypertension Specialist
DX: N20.0 Calculus of kidney (principal)
CPT/HCPCS: 36415; 80053; 81001; 82306; 83970; 84100

== ENCOUNTER 2024-05-22 15:43 | Outpatient (REF) | payer OTHER, SELFPAY ==
[2024-05-22 16:30] LABS: Creatinine, mg/dL 61.17
[2024-05-22 16:32] LABS: Creatinine, mg/dL 61.26; Uric Acid, mg/dL 29.9 mg/dL
[2024-05-22 17:07] LABS: Creatinine, 24Hr Urine 1.9 G/Day (1.0-2.0); Sodium 24 Hr Urine 173.6 mmol/Day (40-220); Total Volume 24 Hour Urine 3100 mL
[2024-05-22 17:08] LABS: Creatinine, 24Hr Urine 1.9 G/Day (1.0-2.0); Total Volume 24 Hour Urine 3100 mL; Uric Acid, 24 Hr Urine 926.9 mg/Day (250-750)
[2024-05-23 18:33] LABS: Calcium, 24 Hr Urine 468 mg/24 h; Calcium/Creatinine Ratio 236 mg/g creat (30-275); Creatinine 24Hr Urine 1.98 g/24 h (0.50-2.15)
[2024-05-26 01:59] LABS: 24hr Urine Total Volume 3100 mL; Oxalic Acid 24 Urine 46.3 mg/24 h (3.6-38.0)
[2024-05-26 17:59] LABS: 24hr Urine Total Volume 3100 mL; Citric Acid, 24hr Urine 1051 mg/24 h (100-1300); Citric Acid/Creat Ratio 24U 531 mg/g creat (180-1070); Creatinine, 24U 1.98 g/24 h (0.50-2.15)
== END 2024-05-22 15:44 | disposition home or self-care (01) ==
LOC: HO.LNP 15:43
PROVIDERS: Visit Provider Internal Medicine Hypertension Specialist
DX: N20.0 Calculus of kidney (principal)
CPT/HCPCS: 82340; 82507; 83945; 84300; 84560

== ENCOUNTER 2024-05-27 12:55 | Outpatient (AMB) | payer OTHER, SELFPAY ==
[2024-05-27 13:10] VITALS: BP 112/70; PULSE 66; O2SAT 98; BMI 26.6
--- NOTE | 2024-05-27 13:10 | HO.NEPHOV ---
Vital Signs 05/27/24 13:10 Height 5 ft 4 in Weight 155 lb BMI 26.6 BP 112/70 Blood Pressure Location Lt brachial Position Sitting Pulse 66 Pulse Source Pulse Oximeter Pulse Oximetry (%) 98 Oxygen Delivery Method Room Air Intake Visit Reasons: Calculus of kidney Front End Web Designer Required: No Accompanied by: Self / Same As Patient Allergies amoxicillin Allergy (Intermediate, Verified 05/27/24 13:13) Hives Penicillins Allergy (Intermediate, Verified 05/27/24 13:13) Hives Medication List - Last Reconciled 05/27/24 by Chinmay Julien MD biotin 10,000 mcg PO DAILY cholecalciferol (vitamin D3) (Vitamin D3) 25 mcg PO DAILY loratadine (Claritin) 10 mg PO DAILY multivitamin 1 tab PO DAILY pyridoxine (vitamin B6) 100 mg PO DAILY HPI Comments Details: GAIL is a pleasant 48-year-old woman with a history of nephrolithiasis. She has undergone lithotripsy and stent placement. She has had multiple stones complicated by urosepsis. She underwent 24 urine collection back in August of 2023. Urine volume was 1600 cc. She had hypercalciuria. Oxalate and citrate excretion were normal. She is scheduled for another urological procedure. She is here for further metabolic workup She appears to be following a healthy diet. She has cut back on high oxalate diet. She is drinking adequate fluids. She does not drink any Pepsi or Coke. [facility] Medical History History of renal dialysis Ureteral stent present Pyelonephritis Hydronephrosis with renal calculous obstruction Renal calculi Surgical History Hx of cystoscopy Social History Household Members: Spouse and Children Housing: House Do you presently have visiting nurse or other home services: No Alcohol intake: never Patient Tobacco Use Status: Never used Tobacco service: No Current occupational status: unemployed Physical Exam Vital Signs: Last Vital Signs Pulse 66 05/27/24 13:10 BP 112/70 05/27/24 13:10 Pulse Ox 98 05/27/24 13:10 Oxygen Delivery Method Room Air 05/27/24 13:10 BMI result Body Mass Index 26.6 Comfortable Neck supple no JVD. Lungs entry equal no rales. Heart S1-S2 heard no gallop or rub. Abdomen soft nontender. Neuro alert awake oriented. No asterixis. Extremities no edema. Results Reviewed Nephrology Results: Hgb 11.0 g/dl (12.0-16.0) L 01/01/24 WBC 10.6 X10*3/uL (4.8-10.8) 01/01/24 Plt Count 255 X10*3/uL (160-400) 01/01/24 Sodium 137 mmol/L (135-145) 05/20/24 Potassium 4.3 mmol/L (3.3-5.1) 05/20/24 Chloride 109 mmol/L (96-108) H 05/20/24 Carbon Dioxide 23 mmol/L (22-29) 05/20/24 BUN 13 mg/dL (9-16) 05/20/24 Creatinine 0.80 mg/dL (0.5-1.4) 05/20/24 Calcium 9.1 mg/dL (8.4-10.2) 05/20/24 Phosphorus 2.9 mg/dL (2.7-4.5) 05/20/24 Urine Protein Negative mg/dL (Neg-Trace) 05/20/24 Renal US 03/22/24 Assessment & Plan Assessment & Plan (1) Ureterolithiasis: Code(s): N20.1 - Calculus of ureter Category: Medical (2) Bilateral kidney stones: Code(s): N20.0 - Calculus of kidney Category: Medical Plan Young woman with multiple renal stones. 24 hour urine collection shows a volume of 3100 cc. Sodium excretion was normal. Uric acid excretion and calcium excretion were elevated. Oxalate excretion was elevated as well. Serum uric acid intake PTH not available. encouraged her to stay on a low-sodium diet Increase fluid intake to maintain a urine output of 2 L. She should continue with increase citrate ingestion and limit oxalate ingestion. Encouraged to cut back on high purine intake and red meat. Limit oxalate intake. Orders: Orders Parathyroid Hormone Intact 3 Months N20.1 - Calculus of ureter Uric Acid 3 Months N20.1 - Calculus of ureter Calcium 3 Months N20.1 - Calculus of ureter Coding Level of Care Code Est Pt Level 4 (43936) Diagnoses Ureterolithiasis N20.1 Bilateral kidney stones N20.0
== END 2024-05-27 13:31 | disposition home or self-care (01) ==
PROVIDERS: PCP Internal Medicine; Visit Provider Internal Medicine Hypertension Specialist
DX: N20.1 Calculus of ureter (principal); N20.0 Calculus of kidney
CPT/HCPCS: 99214

== ENCOUNTER → 2024-05-27 12:55 | Outpatient (BNVA) | payer OTHER, SELFPAY | PROVIDERS: PCP Internal Medicine; Visit Provider Internal Medicine Hypertension Specialist ==

== ENCOUNTER → 2024-05-29 07:30 | Outpatient (BNV) | payer OTHER, SELFPAY | PROVIDERS: PCP Internal Medicine; Visit Provider Radiology Diagnostic Radiology | DX: N20.0 Calculus of kidney (principal) | CPT/HCPCS: 74018 ==

== ENCOUNTER 2024-05-29 07:37 | Day surgery (SDC) | payer OTHER, SELFPAY ==
--- NOTE | 2024-05-28 10:20 | P.CONAN_ITS ---
Documented by User: Alis Quinn NP 05/28/24 10:22 HPI - Anesthesia Eval Consult details Narrative: 48yo F for Right ESWL s/p cysto etc 12/2023 with GA-LMA ? Hx dialysis PMFSH Active Problems Active Problems: All Active Problems Hypercalciuria (Acute) Bilateral kidney stones (Acute) Ureterolithiasis (Acute) Hydronephrosis (Acute) Ureteral stent present (Acute) Past Medical History Medical History History of renal dialysis Ureteral stent present Pyelonephritis Hydronephrosis with renal calculous obstruction Renal calculi Family History Family history of problems with anesthesia: No Surgical History Surgical History Hx of cystoscopy History of Problems with Anesthesia: No Social History Social History Household Members: Spouse and Children Housing: House Do you presently have visiting nurse or other home services: No Alcohol intake: never Patient Tobacco Use Status: Never used Tobacco Advance Directives: No Advance Directives Information Provided: Yes service: No Current occupational status: unemployed Meds Allergies Allergy/AdvReac Type Severity Reaction Status Date / Time amoxicillin Allergy Intermediate Hives Verified 05/29/24 09:07 Penicillins Allergy Intermediate Hives Verified 05/29/24 09:07 Home Medications ?Medication ?Instructions ?Recorded ?Confirmed ?Last Taken ?Type biotin 10,000 mcg capsule 10,000 mcg PO DAILY 08/12/23 05/29/24 12/29/23 History cholecalciferol (vitamin D3) 25 25 mcg PO DAILY 08/12/23 05/29/24 12/29/23 History mcg (1,000 unit) capsule (Vitamin D3) loratadine 10 mg tablet (Claritin) 10 mg PO DAILY 09/05/23 05/29/24 12/29/23 History multivitamin 1 tab PO DAILY 12/31/23 05/29/24 12/29/23 History Exam Pertinent Lab Results Pertinent Lab Results: Laboratory Tests 01/01/24 05/20/24 05:22 12:56 WBC 10.6 Hgb 11.0 L Hct 32.0 L Plt Count 255 Sodium 137 Potassium 4.3 Chloride 109 H Carbon Dioxide 23 BUN 13 Creatinine 0.80 Assessment and Plan Assessment Anesthesia Assessment: Chart Reviewed Final Anesthetic Review Family History of Problems with Anesthesia: No History of Problems with Anesthesia: No Documented by User: Asha Mejias MD 05/29/24 09:08 [facility] Past Medical History Medical History History of renal dialysis Ureteral stent present Pyelonephritis Hydronephrosis with renal calculous obstruction Renal calculi Surgical History Surgical History Hx of cystoscopy Social History Social History Household Members: Spouse and Children Housing: House Do you presently have visiting nurse or other home services: No Alcohol intake: never Patient Tobacco Use Status: Never used Tobacco Advance Directives: No Advance Directives Information Provided: Yes service: No Current occupational status: unemployed Meds Allergies Allergy/AdvReac Type Severity Reaction Status Date / Time amoxicillin Allergy Intermediate Hives Verified 05/29/24 09:07 Penicillins Allergy Intermediate Hives Verified 05/29/24 09:07 Home Medications ?Medication ?Instructions ?Recorded ?Confirmed ?Last Taken ?Type biotin 10,000 mcg capsule 10,000 mcg PO DAILY 08/12/23 05/29/24 12/29/23 History cholecalciferol (vitamin D3) 25 25 mcg PO DAILY 08/12/23 05/29/24 12/29/23 History mcg (1,000 unit) capsule (Vitamin D3) loratadine 10 mg tablet (Claritin) 10 mg PO DAILY 09/05/23 05/29/24 12/29/23 History multivitamin 1 tab PO DAILY 12/31/23 05/29/24 12/29/23 History Exam Airway Mallampati Class: III TM Dist: >3cm Neck ROM: Full Assessment and Plan Assessment Anesthesia Assessment: Anesthesia Plan Discussed Final Anesthetic Review NPO: Yes ASA Class: II Final Preanesthetic Review: No Changes in Pt Med Stat, Meds/Allgs Chart Reviewed, Consent Obtained/Reviewed, Anes Risks/Benef Reviewed and DNR Form (If Appl.) Patient Risk: Low Procedure Risk: Low Anesthetic Plan Anesthetic Plan: GA Disposition: Standard PACU
--- NOTE | ~2024-05-29 | XR_ITS ---
EXAMINATION: XR ABDOMEN KUB CLINICAL INDICATION: right stone COMPARISON: None available. TECHNIQUE: AP view of the abdomen. FINDINGS: Focal consolidation overlapping the right kidney shadow. Abundant stool, large intestine without air-fluid levels or intestinal dilatation. Vascular clips overlapping the lumbar spine. Probable Castellvi type II sacralization. XR/XR KUB IMPRESSION: Questionable nephrolithiasis, right kidney. Electronically signed by: Sean Alvarado MD 05/29/2024 08:02 AM [facility]
[2024-05-29 08:22] LABS: UPreg QC Valid YES
[2024-05-29 08:23] LABS: Urine Pregnancy NEGATIVE (NEGATIVE)
[2024-05-29 09:08] VITALS: BMI 26.3
[2024-05-29] MEDS: Lactated Ringers 1,000 ML 100 ML IVCONT (09:25)
[2024-05-29 09:26] VITALS: BP 106/70; PULSE 74; RESP 14; TEMP 36.8; O2SAT 99
--- NOTE | 2024-05-29 09:40 | MHC.SHP ---
Pre-Procedural Eval Section A - 24 Hr Update-Section A only Date of Service: 05/29/24 The patient is an INPATIENT: No Changes since office visit: No Cold of Flu in the past 2 weeks, No New Medical Problems, No Changes in Medication and No Patient answered all questions The patient has been examined within 24 hours of the surgical procedure. The History & Physical has been completed within 30 days and I have reviewed it.: Yes Section B - Complete if H&P > 30 days Chief Complaint: Unspecified hydronephrosis Details of Present Illness: right eswl Relevant Family History (Specify if Yes): No Relevant Social History: None Present Medications: None Medical History: No relevant PMH History of Previous Operations: Relevant previous surgery/procedure and date(s) Allergies: Allergies Allergy/AdvReac Type Severity Reaction Status Date / Time amoxicillin Allergy Intermediate Hives Verified 05/29/24 09:07 Penicillins Allergy Intermediate Hives Verified 05/29/24 09:07 Review of Systems Sugical H&P ROS: Negative: Constitution, Cardiovascular, Respiratory, Neurological, Psychiatric, Hem-Onc, Allergic/Immunologic, Gastrointestinal, Genitourinary, Musculoskeletal, Integumentary, Endocrine and Eyes/Ears/Nose/Throat Exam Surgical H&P Exam: Normal: HEENT, Normal: Heart, Normal: Lungs, Normal: Extremities, Normal: Abdomen, Normal: Skin and Normal: Neurological Plan Diagnosis/Plan: Unchanged (right eswl) I have reviewed the history and physical and performed a pertinent physical examination on my patient. No changes have occurred unless specified. Time Spent With Patient Time: Total time managing care of this patient today ____ minutes.
--- NOTE | 2024-05-29 10:24 | P.OP_ITS ---
Operative Note Operative Note Date of Service: 05/29/24 Narrative: PreOperative Diagnosis: right Renal stones Post Operative Diagnosis: right Renal stones Procedure: right ESWL Surgeon: Dr Vicente Mejía Anesthesia: mac/sedation Indications for procedure: The patient understands ESWL may be a staged procedure and subsequent intervention may be required based on imaging after ESWL. Quoted stone clearance rates for a solitary procedure are in the 70-80% range based primarily on stone location. They also understand there is a risk of bleeding to the kidney, infection, damage to adjacent organs, and stone migration following the procedure. - Imaging 10mm - mid and lower right pole Procedure optimization has been performed with IV acetaminophen given in the holding area and 1 L of lactated Ringer's to be given in order to optimize the fluid-stone interface. 20 mg of IV Lasix will be given in the last 5 minutes of the procedure to optimize stone clearance. Procedure: After informed consent was verified the patient was brought to the operating room and placed in a supine position. Anesthesia was performed per protocol. Safety pause time-out was performed. Imaging was displayed in the room and laterality confirmed. ESWL was performed. The 1st 500 shocks were performed at 60 hertz. These were performed with increasing power. Once maximum power was reached the rate was increased to 180 hertz. A total of 2500 shocks were given. Targeted imaging with ultrasound/fluoroscopy showed stone smudging suggestive of disintegration. The patient tolerated the procedure well and was transferred to the recovery area upon completion. Post procedure imaging will be organized. There was no ev idence for flank discoloration.
[2024-05-29 10:30] VITALS: BP 117/68; PULSE 76; RESP 15; TEMP 36.1; O2SAT 99
[2024-05-29 10:35] VITALS: BP 110/69; PULSE 78; RESP 16; O2SAT 100
[2024-05-29 10:40] VITALS: BP 121/73; PULSE 82; RESP 16; O2SAT 99
[2024-05-29 10:45] VITALS: BP 109/63; PULSE 68; RESP 16; O2SAT 100
[2024-05-29 10:49] VITALS: BP 109/63; PULSE 72; RESP 16; TEMP 36.1; O2SAT 98
== END 2024-05-29 11:06 | disposition home or self-care (01) ==
PROVIDERS: Nurse Practitioner; PCP Internal Medicine; Visit Provider Urology
PROC: (CPT 50590; principal; 2024-05-29 09:30)
DX: N20.0 Calculus of kidney (principal); N13.30 Unspecified hydronephrosis; R82.994 Hypercalciuria; Z87.442 Personal history of urinary calculi; Z87.440 Personal history of urinary (tract) infections; Z79.899 Other long term (current) drug therapy; Z88.0 Allergy status to penicillin; Z88.1 Allergy status to other antibiotic agents; Z56.0 Unemployment, unspecified
CPT/HCPCS: 50590; 74018; 81025; J0131; J1100; J2003; J2250; J2405; J2704; J3010

== ENCOUNTER → 2024-05-29 07:37 | Outpatient (BNV) | payer OTHER, SELFPAY | PROVIDERS: PCP Internal Medicine; Visit Provider Urology | DX: N20.0 Calculus of kidney (principal) | CPT/HCPCS: 50590 ==

== ENCOUNTER 2024-06-24 11:03 | Outpatient (REF) | payer OTHER, SELFPAY | END 2024-06-24 11:04 | disposition home or self-care (01) | LOC: HO.US 11:03 | PROVIDERS: PCP Internal Medicine; Visit Provider Urology | DX: N20.0 Calculus of kidney (principal); N20.1 Calculus of ureter | CPT/HCPCS: 76775 ==

== ENCOUNTER → 2024-06-24 11:04 | Outpatient (BNV) | payer OTHER, SELFPAY | PROVIDERS: PCP Internal Medicine; Visit Provider Radiology Vascular & Interventional Radiology | DX: N20.2 Calculus of kidney with calculus of ureter (principal) | CPT/HCPCS: 76775 ==

== ENCOUNTER 2024-07-11 11:30 | Outpatient (AMB) | payer OTHER, SELFPAY ==
--- NOTE | 2024-07-11 11:33 | A.OFFVIS_ITS ---
Intake Visit Reasons: ESWL - followup/US Intake Note: Patient is present for ESWL F/U Urology Medication:VITAMIN B6 Antibiotic Allergy:AMOXICILLIN,PENICILLIN Blood Thinner:NONE Dispatcher Refinery Required: No Allergies amoxicillin Allergy (Intermediate, Verified 07/11/24 11:34) Hives Penicillins Allergy (Intermediate, Verified 07/11/24 11:34) Hives HPI Comments Details: El is a pleasant female. She is a patient of Dr.Hayfron- [place]. She is seen for the following urologic conditions - nephrolithiasis Follow-up from right ESWL Renal ultrasound shows small fragments Recommend positioning drainage Due to high calcium would consider starting indapamide Repeat imaging and six-month Has follow-up appointment with Nephrology Urinary Symptoms Review - Persistent presence of renal stone fragments identified on ultrasound - History of nephrolithiasis with recurrent urinary stone formation - No mention of urinary frequency, urgency, pain, incontinence, or nocturia wi thin the conversation Nephrolithiasis Recurrent stone former Recent intervention for pyelonephritis Intervention - 09/05 left ureteroscopy with laser lithotripsy - 06/08 right ESWL Composition - 09/05 calcium oxalate dihydrate 65% 24 hour urine - 10/05 volume 1600, calcium 320, oxalate 36, citrate 1000, sodium 179 PFSH Medical History History of renal dialysis Ureteral stent present Pyelonephritis Hydronephrosis with renal calculous obstruction Renal calculi Surgical History Hx of cystoscopy Social History Household Members: Spouse and Children Housing: House Are you a primary critical care physician assistant to a significant other at home: No Do you presently have visiting nurse or other home services: No Alcohol intake: never Patient Tobacco Use Status: Never used Tobacco service: No Current occupational status: unemployed Assessment & Plan Assessment & Plan (1) Bilateral kidney stones: Code(s): N20.0 - Calculus of kidney Category: Medical Plan Plan Reassess nephrolithiasis with follow-up ultrasound in six months. Continue daily positional drainage therapy to aid stone passage. Recommend sodium-reduced diet. Re-evaluate 24-hour urine collection for urinary solute analysis. Consider ivette pamide for hypercalciuria if dietary measures are ineffective. Monitor serum calcium levels, currently stable. Discussion Notes I discussed with the patient the likely persistence of small renal calculus fragments despite previous ESWL. I explained the positional drainage technique as a non-invasive intervention, emphasizing its role in mobilizing stone fragments. We discussed the continuation of sodium restriction in diet as previously advised. I reviewed repeat 24-hour urine collection to monitor calcium and oxalate levels, and the consideration of indapamide if necessary to manage hypercalciuria, highlighting the importance of dietary measures first. Consent for continuing current management agreed upon after these discussions. I explained the periodic reassessment through ultrasound imaging as a hayes step in ongoing management. Patient Instructions - Drink 20 ounces of fluid daily, and perform positional maneuvers on a surface to facilitate stone movement. - Restrict dietary sodium as previously advised to reduce stone risk; minimize intake of processed foods. - Consider re-evaluation with 24-hour urine collection to assess urine composition. - Return for a follow-up ultrasound in 6 months to reassess renal calculi status. - Monitor and report any significant symptoms such as pain or changes in urinary patterns. Orders: Orders US renal BI 6 Months N20.1 - Calculus of ureter Patient Instructions: This note is constructed using voice recognition software. While every effort has been made to ensure accuracy resident inspector errors may have been included. Imaging studies, laboratory and physical exam results were discussed and reviewed in detail. No major barriers to patient understanding were identified. An opportunity to ask questions regarding the treatment plan was provided. All questions were answered. The patient expressed understanding and agreement with the above treatment plan. The patient is aware they should contact our office by phone for worsening of their current condition or the appearance of new urologic symptoms. Compliance is encouraged with any medications and followup testing that is ordered. It is a privilege to participate in the urologic care of your patient. If you have any questions or concerns regarding treatment for the above conditions, or other urologic issues, please do not hesitate to contact me. The office telephone contact is [phone]. Sincerely, Dr Vicente Mejía MD, [facility] - Urology Compassionate Specialist Care for the Genitourinary System Coding Level of Care Code Est Pt Level 3 (88343) Diagnoses Bilateral kidney stones N20.0
--- OUTSIDE RECORDS SUMMARY | 2024-07-11 13:56 | XMS_ITS | Encounter Summary ---
Author Organization [facility], Address [address] [place] [address] Phone Care Team Providers Care Echocardiography Technologist Name Role Phone Manda Fink MD Primary Care Pr ovider Encounter Details Date Type Department Care Team (Late st Contact Info) Description 06/08/2021 Documentation Only [facility], [address] [place] [address] [place], [place] [address] [place] [address] Social History Tobacco Use Types Packs/Day Years Used Date Smoking Tobacco: Never Smokeless Tobacco: Never Alcohol Use Standard Drinks/Week Comments Yes 0 (1 standard drink = 0.6 oz pur e alcohol) social drinker Comments Unknown Sex and Gender Information Value Date Recorded Sex Assigned at Not on file Legal Sex Female 1:38 PM EDT Gender Identity Not on file Sexual Orientation Not on file documented as of this encounter Plan of Treatment Not on file documented as of this encounter Visit Diagnoses Not on filedocumented in this encounter Care Teams Echocardiography Technologist Relationship Specialty Start Date End Date Manda Fink MD PCP - General Internal Medicine 10/15/20 documented as of this encounter
--- OUTSIDE RECORDS SUMMARY | 2024-07-11 13:56 | XMS_ITS | Clinical Summary ---
Author Organization [facility], Address [address] [place] [address] [place] [address] Phone Care Team Providers Care Refinery Operator Coking Name Role Phone Manda Fink MD Primary Care Pr ovider Allergies Active Allergy Reactions Criticality Noted Date Comments Amoxicillin 01/07/2021 Penicillins 01/07/2021 Medications sulfamethoxazol e-trimethoprim 800-160 MG per tablet Take 1 tablet by mouth 10/05/2020 Active phenazopyridine (PYRIDIUM) 200 MG tablet TAKE 1 TABLET BY MOUTH 3 TIMES A DAY NEEDED 10/05/2020 Active oxyCODONE-aceta minophen (PERCOCET) 5-325 MG per tablet Take 1 tablet by mouth every 4 (four) hours if needed for moderate pain Active acetaminophen-c odeine (TYLENOL #3) 300-30 MG per tablet Take 1 tablet by mouth every 4 (four) hours if needed for moderate pain Active tamsulosin (Flomax) 0.4 MG 24 hr capsule Take 0.4 mg by mouth 09/25/2020 Active Active Problems Problem Noted Date Diagnosed Date Nephrolithiasis 01/07/2021 Hematuria 01/07/2021 Family History Medical History Relation Comments Cancer Mother breast Diabetes Mother Hypertension Mother Relation Status Comments Mother Social History Tobacco Use Types Packs/Day Years [...] on file Sexual Orientation Not on file Plan of Treatment Health Maintenance Due Date Last Done Comments Hepatitis B Vaccine (1 of 3 - 19+ 3-dose series) 12/17/1995 Influenza Vaccine (#1) 2024 Pneumococcal Vaccine: Pediat rics (0 to 5 Years) and At-Risk Patients (6 to 64 Years) Aged Out No longer eligi ble based on patient's age to complete this topic Insurance [employer]EFITS Care Teams Refinery Operator Coking Relationship Specialty Start Date End Date Manda Fink MD PCP - General Internal Medicine 10/15/20
--- OUTSIDE RECORDS SUMMARY | 2024-07-11 13:56 | XMS_ITS | Patient Health Record ---
Author Organization [facility] Address [address] [place] [address] Support Name Relationship Address Phone WANG NATH Guarantor Unknown [phone] Reason For Referral No Information Medications Medication SIG (Take, Route, Frequency, Duration) Notes Start Date End Date Status Vitamins 1 mg flate 1 ORAL daily for -3 Kumar-MJ 11/22/2012 Active Problems Problem Type SNOMED Code ICD Code Onset Dates Problem Status W/U Status Risk Notes Problem Hyperlipidemia (28588404) Other and unspecified hyperlipidemia (272.4) Active confirmed Major Problem Gynecological examination normal (182666071633871) Routine gynecological examination (V72.31) Active confirmed Diag Plan Of Treatment No Information Insurance Providers Payer Name Payer Address Payer Phone Subscriber Number Group Number Insured Name Patient Relationship to Insured Coverage Start Date Coverage End Date [employer] [address] [place] [address] [id number] WANG NATH Self - patient is the insured
--- OUTSIDE RECORDS SUMMARY | 2024-07-11 13:57 | XMS_ITS | Clinical Summary ---
Author Organization [facility] [address] [facility] lding Address [address] [place] [address] Phone Care Team Providers Care Poultry Picking Machine Tender Name Role Phone Manda Fink MD Primary Care Prov ider Allergies Active Allergy Reactions Criticality Noted Date Comments Amoxicillin Hives 06/28/2016 Penicillins Medium 05/01/2024 RASH Medications multivitamin tablet Take 1 tablet by mouth 1 (one) time each day. Active pyridoxine (B-6) 100 mg tablet Take 1 tablet (100 mg total) by mouth 1 (one) time each day. Active Active Problems Problem Noted Date Diagnosed Date Hematuria 01/07/2021 Missed 01/15/2020 Overview (05/01/2024): 11/2019 Nephrolithiasis 03/12/2019 Overview (05/01/2024): Dr. Lincoln. Urgent stent placement 02/25/19, associated hydronephrosis and urosepsis. KUB 02/26/19 with bilateral stones. Right stent removed 03/05/19. 08/2019 : 9 mm left UPJ calculus with L hydronephrosis, pending ureteroscopy Hypercholesterolemia 02/15/2017 Psoriasis 08/30/2012 Vertigo, benign paroxysmal 08/30/2012 Encounters Date Type Department Care Team Description 05/01/2024 3:00 PM EST Office Visit Adult Medicine - [facility] [address] [place] [id number] Manda Lopez MD Routine general medical examination at a health care facility (Primary Dx); Kidney stone from Last 3 Months Surgical History Surgery Date Site/Laterality Comments WISDOM TOOTH EXTRACTION 2006 PROCEDURE: HISTORICAL WISDOM TEETH EXTRACTION Medical History Medical History Date Comments Hypercholesterolemia 02/15/2017 DX:Hypercho lesterolemia Family History Medical History Relation Name Comments Diabetes Father Prostate cancer , HTN Diabetes Maternal Grandfather HTN, CV A Other: old age Maternal Grandmother Breast cancer Mother depression/anx iety Other: unknown Paternal Grandfather Other: unknown Paternal Grandmother Other: healthy Sister 1 Relation Name Status Comments Father Alive Maternal Grandfather Maternal Grandmother Mother Alive Paternal Grandfather Paternal Grandmother Sister 1 Sister 2 Alive Son Alive Social History Tobacco Use Types Packs/Day Years Used Date Smoking Tobacco: Former Cigarettes Q uit: 08/30/2002 Smokeless Tobacco: Never Tobacco Cessation:Counseling Given: Not Answered Alcohol Use Standard Drinks/Week Comments Yes 0 (1 standard drink = 0.6 oz pur e alcohol) Comments No Sex and Gender Information Value Date Recorded Sex Assigned at Not on file Legal Sex Female 9:19 PM EST Gender Identity Not on file Sexual Orientation Not on file Obstetrics History Last Filed Vital Signs Vital Sign Reading Time Taken Comments Blood Pressure 127/73 05/01/2024 2:59 PM EST Pulse 77 05/01/2024 2:59 PM EST Temperature 36.9 ??C (98.4 ??F) 05/01/2024 2:59 PM ES T Respiratory Rate - - Oxygen Saturation - - Inhaled Oxygen Concentration - - Weight 70.3 kg (155 lb) 05/01/2024 2:59 PM EST Height 162.6 cm (5' 4 ) 05/01/2024 2:59 PM EST Body Mass Index 26.61 05/01/2024 2:59 PM EST Plan of Treatment Health Maintenance Due Date Last Done Comments Hepatitis B Vaccines (1 of 3 - 19+ 3-dose series) 12/17/1995 Cervical Cancer Screening: Pap Smear 1997 Colorectal Cancer Screening: Colonoscopy 04/23/2022 Depression Screening 05/01/2025 05/01/2024 Breast Cancer Screening 10/30/2025 10/31/19 24, 09/06/2022, 08/18/2021, Additional history exists Cholesterol Screening (Lipid Panel) 05/20/2029 05/20/2024 DTaP,Tdap,and Td Vaccines (4 - Td or Tdap) 11/25/2032 11/25/2022, 08/30/2012, 07/06/2006 COVID-19 Vaccine Discontinued 01/11/2021, 12/14/2020 Influenza Vaccine Discontinued 06/01/2021, 02/26/2019 HIB Vaccines Aged Out No longer eligi ble based on patient's age to complete this topic HIV Screening Discontinued HPV Vaccines Aged Out No longer eligi ble based on patient's age to complete this topic Hepatitis A Vaccines Aged Out No long er eligible based on patient's age to complete this topic Hepatitis C Screening Discontinued IPV Vaccines Aged Out No longer eligi ble based on patient's age to complete this topic MMR Vaccines Aged Out No longer eligi ble based on patient's age to complete this topic Meningococcal ACWY Vaccine Aged Out N o longer eligible based on patient's age to complete this topic Meningococcal B Vacine Aged Out No lo nger eligible based on patient's age to complete this topic Pneumococcal Vaccine: Pediatrics (0 to 5 Years) and At-Risk Patients (6 to 64 Years) Aged Out No longer eligible based on patient's age to complete this topic RSV Immunization Patients Under 20 months Aged Out No longer eligible based on patient's age to complete this topic Social Influencers of Health Screening Discontinued Varicella Vaccines Aged Out No longer eligible based on patient's age to complete this topic Procedures Procedure Name Priority Date/Time Associated Diagnosis Comments COMPREHENSIVE METABOLIC PANEL Routine 05/20/2024 11:56 AM EST Routine general medical examination at a health care facility LIPID PANEL WITH REFLEX TO DIRECT LDL Routine 05/20/2024 11:56 AM EST Routine general medical examination at a health care facility JHON SCREENING DIGITAL Routine 10/31/2023 3:33 PM EDT Encounter for screening mammogram for malignant neoplasm of breast from Last 3 Months or Most Recently Relevant to Health Maintenance Results * (ABNORMAL) Lipid panel with reflex to direct LDL (05/20/2024 11:56 AM EST) Cholesterol 300(H) 0 - 200 mg/dL LAB CHEMISTRY METHOD 05/20/2024 3:42 PM [facility] Triglycerides 116 0 - 150 mg/dL LAB CHEMISTRY METHOD 05/20/2024 3:42 PM [facility] HDL 68 >=40 mg/dL LAB CHEMISTRY METHOD 05/20/2024 3:42 PM [facility] LDL Calculated 209(H) 0 - 100 mg/dL LAB CHEMISTRY METHOD 05/20/2024 3:42 PM [facility] VLDL Cholesterol Franklin 23.2 mg/dL LAB CHEMISTRY METHOD 05/20/2024 3:42 PM [facility] Non HDL Chol. (LDL+VLDL) 232(H) <145 mg/dL LAB CHEMISTRY METHOD 05/20/2024 3:42 PM [facility] Chol/HDL Ratio 4.4 0.0 - 4.4 LAB CHEMISTRY METHOD 05/20/2024 3:42 PM [facility] Blood Venous blood specimen / Unknown Venipuncture / Unknown 05/20/2024 11:56 AM EST 05/20/2024 11:56 AM EST Manda Fink MD LAB BLOOD ORDERABL ES Final Result [facility] [address] [place] [address], * (ABNORMAL) Comprehensive metabolic panel (05/20/2024 11:56 AM EST) Sodium 134 133 - 145 mmol/L LAB CHEMISTRY METHOD 05/20/2024 3:43 PM [facility] Potassium 4.2 3.5 - 5.5 mmol/L LAB CHEMISTRY METHOD 05/20/2024 3:43 PM [facility] Chloride 107 96 - 110 mmol/L LAB CHEMISTRY METHOD 05/20/2024 3:43 PM [facility] CO2 25 21 - 32 mmol/L LAB CHEMISTRY METHOD 05/20/2024 3:43 PM [facility] Anion Gap 2(L) 3 - 11 LAB CHEMISTRY METHOD 05/20/2024 3:43 PM [facility] Glucose 96 70 - 100 mg/dL LAB CHEMISTRY METHOD 05/20/2024 3:43 PM [facility] BUN 16 5 - 25 mg/dL LAB CHEMISTRY METHOD 05/20/2024 3:43 PM [facility] Creatinine 0.83 0.50 - 1.10 mg/dL LAB CHEMISTRY METHOD 05/20/2024 3:43 PM [facility] eGFR 88 >=60 mL/min/1. 73m2 LAB CHEMISTRY METHOD 05/20/2024 3:43 PM [facility] Comment:Calculation based on the??Chronic Kidney Disease Epidemiology Collaboration (CKD-EPI) equation refit??without adjustment for race. BUN/Creatinine Ratio 19.3 LAB CHEMISTRY METHOD 05/20/2024 3:43 PM [facility] Calcium 9.2 8.5 - 10.5 mg/dL LAB CHEMISTRY METHOD 05/20/2024 3:43 PM [facility] AST (SGOT) 13 10 - 42 unit/L LAB CHEMISTRY METHOD 05/20/2024 3:43 PM [facility] ALT (SGPT) 26 10 - 60 unit/L LAB CHEMISTRY METHOD 05/20/2024 3:43 PM [facility] Alkaline Phosphatase 73 42 - 121 unit/L LAB CHEMISTRY METHOD 05/20/2024 3:43 PM [facility] Total Protein 7.9 6.0 - 8.0 g/dL LAB CHEMISTRY METHOD 05/20/2024 3:43 PM [facility] Albumin 4.0 3.2 - 5.0 g/dL LAB CHEMISTRY METHOD 05/20/2024 3:43 PM [facility] Total Bilirubin 1.0 0.0 - 1.4 mg/dL LAB CHEMISTRY METHOD 05/20/2024 3:43 PM EST [facility] Blood Venous blood specimen / Unknown Venipuncture / Unknown 05/20/2024 11:56 AM EST 05/20/2024 11:56 AM EST us Manda Fink MD LAB BLOOD ORDERABL ES Final Result [facility] ([facility] [place] [address] [place] [address], * JHON SCREENING DIGITAL (10/31/2023 3:33 PM EDT) Anatomical Region Laterality Modality Mammography 10/31/2023 2:06 PM EDT Narrative 10/31/2023 3:33 PM EDT [facility] Diagnostic Imaging Department [address] [place] [address] Patient: ??EL RAMIRES ?/Age/Sex: 1975 - 47 - F Unit#: ??[id number] ? Location/Status: ??SPDIMAM/REG CLI ? Mnemonic/Ordering Site: ??DIGSC/SPMAM Ordering Physician: ??MANDA FINK MD Jhon Screening Digital - 10/31/23 - 209 Report Status:Signed EXAM: [facility] Screening Digital EXAM DATE AND TIME: 10/31/2023 2:34 PM HISTORY: ??Annual screening COMPARISON: ??09/06/2022, 08/18/2021, 05/21/2020 and 03/20/2019 TECHNIQUE: Bilateral digital breast tomosynthesis was performed in the CC and MLO projections. Computer aided detection with [employer] 3D 3.1 was employed. TISSUE DENSITY: b. There are scattered areas of fibroglandular density. FINDINGS: No suspicious masses, grouped microcalcifications, or areas of architectural distortion are seen. The skin and vascularity are unremarkable. IMPRESSION: Stable mammographic appearance of the breasts. ??No evidence of malignancy is seen. A negative mammogram in the presence of a clinically suspicious palpable abnormality does not preclude the possibility of malignancy or alter the indications for biopsy. BI-RADS: ??Category 1: Negative RECOMMENDATION(S): 1: Routine screening mammogram BILATERAL in 1 year. Dictating Physician: ??BESSIE HORVATH MD Electronically Signed by: ??BESSIE HORVATH MD Dic Date/Time: ??10/31/23 1531 Sign date/Time: ??10/31/23 1533 Procedure Note Bessie Horvath MD - 02/28/2024 [facility] Diagnostic Imaging Department [address] [place] [id number] Patient: EL RAMIRES /Age/Sex: 1975 - 47 - F Unit#: [id number] [facility] Mnemonic/Ordering Site: [facility] Ordering Physician: MANDA FINK MD Jhon Screening Digital - 10/31/23 - 1434 Report Status:Signed EXAM: Jhon Screening Digital EXAM DATE AND TIME: 10/31/2023 2:34 PM HISTORY: Annual screening COMPARISON: 09/06/2022, 08/18/2021, 05/21/2020 and 03/20/2019 TECHNIQUE: Bilateral digital breast tomosynthesis was performed in the CCand MLO projections. Computer aided detection with [employer] 3D 3.1was employed. TISSUE DENSITY: b. There are scattered areas of fibroglandular density. FINDINGS: No suspicious masses, grouped microcalcifications, or areas ofarchitectural distortion are seen. The skin and vascularity are unremarkable. IMPRESSION: Stable mammographic appearance of the breasts. No evidence of malignancyis seen. A negative mammogram in the presence of a clinically suspicious palpable abnormality does not preclude the possibility of malignancy or alter the indications for biopsy. BI-RADS: Category 1: Negative RECOMMENDATION(S): 1: Routine screening mammogram BILATERAL in 1 year. Dictating Physician: BESSIE HORVATH MD Electronically Signed by: BESSIE HORVATH MD Dic Date/Time: 10/31/23 1531 Sign date/Time: 10/31/23 1533 Manda Fink MD IMG BI PROCEDURES Final Result from Last 3 Months or Most Recently Relevant to Health Maintenance Insurance [employer] [facility] Care Teams Poultry Picking Machine Tender Relationship Specialty Start Date End Date Manda Fink MD [address] [place] [id number] PCP - General Internal Medicine 05/20/24
== END 2024-07-11 11:58 | disposition home or self-care (01) ==
PROVIDERS: PCP Internal Medicine; Visit Provider Urology
DX: N20.0 Calculus of kidney (principal)
CPT/HCPCS: 99024

== ENCOUNTER 2024-09-11 09:07 | Outpatient (REF) | payer OTHER, SELFPAY ==
--- OUTSIDE RECORDS SUMMARY | 2024-09-11 09:36 | XMS_ITS | Clinical Summary ---
Author Organization [facility] [address] [facility] l[address] Address [address] [place] [address] Phone Care Team Providers Care Reiki Practitioner Name Role Phone Manda Fink MD Primary [...] 02/15/2017 Psoriasis 08/30/2012 Vertigo, benign paroxysmal 08/30/2012 Surgical History Surgery Date Site/Laterality Comments WISDOM [...] age to complete this topic Meningococcal B Vaccine Aged Out No l onger eligible based on patient's age to complete [...] Procedure Name Priority Date/Time Associated Diagnosis Comments LIPID PANEL WITH REFLEX TO DIRECT LDL [...] mg/dL LAB CHEMISTRY METHOD 05/20/2024 3:42 PM EST [facility] Triglycerides 116 0 - 150 mg/dL LAB CHEMISTRY METHOD 05/20/2024 3:42 PM EST [facility] HDL 68 >=40 mg/dL LAB CHEMISTRY METHOD 05/20/2024 3:42 PM EST [facility] LDL Calculated 209(H) 0 - 100 mg/dL LAB CHEMISTRY METHOD 05/20/2024 3:42 PM EST [facility] VLDL Cholesterol Franklin 23.2 mg/dL LAB CHEMISTRY METHOD 05/20/2024 3:42 PM EST [facility] Non HDL Chol. (LDL+VLDL) 232(H) <145 mg/dL LAB CHEMISTRY METHOD 05/20/2024 3:42 PM EST [facility] Chol/HDL Ratio 4.4 0.0 - 4.4 LAB CHEMISTRY METHOD 05/20/2024 3:42 PM EST [facility] Blood Venous blood specimen / Unknown Venipuncture / Unknown 05/20/2024 11:56 AM EST 05/20/2024 11:56 AM EST us Manda Fink MD LAB BLOOD ORDERABL ES Final Result [facility] [address] [place] [address], * JHON SCREENING DIGITAL (10/31/2023 3:33 PM EDT) Anatomical Region Laterality Modality Mammography 10/31/2023 2:06 PM EDT Narrative 10/31/2023 3:33 PM EDT [facility] Diagnostic Imaging Department [address] [place] [address] Patient: ??RAMIRES,MIRLVA ?/Age/Sex: 1975 - 47 - Unit#: ??[id number] ? Location/Status: ??SPDIMAM/REG CLI ? Mnemonic/Ordering Site: ??DIGSC/SPMAM Ordering Physician: ??MANDA FINK MD Jhon Screening Digital - 10/31/23 - 1434 Report Status:Signed EXAM: [facility] Screening Digital EXAM DATE AND TIME: 10/31/2023 2:34 PM HISTORY: ??Annual screening COMPARISON: ??09/06/2022, 08/18/2021, 05/21/2020 and 03/20/2019 TECHNIQUE: Bilateral digital breast tomosynthesis was performed in the CC and MLO projections. Computer aided detection with [employer] 3D 3.1 was employed. TISSUE DENSITY: b. [...] Procedure Note Bessie Horvath MD - 02/28/2024 [facility] Diagnostic Imaging Department [address] [place] [address] Patient: DAYNE RAMIRESA /Age/Sex: 1975 - 47 - F Unit#: [id number] Location/Status: SPDIMAM/REG CLI Mnemonic/Ordering Site: [facility] Ordering Physician: MANDA FINK MD [facility] Screening Digital - 10/31/23 - 1434 Report Status:Signed EXAM: [facility] Screening Digital EXAM DATE AND TIME: 10/31/2023 2:34 PM HISTORY: Annual screening COMPARISON: 09/06/2022, 08/18/2021, 05/21/2020 and 03/20/2019 TECHNIQUE: Bilateral digital breast tomosynthesis was performed in the CCand MLO projections. Computer aided detection with [employer] 3D 3.1was employed. TISSUE DENSITY: b. There [...] to Health Maintenance Insurance [employer] [facility] Care Teams Reiki Practitioner Relationship Specialty Start Date End Date Manda Fink MD [address] [place] [address] PCP - General Internal Medicine 05/20/24
--- OUTSIDE RECORDS SUMMARY | 2024-09-11 09:36 | XMS_ITS | Clinical Summary ---
Author Organization [facility], Address [address] [place] [address] [place] [address] Phone Care Team Providers Care Cost Clerk Name Role Phone Manda Fink MD Primary [...] - 19+ 3-dose series) 12/17/1995 Influenza Vaccine (Season Ended) 2025 Pneumococcal Vaccine: Peds ( 0 to 5 Years) and At-Risk Patients (6 to 49 Years) Aged Out No longer eligible b ased on patient's age to complete this topic Insurance Comprehensive Benefits Care Teams Cost Clerk Relationship Specialty Start Date End Date Manda Fink MD PCP - General Internal Medicine 10/15/20
--- OUTSIDE RECORDS SUMMARY | 2024-09-11 09:36 | XMS_ITS | Patient Health Record ---
Author Organization [facility] Address [address] [place] [address] Support Name Relationship Address Phone WANG NATH Guarantor Unknown [phone] Reason For Referral No Information Medications Medication SIG (Take, Route, Frequency, Duration) Notes Start Date End Date Status Vitamins 1 mg flate 1 ORAL daily for -3 Kumar-MJ 11/22/2012 Active Problems Problem Type SNOMED Code ICD Code Onset Dates Problem Status W/U Status Risk Notes Problem Hyperlipidemia (08936961) Other and unspecified hyperlipidemia (272.4) Active confirmed Major Problem Gynecological examination normal (250051609773222) Routine gynecological examination (V72.31) Active confirmed Diag Plan Of Treatment No Information Insurance Providers Payer Name Payer Address Payer Phone Subscriber Number Group Number Insured Name Patient Relationship to Insured Coverage Start Date Coverage End Date [facility] [address] [place] [address] [id number] WANG NATH Self - patient is the insured
--- OUTSIDE RECORDS SUMMARY | 2024-09-11 09:36 | XMS_ITS | Encounter Summary ---
Author Organization [facility], Address [address] [place] [address] Phone Care Team Providers Care Textile Scrap Salvager Name Role Phone Manda Fink MD Primary Care Pr ovider Encounter Details Date Type Department Care Team (Late st Contact Info) Description 06/08/2021 Documentation Only [facility], [address] [place] [address] [place], [place] [address] [place] [address] Social History Tobacco Use Types [...] on filedocumented in this encounter Care Teams Textile Scrap Salvager Relationship Specialty Start Date End Date Manda Fink MD PCP - General Internal Medicine 10/15/20 documented as of this encounter
[2024-09-11 11:05] LABS: Calcium 9.4 mg/dL (8.4-10.2); Uric Acid 5.1 mg/dL (2.4-5.7)
[2024-09-11 11:06] LABS: Parathyroid Hormone Intact 58.8 pg/mL (8.7-77.1)
== END 2024-09-11 09:08 | disposition home or self-care (01) ==
LOC: HO.LAB 09:07
PROVIDERS: PCP Internal Medicine; Visit Provider Internal Medicine Hypertension Specialist
DX: N20.1 Calculus of ureter (principal)
CPT/HCPCS: 36415; 82310; 83970; 84550

== ENCOUNTER 2024-09-19 15:20 | Outpatient (AMB) | payer OTHER, SELFPAY ==
[2024-09-19 15:30] VITALS: BP 116/70; PULSE 88; O2SAT 81; BMI 26.6
--- NOTE | 2024-09-19 15:30 | HO.NEPHOV ---
Vital Signs 09/19/24 15:30 Height 5 ft 4 in Weight 155 lb BMI 26.6 BP 116/70 Blood Pressure Location Rt brachial Position Sitting Pulse 88 Pulse Source Pulse Oximeter Pulse Oximetry (%) 81 L Oxygen Delivery Method Room Air Intake Visit Reasons: Calculus of kidney-Conf Mill Control Operator Required: No Accompanied by: Self / Same As Patient Allergies amoxicillin Allergy (Intermediate, Verified 07/11/24 11:34) Hives Penicillins Allergy (Intermediate, Verified 07/11/24 11:34) Hives Medication List - Last Reconciled 09/19/24 by Chinmay Julien MD biotin 10,000 mcg PO DAILY cholecalciferol (vitamin D3) (Vitamin D3) 25 mcg PO DAILY loratadine (Claritin) 10 mg PO DAILY multivitamin 1 tab PO DAILY pyridoxine (vitamin B6) 100 mg PO DAILY HPI Comments Details: pleasant 48-year-old woman with a history of nephrolithiasis. She has undergone lithotripsy and stent placement. She has had multiple stones complicated by urosepsis. She underwent 24 urine collection back in August of 2023. Urine volume was 1600 cc. She had hypercalciuria. Oxalate and citrate excretion were normal. She is scheduled for another urological procedure. She is here for further metabolic workup She appears to be following a healthy diet. She has cut back on high oxalate diet. She is drinking adequate fluids. She does not drink any Pepsi or Coke. 09/19/2024. Since her last visit she has cut down red meat intake. Overall she is doing well. She is [facility] Medical History (Updated 07/11/24 @ 11:54 by Vicente Mejía MD) Hydronephrosis Ureterolithiasis Ureteral stent present History of renal dialysis Pyelonephritis Hydronephrosis with renal calculous obstruction Renal calculi Surgical History Hx of cystoscopy Social History Household Members: Spouse and Children Housing: House Are you a primary primary care coordinator to a significant other at home: No Do you presently have visiting nurse or other home services: No Alcohol intake: never Patient Tobacco Use Status: Never used Tobacco service: No Current occupational status: unemployed Physical Exam Vital Signs: Last Vital Signs Pulse 88 05/08/25 15:30 BP 116/70 09/19/24 15:30 Pulse Ox 81 L 09/19/24 15:30 Oxygen Delivery Method Room Air 09/19/24 15:30 BMI result Body Mass Index 26.6 Comfortable Neck supple no JVD. Lungs entry equal no rales. Heart S1-S2 heard no gallop or rub. Abdomen soft nontender. Neuro alert awake oriented. No asterixis. Extremities no edema. Results Reviewed Nephrology Results: Sodium 137 mmol/L (135-145) 05/20/24 Potassium 4.3 mmol/L (3.3-5.1) 05/20/24 Chloride 109 mmol/L (96-108) H 05/20/24 Carbon Dioxide 23 mmol/L (22-29) 05/20/24 BUN 13 mg/dL (9-16) 05/20/24 Creatinine 0.80 mg/dL (0.5-1.4) 05/20/24 Calcium 9.4 mg/dL (8.4-10.2) 09/11/24 Phosphorus 2.9 mg/dL (2.7-4.5) 05/20/24 PTH Intact 58.8 pg/mL (8.7-77.1) 09/11/24 Urine Protein Negative mg/dL (Neg-Trace) 05/20/24 Renal US 06/25/24 Assessment & Plan Assessment & Plan (1) Bilateral kidney stones: Code(s): N20.0 - Calculus of kidney Category: Medical (2) Ureterolithiasis: Code(s): N20.1 - Calculus of ureter Category: Medical Plan Young woman with multiple renal stones. 24 hour urine collection shows a volume of 3100 cc. Sodium excretion was normal. Uric acid excretion and calcium excretion were elevated. Oxalate excretion was elevated as well. Serum uric acid was normal at 5.1 and intake PTH was 58. Serum calcium normal encouraged her to stay on a low-sodium diet Increase fluid intake to maintain a urine output of 2 L. She should continue with increase citrate ingestion and limit oxalate ingestion. Encouraged continue to limit high purine intake and red meat. Limit oxalate intake. Repeat 24 urine collection ordered to estimate urinary uric acid excretion and calcium excretion. If she has persistent hypercalciuria I would consider adding HCTZ Orders: Orders Sodium, 24Hr Urine Group Today N20.0 - Calculus of kidney Uric Acid, 24Hr Urine Group Today N20.0 - Calculus of kidney Creatinine, 24 Hr Group Today N20.0 - Calculus of kidney Calcium, 24 Hr Ur Today N20.0 - Calculus of kidney Oxalate, 24 Hr Today N20.0 - Calculus of kidney Citric Acid 24hr Urine Today N20.0 - Calculus of kidney Medications: Discontinued naproxen Discontinued Reason: Patient no longer taking 500 mg PO BID 7 days PRN 14 tabs 0RF pain oxycodone Partial Fill upon patient request. Discontinued Reason: Patient Completed Course 5 mg PO Q8H 3 days PRN 8 tabs 0RF pain Coding Level of Care Code Est Pt Level 4 (45578) Diagnoses Bilateral kidney stones N20.0 Ureterolithiasis N20.1
--- OUTSIDE RECORDS SUMMARY | 2024-09-19 15:55 | XMS_ITS | Encounter Summary ---
Author Organization [facility], Address [address] [place] [address] Phone Care Team Providers Care Intelligence Research Specialist Name Role Phone Manda Fink MD Primary Care Pr ovider Encounter Details Date Type Department Care Team (Late st Contact Info) Description 06/08/2021 Documentation Only [facility], [address] [place] [address] [place], [place] [address] [place] [address] Social History Tobacco Use Types [...] on filedocumented in this encounter Care Teams Intelligence Research Specialist Relationship Specialty Start Date End Date Manda Fink MD PCP - General Internal Medicine 10/15/20 documented as of this encounter
--- OUTSIDE RECORDS SUMMARY | 2024-09-19 15:55 | XMS_ITS | Clinical Summary ---
Author Organization [facility] [address] [facility] lding Address [address] [place] [address] Phone Care Team Providers Care Metal Model Builder Name Role Phone Manda Fink MD Primary [...] Procedure Name Priority Date/Time Associated Diagnosis Comments EXTERNAL CLINICAL LAB 09/11/2024 LIPID PANEL WITH REFLEX TO DIRECT LDL Routine 05/20/2024 11:56 AM EST Routine general medical examination at a health care facility BOZENA SCREENING DIGITAL Routine 10/31/2023 3:33 PM EDT Encounter for screening mammogram for malignant neoplasm of breast from Last 3 Months or Most Recently Relevant to Health Maintenance Results * External clinical lab (09/11/2024) us Provider [facility] LAB BLOOD ORDERABLES Fin al Result * (ABNORMAL) Lipid panel with reflex to direct LDL (05/20/2024 11:56 AM EST) Cholesterol 300(H) 0 - 200 mg/dL LAB CHEMISTRY METHOD 05/20/2024 3:42 PM EST [facility] Triglycerides 116 0 - 150 mg/dL LAB CHEMISTRY METHOD 05/20/2024 3:42 PM EST [facility] HDL 68 >=40 mg/dL LAB CHEMISTRY METHOD 05/20/2024 3:42 PM EST [facility] LDL Calculated 209(H) 0 - 100 mg/dL LAB CHEMISTRY METHOD 05/20/2024 3:42 PM EST [facility] VLDL Cholesterol Franklin 23.2 mg/dL LAB CHEMISTRY METHOD 05/20/2024 3:42 PM EST [facility] Non HDL Chol. (LDL+VLDL) 232(H) <145 mg/dL LAB CHEMISTRY METHOD 05/20/2024 3:42 PM EST [facility] Chol/HDL Ratio 4.4 0.0 - 4.4 LAB CHEMISTRY METHOD 05/20/2024 3:42 PM EST [facility] Blood Venous blood specimen / Unknown Venipuncture / Unknown 05/20/2024 11:56 AM EST 05/20/2024 11:56 AM EST us Manda Fink MD LAB BLOOD ORDERABL ES Final Result [facility] [address] [place] [address], * BOZENA SCREENING DIGITAL (10/31/2023 3:33 PM EDT) Anatomical Region Laterality Modality Mammography 10/31/2023 2:06 PM EDT Narrative 10/31/2023 3:33 PM EDT [facility] Diagnostic Imaging Department [address] [place] [address] Patient: ??EL RAMIRES ?/Age/Sex: 1975 - 47 - F Unit#: ??[id number] ? Location/Status: ??SPDIMAM/REG CLI ? Mnemonic/Ordering Site: ??DIGSC/SPMAM Ordering Physician: ??MANDA FINK MD [facility] Screening Digital - 10/31/23 - 1434 Report Status:Signed EXAM: [facility] Screening Digital EXAM DATE AND TIME: 10/31/2023 2:34 PM HISTORY: ??Annual screening COMPARISON: ??09/06/2022, 08/18/2021, 05/21/2020 and 03/20/2019 TECHNIQUE: Bilateral digital breast tomosynthesis was performed in the CC and MLO projections. Computer aided detection with [employer] 3D 3.1 was employed. TISSUE DENSITY: b. [...] Procedure Note Bessie Horvath MD - 02/28/2024 [facility] Diagnostic Imaging Department [address] [place], [place] [id number] Patient: EL RAMIRES /Age/Sex: 1975 - 47 - F Unit#: [id number] Location/Status: SPDIMAM/REG CLI Mnemonic/Ordering Site: [facility] Ordering Physician: MANDA FINK MD [facility] Screening Digital - 10/31/23 - 1434 Report Status:Signed EXAM: [facility] Screening Digital EXAM DATE AND TIME: 10/31/2023 2:34 PM HISTORY: Annual screening COMPARISON: 09/06/2022, 08/18/2021, 05/21/2020 and 03/20/2019 TECHNIQUE: Bilateral digital breast tomosynthesis was performed in the CCand MLO projections. Computer aided detection with [employer] AI 3D 3.1was employed. TISSUE DENSITY: b. There [...] Most Recently Relevant to Health Maintenance Insurance [employer] Care Teams Metal Model Builder Relationship Specialty Start Date End Date Manda Fink MD [address] [place] [id number] PCP - General Internal Medicine 05/20/24
--- OUTSIDE RECORDS SUMMARY | 2024-09-19 15:55 | XMS_ITS | Clinical Summary ---
Author Organization [facility], Address [address] [place] [address] [place] [address] Phone Care Team Providers Care Hotel Desk Clerk Name Role Phone Manda Fink MD [...] this topic Insurance Comprehensive Benefits Care Teams Hotel Desk Clerk Relationship Specialty Start Date End Date Manda Fink MD PCP - General Internal Medicine 10/15/20
--- OUTSIDE RECORDS SUMMARY | 2024-09-19 15:55 | XMS_ITS | Patient Health Record ---
Author Organization [facility] Address [address] [place] [address] Support Name Relationship Address Phone WANG NATH Guarantor Unknown [phone] Reason For Referral No Information Medications Medication SIG (Take, Route, Frequency, Duration) Notes Start Date End Date Status Vitamins 1 mg flate 1 ORAL daily for -3 Kumar-MJ 11/22/2012 Active Problems Problem Type SNOMED Code ICD Code Onset Dates Problem Status W/U Status Risk Notes Problem Hyperlipidemia (24273153) Other and unspecified hyperlipidemia (272.4) Active confirmed Major Problem Gynecological examination normal (535095701797609) Routine gynecological examination (V72.31) Active confirmed Diag Plan Of Treatment No Information Insurance Providers Payer Name Payer Address Payer Phone Subscriber Number Group Number Insured Name Patient Relationship to Insured Coverage Start Date Coverage End Date [facility] [address] [place] [address] [id number] WANG NATH Self - patient is the insured
== END 2024-09-19 15:54 | disposition home or self-care (01) ==
LOC: HO.HKA 15:21
PROVIDERS: PCP Internal Medicine; Visit Provider Internal Medicine Hypertension Specialist
DX: N20.0 Calculus of kidney (principal); N20.1 Calculus of ureter
CPT/HCPCS: 99214

== ENCOUNTER → 2024-09-19 15:20 | Outpatient (BNVA) | payer OTHER, SELFPAY | PROVIDERS: PCP Internal Medicine; Visit Provider Internal Medicine Hypertension Specialist ==

== ENCOUNTER 2024-11-14 12:35 | Outpatient (REF) | payer OTHER, SELFPAY ==
--- OUTSIDE RECORDS SUMMARY | 2024-11-14 12:48 | XMS_ITS | Patient Health Record ---
Author Organization [facility] Address [address] [place] [address] Support Name Relationship Address Phone WANG NATH Guarantor Unknown [phone] Reason For Referral No Information Medications Medication SIG (Take, Route, Frequency, Duration) Notes Start Date End Date Status Vitamins 1 mg flate 1 ORAL daily; Duration: -3 Kumar-MJ 11/22/2012 Active Problems Problem Type SNOMED Code ICD Code Onset Dates Problem Status W/U Status Risk Notes Problem Hyperlipidemia (86997033) Other and unspecified hyperlipidemia (272.4) Active confirmed Major Problem Gynecological examination normal (758952306106789) Routine gynecological examination (V72.31) Active confirmed Diag Plan Of Treatment No Information Insurance Providers Payer Name Payer Address Payer Phone Subscriber Number Group Number Insured Name Patient Relationship to Insured Coverage Start Date Coverage End Date [facility] [address] [place] [address] [phone] [id number] WANG NATH Self - patient is the insured
--- OUTSIDE RECORDS SUMMARY | 2024-11-14 12:48 | XMS_ITS | Encounter Summary ---
Author Organization [facility], Address [address] [place] [address] Phone Care Team Providers Care Wood Casket Maker Name Role Phone Manda Fink MD Primary Care Pr ovider Encounter Details Date Type Department Care Team (Late st Contact Info) Description 06/08/2021 Documentation Only [facility], [address] [place] [address] [place], [place] [address] [place] [address] Social History Tobacco Use Types [...] on filedocumented in this encounter Care Teams Wood Casket Maker Relationship Specialty Start Date End Date Manda Fink MD PCP - General Internal Medicine 10/15/20 documented as of this encounter
--- OUTSIDE RECORDS SUMMARY | 2024-11-14 12:48 | XMS_ITS | Clinical Summary ---
Author Organization [facility] [address] [facility] lding Address [address] [place] [address] Phone Care Team Providers Care Foaming Machine Operator Name Role Phone Manda Fink MD Primary [...] 77 05/01/2024 2:59 PM EST Temperature 36.9 C (98.4 F) 05/01/2024 2:59 PM EST Respiratory Rate - - Oxygen Saturation - [...] Maintenance Results * External clinical lab (09/11/2024) Provider [facility] LAB BLOOD ORDERABLES Fin al Result * (ABNORMAL) Lipid panel with reflex to direct LDL (05/20/2024 11:56 AM EST) Cholesterol 300(H) 0 - 200 mg/dL LAB CHEMISTRY METHOD 05/20/2024 3:42 PM EST [facility] Triglycerides 116 0 - 150 mg/dL LAB CHEMISTRY METHOD 05/20/2024 3:42 PM EST [facility] HDL 68 >=40 mg/dL LAB CHEMISTRY METHOD 05/20/2024 3:42 PM EST [facility] LDL Calculated 209(H) 0 - 100 mg/dL LAB CHEMISTRY METHOD 05/20/2024 3:42 PM EST [facility] VLDL Cholesterol Franklin 23.2 mg/dL LAB CHEMISTRY METHOD 05/20/2024 3:42 PM EST [facility] Non HDL Chol. (LDL+VLDL) 232(H) <145 mg/dL LAB CHEMISTRY METHOD 05/20/2024 3:42 PM EST [facility] Chol/HDL Ratio 4.4 0.0 - 4.4 LAB CHEMISTRY METHOD 05/20/2024 3:42 PM EST [facility] Blood Venous blood specimen / Unknown Venipuncture / Unknown 05/20/2024 11:56 AM EST 05/20/2024 11:56 AM EST us Manda Fink MD LAB BLOOD ORDERABL ES Final Result [facility] [address] [place] [address], * BOZENA SCREENING DIGITAL (10/31/2023 3:33 PM EDT) Anatomical Region Laterality Modality Mammography 10/31/2023 2:06 PM EDT Narrative 10/31/2023 3:33 PM EDT [facility] Diagnostic Imaging Department [address] [place] [address] Patient: EL RAMIRES /Age/Sex: 1975 - 47 - F Unit#: [id number] Location/Status: SPDIMAM/REG CLI Mnemonic/Ordering Site: [facility] Ordering Physician: MANDA FINK MD [facility] Screening Digital - 10/31/23 - 1434 Report Status:Signed EXAM: [facility] Screening Digital EXAM DATE AND TIME: 10/31/2023 2:34 PM HISTORY: Annual screening COMPARISON: 09/06/2022, 08/18/2021, 05/21/2020 and 03/20/2019 TECHNIQUE: Bilateral digital breast tomosynthesis was performed in the CC and MLO projections. Computer aided detection with [employer] 3D 3.1 was employed. TISSUE DENSITY: b. There are scattered areas of fibroglandular density. FINDINGS: No suspicious masses, grouped microcalcifications, or areas of architectural distortion are seen. The skin and vascularity are unremarkable. IMPRESSION: Stable mammographic appearance of the breasts. No evidence of malignancy is seen. A negative mammogram in the presence of a clinically suspicious palpable abnormality does not preclude the possibility of malignancy or alter the indications for biopsy. BI-RADS: Category 1: Negative RECOMMENDATION(S): 1: Routine screening mammogram BILATERAL in 1 year. Dictating Physician: BESSIE HORVATH MD Electronically Signed by: BESSIE HORVATH MD Dic Date/Time: 10/31/23 1531 Sign date/Time: 10/31/23 1533 Procedure Note Bessie Horvath MD - 02/28/2024 [facility] Diagnostic Imaging Department [address] [place] [address] Patient: EL RAMIRES D.O.B./Age/Sex: 1975 - 47 - F Unit#: [id number] Location/Status: SPDIMAM/REG CLI Mnemonic/Ordering Site: [facility] Ordering Physician: MANDA FINK MD [facility] Screening Digital - 10/31/23 - 1434 Report Status:Signed EXAM: [facility] Screening Digital EXAM DATE AND TIME: 10/31/2023 2:34 PM HISTORY: Annual screening COMPARISON: 09/06/2022, 08/18/2021, 05/21/2020 and 03/20/2019 TECHNIQUE: Bilateral digital breast tomosynthesis was performed in the CCand MLO projections. Computer aided detection with [employer] 3D 3.1was employed. TISSUE DENSITY: b. There [...] Most Recently Relevant to Health Maintenance Insurance [place] [place] [employer] [facility] Care Teams Foaming Machine Operator Relationship Specialty Start Date End Date Manda Fink MD [address] [place] [address] PCP - General Internal Medicine 05/20/24
[2024-11-14 13:18] LABS: Total Volume 24 Hour Urine 2125 mL
[2024-11-14 14:13] LABS: Creatinine, mg/dL 53.92; Sodium, 24 Hr Urine 75.0 mmol/L
[2024-11-14 14:24] LABS: Creatinine, mg/dL 53.62; Uric Acid, mg/dL 27.5 mg/dL
[2024-11-16 17:48] LABS: Calcium/Creatinine Ratio 219 mg/g creat (30-275); Creatinine 24Hr Urine 1.23 g/24 h (0.50-2.15)
[2024-11-19 08:08] LABS: 24hr Urine Total Volume 2125 mL; Citric Acid, 24hr Urine 1135 mg/24 h (100-1300); Citric Acid/Creat Ratio 24U 877 mg/g creat (180-1070); Creatinine, 24U 1.29 g/24 h (0.50-2.15)
[2024-11-22 00:29] LABS: 24hr Urine Total Volume 2125 mL; Oxalic Acid 24 Urine 24.9 mg/24 h (3.6-38.0)
== END 2024-11-14 12:36 | disposition home or self-care (01) ==
LOC: HO.LNP 12:35
PROVIDERS: Visit Provider Internal Medicine Hypertension Specialist
DX: N20.0 Calculus of kidney (principal)
CPT/HCPCS: 82340; 82507; 83945; 84300; 84560

== ENCOUNTER 2024-12-13 09:29 | Outpatient (REF) | payer OTHER, SELFPAY ==
--- NOTE | ~2024-12-13 | US_ITS ---
CLINICAL HISTORY: N20.1 - Calculus of ureter US of kidneys Comparison: US - US RENAL BI - 06/24/24 11:11 EST Findings: Right kidney is normal in size, echogenicity and morphology, 9.6 cm in length. Nonobstructing 3 calyceal calculi 2-4 mm at the interpolar region, no mass or hydronephrosis. Left kidney is normal in size, echogenicity and morphology, 10.0 cm in length. Calyceal calculi 5 mm in the lower pole, 3 mm in the midpole. 9 mm simple cyst at the midpole. Mild hydronephrosis. Limited color Doppler demonstrates unremarkable bilateral blood flow. Impression: 1. Mild left hydronephrosis, unchanged. 2. Nonobstructing bilateral nephrolithiasis, improved. This document has been electronically signed by: Rachelle Lucia MD on 12/13/2024 12:11:38
--- OUTSIDE RECORDS SUMMARY | 2024-12-13 09:40 | XMS_ITS | Encounter Summary ---
Author Organization [facility], Address [address] [place] [address] Phone Care Team Providers Care Hat Cleaner Name Role Phone Manda Fink MD Primary Care Pr ovider Encounter Details Date Type Department Care Team (Late st Contact Info) Description 06/08/2021 Documentation Only [facility], [address] [place] [address] [place], [place] [address] [place] [address] Social History Tobacco Use Types [...] on filedocumented in this encounter Care Teams Hat Cleaner Relationship Specialty Start Date End Date Manda Fink MD PCP - General Internal Medicine 10/15/20 documented as of this encounter
--- OUTSIDE RECORDS SUMMARY | 2024-12-13 09:40 | XMS_ITS | Patient Health Record ---
Author Organization [facility] Address [address] [place] [address] Support Name Relationship Address Phone WANG NATH Guarantor Unknown [phone] Reason For Referral No Information Medications Medication SIG (Take, Route, Frequency, Duration) Notes Start Date End Date Status Vitamins 1 mg flate 1 ORAL daily; Duration: -3 Kumar-MJ 11/22/2012 Active Problems Problem Type SNOMED Code ICD Code Onset Dates Problem Status W/U Status Risk Notes Problem Other and unspecified hyperlipidemia (272.4) Active confirmed Major Problem Gynecological examination normal (576477872329936) Routine gynecological examination (V72.31) Active confirmed Diag Plan Of Treatment No Information Insurance Providers Payer Name Payer Address Payer Phone Subscriber Number Group Number Insured Name Patient Relationship to Insured Coverage Start Date Coverage End Date [facility] [address] [place] [address] [id number] WANG NATH Self - patient is the insured
--- OUTSIDE RECORDS SUMMARY | 2024-12-13 09:40 | XMS_ITS | Encounter Summary ---
Author Organization [facility] Address [address] [place] [address] Care Team Providers Care Lean Sensei Name Role Phone Madna Fink MD Primary Care Prov ider Reason for Visit * Reason Onset Date Comments Referral 11/28/2024 Encounter Details Date Type Department Care Team ([facility] Contact Info) Description 11/28/2024 Telephone Adult Medicine - [place] [address] [place] [id number] Manda Fink MD [address] [place] [address] Referral Social History Tobacco Use Types Packs/Day Years Used Date Smoking Tobacco: Former Cigarettes Q uit: 08/30/2002 Smokeless Tobacco: Never Alcohol Use Standard Drinks/Week Comments Yes 0 (1 standard drink = 0.6 oz pur e alcohol) Comments No Sex and Gender Information Value Date Recorded Sex Assigned at Not on file Legal Sex Female 9:19 PM EST Gender Identity Not on file Sexual Orientation Not on file documented as of this encounter Progress Notes * Paul Clifford - 11/28/2024 11:43 AM EDT Referral Request: What insurance does the patient have today? [employer] [place] Referrals cannot be processed if the insurance is not accurate. If the insurance listed above in red is NO BILLING INFORMATION FOUND FOR THIS ENCOUTNER The patients correct insurance must be obtained and registered in [facility] or their referral can not be processed. Who is calling to request this referral? Patient If the caller is not the patient, what is their name? not applicable Ask the patient WHO referred them to this specialty: Patient self referred FIRST and LAST NAME of SPECIALIST PATIENT is seeing: [facility] Gastroenterology What specialty is this? Gastroenterology DIAGNOSIS Patient is being seen for (Not a body part or a procedure): Colonoscopy Have you seen this SPECIALIST for this PROBLEM/DX before? If YES, when? No Have you checked REVIEW or the APPT DESK to see if this referral has already been done or has visits left? yes Is this visit: Initial Visit Address of Specialist: [address] [place] [address] Phone # of Specialist: Fax #: (if applicable): [phone] Does patient have an appointment scheduled?: no Date of appointment- (including a retro-request): Is this appointment related to: documented in this encounter Plan of Treatment Not on file documented as of this encounter Visit Diagnoses Not on filedocumented in this encounter Additional Health Concerns Assessment Noted Time PHQ-9 Depression Total Score: 0 05/01/20 24 2:55 PM EST documented as of this encounter Care Teams Lean Sensei Relationship Specialty Start Date End Date Manda Fink MD [address] [place] [address] PCP - General Internal Medicine 05/20/24 documented as of this encounter
== END 2024-12-13 09:30 | disposition home or self-care (01) ==
LOC: HO.US 09:29
PROVIDERS: PCP Internal Medicine; Visit Provider Urology
DX: N20.1 Calculus of ureter (principal)
CPT/HCPCS: 76775

== ENCOUNTER → 2024-12-13 09:30 | Outpatient (BNV) | payer OTHER, SELFPAY | PROVIDERS: PCP Internal Medicine; Visit Provider Radiology Diagnostic Radiology | DX: N20.0 Calculus of kidney (principal) | CPT/HCPCS: 76775 ==

== ENCOUNTER 2024-12-19 11:12 | Outpatient (AMB) | payer OTHER, SELFPAY ==
--- NOTE | 2024-12-19 11:15 | A.OFFVIS_ITS ---
Intake Visit Reasons: 6m/US Intake Note: Patient is present for 6 MO follow up Urology Medication:VITAMIN B6 Antibiotic Allergy:AMOXICILLIN,PENICILLIN Blood Thinner:NONE Ultrasound done : 12/13/2024 Materials Engineering Technician Required: No Accompanied by: Unknown Allergies amoxicillin Allergy (Intermediate, Verified 12/19/24 11:45) Hives Penicillins Allergy (Intermediate, Verified 12/19/24 11:45) Hives HPI Comments Details: El is a pleasant female. She is a patient of Dr.Hayfron- [place]. She is seen for the following urologic conditions - nephrolithiasis Six-month follow-up Due to high calcium would consider starting indapamide Sees Nephrology Most recent imaging showed significant reduction in stone burden Has been doing better over past 12 months Recommend continuing with positional drainage Urinary Symptoms Review - Persistent presence of renal stone fragments identified on ultrasound - History of nephrolithiasis with recurrent urinary stone formation - No mention of urinary frequency, urgency, pain, incontinence, or nocturia within the conversation Nephrolithiasis Recurrent stone former Imaging - 11/06 renal ultrasound 3 mm stone right, 3 mm stone left Intervention - 09/05 left ureteroscopy with laser lithotripsy - 06/08 right ESWL Composition - 09/05 calcium oxalate dihydrate 65% 24 hour urine - 10/05 volume 1600, calcium 320, oxalate 36, citrate 1000, sodium 179 PFSH Medical History (Updated 07/11/24 @ 11:54 by Vicente Mejía MD) Hydronephrosis Ureterolithiasis Ureteral stent present History of renal dialysis Pyelonephritis Hydronephrosis with renal calculous obstruction Renal calculi Surgical History Hx of cystoscopy Social History Household Members: Spouse and Children Housing: House Are you a primary care clinician to a significant other at home: No Do you presently have visiting nurse or other home services: No Alcohol intake: never Patient Tobacco Use Status: Never used Tobacco service: No Current occupational status: unemployed Review of Systems Const Denies chills and Denies fever(s) Card Reports no additional complaints and Denies syncope Resp Denies cough GI Denies abdominal pain and Denies heartburn Reports as per HPI and Denies change in libido Neuro Denies syncope Psych Denies change in libido Endo Denies change in libido Physical Exam Const General: cooperative, healthy appearing, comfortable and no acute distress Orientation/consciousness: patient oriented x3 HEENT Face and sinus: Yes normal facial exam Mouth: moist mucous membranes Neck Neck: Yes normal visual inspection, Yes full ROM and Yes trachea midline Chest Chest palpation & inspection: normal inspection of the chest Resp Effort & Inspection: normal respiratory effort, able to speak in complete sentences and no respiratory distress GI Inspection: Yes normal to inspection Back/Spine/Pelvis Cervical Spine: normal cervical lordosis Thoracic/Lumbar Spine: thoracic and lumbar spine normal to inspection Skin General skin exam: no rashes or lesions noted Neuro General: patient oriented x3, gait normal, tone normal and moves all extremities Extrem General: Yes normal to inspection and Yes capillary refill normal Assessment & Plan Assessment & Plan (1) Hypercalciuria: Code(s): R82.994 - Hypercalciuria Category: Medical (2) Bilateral kidney stones: Code(s): N20.0 - Calculus of kidney Category: Medical Plan Twelve month follow-up Orders: Orders US renal BI 12 Months N20.0 - Calculus of kidney Patient Instructions: This note is constructed using voice recognition software. While every effort has been made to ensure accuracy building equipment inspector errors may have been included. Imaging studies, laboratory and physical exam results were discussed and reviewed in detail. No major barriers to patient understanding were identified. An opportunity to ask questions regarding the treatment plan was provided. All questions were answered. The patient expressed understanding and agreement with the above treatment plan. The patient is aware they should contact our office by phone for worsening of their current condition or the appearance of new urologic symptoms. Compliance is encouraged with any medications and followup testing that is ordered. It is a privilege to participate in the urologic care of your patient. If you have any questions or concerns regarding treatment for the above conditions, or other urologic issues, please do not hesitate to contact me. The office telephone contact is [phone]. Sincerely, Dr Vicente Mejía MD, [facility] - Urology Compassionate Specialist Care for the Genitourinary System Coding Level of Care Code Est Pt Level 3 (32011) Complex EM visit Add On G2211 Diagnoses Hypercalciuria R82.994 Bilateral kidney stones N20.0
--- OUTSIDE RECORDS SUMMARY | 2024-12-19 11:52 | XMS_ITS | Encounter Summary ---
Author Organization [facility], Address [address] [place] [address] Phone Care Team Providers Care Jewelry Bearing Maker Name Role Phone Manda Fink MD Primary Care Pr ovider Encounter Details Date Type Department Care Team (Late st Contact Info) Description 06/08/2021 Documentation Only [facility], [address] [place] [address] [place], [place] [address] [place] [address] Social History Tobacco Use Types [...] on filedocumented in this encounter Care Teams Jewelry Bearing Maker Relationship Specialty Start Date End Date Manda Fink MD PCP - General Internal Medicine 10/15/20 documented as of this encounter
--- OUTSIDE RECORDS SUMMARY | 2024-12-19 11:53 | XMS_ITS | Patient Health Record ---
Author Organization [email or web address] [facility] Address [address] [place] [address] Support Name Relationship Address Phone WANG NATH Guarantor Unknown [phone] Reason For Referral No Information Medications Medication SIG (Take, Route, Frequency, Duration) Notes Start Date End Date Status Vitamins 1 mg flate 1 ORAL daily; Duration: -3 Kumar-MJ 11/22/2012 Active Problems Problem Type SNOMED Code ICD Code Onset Dates Problem Status W/U Status Risk Notes Problem Hyperlipidemia (64110597) Other and unspecified hyperlipidemia (272.4) Active confirmed Major Problem Gynecological examination normal (163468027202967) Routine gynecological examination (V72.31) Active confirmed Diag Plan Of Treatment No Information Insurance Providers Payer Name Payer Address Payer Phone Subscriber Number Group Number Insured Name Patient Relationship to Insured Coverage Start Date Coverage End Date [facility] [address] [place] [address] [id number] WANG NATH Self - patient is the insured
--- OUTSIDE RECORDS SUMMARY | 2024-12-19 11:53 | XMS_ITS | Encounter Summary ---
Author Organization [facility] Address [address] [place] [address] Care Team Providers Care Hot Man Name Role Phone Manda Fink MD Primary Care Prov ider Reason for Visit * Reason Onset Date Comments Referral 11/28/2024 Encounter Details Date Type Department Care Team ([facility] Contact Info) Description 11/28/2024 Telephone Adult Medicine - [place] [address] [place] [id number] Manda Fink MD [address] [place] [address] Referral Social History Tobacco Use Types Packs/Day [...] patient have today? [employer] [place] Referrals cannot be processed if the insurance is not accurate. If the insurance listed above in red is NO BILLING INFORMATION FOUND FOR THIS ENCOUTNER The patients correct insurance must be obtained and registered in [facility] or their referral can not be processed. Who is calling to request this referral? Patient If the caller is not the patient, what is their name? not applicable Ask the patient WHO referred them to this specialty: Patient self referred FIRST and LAST NAME of SPECIALIST PATIENT is seeing: [facility] Gastroenterology What specialty is this? Gastroenterology DIAGNOSIS Patient is being seen for (Not a body part or a procedure): Colonoscopy Have you seen this SPECIALIST for this PROBLEM/DX before? If YES, when? No Have you checked REVIEW or the APPT DESK to see if this referral has already been done or has visits left? yes Is this visit: Initial Visit Address of Specialist: [address] [place] [address] Phone # of Specialist: Fax #: (if applicable): [phone] Does patient have an appointment scheduled?: no [...] documented as of this encounter Care Teams Hot Man Relationship Specialty Start Date End Date Manda Fink MD [address] [place] [address] PCP - General Internal Medicine 05/20/24 documented as of this encounter
== END 2024-12-19 12:04 | disposition home or self-care (01) ==
LOC: HO.HUSH 11:13
PROVIDERS: PCP Internal Medicine; Visit Provider Urology
DX: R82.994 Hypercalciuria (principal); N20.0 Calculus of kidney
CPT/HCPCS: 99213

== ENCOUNTER → 2024-12-19 11:12 | Outpatient (BNVA) | payer OTHER, SELFPAY | PROVIDERS: PCP Internal Medicine; Visit Provider Urology | DX: N20.0 Calculus of kidney (principal) | CPT/HCPCS: 81003 ==

== ENCOUNTER 2025-03-20 10:31 | Outpatient (AMB) | payer OTHER, SELFPAY ==
[2025-03-20 10:32] VITALS: BP 122/74; BMI 26.3
--- NOTE | 2025-03-20 10:32 | HO.NEPHOV_ITS ---
Vital Signs 03/20/25 10:32 Height 5 ft 4 in Weight 153 lb BMI 26.3 BP 122/74 Blood Pressure Location Rt brachial Position Sitting Intake Visit Reasons: FU lvm [employer] Worker Required: No Accompanied by: Self / Same As Patient Allergies amoxicillin Allergy (Intermediate, Verified 03/20/25 10:34) Hives Penicillins Allergy (Intermediate, Verified 03/20/25 10:34) Hives Medication List - Last Reconciled 03/20/25 by Chinmay Julien MD biotin 10,000 mcg PO DAILY cholecalciferol (vitamin D3) (Vitamin D3) 25 mcg PO DAILY loratadine (Claritin) 10 mg PO DAILY multivitamin 1 tab PO DAILY pyridoxine (vitamin B6) 100 mg PO DAILY HPI Comments Details: pleasant 48-year-old woman with a history of nephrolithiasis. She has undergone lithotripsy and stent placement. She has had multiple stones complicated by urosepsis. She underwent 24 urine collection back in August of 2023. Urine volume was 1600 cc. She had hypercalciuria. Oxalate and citrate excretion were normal. She is scheduled for another urological procedure. She is here for further metabolic workup She appears to be following a healthy diet. She has cut back on high oxalate diet. She is drinking adequate fluids. She does not drink any Pepsi or Coke. 09/19/2024. Since her last visit she has cut down red meat intake. Overall she is doing well. She is consuming seaMoss 03/20/25 No new issues [facility] Medical History (Updated 07/11/24 @ 11:54 by Vicente Mejía MD) Hydronephrosis Ureterolithiasis Ureteral stent present History of renal dialysis Pyelonephritis Hydronephrosis with renal calculous obstruction Renal calculi Surgical History Hx of cystoscopy Social History Household Members: Spouse and Children Housing: House Are you a primary long term care social worker to a significant other at home: No Do you presently have visiting nurse or other home services: No Alcohol intake: never Patient Tobacco Use Status: Never used Tobacco service: No Current occupational status: unemployed Physical Exam Vital Signs: Last Vital Signs BP 122/74 11/06/25 10:32 BMI result Body Mass Index 26.3 Comfortable Neck supple no JVD. Lungs entry equal no rales. Heart S1-S2 heard no gallop or rub. Abdomen soft nontender. Neuro alert awake oriented. No asterixis. Extremities no edema. Results Reviewed Nephrology Results: Calcium, (8.4-10.2) 9.4 mg/dL 09/11/24 PTH Intact, (8.7-77.1) 58.8 pg/mL 09/11/24 Renal US 12/13/24 Assessment & Plan Assessment & Plan (1) Bilateral kidney stones: Code(s): N20.0 - Calculus of kidney Category: Medical (2) Ureterolithiasis: Code(s): N20.1 - Calculus of ureter Category: Medical Plan Young woman with multiple renal stones. 24 hour urine collection shows a volume of 3100 cc. Sodium excretion was normal. Uric acid excretion and calcium excretion were elevated. Oxalate excretion was elevated as well. Serum uric acid was normal at 5.1 and intake PTH was 58. Serum calcium normal encouraged her to stay on a low-sodium diet Increase fluid intake to maintain a urine output of 2 L. She should continue with increase citrate ingestion and limit oxalate ingestion. Encouraged continue to limit high purine intake and red meat. Limit oxalate intake. Repeat 24 urine collection shows decreased calcium excretion of 270 mg frmo 480 mg. Stay on low salt diet Increase PO fluids Orders: Orders Basic Metabolic Panel 1 Year N20.0 - Calculus of kidney, R82.994 - Hypercalciuria UA and rflx microscopic 1 Year N20.0 - Calculus of kidney, R82.994 - Hypercalciuria Sodium Urine Random 1 Year N20.0 - Calculus of kidney, R82.994 - Hypercalciuria Creatinine Urine 1 Year N20.0 - Calculus of kidney, R82.994 - Hypercalciuria Coding Level of Care Code Est Pt Level 4 (24556) Diagnoses Bilateral kidney stones N20.0 Ureterolithiasis N20.1
--- OUTSIDE RECORDS SUMMARY | 2025-03-20 12:32 | XMS_ITS | Clinical Summary ---
Author Organization [facility] [address] [facility] Address [address] [place] [address] Phone Care Team Providers Care Steel Plate Printer Name Role Phone Manda Fink MD Primary [...] 02/15/2017 Psoriasis 08/30/2012 Vertigo, benign paroxysmal 08/30/2012 Immunizations Immunization Administration Dates Next Due Influenza Quadravalent, MDCK , 0.5ml, preservative free (Flucelvax) 6mo and older 06/01/2021 Influenza Quadrivalent, 0.5m l, preservative free (Fluarix; FluLaval; Fluzone) ages 6mo and older (Afluria) 3yo and older 02/26/2019 PPD Test 05/25/2009,01/09/2007 Td Tetanus diptheria (Tdvax) 7yo and older 07/06 Tdap Tetanus diptheria acell ular pertussis (Boostrix; Adacel) 7yo and older 11/25/2022,08/30/2012 Surgical History Surgery Date Site/Laterality Comments WISDOM [...] Sexual Orientation Not on file Obstetrics History Para Term AB IAB SAB Ectopic Multiple Livin g Live Births 2 Last Filed Vital Signs Vital Sign Reading Time Taken Comments Blood Pressure 113/71 12/02/2024 2:18 PM EDT Pulse 77 12/02/2024 2:18 PM EDT Temperature 36.4 C (97.6 F) 12/02/2024 2:18 PM EDT Respiratory Rate - - Oxygen Saturation - - Inhaled Oxygen Concentration - - Weight 70.8 kg (156 lb) 12/02/2024 2:18 PM EDT Height 162.6 cm (5' 4 ) 11/28/2024 9:07 AM EDT Body Mass Index 26.78 11/28/2024 9:07 AM EDT Plan of Treatment Health Maintenance Due Date Last Done Comments Colorectal Cancer Screening: Colonoscopy 1976 Hepatitis B Vaccines (1 of 3 - 19+ 3-dose series) 12/17/1995 Cervical Cancer Screening: Pap Smear 1997 Depression Screening 05/15/2024 05/01/2024 Breast Cancer Screening 11/28/2026 11/29/19, 10/31/2023, 09/06/2022, Additional history exists Cholesterol Screening (Lipid Panel) 05/20/2029 05/20/2024 DTaP,Tdap,and Td Vaccines (4 - Td or Tdap) 11/25/2032 11/25/2022, 08/30/2012, 07/06/2006 RSV Immunization Adult Patients (1 - 1-dose 75+ series) 12/17/2051 COVID-19 Vaccine Discontinued 01/11/2021, 12/14/2020 Influenza Vaccine [...] 49 Years) Aged Out No longer eligible based on patient's age to complete this topic RSV Immunization Patients Under 20 months Aged Out No longer eligible based on patient's age to complete this topic Social Influencers of Health Screening Discontinued Varicella Vaccines Aged Out No longer eligible based on patient's age to complete this topic Procedures Procedure Name Priority Date/Time Associated Diagnosis Comments MG MAMMO DIGITAL SCREENING W LUZ BILAT Routine 11/28/2024 9:12 AM EDT Encounter for screening mammogram for breast cancer LIPID PANEL WITH REFLEX TO DIRECT LDL Routine 05/20/2024 11:56 AM EST Routine general medical examination at a health care facility from Last 3 Months or Most Recently Relevant to Health Maintenance Results * MG Mammo Digital Screening w Luz bilat (11/28/2024 9:12 AM EDT) Anatomical Region Laterality Modality Breast Bilateral Mammography 11/28/2024 12:2 2 PM EDT Impressions 11/28/2024 12:28 PM EDT No mammographic evidence of malignancy. No suspicious interval change. A negative mammogram in the presence of a clinically suspicious palpable abnormality does not preclude the possibility of malignancy or alter the indications for biopsy. ASSESSMENT: BI-RADS 1: NEGATIVE RECOMMENDATION(S): 1: Routine screening mammogram BILATERAL in 1 year. [facility] [address], [address] -------- FINAL REPORT -------- Dictated By: Chente Quinonez Dictated Date: 11/28/2024 12:22 ET Assigned Physician: Chente Quinonez Reviewed and Electronically Signed By: Chente Quinonez Signed Date: 11/28/2024 12:28 ET Workstation ID: [id number] Transcribed By: Self Edit Transcribed Date: 11/28/2024 12:22 ET Narrative 11/28/2024 12:28 PM EDT EXAM: SCREENING MAMMOGRAPHY, BILATERAL HISTORY: SCREENING. Mother diagnosed with breast cancer age 52. COMPARISON: 10/31/23, 09/06/22, 08/18/21, 05/21/20 TECHNIQUE: Synthesized CC and MLO projections of each breast. Tomosynthesis of each breast in the CC and MLO projections. ADDITIONAL IMAGING: None Computer-aided detection was employed with the iCAD [employer] AI 3-D. TISSUE DENSITY: There are scattered areas of fibroglandular density. (BI-RADS category B) FINDINGS: RIGHT BREAST: No suspicious mass. No suspicious calcification. No distortion. No additional suspicious right breast findings LEFT BREAST: No suspicious mass. No suspicious calcification. No distortion. No additional suspicious left breast findings Procedure Note Chente Quinonez MD - 11/28/2024 EXAM: SCREENING MAMMOGRAPHY, BILATERAL HISTORY: SCREENING. Mother diagnosed with breast cancer age 52. COMPARISON: 10/31/23, 09/06/22, 08/18/21, 05/21/20 TECHNIQUE: Synthesized CC and MLO projections of each breast.Tomosynthesis of each breast in the CC and MLO projections. ADDITIONAL IMAGING: None Computer-aided detection was employed with the iCAD [employer]Found AI 3-D. TISSUE DENSITY: There are scattered areas of fibroglandular density.(BI-RADS category B) FINDINGS: RIGHT BREAST: No suspicious mass. No suspicious calcification. No distortion. Noadditional suspicious right breast findings LEFT BREAST: No suspicious mass. No suspicious calcification. No distortion. Noadditional suspicious left breast findings IMPRESSION: No mammographic evidence of malignancy. No suspicious interval change. A negative mammogram in the presence of a clinically suspicious palpableabnormality does not preclude the possibility of malignancy or alter theindications for biopsy. ASSESSMENT: BI-RADS 1: NEGATIVE RECOMMENDATION(S): 1: Routine screening mammogram BILATERAL in 1 year. [facility] location[facility] [address], [address] -------- FINAL REPORT -------- Dictated By: Chente Quinonez Dictated Date: 11/28/2024 12:22 ET Assigned Physician: Chente Quinonez Reviewed and Electronically Signed By: Chente Quinonez Signed Date: 11/28/2024 12:28 ET Workstation ID: [id number] Transcribed By: Self Edit Transcribed Date: 11/28/2024 12:22 ET us Self Referral Sppl IMG BI PROCEDURES Final Resul t * (ABNORMAL) Lipid panel with reflex to direct LDL (05/20/2024 11:56 AM EST) Cholesterol 300(H) 0 - 200 mg/dL LAB CHEMISTRY METHOD 05/20/2024 3:42 PM EST [facility] Triglycerides 116 0 - 150 mg/dL LAB CHEMISTRY METHOD 05/20/2024 3:42 PM EST [facility] HDL 68 >=40 mg/dL LAB CHEMISTRY METHOD 05/20/2024 3:42 PM EST [facility] LDL Calculated 209(H) 0 - 100 mg/dL LAB CHEMISTRY METHOD 05/20/2024 3:42 PM [facility] VLDL Cholesterol [place] 23.2 mg/dL LAB CHEMISTRY METHOD 05/20/2024 3:42 PM EST [facility] Non HDL Chol. (LDL+VLDL) 232(H) <145 mg/dL LAB CHEMISTRY METHOD 05/20/2024 3:42 PM EST [facility] Chol/HDL Ratio 4.4 0.0 - 4.4 LAB CHEMISTRY METHOD 05/20/2024 3:42 PM [facility] Blood Venous blood specimen / Unknown Venipuncture / Unknown 05/20/2024 11:56 AM EST 05/20/2024 11:56 AM EST us Manda Fink MD LAB BLOOD ORDERABL ES Final Result [facility] [address] [place] [address], from Last 3 Months or Most Recently Relevant to Health Maintenance Insurance [employer] [facility] Care Teams Steel Plate Printer Relationship Specialty Start Date End Date Manda Fink MD PCP - General Internal Medicine 05/20/24
--- OUTSIDE RECORDS SUMMARY | 2025-03-20 12:32 | XMS_ITS | Patient Health Record ---
Author Organization [employer] Address [address] [place] [address] Support Name Relationship Address Phone WANG NATH Guarantor Unknown [phone] Reason For Referral No Information Medications Medication SIG (Take, Route, Frequency, Duration) Notes Start Date End Date Status Vitamins 1 mg flate 1 ORAL daily; Duration: -3 Kumar-MJ 11/22/2012 Active Problems Problem Type SNOMED Code ICD Code Onset Dates Problem Status W/U Status Risk Notes Problem Hyperlipidemia (29287661) Other and unspecified hyperlipidemia (272.4) Active confirmed Major Problem Gynecological examination normal (211011954975831) Routine gynecological examination (V72.31) Active confirmed Diag Plan Of Treatment No Information Insurance Providers Payer Name Payer Address Payer Phone Subscriber Number Group Number Insured Name Patient Relationship to Insured Coverage Start Date Coverage End Date [facility] [address] [place] [address] [id number] WANG NATH Self - patient is the insured
== END 2025-03-20 10:44 | disposition home or self-care (01) ==
LOC: HO.HKA 10:32
PROVIDERS: PCP Internal Medicine; Visit Provider Internal Medicine Hypertension Specialist
DX: N20.0 Calculus of kidney (principal); N20.1 Calculus of ureter
CPT/HCPCS: 99214